=== PATIENT | female | born 1990 | race Caucasian/White ===

== ENCOUNTER 2020-10-23 11:45 | Emergency (ER) | payer OTHER, SELFPAY ==
[2020-10-23] VITALS (10 sets, daily range): BP systolic 102–111; BP diastolic 53–73; PULSE 62–94; RESP 11–21; TEMP 36.4–36.8; O2SAT 100
--- NOTE | ~2020-10-23 | XR_ITS ---
EXAMINATION: XR chest 2V 10/23/2020 12:49 INDICATION: Chest pain, shortness of breath and tightness PROCEDURE: 2 view chest COMPARISON: 05/20/2005 FINDINGS: The lungs are clear. The cardiomediastinal silhouette is within normal limits. There are no pleural effusions. There is no pneumothorax suspected. IMPRESSION: 1: NO ACUTE CARDIOPULMONARY DISEASE. Reviewed, dictated and finalized at location A.
--- NOTE | 2020-10-23 12:03 | ECG_ITS ---
Measurements Intervals [place] Rate: 84 P: 73 VA: 157 QRS: 60 QRSD: 77 T: 53 QT: 372 QTc: 442 Interpretive Statements SINUS RHYTHM NORMAL ECG Electronically Signed On 10-23-2020 12:15:25 CDT by Ever Keyes D.O.
[2020-10-23 12:27] LABS: Basophils Percent Auto 0.4 % (0.2-1.2); Eosinophils Absolute Auto 0.2 K/mm3 (0-0.3); Eosinophils Percent Auto 3.9 % (0-4.4); Hematocrit 39.2 % (37.0-47.0); Lymphocytes Absolute Auto 1.39 K/mm3 (0.9-3.2); Lymphocytes Percent Auto 28.8 % (18.3-44.2); Mean Corpuscular HGB Conc 33.2 g/dl (32-36); Mean Corpuscular Hemoglobin 30.7 pg (26-34); Mean Corpuscular Volume 92.7 fl (80-100); Mean Platelet Volume 9.5 fl (7.4-10.4); Monocytes Absolute Auto 0.3 K/mm3 (0.1-0.6); Neutrophils Absolute Auto 2.9 K/mm3 (1.3-6.7); Neutrophils Percent Auto 59.9 % (45.5-73.1); Platelet Count Result 333 k/mm3 (150-375); Red Blood Count 4.23 M/mm3 (4.2-5.4); Red Cell Distribution Width 12.5 % (11.5-14.5); White Blood Count 4.8 K/mm3 (4.5-10.0)
[2020-10-23 12:40] LABS: Anion Gap 6 mmol/L (8-16); Blood Urea Nitrogen 6 mg/dL (7-17); Calcium 9.2 mg/dL (8.4-10.2); Carbon Dioxide 21 mmol/L (22-30); Chloride 114 mmol/L (98-107); Estimated CRCL calculation 114 ml/min; Estimated Glomerular Filt Rate > 60; Glucose 84 mg/dL (65-110); Potassium 3.9 mmol/L (3.4-5.0); Sodium 141 mmol/L (137-145)
[2020-10-23 12:48] LABS: Prothrombin Time 12.6 Seconds (11.1-14.7)
[2020-10-23 12:49] LABS: Partial Thromboplastin Time 25.1 SECONDS (22.3-36.8)
[2020-10-23 12:51] LABS: Troponin I < 0.012 ng/mL (0.000-0.034)
--- NOTE | 2020-10-23 15:01 | ED.GENADULT ---
HPI - General Adult General Chief complaint: Chest Pain Stated complaint: Multiple c/o Time Seen by Provider: 10/23/20 15:00 Source: patient and family Mode of arrival: ambulatory Limitations: no limitations History of Present Illness HPI narrative: Patient had been out fishing with her father for approximately an hour this morning when she started to feel short of breath and lightheaded, she had some tightness in her chest. She went home to cool off but did not get any better, so she called her father back to drive her here. She says since she been here the shortness of breath is gotten much better. She still feels a little off . She states that she did drink 64 ounces of water while fishing. She has no change in medication, no recent illness. Onset (ago): hour(s) Severity: mild Pain Consistency: constant Relieving factors: none Exacerbating factors: none Associated symptoms: denies other symptoms Related Data Home Medications Medication Instructions Recorded Confirmed cetirizine [Zyrtec] 10 mg PO DAILY 10/23/20 quetiapine [Seroquel] 25 mg PO HS 10/23/20 ropinirole [Requip] mg 10/23/20 Allergies Allergy/AdvReac Type Severity Reaction Status Date / Time acetaminophen AdvReac Severe Nausea, Verified 10/23/20 14:35 Dizzy, Lightheaded oxycodone AdvReac Severe Nausea, Verified 10/23/20 14:35 Dizzy, Lightheaded Review of Systems Review of Systems: All systems reviewed & are unremarkable except as noted in HPI and below [facility] Past Medical History Medical History (Updated 10/23/20 @ 17:18 by Katina Etienne PA-C) Atrial tachycardia Surgical History Surgical History (Updated 10/23/20 @ 15:16 by Katina Etienne PA-C) S/P ablation operation for arrhythmia Social History Social History (Updated 10/23/20 @ 15:17 by Katina Etienne PA-C) Tobacco type: e-cigarettes/vaping Alcohol use details: occasional Substance use: never Living arrangements: with family Exam Const: General: healthy appearing, no acute distress and alert Orientation/consciousness: patient oriented x3 HENMT: Head: normal to inspection Ears: TM's normal bilaterally Mouth: Yes moist mucous membranes Eyes: Pupils: Equal, round and reactive pupils present Resp: Effort & Inspection: normal respiratory effort Auscultation: clear to auscultation bilaterally Cardio: Rate: regular rate Rhythm: regular rhythm GI: GI Palp: Yes Soft to palpation : General: Yes no CVA tenderness Skin: General skin exam: normal color and other (extremities slightly cool to touch, <2 sec perfusion distally.) Neuro: General: patient oriented x3, moves all extremities and no focal motor deficits Psych: Mental Status: mental status grossly normal Course Course Emergency Course: Orthostatic blood pressures were without gradient. Patient states she is feels much better after fluid resuscitation. She is ready to go home. All labs and x-rays EKG were reviewed with patient Vital Signs Vital signs: Vital Signs Temperature 36.4 C 10/23/20 12:00 Pulse Rate 94 10/23/20 12:00 Respiratory Rate 16 10/23/20 12:00 Blood Pressure 103/53 L 10/23/20 12:00 Pulse Oximetry 100 10/23/20 12:00 Temperature 36.4 C 10/23/20 12:00 Pulse Rate 94 10/23/20 12:00 Respiratory Rate 16 10/23/20 12:00 Blood Pressure 103/53 L 10/23/20 12:00 Pulse Oximetry 100 10/23/20 12:00 Medical Decision Making Vital Signs Vital Signs: Vital Signs Temperature 36.4 C 10/23/20 12:00 Pulse Rate 94 10/23/20 12:00 Respiratory Rate 16 10/23/20 12:00 Blood Pressure 103/53 L 10/23/20 12:00 Pulse Oximetry 100 10/23/20 12:00 Temperature 36.4 C 10/23/20 12:00 Pulse Rate 94 10/23/20 12:00 Respiratory Rate 16 10/23/20 12:00 Blood Pressure 103/53 L 10/23/20 12:00 Pulse Oximetry 100 10/23/20 12:00 Lab Data Result diagrams: 10/23/20 12:17 10/23/20 12:17 Labs: La
[2020-10-23] MEDS: ASPIRIN 81 MG CHEWABLE TABLET 324 MG PO (15:02)
[2020-10-23 15:35] LABS: Troponin I < 0.012 ng/mL (0.000-0.034)
[2020-10-23] MEDS: SODIUM CHLORIDE 0.9% IV 1,000 ML 999 ML IV CONT (15:50)
== END 2020-10-23 17:25 | disposition home or self-care (01) ==
PROVIDERS: Emergency Medicine; Emergency Provider Emergency Medicine; PCP Family Medicine
DX: E86.0 Dehydration (principal)
CPT/HCPCS: 36415; 71046; 80048; 84484; 85025; 85610; 85730; 93005; 96360; 99284; A9270; J7030

== ENCOUNTER 2021-11-04 11:32 | Emergency (ER) | payer OTHER, SELFPAY ==
[2021-11-04 12:39] VITALS: BP 104/65; PULSE 96; RESP 20; TEMP 36.2; O2SAT 100
--- NOTE | 2021-11-04 13:31 | ED.URI ---
HPI - URI/Sore Throat General Chief Complaint: Upper Respiratory Infection Stated Complaint: Sinus, Fever Time Seen by Provider: 11/04/21 13:31 Source: patient, RN notes reviewed and old records reviewed Mode of arrival: ambulatory Limitations: no limitations History of Present Illness HPI Narrative: 31-year-old female presents to the [facility] approximately 1 week of sinus issues. Reports facial pressure, ear pressure, runny nose and congestion. Reports a nonproductive cough. Has been taking her normal allergy medication with minimal relief. 3 days ago ear pain started, cough, felt febrile. Onset (ago): day(s) (3) Related Data Home Medications Medication Instructions Recorded Confirmed cetirizine 10 mg tablet (Zyrtec) 10 mg PO DAILY 10/23/20 11/04/21 quetiapine 25 mg tablet (Seroquel) 25 mg PO HS 10/23/20 11/04/21 ropinirole 0.5 mg tablet 0.5 mg DIRECTED 10/23/20 11/04/21 Allergies Allergy/AdvReac Type Severity Reaction Status Date / Time acetaminophen AdvReac Severe Nausea, Verified 10/23/20 14:35 Dizzy, Lightheaded oxycodone AdvReac Severe Nausea, Verified 10/23/20 14:35 Dizzy, Lightheaded Review of Systems Review of Systems: All systems reviewed & are unremarkable except as noted in HPI and below Constitutional: Constitutional: Reports no additional constitutional complaints, Denies chills and Denies fever(s) Eyes: Eyes: Reports no additional eye complaints ENT: Reports as per HPI, Reports otalgia (Bilateral) and Reports nasal congestion Cardiovascular: Cardiovascular: Reports no additional cardiovascular complaints Respiratory: Respiratory: Reports as per HPI and Reports cough (Nonproductive) Gastrointestinal: Gastrointestinal: Reports no additional gastrointestinal complaints Musculoskeletal: Musculoskeletal: Reports no additional musculoskeletal complaints Integumentary/Breasts: Skin/Breast: Reports system reviewed and no additional complaints, except as docu Neurologic: Reports system reviewed and no additional complaints, except as documented Psychiatric: Psychiatric: Reports no additional psychiatric complaints Allergic/Immunologic: Allergic/Immunologic: Reports no additional allergic/immunologic complaints PMFSH Past Medical History Medical History Atrial tachycardia Surgical History Surgical History S/P ablation operation for arrhythmia Social History Social History Tobacco type: e-cigarettes/vaping Alcohol use details: occasional Substance use: never Comments At the time of my signature, I reviewed and agree with the nursing past medical, surgical, social, and family history. There is no relevant family history pertinent to the patient complaint. Exam Const: General: healthy appearing, no acute distress and alert Nutritional Appearance: well nourished Orientation/consciousness: patient oriented x3 Limitations: no limitations HENMT: Head: normal to inspection Ears: external ears normal and TM abnormal erythematous on the right General nose exam: Normal external nose present and Normal nares present Face and sinus: sinus tenderness frontal and maxillary Throat: posterior oropharynx normal and uvula midline Eyes: General: appearance normal, both eyes and all related structures Pupils: Equal, round and reactive pupils present Neck: Neck: normal visual inspection, no lymphadenopathy and no meningeal signs Chest: Chest palpation & inspection: normal inspection of the chest Resp: Effort & Inspection: normal respiratory effort and no use of accessory muscles Auscultation: clear to auscultation bilaterally, no crackles, no rales, no rhonchi and no wheezes Cardio: Rate: regular rate Rhythm: regular rhythm Back/Spine/Pelvis: Cervical Spine: normal cervical lordosis Thoracic/Lumbar Spi
== END 2021-11-04 13:46 | disposition home or self-care (01) ==
PROVIDERS: Emergency Provider Nurse Practitioner; PCP Family Medicine
DX: H66.91 Otitis media, unspecified, right ear (principal); J01.90 Acute sinusitis, unspecified; F17.290 Nicotine dependence, other tobacco product, uncomplicated
CPT/HCPCS: 99213; G0463

== ENCOUNTER 2023-11-09 12:53 | Emergency (ER) | payer OTHER, SELFPAY ==
[2023-11-09 13:08] VITALS: BP 125/71; PULSE 119; RESP 16; TEMP 38.8; O2SAT 99
--- NOTE | 2023-11-09 14:06 | ED.URI ---
HPI - URI/Sore Throat General Chief Complaint: Upper Respiratory Infection Stated Complaint: cough,sore throat,fever,aching,chills Time Seen by Provider: 11/09/23 14:38 Source: patient, RN notes reviewed and old records reviewed Mode of arrival: ambulatory Limitations: no limitations History of Present Illness HPI Narrative: Patient presents with complaints of 2 day history of fever, cough, body aches, headache, nausea. She took ibuprofen 1 time for her symptoms, did not get any relief, so has not been taking anything for her symptoms since then. She denies any shortness of breath. She does report that she is concerned about her health given her fever and the fact that she has been exposed to 2 people with pneumonia. No other concerns or complaints today. Related Data Home Medications Medication Instructions Recorded Confirmed quetiapine 25 mg tablet (Seroquel) 25 mg PO HS 10/23/20 11/09/23 ropinirole 0.5 mg tablet 0.5 mg DIRECTED 10/23/20 11/09/23 Allergies Allergy/AdvReac Type Severity Reaction Status Date / Time acetaminophen AdvReac Severe Nausea, Verified 11/09/23 14:56 Dizzy, Lightheaded oxycodone AdvReac Severe Nausea, Verified 11/09/23 14:56 Dizzy, Lightheaded Review of Systems Review of Systems: All systems reviewed & are unremarkable except as noted in HPI and below Constitutional: Constitutional: Reports no additional constitutional complaints ENT: Reports system reviewed and no additional complaints, except as documented, Reports as per HPI, Reports headache(s), Reports nasal congestion and Reports nasal discharge Cardiovascular: Cardiovascular: Reports as per HPI and Reports no additional cardiovascular complaints Respiratory: Respiratory: Reports as per HPI, Reports no additional respiratory complaints and Reports cough Gastrointestinal: Gastrointestinal: Reports no additional gastrointestinal complaints Musculoskeletal: Musculoskeletal: Reports no additional musculoskeletal complaints, Reports as per HPI and Reports myalgias PMFSH Past Medical History Medical History Atrial tachycardia Surgical History Surgical History S/P ablation operation for arrhythmia Social History Social History Tobacco type: e-cigarettes/vaping Alcohol use details: occasional Substance use: never Living arrangements: with family Exam Const: General: cooperative, no acute distress, alert, awake and uncomfortable Orientation/consciousness: oriented to person, oriented to place and oriented to time HENMT: Head: normal to inspection Ears: TM's normal bilaterally Mouth: Yes moist mucous membranes Throat: posterior oropharynx abnormal erythema Resp: Effort & Inspection: normal respiratory effort and able to speak in complete sentences Auscultation: clear to auscultation bilaterally, no crackles, no rales, no rhonchi and no wheezes Cardio: Palpation: normal PMI Rate: regular rate Rhythm: regular rhythm Heart sounds: S1 normal heart sound present and S2 normal heart sound present Neuro: General: oriented to person, oriented to place and oriented to time Cranial nerves: Yes CN's II-XII intact bilaterally Psych: Appearance: grossly normal Thought process: Normal thought process present Insight: Good insight present (Psych) Judgement: Good judgement present (Psych) Course Course Level of Care: Express Care Visit Vital Signs Vital signs: Vital Signs Temperature 101.8 F H 11/09/23 13:08 Pulse Rate 119 H 11/09/23 13:08 Respiratory Rate 16 11/09/23 13:08 Blood Pressure 125/71 11/09/23 13:08 Pulse Oximetry 99 11/09/23 13:08 Oxygen Delivery Room Air 11/09/23 13:08 Temperature 101.8 F H 11/09/23 13:08 Pulse Rate 119 H 11/09/23 13:08 Respiratory Rate 16 11/09/23 13:08 Blood Pressure 12
[2023-11-09 14:46] VITALS: TEMP 38.8
[2023-11-09] MEDS: IBUPROFEN 400 MG TABLET 800 MG PO (14:46)
[2023-11-09 15:07] LABS: EDINFLUASCREEN Negative; EDINFLUBSCREEN Negative; EDSTREPNEGPOS1 Negative
[2023-11-09 15:17] VITALS: PULSE 120; TEMP 39.2
[2023-11-09 15:22] VITALS: TEMP 38.8
[2023-11-09 15:39] LABS: EDSTREPNEGPOS1 Negative
== END 2023-11-09 15:40 | disposition home or self-care (01) ==
PROVIDERS: Emergency Provider Nurse Practitioner Family; PCP Nurse Practitioner Family
DX: J02.9 Acute pharyngitis, unspecified (principal); Z20.822 Contact with and (suspected) exposure to COVID-19; F17.290 Nicotine dependence, other tobacco product, uncomplicated
CPT/HCPCS: 87081; 87426; 87804; 87880; 99213; A9270; G0463

== ENCOUNTER 2023-11-10 17:10 | Emergency (ER) | payer OTHER, SELFPAY ==
[2023-11-10] VITALS (14 sets, daily range): BP systolic 106–114; BP diastolic 56–65; PULSE 67–119; RESP 18–35; TEMP 37.3–38.6; O2SAT 96–100
--- NOTE | ~2023-11-10 | XR_ITS ---
EXAMINATION: XR chest 2V DATE: 11/10/2023 18:14 INDICATION: Cough and sepsis. TECHNIQUE: Frontal and lateral views of the chest were obtained. COMPARISON: Chest 2 views 10/23/2020 FINDINGS: There are airspace opacities in left lower lobe. No pleural effusion or pneumothorax. The h eart size is normal. IMPRESSION: 1. Airspace opacities in left lower lobe, consistent with atelectasis versus pneumonia. Reviewed, dictated and finalized at location A. IMPRESSION: 1. Airspace opacities in left lower lobe, consistent with atelectasis versus pn eumonia.
--- NOTE | 2023-11-10 17:41 | ED.SOB ---
HPI - SOB/Dyspnea General Chief Complaint: Shortness of Breath/Dyspnea Stated Complaint: SOB Time Seen by Provider: 11/10/23 17:31 History of Present Illness HPI Narrative: For last 2 days patient has had URI symptoms, she has a sick co-worker at work, she has been having runny nose, cough, congestion, and yesterday got much worse, she was running fevers despite Motrin and Tylenol taken around the clock, had negative flu and COVID swabs, today was not doing better he so came in. Related Data Home Medications Medication Instructions Recorded Confirmed quetiapine 25 mg tablet (Seroquel) 25 mg PO HS 10/23/20 11/09/23 ropinirole 0.5 mg tablet 0.5 mg DIRECTED 10/23/20 11/09/23 Allergies Allergy/AdvReac Type Severity Reaction Status Date / Time acetaminophen AdvReac Severe Nausea, Verified 11/09/23 14:56 Dizzy, Lightheaded oxycodone AdvReac Severe Nausea, Verified 11/09/23 14:56 Dizzy, Lightheaded Review of Systems Review of Systems: All systems reviewed & are unremarkable except as noted in HPI and below [facility] Past Medical History Medical History Atrial tachycardia Surgical History Surgical History S/P ablation operation for arrhythmia Social History Social History Tobacco type: e-cigarettes/vaping Alcohol use details: occasional Substance use: never Living arrangements: with family Exam Narrative: EXAMINATION OF ORGAN SYSTEMS/BODY AREAS: Constitutional: Vital signs per nursing GENERAL:[No acute distress, non-toxic appearing.] HEAD: Normal with no signs of head trauma. EYES: EOMI, conjunctiva normal ENT: Hearing grossly intact LUNGS: Nonlabored breathing. Slight end expiratory wheeze HEART: Tachycardic ABD: [Soft], [nontender to palpation] EXT: Normal range of motion SKIN: [No rashes or lesions.] NEURO: [Alert and oriented x 3. No gross focal sensory or strength deficits.] PSYCH: Normal affect Course Vital Signs Vital signs: Vital Signs Temperature 101.4 F H 11/10/23 17:17 Pulse Rate 113 H 11/10/23 17:17 Respiratory Rate 24 H 11/10/23 17:17 Blood Pressure 109/56 L 11/10/23 17:17 Pulse Oximetry 98 11/10/23 17:17 Oxygen Delivery Room Air 11/10/23 17:17 Temperature 101.4 F H 11/10/23 17:17 Pulse Rate 106 H 11/10/23 17:58 Respiratory Rate 18 11/10/23 17:58 Blood Pressure 109/56 L 11/10/23 17:17 Pulse Oximetry 98 11/10/23 17:17 Oxygen Delivery Room Air 11/10/23 17:17 MDM - SOB/Dyspnea MDM Narrative Medical decision making narrative: 33-year-old female presenting with viral syndrome and fever, she appears sad but otherwise no significant respiratory distress, lungs with some very minimal end expiratory wheezing. she is given 2 fluids and Toradol, she has no elevated white count, x-ray showing possible pneumonia, I did offer the patient admission versus close follow-up and to rather go home at this time, cough medicine provided and prescription for albuterol inhaler, I have let her know she can return for any further issues and she is agreeable to this. Lab Data 11/10/23 18:20 11/10/23 18:20 Labs: Lab Results 11/10/23 Range/Units 18:20 WBC 6.2 (4.5-10.0) K/mm3 RBC 3.96 L (4.2-5.4) M/mm3 Hgb 12.2 (12.0-15.0) g/dL Hct 36.6 L (37.0-47.0) % MCV 92.4 (80-100) fl MCH 30.8 (26-34) pg MCHC 33.3 (32-36) g/dl RDW 12.8 (11.5-14.5) % Plt Count 254 (150-375) k/mm3 MPV 10.4 (7.4-10.4) fl Immature Gran % (Auto) 0.3 (0-0.5) % Neut % (Auto) 86.6 H (45.5-73.1) % Lymph % (Auto) 6.4 L (18.3-44.2) % [place] % (Auto) 5.3 (2.6-8.5) % Eos % (Auto) 1.1 (0-4.4) % Baso % (Auto) 0.3 (0.2-1.2) % Lymph # (Auto) 0.40 L (0.9-3.2) K/mm3 [place] # (Auto) 0.3 (0.1-0.6) K/mm3 Eos # (Auto) 0.1
[2023-11-10] MEDS: IPRATROPIUM 0.5 MG/ALBUTEROL SULFATE 2.5 MG AMPUL.NEB 3 ML INHALATION (17:50)
[2023-11-10] MEDS: ONDANSETRON INJ 4 MG/2 ML VIAL IV PUSH (18:01)
[2023-11-10] MEDS: KETOROLAC 15 MG/ML VIAL (*BKC) IV PUSH (18:03)
[2023-11-10] MEDS: LACTATED RINGERS 1,000 ML 999 ML IV CONT ×2 (18:04→19:14)
[2023-11-10 18:29] LABS: Basophils Percent Auto 0.3 % (0.2-1.2); Eosinophils Absolute Auto 0.1 K/mm3 (0-0.3); Eosinophils Percent Auto 1.1 % (0-4.4); Hematocrit 36.6 % (37.0-47.0); Hemoglobin 12.2 g/dL (12.0-15.0); Immature Granulocyte Absolute 0.02 K/mm3 (0.00-0.031); Immature Granulocyte Percent A 0.3 % (0-0.5); Lymphocytes Percent Auto 6.4 % (18.3-44.2); Mean Corpuscular HGB Conc 33.3 g/dl (32-36); Mean Corpuscular Hemoglobin 30.8 pg (26-34); Mean Corpuscular Volume 92.4 fl (80-100); Mean Platelet Volume 10.4 fl (7.4-10.4); Monocytes Absolute Auto 0.3 K/mm3 (0.1-0.6); Monocytes Percent Auto 5.3 % (2.6-8.5); Neutrophils Absolute Auto 5.4 K/mm3 (1.3-6.7); Neutrophils Percent Auto 86.6 % (45.5-73.1); Platelet Count Result 254 k/mm3 (150-375); Red Blood Count 3.96 M/mm3 (4.2-5.4); Red Cell Distribution Width 12.8 % (11.5-14.5); White Blood Count 6.2 K/mm3 (4.5-10.0)
[2023-11-10 18:39] LABS: Lactic Acid Reflex 2.1 mmol/L (0.7-2.0)
[2023-11-10 18:41] LABS: Alanine Aminotransferase 25 U/L (6-35); Albumin Level 3.4 g/dL (3.5-5.1); Alkaline Phosphatase 60 U/L (38-126); Anion Gap 10 mmol/L (4-12); Aspartate Amino Transferase 34 U/L (14-36); Bilirubin,Total 0.4 mg/dL (0.2-1.3); Blood Urea Nitrogen 3 mg/dL (7-17); CRP 5.1 mg/dL (<1.0); Carbon Dioxide 20 mmol/L (22-30); Chloride 105 mmol/L (98-107); Estimated CRCL calculation 117 ml/min; Estimated Glomerular Filt Rate > 60; Glucose 119 mg/dL (65-110); Potassium 3.2 mmol/L (3.4-5.0); Sodium 135 mmol/L (137-145)
[2023-11-10] MEDS: AZITHROMYCIN 250 MG TABLET 500 MG PO (18:46)
[2023-11-10] MEDS: POTASSIUM CHLORIDE 20 MEQ ER TABLET 40 MEQ PO (19:12)
[2023-11-10 19:32] LABS: BEDSIDEPREGUCG Negative
[2023-11-10 19:51] LABS: Add Urine Microscopic? YES; Appearance Urine Clear (Clear); Bacteria Urine None Seen /hpf; Bilirubin Urine Negative (Negative); Blood Urine Negative (Negative); Color Urine Yellow (Yellow); Glucose Urine UA Negative (Negative); Ketones Urine Negative (Negative); Leukocyte Esterase Ur Trace LEU/UL (Negative); Need Manual Microscopic Reviewed; Nitrate Urine Negative (Negative); Non Pathogenic Casts 0-2; Protein Urine Negative (Negative); RBC Urine 0-2 /hpf (0-2); Specific Grav Ur 1.004 (1.001-1.035); Squamous Epithelial Cell Urine Occasional /hpf (Few); Urobilinogen Urine 0.2 mg/dL (<2.0); WBC Urine 0-5 /hpf (0-3); pH Urine 6.5 (5.0-9.0)
[2023-11-10 21:26] LABS: Reflex Lactic Acid Yes or No Add Lactic
== END 2023-11-10 20:25 | disposition home or self-care (01) ==
PROVIDERS: Emergency Provider Emergency Medicine; PCP Nurse Practitioner Family
DX: J20.9 Acute bronchitis, unspecified (principal); F17.290 Nicotine dependence, other tobacco product, uncomplicated
CPT/HCPCS: 36415; 71046; 80053; 81001; 81025; 83605; 85025; 86140; 87040; 94640; 96361; 96365; 96375; 99284; A9270; J0696; J1885; J2405; J7120

== ENCOUNTER 2023-11-30 07:15 | Emergency (ER) | payer OTHER, SELFPAY ==
[2023-11-30 07:20] VITALS: BP 112/66; PULSE 92; RESP 16; TEMP 36.8; O2SAT 98
--- NOTE | 2023-11-30 07:49 | ED.GENADULT ---
HPI - General Adult General Chief complaint: Unspecified Stated complaint: pain with swallowing thinks she has strep Time Seen by Provider: 11/30/23 07:37 History of Present Illness HPI narrative: This is a pleasant 33-year-old female presenting ED with chief of sore throat. Patient says that starting yesterday she developed sore throat. She has developed a hoarse voice. She does not have fevers nasal congestion nausea vomiting or diarrhea. 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 She believe she has strep throat. Patient had her tonsils age 20. Related Data Home Medications Medication Instructions Recorded Confirmed quetiapine 25 mg tablet (Seroquel) 25 mg PO HS 10/23/20 11/09/23 ropinirole 0.5 mg tablet 0.5 mg DIRECTED 10/23/20 11/09/23 Allergies Allergy/AdvReac Type Severity Reaction Status Date / Time narcotic AdvReac Other Uncoded 11/30/23 07:[facility] Past Medical History Medical History Atrial tachycardia Surgical History Surgical History S/P ablation operation for arrhythmia Social History Social History Tobacco type: e-cigarettes/vaping Alcohol use details: occasional Substance use: never Living arrangements: with family Exam Narrative: APPEARANCE: No apparent distress. Head: Erythema posterior oropharynx without exudates. No tonsils present. EYES: EOMI, NOSE: Atraumatic NECK: Trachea midline RESPIRATORY: No increased rate of breathing CTAB CARDIOVASCULAR: RRR, ABDOMINAL: Non-distended MUSCULOSKELETAl: No obvious deformities NEURO: Alert. Moving 4/4 extremities SKIN:: Warm, dry. Normal color PSYCHIATRIC: Normal affect Course Vital Signs Vital signs: Vital Signs Temperature 98.3 F 11/30/23 07:20 Pulse Rate 92 11/30/23 07:20 Respiratory Rate 16 11/30/23 07:20 Blood Pressure 112/66 11/30/23 07:20 Pulse Oximetry 98 11/30/23 07:20 Oxygen Delivery Room Air 11/30/23 07:20 Temperature 98.3 F 11/30/23 07:20 Pulse Rate 92 11/30/23 07:20 Respiratory Rate 16 11/30/23 07:20 Blood Pressure 112/66 11/30/23 07:20 Pulse Oximetry 98 11/30/23 07:20 Oxygen Delivery Room Air 11/30/23 07:20 Medical Decision Making MDM Narrative Medical decision making narrative: -Course: 33-year-old female presenting with sore throat. History of recurrent strep. Patient treated with dexamethasone amoxicillin Motrin Tylenol. 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 Denies drugs or alcohol -Independent interpretation of studies: Strep pending -Interventions: Dexamethasone, amoxicillin, Tylenol, motrin -Shared decision making / Disposition: Discharge -RX amoxicillin, Motrin Tylenol Vital Signs Vital Signs: Vital Signs Temperature 98.3 F 11/30/23 07:20 Pulse Rate 92 11/30/23 07:20 Respiratory Rate 16 11/30/23 07:20 Blood Pressure 112/66 11/30/23 07:20 Pulse Oximetry 98 11/30/23 07:20 Oxygen Delivery Room Air 11/30/23 07:20 Temperature 98.3 F 11/30/23 07:20 Pulse Rate 92 11/30/23 07:20 Respiratory Rate 16 11/30/23 07:20 Blood Pressure 112/66 11/30/23 07:20 Pulse Oximetry 98 11/30/23 07:20 Oxygen Delivery Room Air 11/30/23 07:20 Lab Data Labs: Lab Results 11/30/23 Range/Units 07:28 Group A Strep (PCR) Pending Discharge Plan Discharge Clinical Impression: Pharyngitis Patient Disposition: Home, Self-Care Condition: Stable Instructions: Antibiotic Form, Pharyngitis (ED) Additional Instructions: Please use Motrin Tylenol for pain control. Completed course of amoxicillin as instructed. Return to the ED if you develop difficulty swallowing her own spit, difficult
[2023-11-30 07:56] LABS: Strep Group A RT-PCR NOT DETECTED (Negative)
[2023-11-30] MEDS: AMOXICILLIN 500 MG CAPSULE PO (08:07)
[2023-11-30] MEDS: IBUPROFEN 400 MG TABLET 800 MG PO (08:07)
[2023-11-30] MEDS: dexAMETHasone SOD PHOS INJ 10 MG/ML 1 ML VIAL IM (08:07)
[2023-11-30] MEDS: ACETAMINOPHEN 500 MG TABLET 1000 MG PO (08:07)
== END 2023-11-30 08:10 | disposition home or self-care (01) ==
PROVIDERS: Emergency Provider Emergency Medicine; PCP Nurse Practitioner Family
DX: J02.9 Acute pharyngitis, unspecified (principal); F17.290 Nicotine dependence, other tobacco product, uncomplicated
CPT/HCPCS: 87651; 96372; 99283; A9270; J1100

== ENCOUNTER 2024-05-16 10:38 | Emergency (ER) | payer OTHER, SELFPAY ==
[2024-05-16 10:56] VITALS: BP 130/76; PULSE 81; RESP 16; TEMP 36.4; O2SAT 99
[2024-05-16 11:05] LABS: BEDSIDEPREGUCG Negative (Negative)
[2024-05-16 11:24] LABS: Add Urine Microscopic? YES; Appearance Urine Clear (Clear); Bacteria Urine 1+ /hpf; Bilirubin Urine Negative (Negative); Blood Urine 1+ (Negative); Color Urine Yellow (Yellow); Glucose Urine UA Negative (Negative); Ketones Urine Negative (Negative); Leukocyte Esterase Ur 1+ LEU/UL (Negative); Need Manual Microscopic Reviewed; Nitrate Urine Negative (Negative); Non Pathogenic Casts 0-2; Protein Urine Negative (Negative); RBC Urine 0-2 /hpf (0-2); Specific Grav Ur 1.012 (1.001-1.035); Squamous Epithelial Cell Urine Few /hpf (Few); Urobilinogen Urine 0.2 mg/dL (<2.0); WBC Urine 0-5 /hpf (0-3); pH Urine 7.5 (5.0-9.0)
[2024-05-16 11:53] VITALS: BP 131/79; PULSE 74; RESP 18; TEMP 37.1; O2SAT 100
[2024-05-16] MEDS: SODIUM CHLORIDE 0.9% IV 1,000 ML 999 ML IV CONT (12:04)
[2024-05-16] MEDS: ONDANSETRON INJ 4 MG/2 ML VIAL IV PUSH (12:05)
[2024-05-16 12:06] LABS: Basophils Percent Auto 0.2 % (0.2-1.2); Eosinophils Absolute Auto 0.1 K/mm3 (0-0.3); Eosinophils Percent Auto 1.1 % (0-4.4); Hematocrit 39.2 % (37.0-47.0); Hemoglobin 12.8 g/dL (12.0-15.0); Immature Granulocyte Absolute 0.03 K/mm3 (0.00-0.031); Immature Granulocyte Percent A 0.4 % (0-0.5); Lymphocytes Absolute Auto 1.06 K/mm3 (0.9-3.2); Mean Corpuscular HGB Conc 32.7 g/dl (32-36); Mean Corpuscular Hemoglobin 30.3 pg (26-34); Mean Corpuscular Volume 92.9 fl (80-100); Mean Platelet Volume 9.9 fl (7.4-10.4); Monocytes Absolute Auto 0.4 K/mm3 (0.1-0.6); Monocytes Percent Auto 4.8 % (2.6-8.5); Neutrophils Absolute Auto 6.5 K/mm3 (1.3-6.7); Neutrophils Percent Auto 80.5 % (45.5-73.1); Platelet Count Result 292 k/mm3 (150-375); Red Blood Count 4.22 M/mm3 (4.2-5.4); Red Cell Distribution Width 13.2 % (11.5-14.5); White Blood Count 8.1 K/mm3 (4.5-10.0)
[2024-05-16] MEDS: TETANUS,DIPHTHERIA,AC PERTUSSIS ADULT (0.5 ML) BOOSTRIX IM (12:06)
[2024-05-16 12:15] LABS: Alanine Aminotransferase 18 U/L (6-35); Albumin Level 4.1 g/dL (3.5-5.1); Alkaline Phosphatase 71 U/L (38-126); Anion Gap 10 mmol/L (4-12); Aspartate Amino Transferase 20 U/L (14-36); Bilirubin,Total 1.9 mg/dL (0.2-1.3); Blood Urea Nitrogen 9 mg/dL (7-17); Calcium 8.9 mg/dL (8.4-10.2); Carbon Dioxide 20 mmol/L (22-30); Chloride 108 mmol/L (98-107); Estimated CRCL calculation 110 ml/min; Estimated Glomerular Filt Rate > 60; Glucose 102 mg/dL (65-110); Potassium 4.3 mmol/L (3.4-5.0); Sodium 138 mmol/L (137-145)
--- OUTSIDE RECORDS SUMMARY | 2024-05-16 12:28 | XMS_ITS | Clinical Summary ---
Author Organization [facility] Address [address] [address] Care Team Providers Care Boatbuilder Supervisor Name Role Phone Unavailable Primary Care Provider Unavailabl e Source Comments [facility],non-owned Affiliates and Associated Physician Practices is amultiple site organization consisting of ambulatory clinics and hospital sitesin [place], [place], [place] and [place]. This disclosure is being madepursuant to the Care Everywhere program and may not contain all information available regarding this patient. Last updated 17.[facility] Social History Tobacco Use Types Packs/Day Years Used Date Smoking Tobacco: Never Assessed Sex and Gender Information Value Date Recorded Sex Assigned at Not on file Gender Identity Not on file Sexual Orientation Not on file Plan of Treatment Upcoming Encounters Date Type Department Care Team (Late st Contact Info) Description 07/21/2024 8:20 AM CDT Office Visit [facility] - Rheumatology [address] [place] [address], [facility] [place] [address] Yumi Andres MD [address] [place] [address] [place] [address] Health Maintenance Due Date Last Done Comments PAP SMEAR 1990 HIV SCREENING 2005 HEPATITIS C SCREENING 07/14/2008 DTAP/TDAP/TD VACCINES (1 - Tdap) 2009 HEPATITIS B VACCINE (1 of 3 - 19+ 3-dose series) 2009 COVID-19 VACCINE ( - 2023-2 5 season) 2023 INFLUENZA VACCINE (#1) 2023 DEPRESSION SCREENING 03/09/2024 ZOSTER VACCINE (1 of 2) 2040 HIB VACCINE Aged Out No longer eligi ble based on patient's age to complete this topic HPV VACCINE Aged Out No longer eligi ble based on patient's age to complete this topic MENINGOCOCCAL (Group B) VACCINE Aged Out No longer eligible based on patient's age to complete this topic MENINGOCOCCAL VACCINE Aged Out No jennifer juan david eligible based on patient's age to complete this topic PNEUMOCOCCAL VACCINE Aged Out No long er eligible based on patient's age to complete this topic Kallie Pritchett Personal/Family Self 1990
--- OUTSIDE RECORDS SUMMARY | 2024-05-16 12:28 | XMS_ITS | Referral Summary ---
Author Organization [facility] [address] [place] [address] Care Team Providers Care Bindery Leadperson Name Role Phone Tomasz Mcelroy MD Primary Care Provider [phone] Tomasa Henley MD Unavailable [phone] Allergies Active Allergy Reactions Criticality Noted Date Comments Tomato Hives Low Reaction: HIVES Medications methocarbamoL (ROBAXIN) 500 mg tabletIndicatio ns:Muscle Spasm Take 1 tablet (500 mg total) by mouth 3 (three) times a day 90 tablet 5 4 Active Additional Information Patient not taking.Reported on 09/24/2023 ibuprofen (ADVIL,MOTRIN) 600 mg tablet Take 1 tablet (600 mg total) by mouth every 6 (six) hours as needed for pain 120 tablet 3 4 Active Additional Information Patient not taking.Reported on 09/24/2023 Active Problems No known active problems Social History Tobacco Use Types Packs/Day Years Used Date Smoking Tobacco: Former Cigarettes Q uit: 03/09/2010 Tobacco Cessation:Counseling Given: Not Answered Alcohol Use Standard Drinks/Week Comments Yes 0 (1 standard drink = 0.6 oz pur e alcohol) Personal Safety Answer Date Recorded Getting School Help Needed Not on file 02/27 Comments Unknown Sex and Gender Information Value Date Recorded Sex Assigned at Not on file Legal 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 Gender Identity Female 06/02/2023 5:41 PM CDT Sexual Orientation Bisexual 06/02/2023 5: 41 PM CDT Last Filed Vital Signs Vital Sign Reading Time Taken Comments Blood Pressure 114/76 09/24/2023 11:10 AM CDT Pulse 118 09/24/2023 11:10 AM CDT Temperature - - Respiratory Rate - - Oxygen Saturation 97% 09/24/2023 11:10 AM CDT Inhaled Oxygen Concentration - - Weight 83.9 kg (185 lb) 09/24/2023 11:10 AM CDT Height 165.1 cm (5' 5 ) 09/24/2023 11:10 AM CDT Body Mass Index 30.79 09/24/2023 11:10 AM CDT Plan of Treatment Not on file Insurance [employer] [address] [place] [employer] Care Teams Bindery Leadperson Relationship Specialty Start Date End Date Tomasz Mcelroy MD [address] [place] [address] PCP - General Neurology 03/03/23 Tomasa Henley MD [address] [place] [address] [place] [id number] Family Medicine 03/03/23
--- OUTSIDE RECORDS SUMMARY | 2024-05-16 12:28 | XMS_ITS | Referral Summary ---
Author Organization [facility] Address [address] [address] [place] [address] Care Team Providers Care Rescue Instructor Name Role Phone Unavailable Primary Care Provider Unavailabl e Source Comments [facility],non-owned Affiliates and Associated Physician Practices is amultiple site organization consisting of ambulatory clinics and hospital sitesin [place], [place], [place] and [place]. This disclosure is being madepursuant to the Care Everywhere program and may not contain all information available regarding this patient. Last updated 17.[facility] Social History Tobacco Use Types Packs/Day Years Used Date Smoking Tobacco: Never Assessed Sex and Gender Information Value Date Recorded Sex Assigned at Not on file Gender Identity Not on file Sexual Orientation Not on file Plan of Treatment Upcoming Encounters Date Type Department Care Team (Late st Contact Info) Description 07/21/2024 8:20 AM CDT Office Visit [facility] - Rheumatology [address] [place] [address], [place] [phone] Yumi Andres MD [address] [place] [address] [place] [phone] Kallie Pritchett Personal/Family Self 1990
--- OUTSIDE RECORDS SUMMARY | 2024-05-16 12:28 | XMS_ITS | Clinical Summary ---
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 Gender Identity Female 06/02/2023 5:41 PM CDT Sexual Orientation Bisexual 06/02/2023 5: 41 PM CDT Obstetrics History Last Filed Vital Signs Vital Sign Reading [...] 09/24/2023 11:10 AM CDT Plan of Treatment Health Maintenance Due Date Last Done Comments Cervical Cancer Screening 1990 Depression Screening 1990 Hepatitis C Screening 1990 DTaP/Tdap/Td Vaccine (1 - Tdap) 2001 Varicella Vaccines (1 of 2 - 13+ 2-dose series) 07/20/2003 Hepatitis B Screening 2008 Regular Well Visit/Exam 18-64 2008 Covid-19 Vaccine ( season) 2023 03/17/2022, 02/22/2021, 06/08/2020, Additional history exists Influenza Vaccine (#1) 2023 , 12/07/2018, 12/26/2015, Additional history exists HPV Vaccines Aged Out No longer eligi ble based on patient's age to complete this topic Pneumococcal vaccine <65 Aged Out No longer eligible based on patient's age to complete this topic Insurance [facility] [place] [facility] [employer] Care Teams [employer] Gunfire Spotter Relationship Specialty Start Date End Date Tomasz Mcelroy MD [address] [place] [id number] PCP - General Neurology 03/03/23 Tomasa Henley MD [address] [place] [phone] Family Medicine 03/03/23
--- OUTSIDE RECORDS SUMMARY | 2024-05-16 12:28 | XMS_ITS | Patient Health Record ---
Author Organization [facility] [employer] Address [address] [place] [address] Care Team Providers Care Base Cloth Inspector Name Role Phone Yolis Estrada Primary Care Provider Dorota Hernandez Unavailable [phone] Burke Campa Unavailable [phone] Allergies Allergen (clinical drug ingredient) Drug/Non Drug Allergy documented on EMR Reaction Allergy Type Onset Date Status Gluten Gluten Unknown Allergy Active Results Component Value Reference Range Notes UDT Reviewed date:02/09/2024 02:56:26 PM Interpretation: Performing Lab: Notes/Report: THC NEG 0 - 50 ng/ml Cocaine NEG 0 - 300 ng/ml Amphetamine NEG 0 - 1000 ng/ml Buprenorphine (BUP) NEG 0 - 10 ng/ml Secobarbital (Bar) NEG 0 - 300 ng/ml Oxazepam (BZO) NEG 0 - 300 ng/ml 9-dnqfydjwez-8,7-zlpvcufp-2,3-diphenylpyrrolidine (SHARMAINE P) NEG 0 - 300 ng/ml Methamphetamine (MET) NEG 0 - 1000 ng/ml Methylenedioxymethamphetamine (MDMA) NEG 0 - 500 ng/ml Morphine (MOP 300/[id number]) NEG 0 - 300 ng/ml Methadone (MTD) NEG 0 - 300 ng/ml Phencyclidine (PCP) NEG 0 - 25 ng/ml Nortriptyline (TCA) NEG 0 - 1000 ng/ml Oxycodone NEG 0 - 300 ng/ml x NEG 0 - 300 ng/ml Reason For Referral No Information Medications Medication SIG (Take, Route, Frequency, Duration) Notes Start Date End Date Status ZyrTEC Allergy 10 MG 1 tablet Orally Once a day Active Ramelteon 8 MG 1 tablet at bedtime as needed Oral bedtime for 90 days Not-Taking hydrOXYzine HCl 10 MG 1 tablet Oral Once a day for 30 days Active rOPINIRole HCl 1 MG 1 tablet 1 to 3 hours before bedtime Orally Once a day Active Adderall XR 10 MG 1 capsule in the morning Orally Once a day Not-Taking traZODone HCl 50 MG 1 tablet at bedtime Oral at bedtime for 90 days Not-Taking QUEtiapine Fumarate 50 MG 1 tablet Orally Once a day for 14 days d/c after this script Not-Taking Social History Tobacco Use: Social History Observation Description Date Details (start date - stop date) Former Smoker NA - 01/25/2024 Sex Assigned At : Social History Observation Description Sex Assigned At Female Household Question Answer Notes Marital status: Number of adults in household: 2 Number of children in household: 1 son Level of education: not finished college Certifc ate Sexual History Question Answer Notes Had sex in the past 12 months (vaginal, oral, or anal)? Yes with Men only Tobacco Control (Standard) Question Answer Notes Tobacco use: Former smoker When did you stop smoking? 01/25/2024 How long has it been since y ou last smoked? Less than 1 month Additional Findings: Tobacco user e-cigarette Additional Findings: Tobacco non-user Current no nsmoker,Ex-cigarette smoker AUDIT-C (Standard) Question Answer Notes Did you have a drink contain ing alcohol in the past year? Yes How often did you have six o r more drinks on one occasion in the past year? Less than monthly (1 point) How many drinks did you have on a typical day when you were drinking in the past year? 1 or 2 drinks (0 point) How often did you have a dri nk containing alcohol in the past year? Daily or almost daily (4 points) Points 5 Problems Problem Type SNOMED Code ICD Code Onset Dates Problem Status W/U Status Risk Notes Problem 6284490 Primary insomnia (F51.01) Active confirmed Problem 11288405 Bipolar 2 disord er (F31.81) Active confirmed Problem 13270250 NIKKI (generalized anxiety disorder) (F41.1) Active confirmed Problem 22479783 ADHD (attention deficit hyperactivity disorder), combined type (F90.2) Active confirmed Problem 922565917 MDD (major depressive disorder), recurrent episode, mild (F33.0) Active confirmed Problem 24858260 Autism spectrum disorder (F84.0) Active confirmed Vital Signs Heart Rate 80 /min 05/09/2024 Respiratory Rate 16 /min 02/09/2024 Height-cm 162.56 cm 05/09/2024 Blood pressure diastolic 82 mm Hg 05/09/2024 Weight-kg 85.64 kg 05/09/2024 Height 64 in 05/09/2024 Blood pressure systolic 131 mm Hg 05/09/2024 Weight 188.8 lbs 05/09/2024 BMI 32.4 kg/m2 05/09/2024 Encounters Encounter Location Date Provider Diagnosis [facility] [address] [address] 02/09/2024 Dorota Thery Bipolar 2 disorder F31.81 ; NIKKI (generalized anxiety disorder) F41.1 ; Primary insomnia F51.01 and ADHD (attention deficit hyperactivity disorder), combined type F90.2 [facility] [address] [address] 02/29/2024 Dorota Thery Bipolar 2 disorder F31.81 ; NIKKI (generalized anxiety disorder) F41.1 ; Primary insomnia F51.01 and ADHD (attention deficit hyperactivity disorder), combined type F90.2 [facility] [address] [address] 03/28/2024 Dorota Thery Bipolar 2 disorder F31.81 ; NIKKI (generalized anxiety disorder) F41.1 ; Primary insomnia F51.01 and ADHD (attention deficit hyperactivity disorder), combined type F90.2 [facility] [address] [address] 04/12/2024 Dorota Thery Bipolar 2 disorder F31.81 ; NIKKI (generalized anxiety disorder) F41.1 ; Primary insomnia F51.01 and ADHD (attention deficit hyperactivity disorder), combined type F90.2 [facility] [address] [address] 05/09/2024 Dorota Thery NIKKI (generalized anxiety disorder) F41.1 ; Autism spectrum disorder F84.0 ; Primary insomnia F51.01 ; ADHD (attention deficit hyperactivity disorder), combined type F90.2 and MDD (major depressive disorder), recurrent episode, mild F33.0 [facility], [facility] [address] [place] [address] 05/11/2024 Dorota Crump [facility], [facility] [address] [place] [address] 03/03/2024 Dorota Therlulú [facility], [facility] [address] [place] [address] 04/01/2024 Dorota Crump Bipolar 2 disorder F31.81 [facility], [facility] [address] [place] [address] 04/05/2024 Dorota Therlulú [facility], [facility] [address] [place] [address] 04/19/2024 Dorota Therlulú [facility], [facility] [address] [place] [address] 04/19/2024 Dorota Crump Bipolar 2 disorder F31.81 [facility] [address] [facility] [address] [place] [address] 04/20/2024 Dorota Therlulú [facility], [facility] [address] [facility] [address] [place] [address] 05/04/2024 Dorota Therlulú [facility], [facility] [address] [address] 05/10/2024 Dorota Therlulú [facility], [facility] [address] [address] 05/11/2024 Dorota Therlulú [facility], [facility] [address] [address] 05/11/2024 Dorota Crump Assessments Encounter Date Diagnosis (ICD Code) Assessment Notes Treatment Notes Treatment Clinical Notes Section Notes 02/09/2024 Bipolar 2 disorder (ICD-10 - F31.81) 1. Bipolar depression presently taking Seroquel 100 mg - having depression increase Seroquel 150 mg at bedtime - no refill needed reported has rx at pharmacy already from PCP FOR 150MG labs done by PCP and Endo willl obtain continue therapy 2.Anxiety - see therapy has Vistaril 10 mg PRN - at home not using Educated on rx 3. Primary Insomnia sleep hygeine may take Vistaril 10 mg at bedtime NO REFILL needed 4. ADHD schedule JACOBY-2 TEST Currently taking Adderall XR 10 MG PCP prescribed 5. RLS- ON REQUIP 4 MG bedtime- PCP prescribes ADHD stimulates education Discuss with patient risk of misuse, abuse, and addiction before prescribing stimulant medicines. Health Technician Hearing patients not to share their prescribed stimulant with anyone else. Educate patients and their families on these serious risks, proper storage of the medicine, and proper disposal of any unused medicine. Educated patient will monitor Throughout treatment, regularly assess and monitor them for signs and symptoms of nonmedical use, addiction, and potential diversion, which may be evidenced by more frequent renewal. requests than warranted by the prescribed dosage. Random UDS [place] prescription reviewed local pharmacy in [place], no early refills on control substance educated on non-stimulate and stimulates Cannabis/marijuan a information: http_s://tammy.nih .gov/publications /drugfacts/cannab is-marijuana http_s://www.MediaHound/canna ivy-npx-hkpcswtq- marijuana-adhd/ http_s://www.jumana .org/About-Mental -Illness/Mental-H ealth-Conditions http_s://psychceHelleroy/depressi on/the-cognitive- eyswzqtr-sg-gqdut ssion#treatments http__s://www.nim h.nih.gov/health/ topics/mental-hea lth-medications http__s://www.nam i.org/About-Menta l-Illness/Treatme nts/Mental-Health -Medications educated on all medications, benefits, side effects and risk, and educated on depression, anxiety, and ADHD, mood d/o and educated on compliance of medications, metabolic and movement d/o education appointment's, continue therapy discussion with patient about course of treatment and patient instructions. education on serotonin syndrome Discussed and educated pt regarding benzodiazepines are generally not intended for prolonged use and that use can cause tolerance, dependence, depression, and associated memory issues including dementias (this list is not exhaustive). Benzodiazepine use is generally not recommended concurrently with pain medications and/or other controlled substances educated on all medications, benefits, side effects and risk, and educated on depression, anxiety, and ADHD, mood d/o and educated on compliance of medications, metabolic and movement d/o education appointment is, continue therapy discussion with patient about course of treatment and patient instructions. education on serotonin syndrome SSRI/SNRI side effects discussed including but not limited to, gastric upset, nausea, vomiting, diarrhea and/or constipation, weight changes, sexual side effects including loss of libido, increased suicidal thoughts/behavior s in children and young adults, and serotonin syndrome. Second generation antipsychotics (SGAs) have metabolic syndrome issues with weight gain, increase in prolactin, increased waist circumference, increased lipids, and increased glucose. Thus routine monitoring of weight, metabolic labs, etc. is indicated. A general rank ordering of antipsychotics that have the greatest to the least risk of metabolic effects is olanzapine, quetiapine, risperidone, ziprasidone, and aripiprazole. However, weight gain can occur with all of these drugs and considerable variability exists among patients receiving the same drug regarding the risk of metabolic effects. Anti-psychotic agents not only increase the risk of metabolic disorder, they also increase the risk of CVA, akathisia, and movement disorders including EPS or tardive dyskinesia (more common with first generation antipsychotics) and more. Medication Management and Follow-Up - Plan: - Schedule follow-up appointments every 1-3 months to monitor the patient's response to the medication regimen. - Reinforce the importance of avoiding recreational drug use due to potential neurotoxicity and interactions with prescribed medications. 02/09/2024 NIKKI (generalized anxiety disorder) (ICD-10 - F41.1) 1. Bipolar depression presently taking Seroquel 100 mg - having depression increase Seroquel 150 mg at bedtime - no refill needed reported has rx at pharmacy already from PCP FOR 150MG labs done by PCP and Endo willl obtain continue therapy 2.Anxiety - see therapy has Vistaril 10 mg PRN - at home not using Educated on rx 3. Primary Insomnia sleep hygeine may take Vistaril 10 mg at bedtime NO REFILL needed 4. ADHD schedule JACOBY-2 TEST Currently taking Adderall XR 10 MG PCP prescribed 5. RLS- ON REQUIP 4 MG bedtime- PCP prescribes ADHD stimulates education Discuss with patient risk of misuse, abuse, and addiction before prescribing stimulant medicines. Health Technician Hearing patients not to share their prescribed stimulant with anyone else. Educate patients and their families on these serious risks, proper storage of the medicine, and proper disposal of any unused medicine. Educated patient will monitor Throughout treatment, regularly assess and monitor them for signs and symptoms of nonmedical use, addiction, and potential diversion, which may be evidenced by more frequent renewal. requests than warranted by the prescribed dosage. Random UDS [place] prescription reviewed local pharmacy in [place], no early refills on control substance educated on non-stimulate and stimulates Cannabis/marijuan a information: http_s://tammy.nih .gov/publications /drugfacts/cannab is-marijuana http_s://www.MediaHound/canna ylh-obg-lnjxxnaj- marijuana-adhd/ http_s://www.jumana .org/About-Mental -Illness/Mental-H ealth-Conditions http_s://psychCryoLife/depressi on/the-cognitive- mxgfgfuu-bv-mfzuh ssion#treatments http__s://www.nim .nih.gov/health/ topics/mental-hea lth-medications http__s://www.nam i.org/About-Menta l-Illness/Treatme nts/Mental-Health -Medications educated on all medications, benefits, side effects and risk, and educated on depression, anxiety, and ADHD, mood d/o and educated on compliance of medications, metabolic and movement d/o education appointment's, continue therapy discussion with patient about course of treatment and patient instructions. education on serotonin syndrome Discussed and educated pt regarding benzodiazepines are generally not intended for prolonged use and that use can cause tolerance, dependence, depression, and associated memory issues including dementias (this list is not exhaustive). Benzodiazepine use is generally not recommended concurrently with pain medications and/or other controlled substances educated on all medications, benefits, side effects and risk, and educated on depression, anxiety, and ADHD, mood d/o and educated on compliance of medications, metabolic and movement d/o education appointment is, continue therapy discussion with patient about course of treatment and patient instructions. education on serotonin syndrome SSRI/SNRI side effects discussed including but not limited to, gastric upset, nausea, vomiting, diarrhea and/or constipation, weight changes, sexual side effects including loss of libido, increased suicidal thoughts/behavior s in children and young adults, and serotonin syndrome. Second generation antipsychotics (SGAs) have metabolic syndrome issues with weight gain, increase in prolactin, increased waist circumference, increased lipids, and increased glucose. Thus routine monitoring of weight, metabolic labs, etc. is indicated. A general rank ordering of antipsychotics that have the greatest to the least risk of metabolic effects is olanzapine, quetiapine, risperidone, ziprasidone, and aripiprazole. However, weight gain can occur with all of these drugs and considerable variability exists among patients receiving the same drug regarding the risk of metabolic effects. Anti-psychotic agents not only increase the risk of metabolic disorder, they also increase the risk of CVA, akathisia, and movement disorders including EPS or tardive dyskinesia (more common with first generation antipsychotics) and more. Medication Management and Follow-Up - Plan: - Schedule follow-up appointments every 1-3 months to monitor the patient's response to the medication regimen. - Reinforce the importance of avoiding recreational drug use due to potential neurotoxicity and interactions with prescribed medications. 02/29/2024 Bipolar 2 disorder (ICD-10 - F31.81) 1. Bipolar II depression presently taking Seroquel 150 mg - having depression pateint reported has Seroquel 50 mg at home will decrease Seroquel to 100 mg for 3 days then 50 mg for 3 days then stop, discuss and education on medication Options ADD Caplyta 42 mg daily, samples given and co-pay card Highest dose 250 mg reported by patient - reported not fatigue with rx labs done by PCP and Endo willl obtain continue therapy 2.Anxiety - see therapy has Vistaril 10 mg bedtime - Educated on rx 3. Primary Insomnia sleep hygeine may take Vistaril 10 mg at bedtime NO REFILL needed hx sleep study no sleep apnea Add Trazodone 50 mg at bedtime educated on rx and importance sleep 4. ADHD review reviewed JACOBY-AE2 TEST Self rating scales- significant number hyperactive/impul sive and inattentive symptoms that negative impact functions, - posisble dxn ADHD COMBINATION BUT NOT CONGRUENT with JACOBY-AE2 test - Need to reconcile data sets before a definitive dxn can be made, patient reported took ADHD rx in am and tested 3 pm Currently taking Adderall XR 10 MG PCP prescribed 5. RLS- ON REQUIP 4 MG bedtime- PCP prescribes ADHD stimulates education Discuss with patient risk of misuse, abuse, and addiction before prescribing stimulant medicines. Health Technician Hearing patients not to share their prescribed stimulant with anyone else. Educate patients and their families on these serious risks, proper storage of the medicine, and proper disposal of any unused medicine. Educated patient will monitor Throughout treatment, regularly assess and monitor them for signs and symptoms of nonmedical use, addiction, and potential diversion, which may be evidenced by more frequent renewal. requests than warranted by the prescribed dosage. Random UDS [place] prescription reviewed local pharmacy in [place], no early refills on control substance educated on non-stimulate and stimulates Cannabis/marijuan a information: http_s://tammy.nih .gov/publications /drugfacts/cannab is-marijuana http_s://www.MediaHound/canna wtj-dtr-oeldbtcm- marijuana-adhd/ http_s://www.jumana .org/About-Mental -Illness/Mental-H ealth-Conditions http_s://psychCryoLife/depressi on/the-cognitive- unynknfe-ry-qpgta ssion#treatments http__s://www.[facility].nih.gov/health/ topics/mental-hea lth-medications http__s://www.nam i.org/About-Menta l-Illness/Treatme nts/Mental-Health -Medications educated on all medications, benefits, side effects and risk, and educated on depression, anxiety, and ADHD, mood d/o and educated on compliance of medications, metabolic and movement d/o education appointment's, continue therapy discussion with patient about course of treatment and patient instructions. education on serotonin syndrome Discussed and educated pt regarding benzodiazepines are generally not intended for prolonged use and that use can cause tolerance, dependence, depression, and associated memory issues including dementias (this list is not exhaustive). Benzodiazepine use is generally not recommended concurrently with pain medications and/or other controlled substances educated on all medications, benefits, side effects and risk, and educated on depression, anxiety, and ADHD, mood d/o and educated on compliance of medications, metabolic and movement d/o education appointment is, continue therapy discussion with patient about course of treatment and patient instructions. education on serotonin syndrome SSRI/SNRI side effects discussed including but not limited to, gastric upset, nausea, vomiting, diarrhea and/or constipation, weight changes, sexual side effects including loss of libido, increased suicidal thoughts/behavior s in children and young adults, and serotonin syndrome. Second generation antipsychotics (SGAs) have metabolic syndrome issues with weight gain, increase in prolactin, increased waist circumference, increased lipids, and increased glucose. Thus routine monitoring of weight, metabolic labs, etc. is indicated. A general rank ordering of antipsychotics that have the greatest to the least risk of metabolic effects is olanzapine, quetiapine, risperidone, ziprasidone, and aripiprazole. However, weight gain can occur with all of these drugs and considerable variability exists among patients receiving the same drug regarding the risk of metabolic effects. Anti-psychotic agents not only increase the risk of metabolic disorder, they also increase the risk of CVA, akathisia, and movement disorders including EPS or tardive dyskinesia (more common with first generation antipsychotics) and more. Medication Management and Follow-Up - Plan: - Schedule follow-up appointments every 1-3 months to monitor the patient's response to the medication regimen. - Reinforce the importance of avoiding recreational drug use due to potential neurotoxicity and interactions with prescribed medications. 03/28/2024 Bipolar 2 disorder (ICD-10 - F31.81) 1. Bipolar II depression - having depression discuss and education on medication Options Caplyta 42 mg daily, labs done by PCP and Endo willl obtain continue therapy 2.Anxiety - see therapy has Vistaril 10 mg in day and at bedtime PRN - Educated on rx 3. Primary Insomnia sleep hygeine Vistaril 10 mg at bedtime PRN hx sleep study no sleep apnea Add Ramelteon 8 mg at bedtime for sleep educated on rx and importance sleep 4. ADHD review reviewed JACOBY-AE2 TEST Self rating scales- significant number hyperactive/impul sive and inattentive symptoms that negative impact functions, - posisble dxn ADHD COMBINATION BUT NOT CONGRUENT with JACOBY-AE2 test - Need to reconcile data sets before a definitive dxn can be made, patient reported took ADHD rx in am and tested 3 pm Currently not taking Adderall XR 10 MG PCP prescribed 5. RLS- ON REQUIP 4 MG bedtime- PCP prescribes ADHD stimulates education Discuss with patient risk of misuse, abuse, and addiction before prescribing stimulant medicines. Health Technician Hearing patients not to share their prescribed stimulant with anyone else. Educate patients and their families on these serious risks, proper storage of the medicine, and proper disposal of any unused medicine. Educated patient will monitor Throughout treatment, regularly assess and monitor them for signs and symptoms of nonmedical use, addiction, and potential diversion, which may be evidenced by more frequent renewal. requests than warranted by the prescribed dosage. Random UDS [place] prescription reviewed local pharmacy in [place], no early refills on control substance educated on non-stimulate and stimulates Cannabis/marijuan a information: http_s://tammy.nih .gov/publications /drugfacts/cannab is-marijuana http_s://www.MediaHound/canna teg-rsg-qraftwxd- marijuana-adhd/ http_s://www.jumana .org/About-Mental -Illness/Mental-H ealth-Conditions http_s://psychCryoLife/depressi on/the-cognitive- xewnaket-no-oczwc ssion#treatments http__s://www.nim .nih.gov/health/ topics/mental-hea lth-medications http__s://www.nam i.org/About-Menta l-Illness/Treatme nts/Mental-Health -Medications educated on all medications, benefits, side effects and risk, and educated on depression, anxiety, and ADHD, mood d/o and educated on compliance of medications, metabolic and movement d/o education appointment's, continue therapy discussion with patient about course of treatment and patient instructions. education on serotonin syndrome Discussed and educated pt regarding benzodiazepines are generally not intended for prolonged use and that use can cause tolerance, dependence, depression, and associated memory issues including dementias (this list is not exhaustive). Benzodiazepine use is generally not recommended concurrently with pain medications and/or other controlled substances educated on all medications, benefits, side effects and risk, and educated on depression, anxiety, and ADHD, mood d/o and educated on compliance of medications, metabolic and movement d/o education appointment is, continue therapy discussion with patient about course of treatment and patient instructions. education on serotonin syndrome SSRI/SNRI side effects discussed including but not limited to, gastric upset, nausea, vomiting, diarrhea and/or constipation, weight changes, sexual side effects including loss of libido, increased suicidal thoughts/behavior s in children and young adults, and serotonin syndrome. Second generation antipsychotics (SGAs) have metabolic syndrome issues with weight gain, increase in prolactin, increased waist circumference, increased lipids, and increased glucose. Thus routine monitoring of weight, metabolic labs, etc. is indicated. A general rank ordering of antipsychotics that have the greatest to the least risk of metabolic effects is olanzapine, quetiapine, risperidone, ziprasidone, and aripiprazole. However, weight gain can occur with all of these drugs and considerable variability exists among patients receiving the same drug regarding the risk of metabolic effects. Anti-psychotic agents not only increase the risk of metabolic disorder, they also increase the risk of CVA, akathisia, and movement disorders including EPS or tardive dyskinesia (more common with first generation antipsychotics) and more. Medication Management and Follow-Up - Plan: - Schedule follow-up appointments every 1-3 months to monitor the patient's response to the medication regimen. - Reinforce the importance of avoiding recreational drug use due to potential neurotoxicity and interactions with prescribed medications. 04/01/2024 Bipolar 2 disorder (ICD-10 - F31.81) 04/12/2024 Bipolar 2 disorder (ICD-10 - F31.81) Bipolar Disorder: Care Instructions material was published, Learning About Movement Disorders From Antipsychotic Medicines material was published, Learning About How to Get Help During a Mental Health Crisis material was published, Learning About Mood Disorders material was published CancelRx Response got Denied on 2024-05-09 16:53:33 for 'Caplyta 42 MG Capsule'Pharmacy Notes: Prescription not found. Contact Pharmacy by other means 1. Bipolar II depression - having depression discuss and education on medication Options Caplyta 42 mg daily, Increase [place] 300 mg twice a day for increase depression [place] education [place] use reviewed. Risks include risks of toxicity, arrhythmias, cognitive impairment, changes in muscle coordination, weight gain, thyroid and parathyroid changes, polydipsia and polyuria, alopecia, tremor and teratogenicity ( defects). Recommend avoid in females (use contraception consistently). Routine lab monitoring may be required. Patient consented to treatment. Indications: acute delmer (euphoric delmer), bipolar prophylaxis, bipolar depression treatment or augmentation, unipolar depression as augmentation with antidepressants Average dose = I,500 mg/day, target serum level 0.8 [place] is known to reduce risk of suicide. Mechanism of action: inhibits inositol monophosphatase, interfering with 2nd messengers Nuisance Side Effects: sedation, cognitive difficulties, decreased creativity, dry mouth, tremor, increased appetite, weight gain, polydipsia, polyuria, nausea, diarrhea, acne, alopecia Serious Side Effects: Thyroid: hypothyroidism (5%), goiter (3%) Cardiac: decrease in cardiac conduction leading to sick sinus syndrome, blocks SA node Teratogenicity: Ebstein's anomaly 2 in 1,000 Renal: chronic renal insufficiency (after 10-20 years), acute renal failure, polyuria occurs in 50-70% [lithium antagonizes anti-diuretic hormone (ADH)], diabetes insipidus in 10% (treat with amiloride) Drug-drug interactions: increase in lithium: NSAIDs, MARIA INES inhibitors, angiotensin II antagonists labs done by PCP and Endo willl obtain continue therapy 2.Anxiety - see therapy has Vistaril 10 mg in day and at bedtime PRN - Educated on rx 3. Primary Insomnia sleep hygeine Vistaril 10 mg at bedtime PRN hx sleep study no sleep apnea Ramelteon 8 mg at bedtime for sleep educated on rx and importance sleep 4. ADHD review reviewed JACOBY-AE2 TEST Self rating scales- significant number hyperactive/impul sive and inattentive symptoms that negative impact functions, - posisble dxn ADHD COMBINATION BUT NOT CONGRUENT with JACOBY-AE2 test - Need to reconcile data sets before a definitive dxn can be made, patient reported took ADHD rx in am and tested 3 pm ADHD Currently not taking Adderall XR 10 MG PCP prescribed ADHD stimulates education Discuss with patient risk of misuse, abuse, and addiction before prescribing stimulant medicines. Health Technician Hearing patients not to share their prescribed stimulant with anyone else. Educate patients and their families on these serious risks, proper storage of the medicine, and proper disposal of any unused medicine. Educated patient will monitor Throughout treatment, regularly assess and monitor them for signs and symptoms of nonmedical use, addiction, and potential diversion, which may be evidenced by more frequent renewal. requests than warranted by the prescribed dosage. Random UDS [place] prescription reviewed local pharmacy in [facility], no early refills on control substance educated on non-stimulate and stimulates 5. RLS- ON REQUIP 4 MG bedtime- PCP prescribes patient will see PCP this month and discuss RLS LABS PCP Cannabis/marijuan a information: http_s://tammy.nih .gov/publications /drugfacts/cannab is-marijuana http_s://www.MediaHound/canna niz-vbt-oawytuhp- marijuana-adhd/ http_s://www.jumana .org/About-Mental -Illness/Mental-H ealth-Conditions http_s://psychcen [facility].com/depressi on/the-cognitive- ovcbtdan-pf-lgpah ssion#treatments http__s://www.[facility].nih.gov/health/ topics/mental-hea lt-medications http__s://www.nam i.org/About-Menta l-Illness/Treatme nts/Mental-Health -Medications educated on all medications, benefits, side effects and risk, and educated on depression, anxiety, and ADHD, mood d/o and educated on compliance of medications, metabolic and movement d/o education appointment's, continue therapy discussion with patient about course of treatment and patient instructions. education on serotonin syndrome Discussed and educated pt regarding benzodiazepines are generally not intended for prolonged use and that use can cause tolerance, dependence, depression, and associated memory issues including dementias (this list is not exhaustive). Benzodiazepine use is generally not recommended concurrently with pain medications and/or other controlled substances educated on all medications, benefits, side effects and risk, and educated on depression, anxiety, and ADHD, mood d/o and educated on compliance of medications, metabolic and movement d/o education appointment is, continue therapy discussion with patient about course of treatment and patient instructions. education on serotonin syndrome SSRI/SNRI side effects discussed including but not limited to, gastric upset, nausea, vomiting, diarrhea and/or constipation, weight changes, sexual side effects including loss of libido, increased suicidal thoughts/behavior s in children and young adults, and serotonin syndrome. Second generation antipsychotics (SGAs) have metabolic syndrome issues with weight gain, increase in prolactin, increased waist circumference, increased lipids, and increased glucose. Thus routine monitoring of weight, metabolic labs, etc. is indicated. A general rank ordering of antipsychotics that have the greatest to the least risk of metabolic effects is olanzapine, quetiapine, risperidone, ziprasidone, and aripiprazole. However, weight gain can occur with all of these drugs and considerable variability exists among patients receiving the same drug regarding the risk of metabolic effects. Anti-psychotic agents not only increase the risk of metabolic disorder, they also increase the risk of CVA, akathisia, and movement disorders including EPS or tardive dyskinesia (more common with first generation antipsychotics) and more. Medication Management and Follow-Up - Plan: - Schedule follow-up appointments every 1-3 months to monitor the patient's response to the medication regimen. - Reinforce the importance of avoiding recreational drug use due to potential neurotoxicity and interactions with prescribed medications. 04/19/2024 Bipolar 2 disorder (ICD-10 - F31.81) CancelRx Response got Denied on 2024-05-09 16:53:33 for '[place] Carbonate 150 MG Capsule'Pharmacy Notes: Prescription not found. Contact Pharmacy by other means 05/09/2024 NIKKI (generalized anxiety disorder) (ICD-10 - F41.1) Learning About Generalized Anxiety Disorder material was published, Generalized Anxiety Disorder: Care Instructions material was published, Learning About Anxiety Disorders material was published 1. Bipolar II depression- will change dxn to depression and recently dxn Autism 05/03 [facility] patient would like to come off rx and see how does and need FLMA next 2 weeks for intensive therapy with autism dxn FLMA - 04/18/24- 05/02/24 RTW therapy scheduled for autism during time off 1-2 times a week Work M-F 8 am- 4 pm no restirctions at work appointment time from work 30 minutes leave early late day appts. may need 1-2 days off a month possible if have melt down - therapy no accomadation needed discuss and education on medication Options Caplyta 42 mg daily,- patient would like to stop rx discuss taper down rx patient stopped [place] labs done by PCP and Endo willl obtain continue therapy refer [facility] Autism evaluation 2.Anxiety - see therapy Vistaril 10 mg in day and at bedtime PRN - Educated on rx 3. Primary Insomnia sleep hygeine Vistaril 10 mg at bedtime PRN hx sleep study no sleep apnea Ramelteon 8 mg at bedtime for sleep- patient not taking rx D/C educated on rx and importance sleep 4. ADHD review reviewed JACOBY-AE2 TEST Self rating scales- significant number hyperactive/impul sive and inattentive symptoms that negative impact functions, - posisble dxn ADHD COMBINATION BUT NOT CONGRUENT with JACOBY-AE2 test - Need to reconcile data sets before a definitive dxn can be made, patient reported took ADHD rx in am and tested 3 pm Autism dxn 05/03 ADHD Currently not taking Adderall XR 10 MG PCP prescribed ADHD stimulates education Discuss with patient risk of misuse, abuse, and addiction before prescribing stimulant medicines. Health Technician Hearing patients not to share their prescribed stimulant with anyone else. Educate patients and their families on these serious risks, proper storage of the medicine, and proper disposal of any unused medicine. Educated patient will monitor Throughout treatment, regularly assess and monitor them for signs and symptoms of nonmedical use, addiction, and potential diversion, which may be evidenced by more frequent renewal. requests than warranted by the prescribed dosage. Random UDS [place] prescription reviewed local pharmacy in [place], no early refills on control substance educated on non-stimulate and stimulates 5. RLS- ON REQUIP 4 MG bedtime- PCP prescribes patient will see PCP this month and discuss RLS LABS PCP Cannabis/marijuan a information: http_s://tammy.nih .gov/publications /drugfacts/cannab is-marijuana http_s://www.MediaHound/canna awe-oth-ooetuyog- marijuana-adhd/ http_s://www.jumana .org/About-Mental -Illness/Mental-H ealth-Conditions http_s://Miro/depressi on/the-cognitive- dykbarcf-ay-azxhc ssion#treatments http__s://www.nim h.nih.gov/health/ topics/mental-hea lth-medications http__s://www.nam i.org/About-Menta l-Illness/Treatme nts/Mental-Health -Medications educated on all medications, benefits, side effects and risk, and educated on depression, anxiety, and ADHD, mood d/o and educated on compliance of medications, metabolic and movement d/o education appointment's, continue therapy discussion with patient about course of treatment and patient instructions. education on serotonin syndrome educated on all medications, benefits, side effects and risk, and educated on depression, anxiety, and ADHD, mood d/o and educated on compliance of medications, metabolic and movement d/o education appointment is, continue therapy discussion with patient about course of treatment and patient instructions. education on serotonin syndrome SSRI/SNRI side effects discussed including but not limited to, gastric upset, nausea, vomiting, diarrhea and/or constipation, weight changes, sexual side effects including loss of libido, increased suicidal thoughts/behavior s in children and young adults, and serotonin syndrome. Medication Management and Follow-Up - Plan: - Schedule follow-up appointments every 1-3 months to monitor the patient's response to the medication regimen. - Reinforce the importance of avoiding recreational drug use due to potential neurotoxicity and interactions with prescribed medications. 05/09/2024 Autism spectrum disorder (ICD-10 - F84.0) 1. Bipolar II depression- will change dxn to depression and recently dxn Autism 05/03 [facility] patient would like to come off rx and see how does and need FLMA next 2 weeks for intensive therapy with autism dxn FLMA - 04/18/24- 05/02/24 RTW therapy scheduled for autism during time off 1-2 times a week Work M-F 8 am- 4 pm no restirctions at work appointment time from work 30 minutes leave early late day appts. may need 1-2 days off a month possible if have melt down - therapy no accomadation needed discuss and education on medication Options Caplyta 42 mg daily,- patient would like to stop rx discuss taper down rx patient stopped [place] labs done by PCP and Endo willl obtain continue therapy refer [facility] Autism evaluation 2.Anxiety - see therapy Vistaril 10 mg in day and at bedtime PRN - Educated on rx 3. Primary Insomnia sleep hygeine Vistaril 10 mg at bedtime PRN hx sleep study no sleep apnea Ramelteon 8 mg at bedtime for sleep- patient not taking rx D/C educated on rx and importance sleep 4. ADHD review reviewed JACOBY-AE2 TEST Self rating scales- significant number hyperactive/impul sive and inattentive symptoms that negative impact functions, - posisble dxn ADHD COMBINATION BUT NOT CONGRUENT with JACOBY-AE2 test - Need to reconcile data sets before a definitive dxn can be made, patient reported took ADHD rx in am and tested 3 pm Autism dxn 05/03 ADHD Currently not taking Adderall XR 10 MG PCP prescribed ADHD stimulates education Discuss with patient risk of misuse, abuse, and addiction before prescribing stimulant medicines. Health Technician Hearing patients not to share their prescribed stimulant with anyone else. Educate patients and their families on these serious risks, proper storage of the medicine, and proper disposal of any unused medicine. Educated patient will monitor Throughout treatment, regularly assess and monitor them for signs and symptoms of nonmedical use, addiction, and potential diversion, which may be evidenced by more frequent renewal. requests than warranted by the prescribed dosage. Random UDS [place] prescription reviewed local pharmacy in [place], no early refills on control substance educated on non-stimulate and stimulates 5. RLS- ON REQUIP 4 MG bedtime- PCP prescribes patient will see PCP this month and discuss RLS LABS PCP Cannabis/marijuan a information: http_s://tammy.nih .gov/publications /drugfacts/cannab is-marijuana http_s://www.MediaHound/canna pgl-efd-boqcdioz- marijuana-adhd/ http_s://www.jumana .org/About-Mental -Illness/Mental-H ealth-Conditions http_s://psychCryoLife/depressi on/the-cognitive- bqveqgvq-yi-ldkws ssion#treatments http__s://www.nim .nih.gov/health/ topics/mental-hea lth-medications http__s://www.nam i.org/About-Menta l-Illness/Treatme nts/Mental-Health -Medications educated on all medications, benefits, side effects and risk, and educated on depression, anxiety, and ADHD, mood d/o and educated on compliance of medications, metabolic and movement d/o education appointment's, continue therapy discussion with patient about course of treatment and patient instructions. education on serotonin syndrome educated on all medications, benefits, side effects and risk, and educated on depression, anxiety, and ADHD, mood d/o and educated on compliance of medications, metabolic and movement d/o education appointment is, continue therapy discussion with patient about course of treatment and patient instructions. education on serotonin syndrome SSRI/SNRI side effects discussed including but not limited to, gastric upset, nausea, vomiting, diarrhea and/or constipation, weight changes, sexual side effects including loss of libido, increased suicidal thoughts/behavior s in children and young adults, and serotonin syndrome. Medication Management and Follow-Up - Plan: - Schedule follow-up appointments every 1-3 months to monitor the patient's response to the medication regimen. - Reinforce the importance of avoiding recreational drug use due to potential neurotoxicity and interactions with prescribed medications. 05/09/2024 Primary insomnia (ICD-10 - F51.01) Insomnia: Care Instructions material was published, Learning About Sleeping Well material was published 1. Bipolar II depression- will change dxn to depression and recently dxn Autism 05/03 [facility] patient would like to come off rx and see how does and need FLMA next 2 weeks for intensive therapy with autism dxn FLMA - 04/18/24- 05/02/24 RTW therapy scheduled for autism during time off 1-2 times a week Work M-F 8 am- 4 pm no restirctions at work appointment time from work 30 minutes leave early late day appts. may need 1-2 days off a month possible if have melt down - therapy no accomadation needed discuss and education on medication Options Caplyta 42 mg daily,- patient would like to stop rx discuss taper down rx patient stopped [place] labs done by PCP and Endo willl obtain continue therapy refer [facility] Autism evaluation 2.Anxiety - see therapy Vistaril 10 mg in day and at bedtime PRN - Educated on rx 3. Primary Insomnia sleep hygeine Vistaril 10 mg at bedtime PRN hx sleep study no sleep apnea Ramelteon 8 mg at bedtime for sleep- patient not taking rx D/C educated on rx and importance sleep 4. ADHD review reviewed JACOBY-AE2 TEST Self rating scales- significant number hyperactive/impul sive and inattentive symptoms that negative impact functions, - posisble dxn ADHD COMBINATION BUT NOT CONGRUENT with JACOBY-AE2 test - Need to reconcile data sets before a definitive dxn can be made, patient reported took ADHD rx in am and tested 3 pm Autism dxn 05/03 ADHD Currently not taking Adderall XR 10 MG PCP prescribed ADHD stimulates education Discuss with patient risk of misuse, abuse, and addiction before prescribing stimulant medicines. Health Technician Hearing patients not to share their prescribed stimulant with anyone else. Educate patients and their families on these serious risks, proper storage of the medicine, and proper disposal of any unused medicine. Educated patient will monitor Throughout treatment, regularly assess and monitor them for signs and symptoms of nonmedical use, addiction, and potential diversion, which may be evidenced by more frequent renewal. requests than warranted by the prescribed dosage. Random UDS [place] prescription reviewed local pharmacy in [place], no early refills on control substance educated on non-stimulate and stimulates 5. RLS- ON REQUIP 4 MG bedtime- PCP prescribes patient will see PCP this month and discuss RLS LABS PCP Cannabis/marijuan a information: http_s://tammy.nih .gov/publications /drugfacts/cannab is-marijuana http_s://www.MediaHound/canna psm-szv-yfooevdn- marijuana-adhd/ http_s://www.jumana .org/About-Mental -Illness/Mental-H ealth-Conditions http_s://psychSalutaris Medical Devicescom/depressi on/the-cognitive- fryhdelx-qb-npuos ssion#treatments http__s://www.[facility].nih.gov/health/ topics/mental-hea lth-medications http__s://www.nam i.org/About-Menta l-Illness/Treatme nts/Mental-Health -Medications educated on all medications, benefits, side effects and risk, and educated on depression, anxiety, and ADHD, mood d/o and educated on compliance of medications, metabolic and movement d/o education appointment's, continue therapy discussion with patient about course of treatment and patient instructions. education on serotonin syndrome educated on all medications, benefits, side effects and risk, and educated on depression, anxiety, and ADHD, mood d/o and educated on compliance of medications, metabolic and movement d/o education appointment is, continue therapy discussion with patient about course of treatment and patient instructions. education on serotonin syndrome SSRI/SNRI side effects discussed including but not limited to, gastric upset, nausea, vomiting, diarrhea and/or constipation, weight changes, sexual side effects including loss of libido, increased suicidal thoughts/behavior s in children and young adults, and serotonin syndrome. Medication Management and Follow-Up - Plan: - Schedule follow-up appointments every 1-3 months to monitor the patient's response to the medication regimen. - Reinforce the importance of avoiding recreational drug use due to potential neurotoxicity and interactions with prescribed medications. 04/12/2024 NIKKI (generalized anxiety disorder) (ICD-10 - F41.1) Learning About Generalized Anxiety Disorder material was published, Generalized Anxiety Disorder: Care Instructions material was published, Learning About Anxiety Disorders material was published 1. Bipolar II depression - having depression discuss and education on medication Options Caplyta 42 mg daily, Increase [place] 300 mg twice a day for increase depression [place] education [place] use reviewed. Risks include risks of toxicity, arrhythmias, cognitive impairment, changes in muscle coordination, weight gain, thyroid and parathyroid changes, polydipsia and polyuria, alopecia, tremor and teratogenicity ( defects). Recommend avoid in females (use contraception consistently). Routine lab monitoring may be required. Patient consented to treatment. Indications: acute delmer (euphoric delmer), bipolar prophylaxis, bipolar depression treatment or augmentation, unipolar depression as augmentation with antidepressants Average dose = I,500 mg/day, target serum level 0.8 [place] is known to reduce risk of suicide. Mechanism of action: inhibits inositol monophosphatase, interfering with 2nd messengers Nuisance Side Effects: sedation, cognitive difficulties, decreased creativity, dry mouth, tremor, increased appetite, weight gain, polydipsia, polyuria, nausea, diarrhea, acne, alopecia Serious Side Effects: Thyroid: hypothyroidism (5%), goiter (3%) Cardiac: decrease in cardiac conduction leading to sick sinus syndrome, blocks SA node Teratogenicity: Ebstein's anomaly 2 in 1,000 Renal: chronic renal insufficiency (after 10-20 years), acute renal failure, polyuria occurs in 50-70% [lithium antagonizes anti-diuretic hormone (ADH)], diabetes insipidus in 10% (treat with amiloride) Drug-drug interactions: increase in lithium: NSAIDs, MARIA INES inhibitors, angiotensin II antagonists labs done by PCP and Endo willl obtain continue therapy 2.Anxiety - see therapy has Vistaril 10 mg in day and at bedtime PRN - Educated on rx 3. Primary Insomnia sleep hygeine Vistaril 10 mg at bedtime PRN hx sleep study no sleep apnea Ramelteon 8 mg at bedtime for sleep educated on rx and importance sleep 4. ADHD review reviewed JACOBY-AE2 TEST Self rating scales- significant number hyperactive/impul sive and inattentive symptoms that negative impact functions, - posisble dxn ADHD COMBINATION BUT NOT CONGRUENT with JACOBY-AE2 test - Need to reconcile data sets before a definitive dxn can be made, patient reported took ADHD rx in am and tested 3 pm ADHD Currently not taking Adderall XR 10 MG PCP prescribed ADHD stimulates education Discuss with patient risk of misuse, abuse, and addiction before prescribing stimulant medicines. Health Technician Hearing patients not to share their prescribed stimulant with anyone else. Educate patients and their families on these serious risks, proper storage of the medicine, and proper disposal of any unused medicine. Educated patient will monitor Throughout treatment, regularly assess and monitor them for signs and symptoms of nonmedical use, addiction, and potential diversion, which may be evidenced by more frequent renewal. requests than warranted by the prescribed dosage. Random [facility] [place] prescription reviewed local pharmacy in [place], no early refills on control substance educated on non-stimulate and stimulates 5. RLS- ON REQUIP 4 MG bedtime- PCP prescribes patient will see PCP this month and discuss RLS LABS PCP Cannabis/marijuan a information: http_s://tammy.nih .gov/publications /drugfacts/cannab is-marijuana http_s://www.MediaHound/canna zly-ovd-rdrfpkvx- marijuana-adhd/ http_s://www.jumana .org/About-Mental -Illness/Mental-H ealth-Conditions http_s://Miro/depressi on/the-cognitive- wghxdhse-gl-itmui ssion#treatments http__s://www.nim .nih.gov/health/ topics/mental-hea lth-medications http__s://www.nam i.org/About-Menta l-Illness/Treatme nts/Mental-Health -Medications educated on all medications, benefits, side effects and risk, and educated on depression, anxiety, and ADHD, mood d/o and educated on compliance of medications, metabolic and movement d/o education appointment's, continue therapy discussion with patient about course of treatment and patient instructions. education on serotonin syndrome Discussed and educated pt regarding benzodiazepines are generally not intended for prolonged use and that use can cause tolerance, dependence, depression, and associated memory issues including dementias (this list is not exhaustive). Benzodiazepine use is generally not recommended concurrently with pain medications and/or other controlled substances educated on all medications, benefits, side effects and risk, and educated on depression, anxiety, and ADHD, mood d/o and educated on compliance of medications, metabolic and movement d/o education appointment is, continue therapy discussion with patient about course of treatment and patient instructions. education on serotonin syndrome SSRI/SNRI side effects discussed including but not limited to, gastric upset, nausea, vomiting, diarrhea and/or constipation, weight changes, sexual side effects including loss of libido, increased suicidal thoughts/behavior s in children and young adults, and serotonin syndrome. Second generation antipsychotics (SGAs) have metabolic syndrome issues with weight gain, increase in prolactin, increased waist circumference, increased lipids, and increased glucose. Thus routine monitoring of weight, metabolic labs, etc. is indicated. A general rank ordering of antipsychotics that have the greatest to the least risk of metabolic effects is olanzapine, quetiapine, risperidone, ziprasidone, and aripiprazole. However, weight gain can occur with all of these drugs and considerable variability exists among patients receiving the same drug regarding the risk of metabolic effects. Anti-psychotic agents not only increase the risk of metabolic disorder, they also increase the risk of CVA, akathisia, and movement disorders including EPS or tardive dyskinesia (more common with first generation antipsychotics) and more. Medication Management and Follow-Up - Plan: - Schedule follow-up appointments every 1-3 months to monitor the patient's response to the medication regimen. - Reinforce the importance of avoiding recreational drug use due to potential neurotoxicity and interactions with prescribed medications. 03/28/2024 NIKKI (generalized anxiety disorder) (ICD-10 - F41.1) 1. Bipolar II depression - having depression discuss and education on medication Options Caplyta 42 mg daily, labs done by PCP and Endo willl obtain continue therapy 2.Anxiety - see therapy has Vistaril 10 mg in day and at bedtime PRN - Educated on rx 3. Primary Insomnia sleep hygeine Vistaril 10 mg at bedtime PRN hx sleep study no sleep apnea Add Ramelteon 8 mg at bedtime for sleep educated on rx and importance sleep 4. ADHD review reviewed JACOBY-AE2 TEST Self rating scales- significant number hyperactive/impul sive and inattentive symptoms that negative impact functions, - posisble dxn ADHD COMBINATION BUT NOT CONGRUENT with JACOBY-AE2 test - Need to reconcile data sets before a definitive dxn can be made, patient reported took ADHD rx in am and tested 3 pm Currently not taking Adderall XR 10 MG PCP prescribed 5. RLS- ON REQUIP 4 MG bedtime- PCP prescribes ADHD stimulates education Discuss with patient risk of misuse, abuse, and addiction before prescribing stimulant medicines. Health Technician Hearing patients not to share their prescribed stimulant with anyone else. Educate patients and their families on these serious risks, proper storage of the medicine, and proper disposal of any unused medicine. Educated patient will monitor Throughout treatment, regularly assess and monitor them for signs and symptoms of nonmedical use, addiction, and potential diversion, which may be evidenced by more frequent renewal. requests than warranted by the prescribed dosage. Random [facility] [place] prescription reviewed local pharmacy [place], no early refills on control substance educated on non-stimulate and stimulates Cannabis/marijuan a information: http_s://tammy.nih .gov/publications /drugfacts/cannab is-marijuana http_s://www.MediaHound/canna vjb-sze-ogvyqchu- marijuana-adhd/ http_s://www.jumana .org/About-Mental -Illness/Mental-H ealth-Conditions http_s://psychCryoLife/depressi on/the-cognitive- fasuqmsh-ez-fsdvy ssion#treatments http__s://www.nim .nih.gov/health/ topics/mental-hea lth-medications http__s://www.nam i.org/About-Menta l-Illness/Treatme nts/Mental-Health -Medications educated on all medications, benefits, side effects and risk, and educated on depression, anxiety, and ADHD, mood d/o and educated on compliance of medications, metabolic and movement d/o education appointment's, continue therapy discussion with patient about course of treatment and patient instructions. education on serotonin syndrome Discussed and educated pt regarding benzodiazepines are generally not intended for prolonged use and that use can cause tolerance, dependence, depression, and associated memory issues including dementias (this list is not exhaustive). Benzodiazepine use is generally not recommended concurrently with pain medications and/or other controlled substances educated on all medications, benefits, side effects and risk, and educated on depression, anxiety, and ADHD, mood d/o and educated on compliance of medications, metabolic and movement d/o education appointment is, continue therapy discussion with patient about course of treatment and patient instructions. education on serotonin syndrome SSRI/SNRI side effects discussed including but not limited to, gastric upset, nausea, vomiting, diarrhea and/or constipation, weight changes, sexual side effects including loss of libido, increased suicidal thoughts/behavior s in children and young adults, and serotonin syndrome. Second generation antipsychotics (SGAs) have metabolic syndrome issues with weight gain, increase in prolactin, increased waist circumference, increased lipids, and increased glucose. Thus routine monitoring of weight, metabolic labs, etc. is indicated. A general rank ordering of antipsychotics that have the greatest to the least risk of metabolic effects is olanzapine, quetiapine, risperidone, ziprasidone, and aripiprazole. However, weight gain can occur with all of these drugs and considerable variability exists among patients receiving the same drug regarding the risk of metabolic effects. Anti-psychotic agents not only increase the risk of metabolic disorder, they also increase the risk of CVA, akathisia, and movement disorders including EPS or tardive dyskinesia (more common with first generation antipsychotics) and more. Medication Management and Follow-Up - Plan: - Schedule follow-up appointments every 1-3 months to monitor the patient's response to the medication regimen. - Reinforce the importance of avoiding recreational drug use due to potential neurotoxicity and interactions with prescribed medications. 02/29/2024 NIKKI (generalized anxiety disorder) (ICD-10 - F41.1) 1. Bipolar II depression presently taking Seroquel 150 mg - having depression pateint reported has Seroquel 50 mg at home will decrease Seroquel to 100 mg for 3 days then 50 mg for 3 days then stop, discuss and education on medication Options ADD Caplyta 42 mg daily, samples given and co-pay card Highest dose 250 mg reported by patient - reported not fatigue with rx labs done by PCP and Endo willl obtain continue therapy 2.Anxiety - see therapy has Vistaril 10 mg bedtime - Educated on rx 3. Primary Insomnia sleep hygeine may take Vistaril 10 mg at bedtime NO REFILL needed hx sleep study no sleep apnea Add Trazodone 50 mg at bedtime educated on rx and importance sleep 4. ADHD review reviewed JACOBY-AE2 TEST Self rating scales- significant number hyperactive/impul sive and inattentive symptoms that negative impact functions, - posisble dxn ADHD COMBINATION BUT NOT CONGRUENT with JACOBY-AE2 test - Need to reconcile data sets before a definitive dxn can be made, patient reported took ADHD rx in am and tested 3 pm Currently taking Adderall XR 10 MG PCP prescribed 5. RLS- ON REQUIP 4 MG bedtime- PCP prescribes ADHD stimulates education Discuss with patient risk of misuse, abuse, and addiction before prescribing stimulant medicines. Health Technician Hearing patients not to share their prescribed stimulant with anyone else. Educate patients and their families on these serious risks, proper storage of the medicine, and proper disposal of any unused medicine. Educated patient will monitor Throughout treatment, regularly assess and monitor them for signs and symptoms of nonmedical use, addiction, and potential diversion, which may be evidenced by more frequent renewal. requests than warranted by the prescribed dosage. Random UDS [place] prescription reviewed local pharmacy [place], no early refills on control substance educated on non-stimulate and stimulates Cannabis/marijuan a information: http_s://tammy.nih .gov/publications /drugfacts/cannab is-marijuana http_s://www.MediaHound/canna niw-mwj-keqsthru- marijuana-adhd/ http_s://www.jumana .org/About-Mental -Illness/Mental-H ealth-Conditions http_s://Miro/depressi on/the-cognitive- psxnyvtf-cx-mxomi ssion#treatments http__s://www.nim .nih.gov/health/ topics/mental-hea lth-medications http__s://www.nam i.org/About-Menta l-Illness/Treatme nts/Mental-Health -Medications educated on all medications, benefits, side effects and risk, and educated on depression, anxiety, and ADHD, mood d/o and educated on compliance of medications, metabolic and movement d/o education appointment's, continue therapy discussion with patient about course of treatment and patient instructions. education on serotonin syndrome Discussed and educated pt regarding benzodiazepines are generally not intended for prolonged use and that use can cause tolerance, dependence, depression, and associated memory issues including dementias (this list is not exhaustive). Benzodiazepine use is generally not recommended concurrently with pain medications and/or other controlled substances educated on all medications, benefits, side effects and risk, and educated on depression, anxiety, and ADHD, mood d/o and educated on compliance of medications, metabolic and movement d/o education appointment is, continue therapy discussion with patient about course of treatment and patient instructions. education on serotonin syndrome SSRI/SNRI side effects discussed including but not limited to, gastric upset, nausea, vomiting, diarrhea and/or constipation, weight changes, sexual side effects including loss of libido, increased suicidal thoughts/behavior s in children and young adults, and serotonin syndrome. Second generation antipsychotics (SGAs) have metabolic syndrome issues with weight gain, increase in prolactin, increased waist circumference, increased lipids, and increased glucose. Thus routine monitoring of weight, metabolic labs, etc. is indicated. A general rank ordering of antipsychotics that have the greatest to the least risk of metabolic effects is olanzapine, quetiapine, risperidone, ziprasidone, and aripiprazole. However, weight gain can occur with all of these drugs and considerable variability exists among patients receiving the same drug regarding the risk of metabolic effects. Anti-psychotic agents not only increase the risk of metabolic disorder, they also increase the risk of CVA, akathisia, and movement disorders including EPS or tardive dyskinesia (more common with first generation antipsychotics) and more. Medication Management and Follow-Up - Plan: - Schedule follow-up appointments every 1-3 months to monitor the patient's response to the medication regimen. - Reinforce the importance of avoiding recreational drug use due to potential neurotoxicity and interactions with prescribed medications. 02/09/2024 Primary insomnia (ICD-10 - F51.01) 1. Bipolar depression presently taking Seroquel 100 mg - having depression increase Seroquel 150 mg at bedtime - no refill needed reported has rx at pharmacy already from PCP FOR 150MG labs done by PCP and Endo willl obtain continue therapy 2.Anxiety - see therapy has Vistaril 10 mg PRN - at home not using Educated on rx 3. Primary Insomnia sleep hygeine may take Vistaril 10 mg at bedtime NO REFILL needed 4. ADHD schedule JACOBY-2 TEST Currently taking Adderall XR 10 MG PCP prescribed 5. RLS- ON REQUIP 4 MG bedtime- PCP prescribes ADHD stimulates education Discuss with patient risk of misuse, abuse, and addiction before prescribing stimulant medicines. Health Technician Hearing patients not to share their prescribed stimulant with anyone else. Educate patients and their families on these serious risks, proper storage of the medicine, and proper disposal of any unused medicine. Educated patient will monitor Throughout treatment, regularly assess and monitor them for signs and symptoms of nonmedical use, addiction, and potential diversion, which may be evidenced by more frequent renewal. requests than warranted by the prescribed dosage. Random UDS [place] prescription reviewed local pharmacy in [facility], no early refills on control substance educated on non-stimulate and stimulates Cannabis/marijuan a information: http_s://tammy.nih .gov/publications /drugfacts/cannab is-marijuana http_s://www.MediaHound/canna spm-ppi-taawtegl- marijuana-adhd/ http_s://www.jumana .org/About-Mental -Illness/Mental-H ealth-Conditions http_s://psychCryoLife/depressi on/the-cognitive- crfzzoba-oa-pskbr ssion#treatments http__s://www.[facility].nih.gov/health/ topics/mental-hea lth-medications http__s://www.nam i.org/About-Menta l-Illness/Treatme nts/Mental-Health -Medications educated on all medications, benefits, side effects and risk, and educated on depression, anxiety, and ADHD, mood d/o and educated on compliance of medications, metabolic and movement d/o education appointment's, continue therapy discussion with patient about course of treatment and patient instructions. education on serotonin syndrome Discussed and educated pt regarding benzodiazepines are generally not intended for prolonged use and that use can cause tolerance, dependence, depression, and associated memory issues including dementias (this list is not exhaustive). Benzodiazepine use is generally not recommended concurrently with pain medications and/or other controlled substances educated on all medications, benefits, side effects and risk, and educated on depression, anxiety, and ADHD, mood d/o and educated on compliance of medications, metabolic and movement d/o education appointment is, continue therapy discussion with patient about course of treatment and patient instructions. education on serotonin syndrome SSRI/SNRI side effects discussed including but not limited to, gastric upset, nausea, vomiting, diarrhea and/or constipation, weight changes, sexual side effects including loss of libido, increased suicidal thoughts/behavior s in children and young adults, and serotonin syndrome. Second generation antipsychotics (SGAs) have metabolic syndrome issues with weight gain, increase in prolactin, increased waist circumference, increased lipids, and increased glucose. Thus routine monitoring of weight, metabolic labs, etc. is indicated. A general rank ordering of antipsychotics that have the greatest to the least risk of metabolic effects is olanzapine, quetiapine, risperidone, ziprasidone, and aripiprazole. However, weight gain can occur with all of these drugs and considerable variability exists among patients receiving the same drug regarding the risk of metabolic effects. Anti-psychotic agents not only increase the risk of metabolic disorder, they also increase the risk of CVA, akathisia, and movement disorders including EPS or tardive dyskinesia (more common with first generation antipsychotics) and more. Medication Management and Follow-Up - Plan: - Schedule follow-up appointments every 1-3 months to monitor the patient's response to the medication regimen. - Reinforce the importance of avoiding recreational drug use due to potential neurotoxicity and interactions with prescribed medications. 03/28/2024 Primary insomnia (ICD-10 - F51.01) 1. Bipolar II depression - having depression discuss and education on medication Options Caplyta 42 mg daily, labs done by PCP and Endo willl obtain continue therapy 2.Anxiety - see therapy has Vistaril 10 mg in day and at bedtime PRN - Educated on rx 3. Primary Insomnia sleep hygeine Vistaril 10 mg at bedtime PRN hx sleep study no sleep apnea Add Ramelteon 8 mg at bedtime for sleep educated on rx and importance sleep 4. ADHD review reviewed JACOBY-AE2 TEST Self rating scales- significant number hyperactive/impul sive and inattentive symptoms that negative impact functions, - posisble dxn ADHD COMBINATION BUT NOT CONGRUENT with JACOBY-AE2 test - Need to reconcile data sets before a definitive dxn can be made, patient reported took ADHD rx in am and tested 3 pm Currently not taking Adderall XR 10 MG PCP prescribed 5. RLS- ON REQUIP 4 MG bedtime- PCP prescribes ADHD stimulates education Discuss with patient risk of misuse, abuse, and addiction before prescribing stimulant medicines. Health Technician Hearing patients not to share their prescribed stimulant with anyone else. Educate patients and their families on these serious risks, proper storage of the medicine, and proper disposal of any unused medicine. Educated patient will monitor Throughout treatment, regularly assess and monitor them for signs and symptoms of nonmedical use, addiction, and potential diversion, which may be evidenced by more frequent renewal. requests than warranted by the prescribed dosage. Random [facility] prescription reviewed local pharmacy in [facility], no early refills on control substance educated on non-stimulate and stimulates Cannabis/marijuan a information: http_s://tammy.nih .gov/publications /drugfacts/cannab is-marijuana http_s://www.MediaHound/canna bqn-svk-fzpahznm- marijuana-adhd/ http_s://www.jumana .org/About-Mental -Illness/Mental-H ealth-Conditions http_s://psychcen [facility].com/depressi on/the-cognitive- dfwelcev-qx-jaget ssion#treatments http__s://www.[facility].nih.gov/health/ topics/mental-hea lt-medications http__s://www.nam i.org/About-Menta l-Illness/Treatme nts/Mental-Health -Medications educated on all medications, benefits, side effects and risk, and educated on depression, anxiety, and ADHD, mood d/o and educated on compliance of medications, metabolic and movement d/o education appointment's, continue therapy discussion with patient about course of treatment and patient instructions. education on serotonin syndrome Discussed and educated pt regarding benzodiazepines are generally not intended for prolonged use and that use can cause tolerance, dependence, depression, and associated memory issues including dementias (this list is not exhaustive). Benzodiazepine use is generally not recommended concurrently with pain medications and/or other controlled substances educated on all medications, benefits, side effects and risk, and educated on depression, anxiety, and ADHD, mood d/o and educated on compliance of medications, metabolic and movement d/o education appointment is, continue therapy discussion with patient about course of treatment and patient instructions. education on serotonin syndrome SSRI/SNRI side effects discussed including but not limited to, gastric upset, nausea, vomiting, diarrhea and/or constipation, weight changes, sexual side effects including loss of libido, increased suicidal thoughts/behavior s in children and young adults, and serotonin syndrome. Second generation antipsychotics (SGAs) have metabolic syndrome issues with weight gain, increase in prolactin, increased waist circumference, increased lipids, and increased glucose. Thus routine monitoring of weight, metabolic labs, etc. is indicated. A general rank ordering of antipsychotics that have the greatest to the least risk of metabolic effects is olanzapine, quetiapine, risperidone, ziprasidone, and aripiprazole. However, weight gain can occur with all of these drugs and considerable variability exists among patients receiving the same drug regarding the risk of metabolic effects. Anti-psychotic agents not only increase the risk of metabolic disorder, they also increase the risk of CVA, akathisia, and movement disorders including EPS or tardive dyskinesia (more common with first generation antipsychotics) and more. Medication Management and Follow-Up - Plan: - Schedule follow-up appointments every 1-3 months to monitor the patient's response to the medication regimen. - Reinforce the importance of avoiding recreational drug use due to potential neurotoxicity and interactions with prescribed medications. 02/09/2024 ADHD (attention deficit hyperactivity disorder), combined type (ICD-10 - F90.2) 1. Bipolar depression presently taking Seroquel 100 mg - having depression increase Seroquel 150 mg at bedtime - no refill needed reported has rx at pharmacy already from PCP FOR 150MG labs done by PCP and Endo willl obtain continue therapy 2.Anxiety - see therapy has Vistaril 10 mg PRN - at home not using Educated on rx 3. Primary Insomnia sleep hygeine may take Vistaril 10 mg at bedtime NO REFILL needed 4. ADHD schedule JACOBY-2 TEST Currently taking Adderall XR 10 MG PCP prescribed 5. RLS- ON REQUIP 4 MG bedtime- PCP prescribes ADHD stimulates education Discuss with patient risk of misuse, abuse, and addiction before prescribing stimulant medicines. Health Technician Hearing patients not to share their prescribed stimulant with anyone else. Educate patients and their families on these serious risks, proper storage of the medicine, and proper disposal of any unused medicine. Educated patient will monitor Throughout treatment, regularly assess and monitor them for signs and symptoms of nonmedical use, addiction, and potential diversion, which may be evidenced by more frequent renewal. requests than warranted by the prescribed dosage. Random UDS [place] prescription reviewed local pharmacy in [facility], no early refills on control substance educated on non-stimulate and stimulates Cannabis/marijuan a information: http_s://tammy.nih .gov/publications /drugfacts/cannab is-marijuana http_s://www.MediaHound/canna djg-eki-oajiulfd- marijuana-adhd/ http_s://www.jumana .org/About-Mental -Illness/Mental-H ealth-Conditions http_s://psychcen tral.com/depressi on/the-cognitive- gamfhxjs-wj-xmjon ssion#treatments http__s://www.nim h.nih.gov/health/ topics/mental-hea lth-medications http__s://www.nam i.org/About-Menta l-Illness/Treatme nts/Mental-Health -Medications educated on all medications, benefits, side effects and risk, and educated on depression, anxiety, and ADHD, mood d/o and educated on compliance of medications, metabolic and movement d/o education appointment's, continue therapy discussion with patient about course of treatment and patient instructions. education on serotonin syndrome Discussed and educated pt regarding benzodiazepines are generally not intended for prolonged use and that use can cause tolerance, dependence, depression, and associated memory issues including dementias (this list is not exhaustive). Benzodiazepine use is generally not recommended concurrently with pain medications and/or other controlled substances educated on all medications, benefits, side effects and risk, and educated on depression, anxiety, and ADHD, mood d/o and educated on compliance of medications, metabolic and movement d/o education appointment is, continue therapy discussion with patient about course of treatment and patient instructions. education on serotonin syndrome SSRI/SNRI side effects discussed including but not limited to, gastric upset, nausea, vomiting, diarrhea and/or constipation, weight changes, sexual side effects including loss of libido, increased suicidal thoughts/behavior s in children and young adults, and serotonin syndrome. Second generation antipsychotics (SGAs) have metabolic syndrome issues with weight gain, increase in prolactin, increased waist circumference, increased lipids, and increased glucose. Thus routine monitoring of weight, metabolic labs, etc. is indicated. A general rank ordering of antipsychotics that have the greatest to the least risk of metabolic effects is olanzapine, quetiapine, risperidone, ziprasidone, and aripiprazole. However, weight gain can occur with all of these drugs and considerable variability exists among patients receiving the same drug regarding the risk of metabolic effects. Anti-psychotic agents not only increase the risk of metabolic disorder, they also increase the risk of CVA, akathisia, and movement disorders including EPS or tardive dyskinesia (more common with first generation antipsychotics) and more. Medication Management and Follow-Up - Plan: - Schedule follow-up appointments every 1-3 months to monitor the patient's response to the medication regimen. - Reinforce the importance of avoiding recreational drug use due to potential neurotoxicity and interactions with prescribed medications. 02/29/2024 Primary insomnia (ICD-10 - F51.01) 1. Bipolar II depression presently taking Seroquel 150 mg - having depression pateint reported has Seroquel 50 mg at home will decrease Seroquel to 100 mg for 3 days then 50 mg for 3 days then stop, discuss and education on medication Options ADD Caplyta 42 mg daily, samples given and co-pay card Highest dose 250 mg reported by patient - reported not fatigue with rx labs done by PCP and Endo willl obtain continue therapy 2.Anxiety - see therapy has Vistaril 10 mg bedtime - Educated on rx 3. Primary Insomnia sleep hygeine may take Vistaril 10 mg at bedtime NO REFILL needed hx sleep study no sleep apnea Add Trazodone 50 mg at bedtime educated on rx and importance sleep 4. ADHD review reviewed JACOBY-AE2 TEST Self rating scales- significant number hyperactive/impul sive and inattentive symptoms that negative impact functions, - posisble dxn ADHD COMBINATION BUT NOT CONGRUENT with JACOBY-AE2 test - Need to reconcile data sets before a definitive dxn can be made, patient reported took ADHD rx in am and tested 3 pm Currently taking Adderall XR 10 MG PCP prescribed 5. RLS- ON REQUIP 4 MG bedtime- PCP prescribes ADHD stimulates education Discuss with patient risk of misuse, abuse, and addiction before prescribing stimulant medicines. Health Technician Hearing patients not to share their prescribed stimulant with anyone else. Educate patients and their families on these serious risks, proper storage of the medicine, and proper disposal of any unused medicine. Educated patient will monitor Throughout treatment, regularly assess and monitor them for signs and symptoms of nonmedical use, addiction, and potential diversion, which may be evidenced by more frequent renewal. requests than warranted by the prescribed dosage. Random UDS [place] prescription reviewed local pharmacy in [facility], no early refills on control substance educated on non-stimulate and stimulates Cannabis/marijuan a information: http_s://tammy.nih .gov/publications /drugfacts/cannab is-marijuana http_s://www.[employer].A vida é feita de [place]/canna mbp-rxu-dhwwuxcc- marijuana-adhd/ http_s://www.jumana .org/About-Mental -Illness/Mental-H ealth-Conditions http_s://psychcen [employer].com/depressi on/the-cognitive- lkpdzoiw-gz-fxmmh ssion#treatments http__s://www.nim h.nih.gov/health/ topics/mental-hea lth-medications http__s://www.[facility] i.org/About-Menta l-Illness/Treatme nts/Mental-Health -Medications educated on all medications, benefits, side effects and risk, and educated on depression, anxiety, and ADHD, mood d/o and educated on compliance of medications, metabolic and movement d/o education appointment's, continue therapy discussion with patient about course of treatment and patient instructions. education on serotonin syndrome Discussed and educated pt regarding benzodiazepines are generally not intended for prolonged use and that use can cause tolerance, dependence, depression, and associated memory issues including dementias (this list is not exhaustive). Benzodiazepine use is generally not recommended concurrently with pain medications and/or other controlled substances educated on all medications, benefits, side effects and risk, and educated on depression, anxiety, and ADHD, mood d/o and educated on compliance of medications, metabolic and movement d/o education appointment is, continue therapy discussion with patient about course of treatment and patient instructions. education on serotonin syndrome SSRI/SNRI side effects discussed including but not limited to, gastric upset, nausea, vomiting, diarrhea and/or constipation, weight changes, sexual side effects including loss of libido, increased suicidal thoughts/behavior s in children and young adults, and serotonin syndrome. Second generation antipsychotics (SGAs) have metabolic syndrome issues with weight gain, increase in prolactin, increased waist circumference, increased lipids, and increased glucose. Thus routine monitoring of weight, metabolic labs, etc. is indicated. A general rank ordering of antipsychotics that have the greatest to the least risk of metabolic effects is olanzapine, quetiapine, risperidone, ziprasidone, and aripiprazole. However, weight gain can occur with all of these drugs and considerable variability exists among patients receiving the same drug regarding the risk of metabolic effects. Anti-psychotic agents not only increase the risk of metabolic disorder, they also increase the risk of CVA, akathisia, and movement disorders including EPS or tardive dyskinesia (more common with first generation antipsychotics) and more. Medication Management and Follow-Up - Plan: - Schedule follow-up appointments every 1-3 months to monitor the patient's response to the medication regimen. - Reinforce the importance of avoiding recreational drug use due to potential neurotoxicity and interactions with prescribed medications. 04/12/2024 Primary insomnia (ICD-10 - F51.01) Insomnia: Care Instructions material was published, Learning About Sleeping Well material was published CancelRx Response got Denied on 2024-05-09 16:53:33 for 'Ramelteon 8 MG Tablet'Pharmacy Notes: Prescription not found. Contact Pharmacy by other means 1. Bipolar II depression - having depression discuss and education on medication Options Caplyta 42 mg daily, Increase [place] 300 mg twice a day for increase depression [place] education [place] use reviewed. Risks include risks of toxicity, arrhythmias, cognitive impairment, changes in muscle coordination, weight gain, thyroid and parathyroid changes, polydipsia and polyuria, alopecia, tremor and teratogenicity ( defects). Recommend avoid in females (use contraception consistently). Routine lab monitoring may be required. Patient consented to treatment. Indications: acute delmer (euphoric delmer), bipolar prophylaxis, bipolar depression treatment or augmentation, unipolar depression as augmentation with antidepressants Average dose = I,500 mg/day, target serum level 0.8 [place] is known to reduce risk of suicide. Mechanism of action: inhibits inositol monophosphatase, interfering with 2nd messengers Nuisance Side Effects: sedation, cognitive difficulties, decreased creativity, dry mouth, tremor, increased appetite, weight gain, polydipsia, polyuria, nausea, diarrhea, acne, alopecia Serious Side Effects: Thyroid: hypothyroidism (5%), goiter (3%) Cardiac: decrease in cardiac conduction leading to sick sinus syndrome, blocks SA node Teratogenicity: Ebstein's anomaly 2 in 1,000 Renal: chronic renal insufficiency (after 10-20 years), acute renal failure, polyuria occurs in 50-70% [lithium antagonizes anti-diuretic hormone (ADH)], diabetes insipidus in 10% (treat with amiloride) Drug-drug interactions: increase in lithium: NSAIDs, MARIA INES inhibitors, angiotensin II antagonists labs done by PCP and Endo willl obtain continue therapy 2.Anxiety - see therapy has Vistaril 10 mg in day and at bedtime PRN - Educated on rx 3. Primary Insomnia sleep hygeine Vistaril 10 mg at bedtime PRN hx sleep study no sleep apnea Ramelteon 8 mg at bedtime for sleep educated on rx and importance sleep 4. ADHD review reviewed JACOBY-AE2 TEST Self rating scales- significant number hyperactive/impul sive and inattentive symptoms that negative impact functions, - posisble dxn ADHD COMBINATION BUT NOT CONGRUENT with JACOBY-AE2 test - Need to reconcile data sets before a definitive dxn can be made, patient reported took ADHD rx in am and tested 3 pm ADHD Currently not taking Adderall XR 10 MG PCP prescribed ADHD stimulates education Discuss with patient risk of misuse, abuse, and addiction before prescribing stimulant medicines. Health Technician Hearing patients not to share their prescribed stimulant with anyone else. Educate patients and their families on these serious risks, proper storage of the medicine, and proper disposal of any unused medicine. Educated patient will monitor Throughout treatment, regularly assess and monitor them for signs and symptoms of nonmedical use, addiction, and potential diversion, which may be evidenced by more frequent renewal. requests than warranted by the prescribed dosage. Random UDS [place] prescription reviewed local pharmacy in [place], no early refills on control substance educated on non-stimulate and stimulates 5. RLS- ON REQUIP 4 MG bedtime- PCP prescribes patient will see PCP this month and discuss RLS LABS PCP Cannabis/marijuan a information: http_s://tammy.nih .gov/publications /drugfacts/cannab is-marijuana http_s://www.[employer]/canna oqv-esx-nljlmujm- marijuana-adhd/ http_s://www.ujmana .org/About-Mental -Illness/Mental-H ealth-Conditions http_s://psychC[employer]oLife/depressi on/the-cognitive- nduohejz-hl-wytji ssion#treatments http__s://www.nim h.nih.gov/health/ topics/mental-hea lth-medications http__s://www.nam i.org/About-Menta l-Illness/Treatme nts/Mental-Health -Medications educated on all medications, benefits, side effects and risk, and educated on depression, anxiety, and ADHD, mood d/o and educated on compliance of medications, metabolic and movement d/o education appointment's, continue therapy discussion with patient about course of treatment and patient instructions. education on serotonin syndrome Discussed and educated pt regarding benzodiazepines are generally not intended for prolonged use and that use can cause tolerance, dependence, depression, and associated memory issues including dementias (this list is not exhaustive). Benzodiazepine use is generally not recommended concurrently with pain medications and/or other controlled substances educated on all medications, benefits, side effects and risk, and educated on depression, anxiety, and ADHD, mood d/o and educated on compliance of medications, metabolic and movement d/o education appointment is, continue therapy discussion with patient about course of treatment and patient instructions. education on serotonin syndrome SSRI/SNRI side effects discussed including but not limited to, gastric upset, nausea, vomiting, diarrhea and/or constipation, weight changes, sexual side effects including loss of libido, increased suicidal thoughts/behavior s in children and young adults, and serotonin syndrome. Second generation antipsychotics (SGAs) have metabolic syndrome issues with weight gain, increase in prolactin, increased waist circumference, increased lipids, and increased glucose. Thus routine monitoring of weight, metabolic labs, etc. is indicated. A general rank ordering of antipsychotics that have the greatest to the least risk of metabolic effects is olanzapine, quetiapine, risperidone, ziprasidone, and aripiprazole. However, weight gain can occur with all of these drugs and considerable variability exists among patients receiving the same drug regarding the risk of metabolic effects. Anti-psychotic agents not only increase the risk of metabolic disorder, they also increase the risk of CVA, akathisia, and movement disorders including EPS or tardive dyskinesia (more common with first generation antipsychotics) and more. Medication Management and Follow-Up - Plan: - Schedule follow-up appointments every 1-3 months to monitor the patient's response to the medication regimen. - Reinforce the importance of avoiding recreational drug use due to potential neurotoxicity and interactions with prescribed medications. 05/09/2024 ADHD (attention deficit hyperactivity disorder), combined type (ICD-10 - F90.2) Learning About Attention Deficit Hyperactivity Disorder (ADHD) in Adults material was published, Attention Deficit Hyperactivity Disorder (ADHD) in Adults: Care Instructions material was published, Learning About Stimulant Medicines for Attention Deficit Hyperactivity Disorder (ADHD) material was published 1. Bipolar II depression- will change dxn to depression and recently dxn Autism 05/03 [facility] patient would like to come off rx and see how does and need FLMA next 2 weeks for intensive therapy with autism dxn FLMA - 04/18/24- 05/02/24 RTW therapy scheduled for autism during time off 1-2 times a week Work M-F 8 am- 4 pm no restirctions at work appointment time from work 30 minutes leave early late day appts. may need 1-2 days off a month possible if have melt down - therapy no accomadation needed discuss and education on medication Options Caplyta 42 mg daily,- patient would like to stop rx discuss taper down rx patient stopped [place] labs done by PCP and Endo willl obtain continue therapy refer [facility] Autism evaluation 2.Anxiety - see therapy Vistaril 10 mg in day and at bedtime PRN - Educated on rx 3. Primary Insomnia sleep hygeine Vistaril 10 mg at bedtime PRN hx sleep study no sleep apnea Ramelteon 8 mg at bedtime for sleep- patient not taking rx D/C educated on rx and importance sleep 4. ADHD review reviewed JACOBY-AE2 TEST Self rating scales- significant number hyperactive/impul sive and inattentive symptoms that negative impact functions, - posisble dxn ADHD COMBINATION BUT NOT CONGRUENT with JACOBY-AE2 test - Need to reconcile data sets before a definitive dxn can be made, patient reported took ADHD rx in am and tested 3 pm Autism dxn 05/03 ADHD Currently not taking Adderall XR 10 MG PCP prescribed ADHD stimulates education Discuss with patient risk of misuse, abuse, and addiction before prescribing stimulant medicines. Health Technician Hearing patients not to share their prescribed stimulant with anyone else. Educate patients and their families on these serious risks, proper storage of the medicine, and proper disposal of any unused medicine. Educated patient will monitor Throughout treatment, regularly assess and monitor them for signs and symptoms of nonmedical use, addiction, and potential diversion, which may be evidenced by more frequent renewal. requests than warranted by the prescribed dosage. Random S [place] prescription reviewed local pharmacy in [facility], no early refills on control substance educated on non-stimulate and stimulates 5. RLS- ON REQUIP 4 MG bedtime- PCP prescribes patient will see PCP this month and discuss RLS LABS PCP Cannabis/marijuan a information: http_s://tammy.nih .gov/publications /drugfacts/cannab is-marijuana http_s://www.[employer]/canna zrw-cjm-jgfeqnqn- marijuana-adhd/ http_s://www.jumana .org/About-Mental -Illness/Mental-H ealth-Conditions http_s://psychcen tral.com/depressi on/the-cognitive- ydusjeye-um-cmenw ssion#treatments http__s://www.[facility].nih.gov/health/ topics/mental-hea [facility]-medications http__s://www.nam i.org/About-Menta l-Illness/Treatme nts/Mental-Health -Medications educated on all medications, benefits, side effects and risk, and educated on depression, anxiety, and ADHD, mood d/o and educated on compliance of medications, metabolic and movement d/o education appointment's, continue therapy discussion with patient about course of treatment and patient instructions. education on serotonin syndrome educated on all medications, benefits, side effects and risk, and educated on depression, anxiety, and ADHD, mood d/o and educated on compliance of medications, metabolic and movement d/o education appointment is, continue therapy discussion with patient about course of treatment and patient instructions. education on serotonin syndrome SSRI/SNRI side effects discussed including but not limited to, gastric upset, nausea, vomiting, diarrhea and/or constipation, weight changes, sexual side effects including loss of libido, increased suicidal thoughts/behavior s in children and young adults, and serotonin syndrome. Medication Management and Follow-Up - Plan: - Schedule follow-up appointments every 1-3 months to monitor the patient's response to the medication regimen. - Reinforce the importance of avoiding recreational drug use due to potential neurotoxicity and interactions with prescribed medications. 05/09/2024 MDD (major depressive disorder), recurrent episode, mild (ICD-10 - F33.0) 1. Bipolar II depression- will change dxn to depression and recently dxn Autism 05/03 [facility] patient would like to come off rx and see how does and need FLMA next 2 weeks for intensive therapy with autism dxn FLMA - 04/18/24- 05/02/24 RTW therapy scheduled for autism during time off 1-2 times a week Work M-F 8 am- 4 pm no restirctions at work appointment time from work 30 minutes leave early late day appts. may need 1-2 days off a month possible if have melt down - therapy no accomadation needed discuss and education on medication Options Caplyta 42 mg daily,- patient would like to stop rx discuss taper down rx patient stopped [place] labs done by PCP and Endo willl obtain continue therapy refer [facility] Autism evaluation 2.Anxiety - see therapy Vistaril 10 mg in day and at bedtime PRN - Educated on rx 3. Primary Insomnia sleep hygeine Vistaril 10 mg at bedtime PRN hx sleep study no sleep apnea Ramelteon 8 mg at bedtime for sleep- patient not taking rx D/C educated on rx and importance sleep 4. ADHD review reviewed JACOBY-AE2 TEST Self rating scales- significant number hyperactive/impul sive and inattentive symptoms that negative impact functions, - posisble dxn ADHD COMBINATION BUT NOT CONGRUENT with JACOBY-AE2 test - Need to reconcile data sets before a definitive dxn can be made, patient reported took ADHD rx in am and tested 3 pm Autism dxn 05/03 ADHD Currently not taking Adderall XR 10 MG PCP prescribed ADHD stimulates education Discuss with patient risk of misuse, abuse, and addiction before prescribing stimulant medicines. Health Technician Hearing patients not to share their prescribed stimulant with anyone else. Educate patients and their families on these serious risks, proper storage of the medicine, and proper disposal of any unused medicine. Educated patient will monitor Throughout treatment, regularly assess and monitor them for signs and symptoms of nonmedical use, addiction, and potential diversion, which may be evidenced by more frequent renewal. requests than warranted by the prescribed dosage. Random S [place] prescription reviewed local pharmacy in [facility], no early refills on control substance educated on non-stimulate and stimulates 5. RLS- ON REQUIP 4 MG bedtime- PCP prescribes patient will see PCP this month and discuss RLS LABS PCP Cannabis/marijuan a information: http_s://tammy.nih .gov/publications /drugfacts/cannab is-marijuana http_s://www.[employer]/canna xum-knf-zygjryzd- marijuana-adhd/ http_s://www.jumana .org/About-Mental -Illness/Mental-H ealth-Conditions http_s://psychcen [facility].com/depressi on/the-cognitive- samzglpn-ua-vhdkw ssion#treatments http__s://www.nim h.nih.gov/health/ topics/mental-hea lth-medications http__s://www.nam i.org/About-Menta l-Illness/Treatme nts/Mental-Health -Medications educated on all medications, benefits, side effects and risk, and educated on depression, anxiety, and ADHD, mood d/o and educated on compliance of medications, metabolic and movement d/o education appointment's, continue therapy discussion with patient about course of treatment and patient instructions. education on serotonin syndrome educated on all medications, benefits, side effects and risk, and educated on depression, anxiety, and ADHD, mood d/o and educated on compliance of medications, metabolic and movement d/o education appointment is, continue therapy discussion with patient about course of treatment and patient instructions. education on serotonin syndrome SSRI/SNRI side effects discussed including but not limited to, gastric upset, nausea, vomiting, diarrhea and/or constipation, weight changes, sexual side effects including loss of libido, increased suicidal thoughts/behavior s in children and young adults, and serotonin syndrome. Medication Management and Follow-Up - Plan: - Schedule follow-up appointments every 1-3 months to monitor the patient's response to the medication regimen. - Reinforce the importance of avoiding recreational drug use due to potential neurotoxicity and interactions with prescribed medications. 03/28/2024 ADHD (attention deficit hyperactivity disorder), combined type (ICD-10 - F90.2) 1. Bipolar II depression - having depression discuss and education on medication Options Caplyta 42 mg daily, labs done by PCP and Endo willl obtain continue therapy 2.Anxiety - see therapy has Vistaril 10 mg in day and at bedtime PRN - Educated on rx 3. Primary Insomnia sleep hygeine Vistaril 10 mg at bedtime PRN hx sleep study no sleep apnea Add Ramelteon 8 mg at bedtime for sleep educated on rx and importance sleep 4. ADHD review reviewed JACOBY-AE2 TEST Self rating scales- significant number hyperactive/impul sive and inattentive symptoms that negative impact functions, - posisble dxn ADHD COMBINATION BUT NOT CONGRUENT with JACOBY-AE2 test - Need to reconcile data sets before a definitive dxn can be made, patient reported took ADHD rx in am and tested 3 pm Currently not taking Adderall XR 10 MG PCP prescribed 5. RLS- ON REQUIP 4 MG bedtime- PCP prescribes ADHD stimulates education Discuss with patient risk of misuse, abuse, and addiction before prescribing stimulant medicines. Health Technician Hearing patients not to share their prescribed stimulant with anyone else. Educate patients and their families on these serious risks, proper storage of the medicine, and proper disposal of any unused medicine. Educated patient will monitor Throughout treatment, regularly assess and monitor them for signs and symptoms of nonmedical use, addiction, and potential diversion, which may be evidenced by more frequent renewal. requests than warranted by the prescribed dosage. Random UDS [place] prescription reviewed local pharmacy in [place], no early refills on control substance educated on non-stimulate and stimulates Cannabis/marijuan a information: http_s://tammy.nih .gov/publications /drugfacts/cannab is-marijuana http_s://www.MediaHound/canna mri-xfj-frbydjbq- marijuana-adhd/ http_s://www.jumana .org/About-Mental -Illness/Mental-H ealth-Conditions http_s://psychCryoLife/depressi on/the-cognitive- bwlxrwrw-mc-mmnyi ssion#treatments http__s://www.nim .nih.gov/health/ topics/mental-hea lth-medications http__s://www.nam i.org/About-Menta l-Illness/Treatme nts/Mental-Health -Medications educated on all medications, benefits, side effects and risk, and educated on depression, anxiety, and ADHD, mood d/o and educated on compliance of medications, metabolic and movement d/o education appointment's, continue therapy discussion with patient about course of treatment and patient instructions. education on serotonin syndrome Discussed and educated pt regarding benzodiazepines are generally not intended for prolonged use and that use can cause tolerance, dependence, depression, and associated memory issues including dementias (this list is not exhaustive). Benzodiazepine use is generally not recommended concurrently with pain medications and/or other controlled substances educated on all medications, benefits, side effects and risk, and educated on depression, anxiety, and ADHD, mood d/o and educated on compliance of medications, metabolic and movement d/o education appointment is, continue therapy discussion with patient about course of treatment and patient instructions. education on serotonin syndrome SSRI/SNRI side effects discussed including but not limited to, gastric upset, nausea, vomiting, diarrhea and/or constipation, weight changes, sexual side effects including loss of libido, increased suicidal thoughts/behavior s in children and young adults, and serotonin syndrome. Second generation antipsychotics (SGAs) have metabolic syndrome issues with weight gain, increase in prolactin, increased waist circumference, increased lipids, and increased glucose. Thus routine monitoring of weight, metabolic labs, etc. is indicated. A general rank ordering of antipsychotics that have the greatest to the least risk of metabolic effects is olanzapine, quetiapine, risperidone, ziprasidone, and aripiprazole. However, weight gain can occur with all of these drugs and considerable variability exists among patients receiving the same drug regarding the risk of metabolic effects. Anti-psychotic agents not only increase the risk of metabolic disorder, they also increase the risk of CVA, akathisia, and movement disorders including EPS or tardive dyskinesia (more common with first generation antipsychotics) and more. Medication Management and Follow-Up - Plan: - Schedule follow-up appointments every 1-3 months to monitor the patient's response to the medication regimen. - Reinforce the importance of avoiding recreational drug use due to potential neurotoxicity and interactions with prescribed medications. 04/12/2024 ADHD (attention deficit hyperactivity disorder), combined type (ICD-10 - F90.2) Learning About Attention Deficit Hyperactivity Disorder (ADHD) in Adults material was published, Attention Deficit Hyperactivity Disorder (ADHD) in Adults: Care Instructions material was published, Learning About Stimulant Medicines for Attention Deficit Hyperactivity Disorder (ADHD) material was published 1. Bipolar II depression - having depression discuss and education on medication Options Caplyta 42 mg daily, Increase [place] 300 mg twice a day for increase depression [place] education [place] use reviewed. Risks include risks of toxicity, arrhythmias, cognitive impairment, changes in muscle coordination, weight gain, thyroid and parathyroid changes, polydipsia and polyuria, alopecia, tremor and teratogenicity ( defects). Recommend avoid in females (use contraception consistently). Routine lab monitoring may be required. Patient consented to treatment. Indications: acute delmer (euphoric delmer), bipolar prophylaxis, bipolar depression treatment or augmentation, unipolar depression as augmentation with antidepressants Average dose = I,500 mg/day, target serum level 0.8 [place] is known to reduce risk of suicide. Mechanism of action: inhibits inositol monophosphatase, interfering with 2nd messengers Nuisance Side Effects: sedation, cognitive difficulties, decreased creativity, dry mouth, tremor, increased appetite, weight gain, polydipsia, polyuria, nausea, diarrhea, acne, alopecia Serious Side Effects: Thyroid: hypothyroidism (5%), goiter (3%) Cardiac: decrease in cardiac conduction leading to sick sinus syndrome, blocks SA node Teratogenicity: Ebstein's anomaly 2 in 1,000 Renal: chronic renal insufficiency (after 10-20 years), acute renal failure, polyuria occurs in 50-70% [lithium antagonizes anti-diuretic hormone (ADH)], diabetes insipidus in 10% (treat with amiloride) Drug-drug interactions: increase in lithium: NSAIDs, MARIA INES inhibitors, angiotensin II antagonists labs done by PCP and Endo willl obtain continue therapy 2.Anxiety - see therapy has Vistaril 10 mg in day and at bedtime PRN - Educated on rx 3. Primary Insomnia sleep hygeine Vistaril 10 mg at bedtime PRN hx sleep study no sleep apnea Ramelteon 8 mg at bedtime for sleep educated on rx and importance sleep 4. ADHD review reviewed JACOBY-AE2 TEST Self rating scales- significant number hyperactive/impul sive and inattentive symptoms that negative impact functions, - posisble dxn ADHD COMBINATION BUT NOT CONGRUENT with JACOBY-AE2 test - Need to reconcile data sets before a definitive dxn can be made, patient reported took ADHD rx in am and tested 3 pm ADHD Currently not taking Adderall XR 10 MG PCP prescribed ADHD stimulates education Discuss with patient risk of misuse, abuse, and addiction before prescribing stimulant medicines. Health Technician Hearing patients not to share their prescribed stimulant with anyone else. Educate patients and their families on these serious risks, proper storage of the medicine, and proper disposal of any unused medicine. Educated patient will monitor Throughout treatment, regularly assess and monitor them for signs and symptoms of nonmedical use, addiction, and potential diversion, which may be evidenced by more frequent renewal. requests than warranted by the prescribed dosage. [facility] prescription reviewed local pharmacy in [facility], no early refills on control substance educated on non-stimulate and stimulates 5. RLS- ON REQUIP 4 MG bedtime- PCP prescribes patient will see PCP this month and discuss RLS LABS PCP Cannabis/marijuan a information: http_s://tammy.nih .gov/publications /drugfacts/cannab is-marijuana http_s://www.MediaHound/canna mwo-uxv-medvlkaw- marijuana-adhd/ http_s://www.jumana .org/About-Mental -Illness/Mental-H ealth-Conditions http_s://psychcen tral.com/depressi on/the-cognitive- figvowoa-sm-tohpq ssion#treatments http__s://www.[facility].nih.gov/health/ topics/mental-hea [facility]-medications http__s://www.nam i.org/About-Menta l-Illness/Treatme nts/Mental-Health -Medications educated on all medications, benefits, side effects and risk, and educated on depression, anxiety, and ADHD, mood d/o and educated on compliance of medications, metabolic and movement d/o education appointment's, continue therapy discussion with patient about course of treatment and patient instructions. education on serotonin syndrome Discussed and educated pt regarding benzodiazepines are generally not intended for prolonged use and that use can cause tolerance, dependence, depression, and associated memory issues including dementias (this list is not exhaustive). Benzodiazepine use is generally not recommended concurrently with pain medications and/or other controlled substances educated on all medications, benefits, side effects and risk, and educated on depression, anxiety, and ADHD, mood d/o and educated on compliance of medications, metabolic and movement d/o education appointment is, continue therapy discussion with patient about course of treatment and patient instructions. education on serotonin syndrome SSRI/SNRI side effects discussed including but not limited to, gastric upset, nausea, vomiting, diarrhea and/or constipation, weight changes, sexual side effects including loss of libido, increased suicidal thoughts/behavior s in children and young adults, and serotonin syndrome. Second generation antipsychotics (SGAs) have metabolic syndrome issues with weight gain, increase in prolactin, increased waist circumference, increased lipids, and increased glucose. Thus routine monitoring of weight, metabolic labs, etc. is indicated. A general rank ordering of antipsychotics that have the greatest to the least risk of metabolic effects is olanzapine, quetiapine, risperidone, ziprasidone, and aripiprazole. However, weight gain can occur with all of these drugs and considerable variability exists among patients receiving the same drug regarding the risk of metabolic effects. Anti-psychotic agents not only increase the risk of metabolic disorder, they also increase the risk of CVA, akathisia, and movement disorders including EPS or tardive dyskinesia (more common with first generation antipsychotics) and more. Medication Management and Follow-Up - Plan: - Schedule follow-up appointments every 1-3 months to monitor the patient's response to the medication regimen. - Reinforce the importance of avoiding recreational drug use due to potential neurotoxicity and interactions with prescribed medications. 02/29/2024 ADHD (attention deficit hyperactivity disorder), combined type (ICD-10 - F90.2) 1. Bipolar II depression presently taking Seroquel 150 mg - having depression pateint reported has Seroquel 50 mg at home will decrease Seroquel to 100 mg for 3 days then 50 mg for 3 days then stop, discuss and education on medication Options ADD Caplyta 42 mg daily, samples given and co-pay card Highest dose 250 mg reported by patient - reported not fatigue with rx labs done by PCP and Endo willl obtain continue therapy 2.Anxiety - see therapy has Vistaril 10 mg bedtime - Educated on rx 3. Primary Insomnia sleep hygeine may take Vistaril 10 mg at bedtime NO REFILL needed hx sleep study no sleep apnea Add Trazodone 50 mg at bedtime educated on rx and importance sleep 4. ADHD review reviewed JACOBY-AE2 TEST Self rating scales- significant number hyperactive/impul sive and inattentive symptoms that negative impact functions, - posisble dxn ADHD COMBINATION BUT NOT CONGRUENT with JACOBY-AE2 test - Need to reconcile data sets before a definitive dxn can be made, patient reported took ADHD rx in am and tested 3 pm Currently taking Adderall XR 10 MG PCP prescribed 5. RLS- ON REQUIP 4 MG bedtime- PCP prescribes ADHD stimulates education Discuss with patient risk of misuse, abuse, and addiction before prescribing stimulant medicines. Health Technician Hearing patients not to share their prescribed stimulant with anyone else. Educate patients and their families on these serious risks, proper storage of the medicine, and proper disposal of any unused medicine. Educated patient will monitor Throughout treatment, regularly assess and monitor them for signs and symptoms of nonmedical use, addiction, and potential diversion, which may be evidenced by more frequent renewal. requests than warranted by the prescribed dosage. [facility] [place] prescription reviewed local pharmacy in [place], no early refills on control substance educated on non-stimulate and stimulates Cannabis/marijuan a information: http_s://tammy.nih .gov/publications /drugfacts/cannab is-marijuana http_s://www.MediaHound/canna nba-fqm-qoqebclm- marijuana-adhd/ http_s://www.jumana .org/About-Mental -Illness/Mental-H ealt-Conditions http_s://psychcen tral.com/depressi on/the-cognitive- bbduozmv-df-zwnzh ssion#treatments http__s://www.nim .nih.gov/health/ topics/mental-hea [facility]-medications http__s://www.nam i.org/About-Menta l-Illness/Treatme nts/Mental-Health -Medications educated on all medications, benefits, side effects and risk, and educated on depression, anxiety, and ADHD, mood d/o and educated on compliance of medications, metabolic and movement d/o education appointment's, continue therapy discussion with patient about course of treatment and patient instructions. education on serotonin syndrome Discussed and educated pt regarding benzodiazepines are generally not intended for prolonged use and that use can cause tolerance, dependence, depression, and associated memory issues including dementias (this list is not exhaustive). Benzodiazepine use is generally not recommended concurrently with pain medications and/or other controlled substances educated on all medications, benefits, side effects and risk, and educated on depression, anxiety, and ADHD, mood d/o and educated on compliance of medications, metabolic and movement d/o education appointment is, continue therapy discussion with patient about course of treatment and patient instructions. education on serotonin syndrome SSRI/SNRI side effects discussed including but not limited to, gastric upset, nausea, vomiting, diarrhea and/or constipation, weight changes, sexual side effects including loss of libido, increased suicidal thoughts/behavior s in children and young adults, and serotonin syndrome. Second generation antipsychotics (SGAs) have metabolic syndrome issues with weight gain, increase in prolactin, increased waist circumference, increased lipids, and increased glucose. Thus routine monitoring of weight, metabolic labs, etc. is indicated. A general rank ordering of antipsychotics that have the greatest to the least risk of metabolic effects is olanzapine, quetiapine, risperidone, ziprasidone, and aripiprazole. However, weight gain can occur with all of these drugs and considerable variability exists among patients receiving the same drug regarding the risk of metabolic effects. Anti-psychotic agents not only increase the risk of metabolic disorder, they also increase the risk of CVA, akathisia, and movement disorders including EPS or tardive dyskinesia (more common with first generation antipsychotics) and more. Medication Management and Follow-Up - Plan: - Schedule follow-up appointments every 1-3 months to monitor the patient's response to the medication regimen. - Reinforce the importance of avoiding recreational drug use due to potential neurotoxicity and interactions with prescribed medications. 02/09/2024 Other Learning About Depression Screening material was printed 1. Bipolar depression presently taking Seroquel 100 mg - having depression increase Seroquel 150 mg at bedtime - no refill needed reported has rx at pharmacy already from PCP FOR 150MG labs done by PCP and Endo willl obtain continue therapy 2.Anxiety - see therapy has Vistaril 10 mg PRN - at home not using Educated on rx 3. Primary Insomnia sleep hygeine may take Vistaril 10 mg at bedtime NO REFILL needed 4. ADHD schedule JACOBY-2 TEST Currently taking Adderall XR 10 MG PCP prescribed 5. RLS- ON REQUIP 4 MG bedtime- PCP prescribes ADHD stimulates education Discuss with patient risk of misuse, abuse, and addiction before prescribing stimulant medicines. Health Technician Hearing patients not to share their prescribed stimulant with anyone else. Educate patients and their families on these serious risks, proper storage of the medicine, and proper disposal of any unused medicine. Educated patient will monitor Throughout treatment, regularly assess and monitor them for signs and symptoms of nonmedical use, addiction, and potential diversion, which may be evidenced by more frequent renewal. requests than warranted by the prescribed dosage. [facility] prescription reviewed local pharmacy in [facility], no early refills on control substance educated on non-stimulate and stimulates Cannabis/marijuan a information: http_s://tammy.nih .gov/publications /drugfacts/cannab is-marijuana http_s://www.MediaHound/canna vux-uie-ppyqqnlx- marijuana-adhd/ http_s://www.jumana .org/About-Mental -Illness/Mental-H ealth-Conditions http_s://psychcen tral.com/depressi on/the-cognitive- orqpgsfg-zq-wppdm ssion#treatments http__s://www.nim h.nih.gov/health/ topics/mental-hea lth-medications http__s://www.nam i.org/About-Menta l-Illness/Treatme nts/Mental-Health -Medications educated on all medications, benefits, side effects and risk, and educated on depression, anxiety, and ADHD, mood d/o and educated on compliance of medications, metabolic and movement d/o education appointment's, continue therapy discussion with patient about course of treatment and patient instructions. education on serotonin syndrome Discussed and educated pt regarding benzodiazepines are generally not intended for prolonged use and that use can cause tolerance, dependence, depression, and associated memory issues including dementias (this list is not exhaustive). Benzodiazepine use is generally not recommended concurrently with pain medications and/or other controlled substances educated on all medications, benefits, side effects and risk, and educated on depression, anxiety, and ADHD, mood d/o and educated on compliance of medications, metabolic and movement d/o education appointment is, continue therapy discussion with patient about course of treatment and patient instructions. education on serotonin syndrome SSRI/SNRI side effects discussed including but not limited to, gastric upset, nausea, vomiting, diarrhea and/or constipation, weight changes, sexual side effects including loss of libido, increased suicidal thoughts/behavior s in children and young adults, and serotonin syndrome. Second generation antipsychotics (SGAs) have metabolic syndrome issues with weight gain, increase in prolactin, increased waist circumference, increased lipids, and increased glucose. Thus routine monitoring of weight, metabolic labs, etc. is indicated. A general rank ordering of antipsychotics that have the greatest to the least risk of metabolic effects is olanzapine, quetiapine, risperidone, ziprasidone, and aripiprazole. However, weight gain can occur with all of these drugs and considerable variability exists among patients receiving the same drug regarding the risk of metabolic effects. Anti-psychotic agents not only increase the risk of metabolic disorder, they also increase the risk of CVA, akathisia, and movement disorders including EPS or tardive dyskinesia (more common with first generation antipsychotics) and more. Medication Management and Follow-Up - Plan: - Schedule follow-up appointments every 1-3 months to monitor the patient's response to the medication regimen. - Reinforce the importance of avoiding recreational drug use due to potential neurotoxicity and interactions with prescribed medications. 04/12/2024 Other Lumateperone material was published, [place] material was published, Hydroxyzine material was published, Ramelteon material was published 1. Bipolar II depression - having depression discuss and education on medication Options Caplyta 42 mg daily, Increase [place] 300 mg twice a day for increase depression [place] education [place] use reviewed. Risks include risks of toxicity, arrhythmias, cognitive impairment, changes in muscle coordination, weight gain, thyroid and parathyroid changes, polydipsia and polyuria, alopecia, tremor and teratogenicity ( defects). Recommend avoid in females (use contraception consistently). Routine lab monitoring may be required. Patient consented to treatment. Indications: acute delmer (euphoric delmer), bipolar prophylaxis, bipolar depression treatment or augmentation, unipolar depression as augmentation with antidepressants Average dose = I,500 mg/day, target serum level 0.8 [place] is known to reduce risk of suicide. Mechanism of action: inhibits inositol monophosphatase, interfering with 2nd messengers Nuisance Side Effects: sedation, cognitive difficulties, decreased creativity, dry mouth, tremor, increased appetite, weight gain, polydipsia, polyuria, nausea, diarrhea, acne, alopecia Serious Side Effects: Thyroid: hypothyroidism (5%), goiter (3%) Cardiac: decrease in cardiac conduction leading to sick sinus syndrome, blocks SA node Teratogenicity: Ebstein's anomaly 2 in 1,000 Renal: chronic renal insufficiency (after 10-20 years), acute renal failure, polyuria occurs in 50-70% [lithium antagonizes anti-diuretic hormone (ADH)], diabetes insipidus in 10% (treat with amiloride) Drug-drug interactions: increase in lithium: NSAIDs, MARIA INES inhibitors, angiotensin II antagonists labs done by PCP and Endo willl obtain continue therapy 2.Anxiety - see therapy has Vistaril 10 mg in day and at bedtime PRN - Educated on rx 3. Primary Insomnia sleep hygeine Vistaril 10 mg at bedtime PRN hx sleep study no sleep apnea Ramelteon 8 mg at bedtime for sleep educated on rx and importance sleep 4. ADHD review reviewed JACOBY-AE2 TEST Self rating scales- significant number hyperactive/impul sive and inattentive symptoms that negative impact functions, - posisble dxn ADHD COMBINATION BUT NOT CONGRUENT with JACOBY-AE2 test - Need to reconcile data sets before a definitive dxn can be made, patient reported took ADHD rx in am and tested 3 pm ADHD Currently not taking Adderall XR 10 MG PCP prescribed ADHD stimulates education Discuss with patient risk of misuse, abuse, and addiction before prescribing stimulant medicines. Health Technician Hearing patients not to share their prescribed stimulant with anyone else. Educate patients and their families on these serious risks, proper storage of the medicine, and proper disposal of any unused medicine. Educated patient will monitor Throughout treatment, regularly assess and monitor them for signs and symptoms of nonmedical use, addiction, and potential diversion, which may be evidenced by more frequent renewal. requests than warranted by the prescribed dosage. Random [place] prescription reviewed local pharmacy in [place], no early refills on control substance educated on non-stimulate and stimulates 5. RLS- ON REQUIP 4 MG bedtime- PCP prescribes patient will see PCP this month and discuss RLS LABS PCP Cannabis/marijuan a information: http_s://tammy.nih .gov/publications /drugfacts/cannab is-marijuana http_s://www.MediaHound/canna iac-uhk-qlfusbot- marijuana-adhd/ http_s://www.jumana .org/About-Mental -Illness/Mental-H ealth-Conditions http_s://Miro/depressi on/the-cognitive- bosqppid-cv-mkufd ssion#treatments http__s://www.nim .nih.gov/health/ topics/mental-hea lth-medications http__s://www.nam i.org/About-Menta l-Illness/Treatme nts/Mental-Health -Medications educated on all medications, benefits, side effects and risk, and educated on depression, anxiety, and ADHD, mood d/o and educated on compliance of medications, metabolic and movement d/o education appointment's, continue therapy discussion with patient about course of treatment and patient instructions. education on serotonin syndrome Discussed and educated pt regarding benzodiazepines are generally not intended for prolonged use and that use can cause tolerance, dependence, depression, and associated memory issues including dementias (this list is not exhaustive). Benzodiazepine use is generally not recommended concurrently with pain medications and/or other controlled substances educated on all medications, benefits, side effects and risk, and educated on depression, anxiety, and ADHD, mood d/o and educated on compliance of medications, metabolic and movement d/o education appointment is, continue therapy discussion with patient about course of treatment and patient instructions. education on serotonin syndrome SSRI/SNRI side effects discussed including but not limited to, gastric upset, nausea, vomiting, diarrhea and/or constipation, weight changes, sexual side effects including loss of libido, increased suicidal thoughts/behavior s in children and young adults, and serotonin syndrome. Second generation antipsychotics (SGAs) have metabolic syndrome issues with weight gain, increase in prolactin, increased waist circumference, increased lipids, and increased glucose. Thus routine monitoring of weight, metabolic labs, etc. is indicated. A general rank ordering of antipsychotics that have the greatest to the least risk of metabolic effects is olanzapine, quetiapine, risperidone, ziprasidone, and aripiprazole. However, weight gain can occur with all of these drugs and considerable variability exists among patients receiving the same drug regarding the risk of metabolic effects. Anti-psychotic agents not only increase the risk of metabolic disorder, they also increase the risk of CVA, akathisia, and movement disorders including EPS or tardive dyskinesia (more common with first generation antipsychotics) and more. Medication Management and Follow-Up - Plan: - Schedule follow-up appointments every 1-3 months to monitor the patient's response to the medication regimen. - Reinforce the importance of avoiding recreational drug use due to potential neurotoxicity and interactions with prescribed medications. 05/09/2024 Other Bipolar Disorder: Care Instructions material was published, Learning About Movement Disorders From Antipsychotic Medicines material was published, Learning About How to Get Help During a Mental Health Crisis material was published, Learning About Mood Disorders material was published 1. Bipolar II depression- will change dxn to depression and recently dxn Autism 05/03 [facility] patient would like to come off rx and see how does and need FLMA next 2 weeks for intensive therapy with autism dxn FLMA - 04/18/24- 05/02/24 [facility] therapy scheduled for autism during time off 1-2 times a week Work M-F 8 am- 4 pm no restirctions at work appointment time from work 30 minutes leave early late day appts. may need 1-2 days off a month possible if have melt down - therapy no accomadation needed discuss and education on medication Options Caplyta 42 mg daily,- patient would like to stop rx discuss taper down rx patient stopped [place] labs done by PCP and Endo willl obtain continue therapy refer [facility] Autism evaluation 2.Anxiety - see therapy Vistaril 10 mg in day and at bedtime PRN - Educated on rx 3. Primary Insomnia sleep hygeine Vistaril 10 mg at bedtime PRN hx sleep study no sleep apnea Ramelteon 8 mg at bedtime for sleep- patient not taking rx D/C educated on rx and importance sleep 4. ADHD review reviewed JACOBY-AE2 TEST Self rating scales- significant number hyperactive/impul sive and inattentive symptoms that negative impact functions, - posisble dxn ADHD COMBINATION BUT NOT CONGRUENT with JACOBY-AE2 test - Need to reconcile data sets before a definitive dxn can be made, patient reported took ADHD rx in am and tested 3 pm Autism dxn 05/03 ADHD Currently not taking Adderall XR 10 MG PCP prescribed ADHD stimulates education Discuss with patient risk of misuse, abuse, and addiction before prescribing stimulant medicines. Health Technician Hearing patients not to share their prescribed stimulant with anyone else. Educate patients and their families on these serious risks, proper storage of the medicine, and proper disposal of any unused medicine. Educated patient will monitor Throughout treatment, regularly assess and monitor them for signs and symptoms of nonmedical use, addiction, and potential diversion, which may be evidenced by more frequent renewal. requests than warranted by the prescribed dosage. Random UDS [place] prescription reviewed local pharmacy in [facility], no early refills on control substance educated on non-stimulate and stimulates 5. RLS- ON REQUIP 4 MG bedtime- PCP prescribes patient will see PCP this month and discuss RLS LABS PCP Cannabis/marijuan a information: http_s://tammy.nih .gov/publications /drugfacts/cannab is-marijuana http_s://www.MediaHound/canna xun-zyn-snrctogt- marijuana-adhd/ http_s://www.jumana .org/About-Mental -Illness/Mental-H ealth-Conditions http_s://psychcen tral.com/depressi on/the-cognitive- rvongrto-lq-otrmk ssion#treatments http__s://www.nim h.nih.gov/health/ topics/mental-hea lth-medications http__s://www.nam i.org/About-Menta l-Illness/Treatme nts/Mental-Health -Medications educated on all medications, benefits, side effects and risk, and educated on depression, anxiety, and ADHD, mood d/o and educated on compliance of medications, metabolic and movement d/o education appointment's, continue therapy discussion with patient about course of treatment and patient instructions. education on serotonin syndrome educated on all medications, benefits, side effects and risk, and educated on depression, anxiety, and ADHD, mood d/o and educated on compliance of medications, metabolic and movement d/o education appointment is, continue therapy discussion with patient about course of treatment and patient instructions. education on serotonin syndrome SSRI/SNRI side effects discussed including but not limited to, gastric upset, nausea, vomiting, diarrhea and/or constipation, weight changes, sexual side effects including loss of libido, increased suicidal thoughts/behavior s in children and young adults, and serotonin syndrome. Medication Management and Follow-Up - Plan: - Schedule follow-up appointments every 1-3 months to monitor the patient's response to the medication regimen. - Reinforce the importance of avoiding recreational drug use due to potential neurotoxicity and interactions with prescribed medications. Plan Of Treatment Future Test Test Name Order Date ADHD Testing 02/09/2024 Next Appt Details Provider Name:Dorota Crump , 06/10/2024 03:45:00 PM, [address], [address], [place], [address], Insurance Providers Payer Name Payer Address Payer Phone Subscriber Number Group Number Insured Name Patient Relationship to Insured Coverage Start Date Coverage End Date [facility] [address] [place] [phone] [id number] Kallie Pritchett Self - patient is the insured Medical (General) History Medical History History ICD Code Anemia Anxiety Rhinitis Obesity Vit D Deficiency Past Psychiatric History: Anxiety Disord er,PTSD,Bipolar Disorder undefined abdominal aortic aneurysm: No atrial fibrillation: No chronic fatigue syndrome: No essential tremor: No hyperlipidemia: No hypertension: No Parkinson's disease: No restless leg syndrome: Yes stroke: No subdural hematoma: No type 1 diabetes mellitus: No type 2 diabetes mellitus: No vitamin B12 deficiency: No vitamin D deficiency: Yes
--- OUTSIDE RECORDS SUMMARY | 2024-05-16 12:28 | XMS_ITS | Patient Health Summary ---
Author Organization [facility] Address [address] [place] [address] Care Team Providers Care Marriage Performer Name Role Phone Unavailable Primary Care Provider Unavailabl e Note from [facility],non-owned Affiliates and Associated Physician Practices is amultiple site organization consisting of ambulatory clinics and hospital sitesin [place], [place], [place]. This disclosure is being madepursuant to the Care Everywhere program and may not contain all information available regarding this patient. Last updated 17.[facility] Social History Tobacco Use Types Packs/Day Years Used Date Smoking Tobacco: Never Assessed Sex and Gender Information Value Date Recorded Sex Assigned at Not on file Gender Identity Not on file Sexual Orientation Not on file
--- OUTSIDE RECORDS SUMMARY | 2024-05-16 12:29 | XMS_ITS ---
Author Organization [facility] [employer] [facility] Address [facility] [address] [facility] [address] [place] [address] Care Team Providers Care Senior Lead Java Developer Name Role Phone Yolis Estrada Primary Care Provider Dorota Hernandez Unavailable [phone] REASON FOR VISIT RE:FMLA Social History Sex Assigned At : Social History Observation Description Sex Assigned At Female Encounters Encounter Location Date Provider Diagnosis [facility] [place] [address] [facility] [address] [place] [address] 05/11/2024 Dorota Crump Plan Of Treatment Next Appt Details Provider Name:Dorota Crump , 06/10/2024 03:45:00 PM, [address], [facility] [address], [place], [address], Progress Notes * Kallie PRITCHETT SDOB: 1 (33 yo F)Acc No.[id number]:05/11/2024 Patient: Kalile PHAN :1990 A ge:33 Y S ex:Female Address:[address] [place] [address], [address] * true * Date: Generated for Fredi gutiérrez/[facility]/eTransmitting on: 0 05/16/2024 12:29 PM CDT
--- OUTSIDE RECORDS SUMMARY | 2024-05-16 12:29 | XMS_ITS ---
Author Organization [facility] [employer] [facility] Address [facility] [address] [facility] [address] [place] [address] Care Team Providers Care Engineering Executive Name Role Phone Yolis Estraad Primary Care Provider Dorota Hernandez Unavailable [phone] REASON FOR VISIT RE:FMLA Social History Sex Assigned At : Social History Observation Description Sex Assigned At Female Encounters Encounter Location Date Provider Diagnosis [facility] [place] [address] [facility] [address] [place] [address] 05/11/2024 Dorota Crump Plan Of Treatment Next Appt Details Provider Name:Dorota Crump , 06/10/2024 03:45:00 PM, [address], [facility] [address], [place], [address], Progress Notes * Kallie PRITCHETT SDOB: [birth year] (33 yo F)Acc No.[id number]:05/11/2024 Patient: Kallie PHAN :1990 A ge:33 Y S ex:Female Address:[address] [place] [address], [address] * true * Date: Generated for Fredi gutiérrez/[facility]/eTransmitting on: 0 05/16/2024 12:28 PM CDT
--- OUTSIDE RECORDS SUMMARY | 2024-05-16 12:29 | XMS_ITS | CONTINUITY OF CARE DOCUMENT ---
Author Name trenton chowdhury Address Unknown Organization [facility] Address [address] [place] [address] Phone [phone] Care Team Providers Care Customer Professional Name Role Phone Gautam PAL, Iván Unavailable BRITTNEY HIRSCH MD Unavailable [phone] SHIRAZ VALDEZSHAYNE Ana Unavailable PROBLEMS Condition Status Date Provider Notes SVT, atrial tachycardia, hx of ablation, 2012 active 2 Aime Ahmedzai Dizziness active Aime Ahmedzai Near syncope active Aime Ahmedzai Atrial tachycardia, hx of active Aime Ahmed donny Thoracic outlet syndrome active Aime Ahmedz ai Palpitations--echo ef nl, 10/2023 active Ri az Ahmedzai Celiac disease active Aime Ahmedzai Bipolar disorder active Aime Ahmedzai ENCOUNTERS Date Type Provider Location Encounter Diag nosis - In-person encounter Office Visit Iván Florez MD [place] [facility] Palpitations--echo ef nl, 10/2023 - In-person encounter Office Visit Iván Florez MD [place] [facility] SVT, atrial tachycardia, hx of ablation, 2012DizzinessNear syncopeAtrial tachycardia, hx ofThoracic outlet syndromePalpitations-- echo ef nl, eliac diseaseBipolar disorder VITAL SIGNS Date Observation Value Provider Body Mass Index (Ratio) 32.44 kg/m2 Oneal Florez MD oxygen saturation, oximetry 99 % Vandana Ford RN respiratory rate E&M 20 /min Vandana oropeza RN blood pressure, diastolic 86 mm[Hg] Ruddy busby Logan RN blood pressure, systolic 115 mm[Hg] Vandana Logan RN pulse rate 99 /min Vandana Logan RN weight E&M 189 [lb_av] Vandana Ford RN Body Mass Index (Ratio) 31.75 kg/m2 Oneal Florez MD blood pressure, diastolic 80 mm[Hg] Li [employer]Logic blood pressure, systolic 124 mm[Hg] Diana [employer] height E&M 64 [in_i] Alva Posley weight E&M 185 [lb_av] Alva Posley pulse rate 86 /min Alva Posley respiratory rate E&M 16 /min Alva Posley oxygen saturation, oximetry 100 % Alva Posley blood pressure, cuff size regular Le slfarhat Posley blood pressure, diastolic 80 mm[Hg] Le slie Posley blood pressure, systolic 124 mm[Hg] Les riley Posley HISTORY OF MEDICATION USE Medication Status Instructions Dates Provider Indications Com ments quetiapine 200 mg tablet extended release 24 hr active Aime Ahmedzai albuterol sulfate 90 mcg/actuation HFA aerosol inhaler active Aime Ahmedzai ropinirole 0.5 mg tablet active Aime Ahmedzai methocarbamol 500 mg tablet active Aime Ahmedzai ibuprofen 600 mg tablet active Aime Ahmedzai INSURANCE PROVIDERS Payer name Policy type / [place]age [place] [facility] [id number] Other [id number] TREATMENT PLAN Date Name Performer Cardiology Aime Ahmedzai Cardiology: O rders: T ilt Table Test (CPT-15929) Aime Ahmedzai Cardiology Aime Ahmedzashruthi Cardiology: O rders: T ilt Table Test (CPT-51564) Aime Doradozashruthi Cardiology: O rders: T ilt Table Test (CPT-04609) Aime Avezashruthi Cardiology Aime Avezashruthi Cardiology Aime Avezashruthi Cardiology: O rders: C omplete Echo (62053) M onitor - Telemetry (Mobile Cardiac) (CPT-75547) Aime Avezashruthi Cardiology Aime Avezashruthi Cardiology: O rders: C omplete Echo (84138) M onitor - Telemetry (Mobile Cardiac) (CPT-59064) Aime Doradozashruthi Cardiology: O rders: C omplete Echo (24031) M onitor - Telemetry (Mobile Cardiac) (CPT-86085) Aime Avedonny Date Name Tilt Table Test Monitor - Telemetry (Mobile Cardiac) Complete Echo
--- OUTSIDE RECORDS SUMMARY | 2024-05-16 12:29 | XMS_ITS | Clinical Summary ---
Author Organization [facility] Address [facility] [place] [address] Care Team Providers Care Ada Accommodation Consultant Name Role Phone Tomasa Henley MD Primary Care Provider [phone] Allergies Active Allergy Reactions Criticality Noted Date Comments Gluten Meal Diarrhea 04/21/2023 Tomato Hives Low 01/08/2023 Reaction: HIVES Medications albuterol sulfate HFA 108 (90 Base) MCG/ACT inhaler INHALE 2 PUFFS EVERY 4 HOURS BY INHALATION ROUTE. Active QUEtiapine XR (SEROQUEL XR) 200 MG 24 hr tablet Take 1 tablet (200 mg total) by mouth daily. Active rOPINIRole (REQUIP) 0.5 MG tablet Take 1 tablet (0.5 mg total) by mouth 3 (three) times daily as needed. Active methocarbamol (ROBAXIN-750) 750 MG Tab Take 1 tablet (750 mg total) by mouth every 8 (eight) hours as needed. 30 tablet 4 Active lidocaine (LIDO QUINN) 4 % patch Place 1 patch onto the skin daily. Remove & Discard patch within 12 hours or as directed 30 patch 4 Active Active Problems Problem Noted Date Diagnosed Date Cervical dystonia 01/19/2023 Abdominal pain 12/26/2022 Anxiety 12/26/2022 Chronic urticaria 12/26/2022 Fatigue 12/26/2022 Herpes zoster 12/26/2022 Palpitations 12/26/2022 Psoriasis 12/26/2022 Supraventricular tachycardia (HHS/HCC) Vitamin D deficiency 12/26/2022 Paresthesia of upper limb 12/25/2022 Vasospasm 12/25/2022 Celiac disease (HHS/[facility]) 06/16/2022 Cobalamin deficiency 06/16/2022 Family history of celiac disease 06/11/2022 Iron deficiency anemia 06/11/2022 Restless legs 04/27/2022 Restless sleeper 04/27/2022 Sleep apnea 04/27/2022 Cough 04/22/2022 Immunizations Name Administration Dates Next Due Influenza (Generic) 02/12/2012 Influenza Adult (Generic) 01/07/2022,12/07/2018, 12/26/2015 PFIZER COVID-19 (ORIGINAL FO RMULATION, PURPLE CAP) mRNA, LNP-S, PF, 30 MCG/0.3 ML DOSE 02/22/2021,06/08/2020,05/18/2020 PFIZER COVID-19 BIVALENT (12 +) mRNA, LNP-S, PF, 30 MCG/0.3 ML DOSE 03/17/2022 Social History Tobacco Use Types Packs/Day Years Used Date Smoking Tobacco: Every Day Smokeless Tobacco: Never Tobacco Cessation:Ready to Q uit: Not Asked; Counseling Given: Not Answered Alcohol Use Standard Drinks/Week Comments Yes 0 (1 standard drink = 0.6 oz pur e alcohol) Comments No Sex and Gender Information Value Date Recorded Sex Assigned at Not on file Legal Sex Female 7:26 PM CDT Gender Identity Not on file Sexual Orientation Not on file Last Filed Vital Signs Vital Sign Reading Time Taken Comments Blood Pressure 126/70 04/21/2023 11:29 AM FIRST SAMPLER Pulse 81 04/21/2023 11:29 AM FIRST SAMPLER Temperature 36.8 C (98.3 F) 04/21/2023 11:29 AM FIRST SAMPLER Respiratory Rate 18 04/21/2023 11:29 AM FIRST SAMPLER Oxygen Saturation 100% 04/21/2023 11:29 AM FIRST SAMPLER Inhaled Oxygen Concentration - - Weight 77.1 kg (170 lb) 04/21/2023 11:29 AM FIRST SAMPLER Height 162.6 cm (5' 4 ) 04/21/2023 11:29 AM FIRST SAMPLER Body Mass Index 29.18 04/21/2023 11:29 AM FIRST SAMPLER Plan of Treatment Health Maintenance Due Date Last Done Comments Cervical Cancer Screening Pap Smear (Age 30 to 64) Every 3 Years 1990 Annual Physical 1993 Pneumococcal Vaccine: Pediatrics (0 to 5 Years) and At-Risk Patients (6 to 64 Years) (1 of 2 - PCV) 1996 PHQ-2 (Physician [place]) 2002 Hepatitis C 2008 DTaP, Tdap and Td Vaccines (1 - Tdap) 2009 Hepatitis B Vaccines (1 of 3 - 19+ 3-dose series) 2009 Cervical Cancer Screening Pap with HPV Testing (Age 30 to 64) Every 5 Years 2020 Cervical Cancer Screening with HPV 2020 COVID-19 Vaccine ( season) 2023 03/17/2022, 02/22/2021, 06/08/2020, Additional history exists Influenza Adult (#1) 2023 01/07/2022, 12/07/2018, 12/26/2015, Additional history exists PHQ-2 (Physician [place]) 03/09/2024 HPV Vaccines Aged Out No longer eligi ble based on patient's age to complete this topic Meningococcal B Vaccine Aged Out No l onger eligible based on patient's age to complete this topic Meningococcal Vaccine Aged Out No jennifer juan david eligible based on patient's age to complete this topic RSV Immunizations Under 20 Months Aged Out No longer eligible based on patient's age to complete this topic Insurance MEDICAID [facility] Care Teams Ada Accommodation Consultant Relationship Specialty Start Date End Date Tomasa Henley MD [address] [place] [address] PCP - General FAMILY PRACTICE 01/07/23
--- OUTSIDE RECORDS SUMMARY | 2024-05-16 12:29 | XMS_ITS | Encounter Summary ---
Author Organization [facility] Address [address] [place] [address] Care Team Providers Care Railway Yard Assistant Name Role Phone Tomasa Henley MD Primary Care Provider [phone] Encounter Details Date Type Department Care Team (Late st Contact Info) Description 02/26/2023 AI Patentst Message Enc [facility] Medical [facility] Multispecialty Care - [facility] [address] [facility], [address] [place] [address] Tomasz Mcelroy MD [address] [place] [address] MRI Chest Social History Tobacco Use Types Packs/Day Years Used Date Smoking Tobacco: Every Day Smokeless Tobacco: Never Alcohol Use Standard Drinks/Week Comments Yes 0 (1 standard drink = 0.6 oz pur e alcohol) Comments No Sex and Gender Information Value Date Recorded Sex Assigned at Not on file Legal Sex Female 7:26 PM CDT Gender Identity Not on file Sexual Orientation Not on file documented as of this encounter Plan of Treatment Not on file documented as of this encounter Visit Diagnoses Not on filedocumented in this encounter Care Teams Railway Yard Assistant Relationship Specialty Start Date End Date Tomasa Henley MD [address] [place] [address] PCP - General FAMILY PRACTICE 01/07/23 documented as of this encounter
--- OUTSIDE RECORDS SUMMARY | 2024-05-16 12:29 | XMS_ITS ---
Author Organization [facility] [employer] [facility] Address [address] [facility] [address] [place] [address] Care Team Providers Care Generator Assembler Name Role Phone Yolis Estrada Primary Care Provider Dorota Hernandez [phone] Social History Sex Assigned At : Social History Observation Description Sex Assigned At Female Encounters Encounter Location Date Provider Diagnosis [facility] [employer] [place] [address] [facility] [address] [place] [address] 05/11/2024 Dorota Crump Plan Of Treatment Next Appt Details Provider Name:Dorota Crump , 06/10/2024 03:45:00 PM, [address], [facility] [address], [place], [address], Progress Notes * Kallie PRITCHETT SDOB: [birth year] (33 yo F)Acc No.[id number]:05/11/2024 Patient: Akin Kallie RASHID :1990 A ge:33 Y S ex:Female Address:[address] [place], [address] * true * Date: Generated for Fredi gutiérrez/[facility]/eTransmitting on: 0 05/16/2024 12:28 PM CDT
--- OUTSIDE RECORDS SUMMARY | 2024-05-16 12:29 | XMS_ITS | Encounter Summary ---
Author Organization [facility] Address [address] [place] [address] Care Team Providers Care Hull Drafter Name Role Phone Tomasa Henley MD Primary Care Provider [phone] Encounter Details Date Type Department Care Team (Latest Contact Info) Description 01/19/2023 Crosswiset Message Enc [facility] Medical Group Multispecialty Care - [facility] [address] [facility], [address] [place] [address] Tomasz Mcelroy MD [address] [place] [address] P[place]-More[place] Syndrome Social History Tobacco Use Types Packs/Day Years [...] on filedocumented in this encounter Care Teams Hull Drafter Relationship Specialty Start Date End Date Tomasa Henley MD [address] [place] [address] PCP - General FAMILY PRACTICE 01/07/23 documented as of this encounter
--- NOTE | 2024-05-16 12:55 | ED_ITS ---
HPI - Nausea/Vomiting/Diarrhea General Chief complaint: Nausea/Vomiting/Diarrhea Stated complaint: dehydrated, n/v/d & R pinky toe injury Time Seen by Provider: 05/16/24 11:39 History of Present Illness HPI Narrative: Pt presents with numerous episodes of vomiting and diarrhea. Pt says she has taken herself off of her antipsychotic medicine because she was diagnosed as autistic rather than bipolar and thinks she may be withdrawing. Pt denies fever or abdominal pain. Pt also stubbed her right 5th toe last night. Related Data Home Medications ?Medication ?Instructions ?Recorded ?Confirmed ?Last Taken ?Type quetiapine 25 mg tablet (Seroquel) 25 mg PO HS 10/23/20 11/09/23 Unknown History ropinirole 0.5 mg tablet 0.5 mg DIRECTED 10/23/20 11/09/23 Unknown History Allergies Allergy/AdvReac Type Severity Reaction Status Date / Time narcotic AdvReac Other Uncoded 11/30/23 07:31 Review of Systems 2 Review of Systems: All systems reviewed & are unremarkable except as noted in HPI and below PMFSH Past Medical History Medical History Atrial tachycardia Surgical History Surgical History S/P ablation operation for arrhythmia Social History Social History Tobacco type: e-cigarettes/vaping Alcohol use details: occasional Substance use: never Living arrangements: with family Exam 2 Const: General: healthy appearing and no acute distress Nutritional Appearance: well nourished Orientation/consciousness: patient oriented x3 Limitations: no limitations HENMT: Mouth: Yes Normal oral and palatal mucosa present Eyes: EOM: EOMs intact bilaterally Neck: Neck: normal visual inspection and no lymphadenopathy Chest: Chest palpation & inspection: normal inspection of the chest Resp: Effort & Inspection: normal respiratory effort Auscultation: clear to auscultation bilaterally Cardio: Rate: regular rate Rhythm: regular rhythm GI: GI Palp: Yes Soft to palpation and No Tenderness to palpation present (GI) Auscultation: normal bowel sounds Skin: General skin exam: normal color Wounds: no wounds Neuro: General: patient oriented x3, moves all extremities, no focal motor deficits and CN's II-XI intact bilaterally Cranial nerves: Yes Nystagmus not present Speech: normal speech Gait exam (Neuro): Normal gait present Extrem: General: normal to inspection and no clubbing, cyanosis or edema Psych: Mental Status: mental status grossly normal Affect: normal affect Attitude: cooperative Course Vital Signs Vital signs: Vital Signs Temperature 97.6 F 05/16/24 10:56 Pulse Rate 81 05/16/24 10:56 Respiratory Rate 16 05/16/24 10:56 Blood Pressure 130/76 05/16/24 10:56 Pulse Oximetry 99 05/16/24 10:56 Oxygen Delivery Room Air 05/16/24 10:56 Temperature 98.7 F 05/16/24 11:53 Pulse Rate 75 05/16/24 13:20 Respiratory Rate 16 05/16/24 13:20 Blood Pressure 103/78 05/16/24 13:20 Pulse Oximetry 100 05/16/24 13:20 Oxygen Delivery Room Air 05/16/24 10:56 MDM - Nausea/Vomiting/Diarrhea MDM Narrative Medical decision making narrative: Pt presents with vomiting and diarrhea since stopping her antipsychotic med. Pt also stubbed her toe. Pt has superficial lac on toe and does not want x ray. advised to roddy tape. will check labs for elecrolyte issues and gie fluids and zofran. Lab Data 05/16/24 12:01 05/16/24 12:01 Labs: Lab Results 05/16/24 05/16/24 05/16/24 Range/Units 10:56 11:04 12:01 WBC 8.1 (4.5-10.0) K/mm3 RBC 4.22 (4.2-5.4) M/mm3 Hgb 12.8 (12.0-15.0) g/dL Hct 39.2 (37.0-47.0) % MCV 92.9 (80-100) fl MCH 30.3 (26-34) pg MCHC 32.7 (32-36) g/dl RDW 13.2 (11.5-14.5) % Plt Count 292 (150-375) k/mm3 MPV 9.9 (7.4-10.4) fl Immature Gran % (Auto) 0.4 (0-0.5) % Neut % (Auto) 80.5 H (45.5-73.1) % Lymph % (Auto) 13.0 L (18.3-44.2) % Waldo % (Auto) 4.8 (2.6-8.5) % Eos % (Auto) 1.1 (0-4.4) % Baso % (Auto) 0.2 (0.2-1.2) % Lymph # (Auto) 1.06 (0.9-3.2) K/mm3 Waldo # (Auto) 0.4 (0.1-0.6) K/mm3 Eos # (Auto) 0.1 (0-0.3) K/mm3 Baso # (Auto) 0.0 (0.0-0.1) K/mm3 Abs Immat Gran (auto) 0.03 (0.00-0.031) K/mm3 Absolute Neuts (auto) 6.5 (1.3-6.7) K/mm3 Absolute Nucleated RBC 0.000 (0.0-0.012) K/mm3 Nucleated RBC % 0.0 (0.0-0.2) % Sodium 138 (137-145) mmol/L Potassium 4.3 (3.4-5.0) mmol/L Chloride 108 H (98-107) mmol/L Carbon Dioxide 20 L (22-30) mmol/L Anion Gap 10 (4-12) mmol/L BUN 9 D (7-17) mg/dL Creatinine 0.64 L (0.7-1.0) mg/dL Estim Creat Clear Calc 110 ml/min Estimated GFR > 60 (59 - ) Glucose 102 (65-110) mg/dL Calcium 8.9 (8.4-10.2) mg/dL Total Bilirubin 1.9 H (0.2-1.3) mg/dL AST 20 (14-36) U/L ALT 18 (6-35) U/L Alkaline Phosphatase 71 (38-126) U/L Total Protein 7.0 (6.3-8.2) g/dL Albumin 4.1 (3.5-5.1) g/dL Urine Color Yellow (Yellow) Urine Appearance Clear (Clear) Urine pH 7.5 (5.0-9.0) Ur Specific [place] 1.012 (1.001-1.035) Urine Protein Negative (Negative) mg/dL Urine Glucose (UA) Negative (Negative) mg/dL Urine Ketones Negative (Negative) mg/dL Ur Blood (Man) 1+ H (Negative) Urine Nitrate Negative (Negative) Urine Bilirubin Negative (Negative) Urine Urobilinogen 0.2 (<2.0) mg/dL Add Ur Microanalysis Reviewed Leukocyte Esterase Rfl 1+ H (Negative) AMANDA/UL Urine RBC 0-2 (0-2) /hpf Urine WBC 0-5 (0-3) /hpf Ur Squamous Epith Cells Few (Few) /hpf Urine Bacteria 1+ H /hpf Urine Casts 0-2 POC Urine HCG, Qual Negative (Negative) Discharge Plan Discharge Clinical Impression: Gastroenteritis Patient Disposition: Home, Self-Care Condition: Improved Instructions: Antibiotic Form, Dehydration (ED), Gastroenteritis (ED) Patient Language: Pakistani Prescriptions: No Action amoxicillin-pot clavulanate 875-125 mg tablet 1 tablet PO Q12H Qty: 20 0RF amoxicillin 500 mg capsule 500 mg PO Q12H Qty: 20 0RF ibuprofen 800 mg tablet 800 mg PO TID PRN (Reason: pain) 7 Days Qty: 21 0RF acetaminophen 500 mg tablet 1,000 mg PO TID PRN (Reason: tone) 7 Days Qty: 42 0RF quetiapine [Seroquel] 25 mg Tablet 25 mg PO HS ropinirole [Requip] 0.5 mg Tablet 0.5 mg DIRECTED fluticasone propionate [Allergy Relief (fluticasone)] 50 mcg/actuation spray,suspension 1 spray intranasal DAILY Qty: 16 0RF Rx Instructions: administer into each nostril azithromycin 250 mg tablet 250 mg PO DAILY 4 Days Qty: 4 0RF Rx Instructions: start on day 2 of therapy Robitussin Cough-Chest Angel DM 10-200 mg capsule 1 tab-cap PO Q6-8H PRN (Reason: cough) Qty: 30 0RF ondansetron 4 mg tablet,disintegrating 4 mg PO Q8H PRN (Reason: nausea and vomiting) Qty: 10 0RF albuterol sulfate 90 mcg/actuation HFA aerosol inhaler 2 puff inhalation QID PRN (Reason: shortness of breath or wheezing) Qty: 8.5 0RF Follow-up/Referrals: Jesu,Jose D Jarrell APRN [Primary Care Provider] -
[2024-05-16 13:20] VITALS: BP 103/78; PULSE 75; RESP 16; O2SAT 100
--- OUTSIDE RECORDS SUMMARY | 2024-05-16 13:53 | XMS_ITS | Referral Summary ---
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 Gender Identity Female 06/02/2023 5:41 PM CDT [...] Plan of Treatment Not on file Insurance [facility] CHOICE PLUS [facility] HMO/PPO Address: [facility] [address] [place] [address] [facility] Address: [facility] [address] IDPA [facility] CHOICE PLUS [facility] HMO/PPO Address: [address] [address] [place] [address] Care Teams Residential Sales Relationship Specialty Start Date End Date Tomasz Mcelroy MD [address] [place] [address] PCP - General Neurology 03/03/23 Tomasa Henley MD [address] [place] [address] [place] [address] Family Medicine 03/03/23
--- OUTSIDE RECORDS SUMMARY | 2024-05-16 13:53 | XMS_ITS | Referral Summary ---
Author Organization [facility] Address [address] [facility] [place] [address] Care Team Providers Care Vocational Trainer Name Role Phone Unavailable Primary Care Provider Unavailabl e Source Comments [facility],non-owned Affiliates and Associated Physician Practices is amultiple site organization consisting of ambulatory clinics and hospital sitesin [place], [place], [place] and [place]. This disclosure is being madepursuant to the Care Everywhere program and may not contain all information available regarding this patient. Last updated 17.[facility] Social History Tobacco Use Types Packs/Day Years Used Date Smoking Tobacco: Never Assessed Sex and Gender Information Value Date Recorded Sex Assigned at Not on file Gender Identity Not on file Sexual Orientation Not on file Plan of Treatment Upcoming Encounters Date Type Department Care Team (Late st Contact Info) Description 07/21/2024 8:20 AM CDT Office Visit [facility] - Rheumatology [address] [place] [address], [place] [address] Yumi Andres MD [address] [place] [address] [place] [address] Kallie Pritchett Personal/Family Self 1990
--- OUTSIDE RECORDS SUMMARY | 2024-05-16 13:53 | XMS_ITS | Clinical Summary ---
Author Organization [facility] Address [address] [facility] [place] [address] Care Team Providers Care Weight Inspector Name Role Phone Unavailable Primary Care Provider Unavailabl e Source Comments [facility],non-owned Affiliates and Associated Physician Practices is amultiple site organization consisting of ambulatory clinics and hospital sitesin [place], [place], [place] and [place]. This disclosure is being madepursuant to the Care Everywhere program and may not contain all information available regarding this patient. Last updated 17.[facility] Social History Tobacco Use Types [...] Office Visit [facility] - Rheumatology [address] [place] [address], [facility] [place] [address] Yumi Andres MD [address] [place] [address] [place] [address] Health Maintenance Due Date Last [...]
--- OUTSIDE RECORDS SUMMARY | 2024-05-16 13:53 | XMS_ITS | Patient Health Summary ---
Author Organization [facility] Address [address] [facility] [place] [address] Care Team Providers Care Drilling Machine Operator Name Role Phone Unavailable Primary Care Provider Unavailabl e Note from [facility],non-owned Affiliates and Associated Physician Practices is amultiple site organization consisting of ambulatory clinics and hospital sitesin [place], [place], [place] and [place]. This disclosure is being madepursuant to the Care Everywhere program and may not contain all information available regarding this patient. Last updated 17.[facility] Social History Tobacco Use Types Packs/Day Years Used Date Smoking Tobacco: Never Assessed Sex and Gender Information Value Date Recorded Sex Assigned at Not on file Gender Identity Not on file Sexual Orientation Not on file
--- OUTSIDE RECORDS SUMMARY | 2024-05-16 13:53 | XMS_ITS | Encounter Summary ---
Author Organization [facility] Address [address] [place] [address] Care Team Providers Care Control Panel Operator Name Role Phone Tomasa Henley MD Primary Care Provider [phone] Encounter Details Date Type Department Care Team (Latest Contact Info) Description 01/19/2023 SoClozt Message Enc [facility] Medical Group Multispecialty Care - [facility] [address] [facility], [address] [place] [address] Tomasz Mcelroy MD [address] [place] [address] Parsonage-Moreno Syndrome Social History Tobacco Use Types [...] on filedocumented in this encounter Care Teams Control Panel Operator Relationship Specialty Start Date End Date Tomasa Henley MD [address] [place] [address] PCP - General FAMILY PRACTICE 01/07/23 documented as of this encounter
--- OUTSIDE RECORDS SUMMARY | 2024-05-16 13:53 | XMS_ITS | CONTINUITY OF CARE DOCUMENT ---
Author Name trenton chowdhury Address Unknown Organization [facility] Address [address] [facility] [address] [place] [address] Phone [phone] Care Team Providers Care Operating Manager Name Role Phone Gautam PAL, Iván Unavailable [phone] BRITTNEY HIRSCH MD Unavailable [phone] SHIRAZ VALDEZSHAYNE Ana Unavailable [phone] PROBLEMS Condition Status Date Provider Notes SVT, [...] In-person encounter Office Visit Iván Florez MD [place] [facility] Palpitations--echo ef nl, 10/2023 - In-person encounter Office Visit Iván Florez MD [facility] SVT, atrial tachycardia, hx of ablation, 2012DizzinessNear syncopeAtrial tachycardia, hx ofThoracic outlet syndromePalpitations-- echo ef nl, eliac diseaseBipolar disorder VITAL SIGNS Date Observation Value Provider Body Mass Index (Ratio) 32.44 kg/m2 Oneal Florez MD oxygen saturation, oximetry 99 % Vandana Ford RN respiratory rate E&M 20 /min Vandana oropeza RN blood pressure, diastolic 86 mm[Hg] Rudyd busby Logan RN blood pressure, systolic 115 [...] Payer name Policy type / Coverage type [facility] [id number] Other [id number] TREATMENT PLAN Date Name Performer Cardiology Aime Ahmedzai Cardiology: O rders: T ilt Table Test (CPT-63208) Aime Ahmedzai Cardiology Aime Ahmedzashruthi Cardiology: O rders: T ilt Table Test (CPT-41534) Aime Doradozashruthi Cardiology: O rders: T ilt Table Test (CPT-78837) Aime Avezashruthi Cardiology Aime Avezashruthi Cardiology Aime Avezashruthi Cardiology: O rders: C omplete Echo (02558) M onitor - Telemetry (Mobile Cardiac) (CPT-32470) Aime Avezashruthi Cardiology Aime Avezashruthi Cardiology: O rders: C omplete Echo (81045) M onitor - Telemetry (Mobile Cardiac) (CPT-82013) Aime Doradozashruthi Cardiology: O rders: C omplete Echo (68764) M onitor - Telemetry (Mobile Cardiac) (CPT-31867) Aime Avedonny Date Name Tilt Table Test Monitor - Telemetry (Mobile Cardiac) Complete Echo
--- OUTSIDE RECORDS SUMMARY | 2024-05-16 13:53 | XMS_ITS | Clinical Summary ---
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
--- OUTSIDE RECORDS SUMMARY | 2024-05-16 13:53 | XMS_ITS | Clinical Summary ---
Author Organization [facility] Address [facility] [place] [address] Care Team Providers Care Electrician Underground Name Role Phone Tomasa Henley MD Primary Care Provider [phone] Allergies Active Allergy Reactions Criticality Noted Date [...] upper limb 12/25/2022 Vasospasm 12/25/2022 Celiac disease ([facility]) 06/16/2022 Cobalamin deficiency 06/16/2022 Family [...] Comments Blood Pressure 126/70 04/21/2023 11:29 AM PECAN GROWER Pulse 81 04/21/2023 11:29 AM PECAN GROWER Temperature 36.8 C (98.3 F) 04/21/2023 11:29 AM PECAN GROWER Respiratory Rate 18 04/21/2023 11:29 AM PECAN GROWER Oxygen Saturation 100% 04/21/2023 11:29 AM PECAN GROWER Inhaled Oxygen Concentration - - Weight 77.1 kg (170 lb) 04/21/2023 11:29 AM PECAN GROWER Height 162.6 cm (5' 4 ) 04/21/2023 11:29 AM PECAN GROWER Body Mass Index 29.18 04/21/2023 11:29 AM PECAN GROWER Plan of Treatment Health Maintenance Due Date Last Done Comments Cervical Cancer Screening Pap Smear (Age 30 to 64) Every 3 Years 1990 Annual Physical 1993 Pneumococcal Vaccine: Pediatrics (0 to 5 Years) and At-Risk Patients (6 to 64 Years) (1 of 2 - PCV) 1996 PHQ-2 (Physician [place]) 2002 Hepatitis C 2008 DTaP, Tdap and [...] 12/07/2018, 12/26/2015, Additional history exists PHQ-2 (Physician [place]) 03/09/2024 HPV Vaccines Aged Out No longer [...] age to complete this topic Insurance MEDICAID [facility] Care Teams Electrician Underground Relationship Specialty Start Date End Date Tomasa Henley MD [address] [place] [address] PCP - General FAMILY PRACTICE 01/07/23
--- OUTSIDE RECORDS SUMMARY | 2024-05-16 13:53 | XMS_ITS | Encounter Summary ---
Author Organization [facility] Address [address] [place] [address] Care Team Providers Care Engineering Technician Parking Name Role Phone Tomasa Henley MD Primary Care Provider [phone] Encounter Details Date Type Department Care Team (Late st Contact Info) Description 02/26/2023 Appiriot Message Enc [facility] Medical Group Multispecialty Care - [facility] [address] [facility], [address] [place] [address] Tomasz Mcelroy MD [address] [place] [address] MRI Chest Social History Tobacco Use Types [...] on filedocumented in this encounter Care Teams Engineering Technician Parking Relationship Specialty Start Date End Date Tomasa Henley MD [address] [place] [id number] PCP - General FAMILY PRACTICE 01/07/23 documented as of this encounter
--- OUTSIDE RECORDS SUMMARY | 2024-05-16 13:54 | XMS_ITS | Data Portability ---
Author Organization [facility], Main Office Address [address] [place] [address] Care Team Providers Care Drill Bit Sharpener Name Role Phone NELLY HENLEY Primary Care Provider NELLY HENLEY Referring Provider [phone] Assessment Encounter Date Assessment Date Assessment LastModified by Organization Details LastModified Time 06/17/2023 06/17/2023 32-year-old female presents for evaluation of her right shoulder. She reports 6 months of pain in the shoulder as well as discoloration and swelling in the arm and hand. This happens when she puts her arm in certain positions such as overhead. She has seen multiple other providers, and was diagnosed with thoracic outlet syndrome. She reports she had a virtual visit with a thoracic outlet specialist who questioned that diagnosis. She has been taking ibuprofen, and muscle relaxant. She also did physical therapy without significant improvement. Review of systems per patient questionnaire Physical exam: Her right shoulder is drooping her than the contralateral side. She has no focal tenderness around the shoulder. She does have discomfort with palpation of the interscalene area she has full shoulder range of motion, 5/5 rotator cuff strength no impingement signs. She is able to reproduce her Raynaud's symptoms by holding her arm in certain position up and behind her. She has had multiple studies, including a Doppler which showed no stenosis, MRI which showed some tendinitis the rotator cuff. MRI was reviewed, demonstrating no structural abnormality besides the tendinitis. X-rays reviewed, demonstrating no acute bony abnormality We discussed that she does not have any structural deficits with her shoulder as she has good range of motion and strength. I do believe that thoracic outlet syndrome is a very plausible diagnosis given the symptoms that she gets when she puts her arm in certain positions. She does have a follow-up with the TOS specialist upcoming, and advised her to try to make that an in-person visit if possible. We will follow up with us as needed. She is in agreement with plan. [email or web address] Not available 06/17/2023 17:54:35 Plan of Treatment Reminders Order Date Submit Date Provider Last Modified By Organization Details Last Modified Time Details Appointments None recorded. Lab histamine, serum or plasma 2024 025 Snapsheet [facility], [address], [place], [address], 5 09:16:28 tryptase, serum 2024 025 Snapsheet [facility], [address], [place], [address], 5 09:16:28 chromograni n A, serum 2024 025 Snapsheet [facility], [address], [place], [address], 5 09:16:28 Referral psychologis t referral - Please call patient to schedule an appointment . Thank you. 2023 024 [email or web address] [facility], [address], [place], [address], 4 08:42:32 rheumatolog ist referral - Please call patient to schedule an appointment . Thank you. 2023 024 [email or web address] [facility], [address] [place] [address], [address], 4 09:34:21 Procedures None recorded. Surgeries None recorded. Imaging None recorded. Medication Orders ropinirole 0.5 mg tablet 2024 025 [facility]/Pharmacy #[id number], [address], [place], [address], 5 16:19:04 quetiapine ER 50 mg tablet,exte nded release 24 hr [address]/Pharmacy #[id number], [address] [place], [address], 5 15:55:17 Zepbound 2.5 mg/0.5 mL subcutaneou s pen injector 2023 024 [address] [place], [address], 5 15:55:48 ropinirole 0.5 mg tablet 2023 024 [facility] [address] [place], [address], 4 15:00:03 Adderall XR 10 mg capsule,ext ended release 2023 024 [address] [place], [address], 5 15:54:14 quetiapine ER 200 mg tablet,exte nded release 24 hr 2023 024 [address], [address] [place] [address], [address], 5 15:55:12 quetiapine ER 50 mg tablet,exte nded release 24 hr 2023 024 [address], [address] [place] [address], [address], 5 15:55:17 Patient TargetsNo targets recorded. Patient InstructionsNo instructions recorded. Reason for Referral Audio Visual Collections Coordinator Referral for Fatigue Please call patient to schedule an appointment. Thank you. Referring Physician: Yolis Aguilar, Family Medicine, Encounter Date: 09/23/2023 Psychologist Referral for At tention deficit hyperactivity disorder Please call patient to schedule an appointment. Thank you. Referring Physician: Yolis Aguilar Family Medicine, Encounter Date: 12/29/2023 Results Created Date Observation Date Name Description Value Unit Range Abnormal Flag Note LastModifiedBy Organization Detail LastModifiedTime 06/19/19 24 06/04/2023 MRI, shoul jarvis, w/o contr ast No observ ation record ed. [email or web address] Not Available 2023 08:41:49 10/26/19 24 10/23/2023 US, doppl er echoc ardio gram No observ ation record ed. [email or web address] [facility] [address] [facility] [address], [place], [address], 10/29/2023 23:27:58 11/11/19 24 11/10/2023 XR, chest , 2 view No observ ation record ed. [email or web address] [facility] [address], [place], [address], 11/12/2023 17:22:16 Result Notes None recorded. Problems Name Problem SNOMED Code Status Onset Date Resolution Date Notes Provider Name and Address Organization Details Recorded Time Restless sleep 48577604 Active 2022 Not Available [facility] 3 08:49:21 Urticaria 596469341 Active Not Available [facility] 3 08:49:21 Pain in throat 582333907 Active 2022 Not Available [facility] 3 08:49:21 Abdominal pain 17407172 Active Not Available [facility] 3 08:49:21 Restless legs 32830499 Active 2022 Not Available [facility] 3 08:49:21 Vitamin D deficiency 89797788 Active Not Available [facility] 3 08:49:21 Ingrowing nail 064732484 Active Not Available [facility] 3 08:49:22 Ingrowing toenail 019287593 Active Not Available [facility] 3 08:49:22 Herpes zoster 3419062 Active Not Available [facility] 3 08:49:22 Anxiety 19214562 Active Not Available [facility] 3 08:49:22 Cough 12818321 Active 2022 Not Available [facility] 3 08:49:22 Chronic urticaria 93333105 Active Not Available [facility] 3 08:49:22 Supraventr icular tachycardi a 6513851 Active Not Available [facility] 3 08:49:22 Sleep apnea 82688840 Active 2022 Not Available [facility] 3 08:49:22 Palpitatio ns 14463820 Active Not Available [facility] 3 08:49:22 Fatigue 31938696 Active Not Available [facility] 3 08:49:22 Psoriasis 7196763 Active Not Available [facility] 3 08:49:23 Family history of celiac disease 802394639 Active 2022 Nelly Henley MD [address], [place], [address] , [facility] 3 14:30:06 Iron deficiency anemia 95264141 Active 2022 Nelly Henley MD [address], [place], [address] , [facility] 3 14:31:28 Celiac disease 819979302 Active 2022 Nelly Henley MD [address], [place], [address] , [facility] 3 08:06:23 Cobalamin deficiency 426777518 Active 2022 Nelly Henley MD [address], [place], [address] , [facility] 3 08:06:40 Vasospasm 40210997 Active 2022 Nelly Henley MD [address], [place], [address] , [facility] 3 15:58:19 Paresthesi a of upper limb 13646542 Active 2022 Nelly Henley MD [address], [place], [address] , [facility] 3 16:00:05 Thoracic outlet syndrome 309430643 Active 2023 Nelly Henley MD [address], [place], [address] , [facility] 4 15:37:52 Fever 792591591 Active 2023 Katerina Quintana LPN null, [place] [facility] 4 11:13:36 Sore throat 698633930 Active 2023 Katerina Quintana LPN null, [place] [facility] 4 11:14:04 Upper respirator y infection 76983129 Active 2023 NINO Morgan [address], [place], [address] , [facility] 4 12:52:21 Pain of right shoulder joint 3450256098361 9100 Active 2023 Checo Nelson MD [address], [place], [address] , [facility] 4 17:54:42 Weight gain 9226760 Active 2023 Nelly Henley MD [address], [place], [address] , [facility] 4 12:06:36 Mild manic bipolar I disorder 94978926 Active 2023 NINO Roque [address], [place], [address] , [facility] 4 14:25:28 Constipati on 42980007 Active 2023 NINO Roque [address], [place], [address] , [facility] 4 14:33:51 Attention deficit hyperactiv ity disorder 767506392 Active 2023 KYLE Roque-Bonnie [address] [facility] [facility] [address], [place], [address] , [facility] [employer] [facility] 4 14:48:54 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 KYLE Roque-C [address] [facility] [facility] [address], [place], [address] , [facility] Alic[employer] [facility] [employer] [facility] 5 16:23:15 Autism spectrum disorder 07459292 Active 2024 KYLE Roque-Bonnie [address] [facility], [place] [address], [place], [address] , [facility] [employer] [facility] [employer] [facility] 5 17:07:16 Notes:[facility] 04/30/22 AHI = 1 Medical History: Urticaria Psoriasis Herpes zoster Anxiety Rhinitis Obesity with mild OSAHS, AHI = 1, 04/30/22 SVT RLS Iron deficiency normocytic anemia Vit D deficiency Problem Notes None recorded. Procedures Surgical History Date Name Laterality Status Provider Name and Address Organization Details Recorded Time 12/26/19 Transitional_Care _Management completed Cheryl Mahan RN [facility] [employer] [facility] 12/25/2022 15:12:59 07/09/19 EGD completed Katerina Quintana LPN [facility] [employer] [facility] 07/11/2022 12:24:33 Tonsillectomy completed ERIKA Acuna [facility] [employer] [facility] 06/17/2023 16:11:23 Imaging Results Imaging Date Name Status LastModified by Organization Details LastModified Time 06/04/2023 MRI, shoulder, w/o contrast completed [email or web address] Information not available 06/25/2023 08:41:49 10/23/2023 US, doppler echocardiogram completed [email or web address] [facility] [address] [facility] [address], [place], [address], 10/29/2023 23:27:58 11/10/2023 XR, chest, 2 view completed [email or web address] [address], [address], 11/12/2023 17:22:16 Procedure Notes None recorded. Medical Equipment None Reported. Allergies No known drug allergies Medications Name Sig Start Date Stop Date Status Note LastModified by Organization Details LastModified Time cyclobenza tyra 10 mg tablet TAKE 1 TABLET ORAL ROUTE EVERY 8 HOURS 06/16 completed Not Available Not Available Not Available amoxicilli n 500 mg capsule TAKE 1 CAPSULE BY MOUTH EVERY 12 HOURS 12/28 completed Not Available Not Available Not Available methocarba mol 500 mg tablet TAKE 1 TABLET BY MOUTH THREE TIMES A DAY 12/28 completed Not Available Not Available Not Available venlafaxin e ER 75 mg capsule,ex tended release 24 hr 1 po qday with food x 7 days then increase to 2 po qday active Not Available Not Available No t Available nicotine 14 mg/24 hr daily transderma l patch Apply 1 patch every day by transderm al route. 10/02 completed Not Available Not Available Not Available trazodone 50 mg tablet TAKE 1 TABLET BY MOUTH ONCE DAILY AT BEDTIME 05/04 completed Not Available Not Available Not Available cetirizine 10 mg tablet Take 1 tablet every day by oral route. 05/09 completed Not Available Not Available Not Available azithromyc in 250 mg tablet TAKE 1 TABLET BY MOUTH DAILY FOR 4 DAYS, START ON DAY 2 OF THERAPY 12/28 completed Not Available Not Available Not Available alprazolam 1 mg tablet Take 1 tablet every day by oral route as needed. active Not Available Not Available No t Available benzonatat e 200 mg capsule 05/04 completed Not Available Not Available Not Available valacyclov ir 1 gram tablet Take 1 tablet every 12 hours by oral route for 7 days. 05/24 completed Not Available Not Available Not Available hydrocodon e 5 mg-acetami nophen 325 mg tablet 1/2 to 1 tab po q4-6 hours as needed for pain active Not Available Not Available No t Available prazosin 1 mg capsule 3 po qhs active Not Available Not Available Not Available ondansetro n HCl 4 mg tablet TAKE 1 TABLET BY MOUTH EVERY 8 HOURS FOR 30 DAYS 12/28 completed Not Available Not Available Not Available prednisone 20 mg tablet PLEASE SEE ATTACHED FOR DETAILED DIRECTION S 03/11 completed Not Available Not Available Not Available dextroamph etamine-am phetamine 10 mg tablet TAKE 1 TABLET BY MOUTH TWICE DAILY 01/31 completed Not Available Not Available Not Available Tubersol 5 tub. unit/0.1 mL intraderma l injection solution Inject 0.1 mL every day by intraderm al route for 1 day. 06/11 completed Not Available Not Available Not Available lithium carbonate 150 mg capsule TAKE 1 CAPSULE BY MOUTH TWICE A DAY FOR 30 DAYS 05/04 completed Not Available Not Available Not Available hydroxyzin e HCl 50 mg tablet 09/03 completed Not Available Not Available Not Available hydrocodon e 10 mg-acetami nophen 325 mg tablet active Not Available Not Available No t Available Macrobid 100 mg capsule Take 1 capsule every 12 hours by oral route for 7 days. 12/07 completed Not Available Not Available Not Available alprazolam 0.5 mg tablet Take 1 tablet 3 times a day by oral route. 02/05 completed Not Available Not Available Not Available amoxicilli n 875 mg tablet Take 1 tablet every 12 hours by oral route for 7 days. 01/07 completed Not Available Not Available Not Available methocarba mol 750 mg tablet TAKE 1 TABLET (750 MG TOTAL) BY MOUTH EVERY 8 (EIGHT) HOURS NEEDED. 06/16 completed Not Available Not Available Not Available lithium carbonate 300 mg capsule TAKE 1 CAPSULE BY MOUTH TWICE A DAY FOR 30 DAYS 05/04 completed Not Available Not Available Not Available cephalexin 500 mg capsule 10/02 completed Not Available Not Available Not Available ferrous sulfate 325 mg (65 mg iron) tablet TAKE 1 TABLET BY MOUTH EVERY DAY 09/04 completed Not Available Not Available Not Available Cipro 500 mg tablet Take 1 tablet every 12 hours by oral route for 10 days. 02/12 completed Not Available Not Available Not Available triamcinol one acetonide 0.1 % topical ointment Apply 1 applicati on twice a day by topical route as needed. active Not Available Not Available No t Available ropinirole 0.5 mg tablet TAKE 1 TABLET BY MOUTH THREE TIMES A DAY NEEDED 2024 active Not Available Not Available Not Avai lable buspirone 10 mg tablet 09/03 completed Not Available Not Available Not Available nicotine 21 mg/24 hr daily transderma l patch Apply 1 patch every day by transderm al route for 42 days. 09/07 completed Not Available Not Available Not Available diclofenac sodium 75 mg tablet,del ayed release Take 1 tablet twice a day by oral route as needed. active Not Available Not Available No t Available cephalexin 500 mg tablet Take 1 tablet twice a day by oral route for 7 days. 10/02 completed Not Available Not Available Not Available dextroamph etamine-am phetamine ER 10 mg 24hr capsule,ex tend release TAKE 1 CAPSULE BY MOUTH EVERY DAY 05/04 completed Not Available Not Available Not Available Bentyl 10 mg capsule Take 1 capsule 3 times a day by oral route as needed. 10/02 completed Not Available Not Available Not Available hydroxyzin e HCl 25 mg tablet 1-2 tabs po qhs prn insomnia/ agitation active Not Available Not Available No t Available ergocalcif geraldine (vitamin D2) 1,250 mcg (50,000 unit) capsule TAKE 1 CAPSULE BY MOUTH WEEKLY FOR 90 DAYS 12/28 completed Not Available Not Available Not Available ibuprofen 600 mg tablet TAKE 1 TABLET BY MOUTH EVERY 6 HOURS NEEDED FOR PAIN 12/28 completed Not Available Not Available Not Available levofloxac in 500 mg tablet TAKE 1 TABLET EVERY 24 HOURS BY ORAL ROUTE 12/28 completed Not Available Not Available Not Available methylpred nisolone 4 mg tablets in a dose pack TAKE 6 TABLETS ON DAY 1 DIRECTED ON PACKAGE AND DECREASE BY 1 TAB EACH DAY FOR A TOTAL OF 6 DAYS 05/04 completed Not Available Not Available Not Available albuterol sulfate HFA 90 mcg/actuat ion aerosol inhaler INHALE 2 PUFFS 4 TIMES A DAY NEEDED FOR SHORTNESS OF BREATH OR FOR WHEEZE active Not Available Not Available No t Available ipratropiu m bromide 42 mcg (0.06 %) nasal spray 12/28 completed Not Available Not Available Not Available hydroxyzin e HCl 10 mg tablet TAKE 1 TABLET BY MOUTH TWICE A DAY FOR 30 DAYS active Not Available Not Available No t Available ondansetro n 4 mg disintegra ting tablet TAKE 1 TABLET BY MOUTH EVERY 8 HOURS NEEDED FOR NAUSEA AND VOMITING 12/28 completed Not Available Not Available Not Available fluoxetine 20 mg capsule Take 1 capsule every day by oral route. 04/12 completed Not Available Not Available Not Available fluticason e propionate 50 mcg/actuat ion nasal spray,susp ension 1 SPRAY INTRANASA LLY DAILY ADMINISTE R INTO EACH NOSTRIL 05/04 completed Not Available Not Available Not Available doxycyclin e hyclate 100 mg tablet Take 1 tablet twice a day by oral route for 7 days. active Not Available Not Available No t Available amoxicilli n 875 mg-potassi um clavulanat e 125 mg tablet TAKE 1 TABLET BY MOUTH EVERY 12 HOURS 12/28 completed Not Available Not Available Not Available nicotine 7 mg/24 hr daily transderma l patch Apply 1 patch every day by transderm al route for 14 days. 08/10 completed Not Available Not Available Not Available escitalopr am 10 mg tablet TK 1 T PO QD 06/01 completed Not Available Not Available Not Available escitalopr am 20 mg tablet Take 1 tablet every day by oral route. active Not Available Not Available No t Available bupropion HCl XL 150 mg 24 hr tablet, extended release Take 1 tablet every day by oral route. active Not Available Not Available No t Available ramelteon 8 mg tablet TAKE 1 TABLET BY MOUTH EVERY DAY AT BEDTIME NEEDED FOR 30 DAYS 05/04 completed Not Available Not Available Not Available Aleve 12/27 completed Not Available Not Available Not Available Benadryl 09/03 completed Not Available Not Available Not Available Zyrtec 06/16 completed Not Available Not Available Not Available quetiapine 50 mg tablet TAKE 1 TABLET BY MOUTH EVERY DAY FOR 14 DAYS 05/04 completed Not Available Not Available Not Available quetiapine ER 200 mg tablet,ext ended release 24 hr TAKE 1 TABLET BY MOUTH EVERY DAY 05/04 completed Not Available Not Available Not Available quetiapine ER 50 mg tablet,ext ended release 24 hr TAKE 2 TABLETS BY MOUTH EVERY DAY AT BEDTIME 05/04 completed Not Available Not Available Not Available quetiapine ER 150 mg tablet,ext ended release 24 hr Take 1 tablet every day by oral route. 04/16 completed Not Available Not Available Not Available [facility] 180 mg tablet Take 1 tablet every day by oral route. 02/05 completed Not Available Not Available Not Available Trintellix 5 mg tablet Take 1 tablet every day by oral route. 05/09 completed 1/2 tab of 10 mg daily Not Available Not Available Not Available Trintellix 10 mg tablet TK 1 T PO QD 04/12 completed Not Available Not Available Not Available Caplyta 42 mg capsule TAKE 1 CAPSULE BY MOUTH EVERY DAY FOR 30 DAYS active Not Available Not Available No t Available Zepbound 2.5 mg/0.5 mL subcutaneo us pen injector Inject 0.5 mL every week by subcutane ous route. 05/04 completed Not Available Not Available Not Available Vitals Date Recorded Body height Body mass index (BMI) Body weight Provider Name and Address Organization Details Last Updated DateTime 06/17/2023 162.56 cm 30 kg/m2 50647.66 g ERIKA Acuna [facility] [employer] [facility] 06/17/2023 16:09:00 Date Recorded Body height Body mass index (BMI) Body weight Body temperature Heart rate Oxygen saturation Oxygen saturation in Arterial blood by Pulse oximetry Systolic blood pressure Diastolic blood pressure Provider Name and Address Organization Details Last Updated DateTime 4 162.56 cm 31.4 kg/m2 86800.4 g 98.7 [degF] 90 /min 98 % 98 % 122 mm[Hg] 80 mm[Hg] Cheryl Mahan RN [facility] [employer] [facility] 4 14:00:11 Date Recorded Body height Body mass index (BMI) Body weight Body temperature Heart rate Oxygen saturation Oxygen saturation in Arterial blood by Pulse oximetry Systolic blood pressure Diastolic blood pressure Provider Name and Address Organization Details Last Updated DateTime 4 162.56 cm 32.6 kg/m2 15224.5 5 g 97.6 [degF] 84 /min 98 % 98 % 130 mm[Hg] 80 mm[Hg] Cheryl Mahan RN [facility] [employer] [facility] 4 14:32:29 Date Recorded Body height Body mass index (BMI) Body weight Body temperature Heart rate Oxygen saturation Oxygen saturation in Arterial blood by Pulse oximetry Systolic blood pressure Diastolic blood pressure Provider Name and Address Organization Details Last Updated DateTime 4 162.56 cm 33.1 kg/m2 65193.3 3 g 98 [degF] 84 /min 99 % 99 % 126 mm[Hg] 80 mm[Hg] Hortensia Villasenor RN [facility] 4 16:11:01 Date Recorded Body height Body mass index (BMI) Body weight Body temperature Heart rate Oxygen saturation Oxygen saturation in Arterial blood by Pulse oximetry Systolic blood pressure Diastolic blood pressure Provider Name and Address Organization Details Last Updated DateTime 5 162.56 cm 31.4 kg/m2 87508.4 g 99.5 [degF] 98 /min 98 % 98 % 118 mm[Hg] 76 mm[Hg] Marisa Vasquez MA [facility] 5 15:58:26 Social History Question Answer Notes LastModified by Organization Details LastModified Time Tobacco Smoking Status Former Smoker Not Available [facility] 05/07/2022 08:44:46 Do You Have An Advance Directive? No [id number] Information not available 05/07/2022 What Is Your Level Of Alcohol Consumption? Moderate [id number] Information not available 05/07/2022 Do You Wear A Helmet When Biking? No [id number] Information not available 05/07/2022 What Is Your Level Of Caffeine Consumption? Moderate [id number] Information not available 05/07/2022 In The 14 Days Before Symptom Onset, Have You Had Close Contact With A Laboratory-conf irmed COVID-19 While That Case Was Ill? No [id number] Information not available 05/07/2022 In The 14 Days Before Symptom Onset, Have You Had Close Contact With A Person Who Is Under Investigation For COVID-19 While That Person Was Ill? No [id number] Information not available 05/07/2022 What Type Of Diet Are You Following? REGULAR [id number] [id number] Information not available 05/07/2022 Do You Or Have You Ever Used E-cigarettes Or Vape? 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 No MIGRATION.0301 [id number] Information not available 05/07/2022 Are There Any Guns Present In Your Home? No MIGRATION.0301 [id number] Information not available 05/07/2022 Do You Use Insect Repellent Routinely? Yes MIGRATION.0301 [id number] Information not available 05/07/2022 Where Do You Live? [facility] MIGRATION.0301 [id number] Information not available 05/07/2022 Do You Have A Medical Power Of Professor Of Art? No MIGRATION.0301 [id number] Information not available 05/07/2022 Do You Have Any Pets? Yes MIGRATION.0301 [id number] Information not available 05/07/2022 What Is Your Relationship Status? Significant Other MIGRATION.0301 379262 Information not available 05/07/2022 Do You Use Your Seat Belt Or Car Seat Routinely? Yes MIGRATION.0301 486995 Information not available 05/07/2022 Do You Have Smoke And Carbon Monoxide Detectors In Your Home? Yes MIGRATION.0301 445179 Information not available 05/07/2022 At What Age Did You Start Smoking Tobacco? 13 MIGRATION.0301 266014 Information not available 05/07/2022 Are You Passively Exposed To Smoke? No MIGRATION.0301 [id number] Information not available 05/07/2022 Are There Any Smokers In Your House? No MIGRATION.0301 419358 Information not available 05/07/2022 Do You Participate In Social Media? Yes MIGRATION.0301 217134 Information not available 05/07/2022 Do You Feel Stressed (tense, Restless, Nervous, Or Anxious, Or Unable To Sleep At Night)? [id number] MIGRATION.0301 530437 Information not available 05/07/2022 Do You Use Any Illicit Or Recreational Drugs? No MIGRATION.0301 581675 Information not available 05/07/2022 Do You Use Sunscreen Routinely? Yes MIGRATION.0301 201572 Information not available 05/07/2022 Have You Recently Traveled Abroad? No MIGRATION.0301 489661 Information not available 05/07/2022 Are You Currently In School? No MIGRATION.0301 949329 Information not available 05/07/2022 Do You Or Have You Ever Used Any Other Forms Of Tobacco Or Nicotine? Yes MIGRATION.0301 838971 Information not available 05/07/2022 Sex: Unknown Functional Status Question Answer Note LastModified by Organizat ion Details LastModified Time What is your exercise level? None [id number] Information not available 05/07/2022 Mental Status None recorded. Family History Relationship Description Onset Age of this Age Resolved Age Notes LastModified by Organization Details LastModified Time Father Sleep apnea MIGRATION.03 0 [id number] Not available 05/07/2022 08:45:25 Maternal Grandmother Family history of malignant neoplasm [email or web address] Not available 2023 16:10:13 Medical History Condition Response SKIN PROBLEMS Y ANEMIA/BLOOD DISORDER Y Gynecological HistoryNo gynecological history recorded. Obstetrics History GPAL:G 0 P 0 0 0 0 Immunizations Vaccine Type Date Status Note Provider Nam e and Address Organization Details Recorded Time COVID-19, mRNA, LNP-S, PF, 30 mcg/0.3 mL dose, gume-sucrose 3 completed Not Available [facility] 05/07/2022 08:54:18 Influenza, split virus, quadrivalent, PF 9 completed Not Available [facility] 05/07/2022 08:54:18 Influenza, split virus, quadrivalent, PF 2 completed Not Available [facility] 05/07/2022 08:54:18 Influenza, split virus, quadrivalent, preservative 6 completed Not Available [facility] 05/07/2022 08:54:18 Past Encounters Encounter ID Performer Location Encounter Start Date Encounter Closed Date Diagnosis/Indication Diagnosis SNOMED-CT Code Diagnosis ICD10 Code Diagnosis Note [id number] [facility] [address] [place] [address] [address] [address] 12/27/2020 00:00:00 12/27/2020 15:28:50 [id number] [facility] [address] [facility] [address] [place] [address] 01/07/2021 00:00:00 01/07/2021 10:29:58 [id number] [facility] [address] [facility] [address] [place] [address] 02/07/2021 00:00:00 03/04/2021 20:25:46 [id number] [facility] [place] [address] [place] [address] 06/11/2021 00:00:00 06/11/2021 09:12:01 [id number] [facility] [place] [address] [place] [address] 08/08/2021 00:00:00 08/08/2021 10:44:43 [id number] [facility] [place] [address] [place] [address] 01/07/2022 00:00:00 02/05/2022 14:12:08 [id number] [facility] [place] [address] [place] [address] 04/16/2022 00:00:00 04/16/2022 10:15:45 [id number] [facility] [place] [address] [place] [address] 04/23/2022 00:00:00 05/04/2022 15:14:16 [id number] [facility] Pulmonolo gy Natalia Yang [address] [place] [address] 04/28/2022 00:00:00 04/28/2022 12:05:16 [id number] Nelly Henley MD [facility] [place] [address] [place] [address] 06/11/2022 13:57:34 06/11/2022 14:45:11 Family history of celiac disease 280874617 Z83.79 R10.9 Iron defic iency anemia 46932654 D50.9 [id number] Nelly Henley MD [facility] [place] [address] [place] [address] 07/23/2022 15:23:21 07/23/2022 16:01:59 Celiac disease 937904180 K90.0 refer to GI after insurance changenew dxcontinue gluten free diet Cobalamin deficiency 190 803121 E53.8 continue b12 oral replacemen trecheck labs in 6 weeks [id number] Nelly Henley MD [facility] Primary Care [address] [place] [address] 09/03/2022 15:21:49 09/03/2022 16:44:34 Anxiety 41963151 F41.9 Stop Buspar d/t negative side effects. Declines starting any other medication for anxiety at this time. Continue use of hydroxyzin e 25mg 1 tab TID prn Cobalamin deficiency 190 183332 E53.8 continue b12 oral replacemen t Iron defic iency anemia 02118651 D50.9 Renewal of prescription 200730929 Z76.0 [id number] Nelly Henley MD [facility] Primary Care [address] [address] 12/25/2022 15:07:10 12/25/2022 16:11:32 Transition of care [id number] 105 Z75.8 Vasospasm 03842870 I73.9 ? vasospasm vs pinched nervewill re-refer to vascular surgeonrem ain on xarelto in meantime, sample given Paresthesi a of upper limb 94323446 R20.2 will treat with steroids as pinched nerve is a possible etiologyca ll Thursday with update [id number] Nelly Henley MD [facility] Primary Care [address] [place] [address] 01/13/2023 15:17:57 01/13/2023 18:14:31 [id number] Nelly Henley MD [facility] Primary Care [address] [place] [address] 03/11/2023 15:24:55 03/11/2023 15:57:05 Thoracic outlet syndrome 792624702 G54.0 Going to PT, seeing neurology, has been referred to specialist at [facility] ed option of starting gabapentin , will observe for now Iron defic iency anemia 98380832 D50.9 likely due to celiac disease which is now being managed with a gluten free dietlast check showed elevated iron likely due to improved absorption , supplement ation was d/c in Junerepeat lab to monitor [id number] Nelly Henley MD [facility] Primary Care [address] [place] [address] 04/22/2023 16:35:54 04/22/2023 17:09:03 [id number] Jose D Nails [facility] Primary Care [address] [place] [address] 05/06/2023 11:51:19 05/06/2023 17:15:47 [id number] Checo Nelson MD [facility] Orth[facility] Organ [address] [place] [address] 06/17/2023 15:38:42 06/17/2023 16:46:15 Pain of right shoulder joint 0054908907 9229951 M25.736 [id number] NINO Roque [facility] Primary Care [address] [place] [address] 09/23/2023 13:56:29 09/23/2023 14:38:15 Renewal of prescription 108885772 Z76.0 mild manic episode 3 weeks ago. short tempered. Fatigue 53909352 R53.83 Constipation 15075278 K5 9.00 Discussed using OTC Miralax daily until stools become regular. [id number] NINO Roque [facility] Primary Care [address] [place] [address] 12/29/2023 14:25:04 12/29/2023 15:49:31 Mild manic bipolar I disorder 09297160 F31.11 decrease Quetiapine to 200mg daily. Attention deficit hyperactivity disorder 449736656 F90.9 ADHD screening completed in office and scanned into chart.Will start treatment as listed below and have placed psych referral.P atient denies SI/HI.Namita ent will follow up in one month, sooner if needed. Restless legs 74529249 G 25.81 Doing well on current medication , will refill as listed below. [id number] YolisNINO Lassiter [facility] [place] [address] [place] [address] 02/01/2024 15:42:01 02/01/2024 16:42:01 Mild manic bipolar I disorder 38796695 F31.11 decrease Quetiapine to 100mg daily. Body mass index 30+ - obesity 371570495 Z68.33 BMI: 33.1Discus sed continuing healthy diet and routine exercise. [id number] NINO Roque [facility] [place] [address] [facility] [address] [place] [address] 05/04/2024 15:43:50 05/04/2024 16:52:25 Restless legs 25293621 G25.81 Doing well on current medication , will refill as listed below. 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 Patient reports she is doing well but is still trying to process this new diagnosis. Body mass index 30+ - obesity 729350755 Z68.33 BMI: 31.4Discus sed continuing healthy diet and routine exercise. Health Concerns Section Related Observation LastModified by Organization Detai ls LastModified Time None Recorded Concern Status LastModified by Organization Details LastModified Time None Recorded Advance Directives Directive N: Payers Encounter Date Sequence Insurance Name Policy Number Policy Delgado Covered Member ID Delgado Member ID Guarantor Name 06/17/2023 1 [facility] [id number] Kallie Solomon Shreyas [id number] Kallie Solomon Shreyas 06/17/2023 2 [place] [facility] Kallie Solomon Shreyas [id number] Kallie Solomon Shreyas 09/23/2023 1 [facility] [id number] Kallie Solomon Shreyas [id number] Kallie Pritchett 09/23/2023 2 [place] [facility] Kallie Pritchett [id number] Kallie Solomon Shreyas 12/29/2023 1 [facility] [id number] Kallie Pritchett [id number] Kallie Pritchett 12/29/2023 2 [place] [facility] Kallie Pritchett [id number] Kallie Pritchett 02/01/2024 1 [facility] [id number] Kallie Pritchett [id number] Kallie Pritchett 05/04/2024 1 [facility] [id number] Kallie Pritchett [id number] Kallie Pritchett Notes Date Note Type Note Provider Name and Address Organization Details Recorded Time 09/23/2023 text/html Patient is a 33 year old female that presents to the office for 6 month follow up on fatigue. Patient reports she saw Endocrinology, [place]. After extensive work up she was informed that her symptoms were not related to Endocrinology and she needed to see GI and Cardiology. Patient reports she saw Cardiology, Dr. Marge Salomon, on Thursday and is scheduled to get a heart monitor tomorrow. Patient is not scheduled with GI yet. Patient requesting Rheumatology referral to make sure her symptoms are not autoimmune related as she has Celiac disease and other autoimmune diseases run in the family.Patient reports she is sleeping better after starting Magnesium however she is still chronically fatigued. Patient also reports episodes of lightheadedness and felling faint for months .Patient reports she has noticed she has become short fused and thinks she needs an increase on her Seroquel. Patient reports she does not have the patience she use to have especially with her son. Patient also reports a couple mild manic episodes over the last 3 weeks. Patient denies SI/HI.Patient reports constipation for about 5 days. Patient denies treatment of constipation.Patient denies chest pain and shortness of breath, nausea and vomiting. Yolis Aguilar, [employer] [address], [address], [facility] [employer] 09/23/2023 14:34:40 12/29/2023 text/html Patient is a 33 year old female that presents to the office for follow up. Patient recently had her Quetiapine increased in September and it has not been effective. Patient reports symptoms have never improved since the increased dose and now things are worse. Patient reports over the last 3 weeks she has not been level , she is either really up or really down but there is never an in between. Patient reports she has discussed this issue with others and done some research on her own and is requesting to be screened for ADHD. Patient reports her partner is able to sense when she is about to have an episode and he directs her to a quiet room with headphones, a book and her vibration board which helps the episode from getting out of hand.Patient denies SI/HI. Patient denies all other medical concerns at this time including chest pain and shortness of breath, nausea vomiting and diarrhea. NINO Roque [address], [place], [address], [employer] 12/30/2023 22:34:22 02/01/2024 text/html Patient is a 33 year old female that presents to the office for follow up. Patient reports she is doing much better since starting Adderall, continues to wean off of Quetiapine. Patient has not had any manic episodes since her last appt. Denies SI/HI. Patient is concerned with her continuation of weight gain for what appears to be no reason. Patient reports diet and exercise are good. She is working to increase her daily water intake. Patient denies chest pain and shortness of breath. NINO Roque [address], [place], [address], [employer] 02/08/2024 22:10:37 05/04/2024 text/html Patient is a 33 year old female that presents to the office for follow up. Patient reports she went to [facility] and was diagnosed with autism. Patient reports she weaned herself off of her [employer] and has not had any issues. Patient is scheduled to see psych on Thursday and is going to be weaning off of her other medications. Patient is requesting labs to check for MCAS due to chronic hives that flare up even with daily antihistamine. NINO Roque [address], [place], [address], [employer] 05/07/2024 17:10:01 OBGyn Episode No OBEpisode recorded.
== END 2024-05-16 13:20 | disposition home or self-care (01) ==
PROVIDERS: Emergency Provider Emergency Medicine; PCP Nurse Practitioner Family
DX: K52.9 Noninfective gastroenteritis and colitis, unspecified (principal); S91.114A Laceration without foreign body of right lesser toe(s) without damage to nail, initial encounter; Z23 Encounter for immunization; F84.0 Autistic disorder; F17.290 Nicotine dependence, other tobacco product, uncomplicated; W22.8XXA Striking against or struck by other objects, initial encounter
CPT/HCPCS: 36415; 80053; 81001; 81025; 85025; 87086; 90471; 90715; 96361; 96374; 99284; J2405; J7030

== ENCOUNTER 2024-07-03 14:29 | Emergency (ER) | payer OTHER, SELFPAY ==
[2024-07-03 14:30] VITALS: BP 126/79; PULSE 101; RESP 18; TEMP 36.4; O2SAT 100
--- OUTSIDE RECORDS SUMMARY | 2024-07-03 14:31 | XMS_ITS | Patient Health Record ---
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 Refining Machine Operator Name Role Phone Yolis Estrada Primary Care Provider Dorota Hernandez Unavailable [phone] Burke Campa Unavailable [phone] Allergies Allergen (clinical drug ingredient) Drug/Non Drug [...] Oxazepam (BZO) NEG 0 - 300 ng/ml 7-elvynihyuh-1,4-zbocnfsp-0,3-diphenylpyrrolidine (SHARMAINE P) NEG 0 - 300 ng/ml Methamphetamine (MET) NEG 0 - 1000 ng/ml Methylenedioxymethamphetamine (MDMA) NEG 0 - 500 ng/ml Morphine (MOP 300/NUY0706) NEG 0 - 300 ng/ml Methadone (MTD) NEG 0 - 300 ng/ml Phencyclidine (PCP) NEG 0 - 25 ng/ml Nortriptyline (TCA) NEG 0 - 1000 ng/ml Oxycodone NEG 0 - 300 ng/ml x NEG 0 - 300 ng/ml Reason For Referral No Information Medications Medication SIG (Take, Route, Frequency, Duration) Notes Start Date End Date Status traZODone HCl 50 MG 1 tablet at bedtime Oral at bedtime for 90 days Not-Taking ZyrTEC Allergy 10 MG 1 tablet Orally Once a day Active rOPINIRole HCl 1 MG 1 tablet 1 to 3 hours before bedtime Orally Once a day Active hydrOXYzine HCl 10 MG 1 tablet Orally twice a day for 90 days Active Ramelteon 8 MG 1 tablet at bedtime as needed Oral bedtime for 90 days Not-Taking Adderall XR 10 MG 1 capsule in the morning Orally Once a day Not-Taking QUEtiapine Fumarate 50 MG 1 tablet Orally Once a day for 14 days d/c after this script Not-Taking Social History Tobacco Use: Social History Observation Description Date Details (start date - stop date) Current Smoker NA - 01/25/2024 Sex Assigned At [...] Control (Standard) Question Answer Notes Tobacco use: Current smoker When did you stop smoking? 01/25/2024 [...] Problem Status W/U Status Risk Notes Problem 5888477 Primary insomnia (F51.01) Active confirmed Problem Screening for cardiovascular system disease (819858350) Encounter for screening for cardiovascular disorders (Z13.6) Active confirmed Problem Depression Screening (755067839) Encounter for screening for depression (Z13.31) Active confirmed Problem 65633915 Bipolar 2 disorder (F31.81) Active confirmed Problem 43950321 NIKKI (generalized anxiety disorder) (F41.1) Active confirmed Problem 11276841 ADHD (attention deficit hyperactivity disorder), combined type (F90.2) Active confirmed Problem 726030830 MDD (major depressive disorder), recurrent episode, mild (F33.0) Active confirmed Problem 02289996 Autism spectrum disorder (F84.0) Active confirmed Problem 61220166 MDD (recurrent major depressive disorder) in remission (F33.40) Active confirmed Problem Tobacco use (244326258) Nicotine use (Z72.0) Active confirmed Vital Signs Heart Rate 72 /min 06/10/2024 Respiratory Rate 16 /min 02/09/2024 Height-cm 162.56 cm 06/10/2024 Blood pressure diastolic 69 mm Hg 06/10/2024 Weight-kg 86.09 kg 06/10/2024 Height 64 in 06/10/2024 Blood pressure systolic 113 mm Hg 06/10/2024 Weight 189.8 lbs 06/10/2024 BMI 32.58 kg/m2 06/10/2024 [facility]counters [facility]counter [facility] Date [facility] [address] [address] [facility]/09/2024 Dorota Crump Bipolar 2 disorder F31.81 ; NIKKI (generalized anxiety disorder) F41.1 ; Primary insomnia F51.01 and ADHD (attention deficit hyperactivity disorder), combined type F90.[address] [address] 02/29/2024 Dorota Therlulú Bipolar 2 disorder F31.81 ; NIKKI (generalized anxiety disorder) F41.1 ; Primary insomnia F51.01 and ADHD (attention deficit hyperactivity disorder), combined type F90.2 [facility] [employer] [address] 03/28/2024 Dorota Therlulú Bipolar 2 disorder F31.81 ; NIKKI (generalized anxiety disorder) F41.1 ; Primary insomnia F51.01 and ADHD (attention deficit hyperactivity disorder), combined type F90.[address] [address] 04/12/2024 Dorota Therlulú Bipolar 2 disorder F31.81 ; NIKKI (generalized anxiety disorder) F41.1 ; Primary insomnia F51.01 and ADHD (attention deficit hyperactivity disorder), combined type F90.2 [facility], [facility] [address] [place] [address] 05/09/2024 Dorota Thery NIKKI (generalized anxiety disorder) F41.1 ; Autism spectrum disorder F84.0 ; Primary insomnia F51.01 ; ADHD (attention deficit hyperactivity disorder), combined type F90.2 and MDD (major depressive disorder), recurrent episode, mild F33.0 [facility], [facility] [address] [place] [address] 06/10/2024 Dorota Thery Nicotine use Z72.0 ; MDD (recurrent major depressive disorder) in remission F33.40 ; Encounter for screening for depression Z13.31 ; Encounter for screening for cardiovascular disorders Z13.6 ; NIKKI (generalized anxiety disorder) F41.1 ; Primary insomnia F51.01 and ADHD (attention deficit hyperactivity disorder), combined type F90.2 [facility], [facility] [address] [place] [address] 05/11/2024 Dorota Therlulú [facility], [facility] [address] [place] [address] 05/18/2024 Dorota Therlulú [facility], [facility] [address] [place] [address] 03/03/2024 Dorota Therlulú [facility], [facility] [address] [place] [address] 04/01/2024 Dorota Thery Bipolar 2 disorder F31.81 [facility], [facility] [address] [place] [address] 04/05/2024 Dorota Thery [facility], [facility] [address] [place] [address] 04/19/2024 Dorota Thery [facility], [facility] [address] [place] [address] 04/19/2024 Dorota Thery Bipolar 2 disorder F31.81 [facility], [facility] [address] [place] [address] 04/20/2024 Dorota Therlulú [facility], [facility] [address] [place] [address] 05/04/2024 Dorota Thery [facility], [facility] [address] [place] [address] 05/10/2024 Dorota Crump [facility], [facility] [address] [place] [address] 05/11/2024 Dorota Crump [facility], [facility] [address] [place] [address] 05/11/2024 Dorota Therlulú [facility], [facility] [address] [facility] [address] [place] [address] 05/18/2024 Dorota Crump [facility], [facility] [address] [place] [address] 05/19/2024 Dorota Crump [facility], [facility] [address] [facility] [address] [place] [address] 05/25/2024 Dorota Crump [facility], [facility] [address] [facility] [address] [place] [address] 05/25/2024 Dorota Crump [facility], [facility] [address] [facility] [address] [place] [address] 05/26/2024 Dorotamatilde Crump Assessments Encounter Date Diagnosis (ICD Code) [...] abuse, and addiction before prescribing stimulant medicines. [employer] patients not to share their prescribed stimulant [...] warranted by the prescribed dosage. Random [place] [place] prescription reviewed local [place] in [place], no early refills on control substance educated on non-stimulate and stimulates Cannabis/marijuan a information: http_s://tammy.nih .gov/publications /drugfacts/cannab is-marijuana http_s://www.Cloudcity/canna gcd-vhz-hdfsbcrt- marijuana-adhd/ http_s://www.jumana .org/About-Mental -Illness/Mental-H ealth-Conditions http_s://psychJdguanjia/depressi on/the-cognitive- myzvqryi-yt-xywgy ssion#treatments http__s://www.nim .nih.gov/health/ topics/mental-hea lth-medications http__s://www.nam i.org/About-Menta [...] abuse, and addiction before prescribing stimulant medicines. [employer] patients not to share their prescribed stimulant [...] warranted by the prescribed dosage. Random UDS [place] prescription reviewed local pharmacy in [facility], no early refills on control substance educated on non-stimulate and stimulates Cannabis/marijuan a information: http_s://tammy.nih .gov/publications /drugfacts/cannab is-marijuana http_s://www.Ribbon.Fr[employer]/canna jxk-qjd-mbetebnp- marijuana-adhd/ http_s://www.jumana .org/About-Mental -Illness/Mental-H ealth-Conditions http_s://psych3DMGAMEcom/depressi on/the-cognitive- raefrjpa-si-dmnmq ssion#treatments http__s://www.[facility].nih.gov/health/ topics/mental-hea lth-medications http__s://www.nam i.org/About-Menta l-Illness/Treatme nts/Mental-Health -Medications [...] abuse, and addiction before prescribing stimulant medicines. [employer] patients not to share their prescribed stimulant [...] warranted by the prescribed dosage. Random UDS [place] prescription reviewed local pharmacy in [facility], no early refills on control substance educated on non-stimulate and stimulates Cannabis/marijuan a information: http_s://tammy.nih .gov/publications /drugfacts/cannab is-marijuana http_s://www.Cloudcity/canna dfc-hby-hxwvuskc- marijuana-adhd/ http_s://www.jumana .org/About-Mental -Illness/Mental-H ealth-Conditions http_s://psychJdguanjia/depressi on/the-cognitive- qnszogcr-ei-dtarg ssion#treatments http__s://www.[facility].nih.gov/health/ topics/mental-hea lth-medications http__s://www.nam i.org/About-Menta l-Illness/Treatme nts/Mental-Health -Medications [...] abuse, and addiction before prescribing stimulant medicines. [employer] patients not to share their prescribed stimulant [...] than warranted by the prescribed dosage. Random [facility] prescription reviewed local pharmacy in [facility], no early refills on control substance educated on non-stimulate and stimulates Cannabis/marijuan a information: http_s://tammy.nih .gov/publications /drugfacts/cannab is-marijuana http_s://www.Cloudcity/meme jdc-isp-nejstcgm- marijuana-adhd/ http_s://www.jumana .org/About-Mental -Illness/Mental-H ealth-Conditions http_s://psychcen tral.com/depressi on/the-cognitive- ybpjongt-az-hltpb ssion#treatments http__s://www.[facility].nih.gov/health/ topics/mental-hea lth-medications http__s://www.nam i.org/About-Menta l-Illness/Treatme nts/Mental-Health -Medications [...] on 2024-05-09 16:53:33 for 'Caplyta 42 MG Capsule'Pharmac y Notes: Prescription not found. Contact Pharmacy by other means 1. Bipolar II depression - having depression discuss and education on medication Options Caplyta 42 mg daily, Increase Tierra Bonita 300 mg twice a day for increase depression Tierra Bonita education Tierra Bonita use reviewed. Risks include risks of toxicity, [...] = I,500 mg/day, target serum level 0.8 Tierra Bonita is known to reduce risk of suicide. [...] abuse, and addiction before prescribing stimulant medicines. [employer] patients not to share their prescribed stimulant [...] warranted by the prescribed dosage. Random S [place] prescription reviewed local pharmacy in [facility], no early refills on control substance educated on non-stimulate and stimulates 5. RLS- ON REQUIP 4 MG bedtime- PCP prescribes patient will see PCP this month and discuss RLS LABS PCP Cannabis/marijuan a information: http_s://tammy.nih .gov/publications /drugfacts/cannab is-marijuana http_s://www.Cloudcity/canna zfs-bpb-utscgdax- marijuana-adhd/ http_s://www.jumana .org/About-Mental -Illness/Mental-H ealth-Conditions http_s://psychEuro Card Spainn E-Signl.com/depressi on/the-cognitive- olyngpjz-tt-dteco ssion#treatments http__s://www.nim h.nih.gov/health/ topics/mental-hea lth-medications http__s://www.nam i.org/About-Menta [...] Response got Denied on 2024-05-09 16:53:33 for 'Tierra Bonita Carbonate 150 MG Capsule'Pharmac y Notes: Prescription not found. Contact Pharmacy by other means 05/09/2024 NIKKI (generalized anxiety disorder) (ICD-10 - F41.1) Learning About Generalized Anxiety Disorder material was published, Generalized Anxiety Disorder: Care Instructions material was published, Learning About Anxiety Disorders material was published 1. Bipolar II depression- will change dxn to depression and recently dxn Autism 05/03 [facility] patient would like to come off rx [...] rx discuss taper down rx patient stopped Tierra Bonita labs done by PCP and Endo willl obtain continue therapy refer [facility] Autism evaluation 2.Anxiety - see therapy [...] abuse, and addiction before prescribing stimulant medicines. [employer] patients not to share their prescribed stimulant [...] warranted by the prescribed dosage. Random [place] prescription reviewed local pharmacy in [place], no early refills on control substance educated on non-stimulate and stimulates 5. RLS- ON REQUIP 4 MG bedtime- PCP prescribes patient will see PCP this month and discuss RLS LABS PCP Cannabis/amarjit a information: http_s://tammy.nih .gov/publications /drugfacts/cannab is-marijuana http_s://www.Cloudcity/canna dbr-xdl-mzpefvsa- marijuana-adhd/ http_s://www.jumana .org/About-Mental -Illness/Mental-H ealth-Conditions http_s://psychEuro Card Spainn ClickTale/depressi on/the-cognitive- eozhwibi-bp-jhysc ssion#treatments http__s://www.[facility].nih.gov/health/ topics/mental-hea lth-medications http__s://www.nam i.org/About-Menta l-Illness/Treatme nts/Mental-Health -Medications [...] to depression and recently dxn Autism 05/03 [facility] patient would like to come off rx [...] rx discuss taper down rx patient stopped Tierra Bonita labs done by PCP and Endo willl obtain continue therapy refer [facility] Autism evaluation 2.Anxiety - see therapy [...] abuse, and addiction before prescribing stimulant medicines. [employer] patients not to share their prescribed stimulant [...] warranted by the prescribed dosage. Random [place] [place] prescription reviewed local pharmacy in [facility], no early refills on control substance educated on non-stimulate and stimulates 5. RLS- ON REQUIP 4 MG bedtime- PCP prescribes patient will see PCP this month and discuss RLS LABS PCP Cannabis/marijuan a information: http_s://tammy.nih .gov/publications /drugfacts/cannab is-marijuana http_s://www.Cloudcity/canna vef-vyd-edgacqwu- marijuana-adhd/ http_s://www.jumana .org/About-Mental -Illness/Mental-H ealth-Conditions http_s://psych3DMGAMEcom/depressi on/the-cognitive- rmunhgbg-xr-ozjmc ssion#treatments http__s://www.nim .nih.gov/health/ topics/mental-hea lt-medications http__s://www.nam i.org/About-Menta l-Illness/Treatme nts/Mental-Health -Medications [...] potential neurotoxicity and interactions with prescribed medications. 06/10/2024 MDD (recurrent major depressive disorder) in remission (ICD-10 - F33.40) 1. Depression stable not on medications patient wants to see PCP at this time since only have Vistaril PRN and not taking often continue therapy- [facility] 2.Anxiety - see therapy has Vistaril 10 mg in day and at bedtime PRN - reported not taking Educated on rx 3. Primary Insomnia sleep hygeine Vistaril 10 mg at bedtime PRN hx sleep study no sleep apnea 4. ADHD review reviewed JACOBY-AE2 TEST Self rating scales- significant number hyperactive/impul sive and inattentive symptoms that negative impact functions, - posisble dxn ADHD COMBINATION BUT NOT CONGRUENT with JACOBY-AE2 test - Need to reconcile data sets before a definitive dxn can be made, patient reported took ADHD rx in am and tested 3 pm ADHD no rx prescribed 5. RLS- ON REQUIP 4 MG bedtime- PCP prescribes LABS PCP Cannabis/marijuan a information: http_s://tammy.nih .gov/publications /drugfacts/cannab is-marijuana http_s://wwwProtea Medical/canna uei-raw-lymgbfns- marijuana-adhd/ http_s://www.jumana .org/About-Mental -Illness/Mental-H ealth-Conditions http_s://psychJdguanjia/depressi on/the-cognitive- dflvdknt-tb-jwkyx ssion#treatments http__s://www.nim .nih.gov/health/ topics/mental-hea lth-medications http__s://www.nam i.org/About-Menta [...] - Plan: - Schedule follow-up appointments every 3-6 months to monitor the patient's response to the medication regimen. - Reinforce the importance of avoiding recreational drug use due to potential neurotoxicity and interactions with prescribed medications. 06/10/2024 Nicotine use (ICD-10 - Z72.0) 1. Depression stable not on medications patient wants to see PCP at this time since only have Vistaril PRN and not taking often continue therapy- [facility] 2.Anxiety - see therapy has Vistaril 10 mg in day and at bedtime PRN - reported not taking Educated on rx 3. Primary Insomnia sleep hygeine Vistaril 10 mg at bedtime PRN hx sleep study no sleep apnea 4. ADHD review reviewed JACOBY-AE2 TEST Self rating scales- significant number hyperactive/impul sive and inattentive symptoms that negative impact functions, - posisble dxn ADHD COMBINATION BUT NOT CONGRUENT with JACOBY-AE2 test - Need to reconcile data sets before a definitive dxn can be made, patient reported took ADHD rx in am and tested 3 pm ADHD no rx prescribed 5. RLS- ON REQUIP 4 MG bedtime- PCP prescribes LABS PCP Cannabis/marijuan a information: http_s://tammy.nih .gov/publications /drugfacts/cannab is-marijuana http_s://www.Cloudcity/cannradha trc-cgs-hrnwrltc- marijuana-adhd/ http_s://www.jumana .org/About-Mental -Illness/Mental-H ealth-Conditions http_s://psychcen tral.com/depressi on/the-cognitive- olaqdroq-qj-thfvb ssion#treatments http__s://www.[facility].nih.gov/health/ topics/mental-hea [facility]-medications http__s://www.nam i.org/About-Menta l-Illness/Treatme nts/Mental-Health -Medications educated on [...] - Plan: - Schedule follow-up appointments every 3-6 months to monitor the patient's response to the medication regimen. - Reinforce the importance of avoiding recreational drug use due to potential neurotoxicity and interactions with prescribed medications. 06/10/2024 Encounter for screening for depression (ICD-10 - Z13.31) 1. Depression stable not on medications patient wants to see PCP at this time since only have Vistaril PRN and not taking often continue therapy- [facility] 2.Anxiety - see therapy has Vistaril 10 mg in day and at bedtime PRN - reported not taking Educated on rx 3. Primary Insomnia sleep hygeine Vistaril 10 mg at bedtime PRN hx sleep study no sleep apnea 4. ADHD review reviewed JACOBY-AE2 TEST Self rating scales- significant number hyperactive/impul sive and inattentive symptoms that negative impact functions, - posisble dxn ADHD COMBINATION BUT NOT CONGRUENT with JACOBY-AE2 test - Need to reconcile data sets before a definitive dxn can be made, patient reported took ADHD rx in am and tested 3 pm ADHD no rx prescribed 5. RLS- ON REQUIP 4 MG bedtime- PCP prescribes LABS PCP Cannabis/marijuan a information: http_s://tammy.nih .gov/publications /drugfacts/cannab is-marijuana http_s://www.Cloudcity/canna mgd-lst-zgnnrypg- marijuana-adhd/ http_s://www.jumana .org/About-Mental -Illness/Mental-H ealth-Conditions http_s://psychJdguanjia/depressi on/the-cognitive- hpextygh-gw-rjxuc ssion#treatments http__s://www.nim h.nih.gov/health/ topics/mental-hea lth-medications http__s://www.nam i.org/About-Menta [...] - Plan: - Schedule follow-up appointments every 3-6 months to monitor the patient's response to the medication regimen. - Reinforce the importance of avoiding recreational drug use due to potential neurotoxicity and interactions with prescribed medications. 05/09/2024 Primary insomnia (ICD-10 - F51.01) Insomnia: Care Instructions material was published, Learning About Sleeping Well material was published 1. Bipolar II depression- will change dxn to depression and recently dxn Autism 05/03 [facility] patient would like to come off rx [...] rx discuss taper down rx patient stopped Tierra Bonita labs done by PCP and Endo willl obtain continue therapy refer [facility] Autism evaluation 2.Anxiety - see therapy [...] abuse, and addiction before prescribing stimulant medicines. [employer] patients not to share their prescribed stimulant [...] than warranted by the prescribed dosage. Random [facility] prescription reviewed local pharmacy in [facility], no early refills on control substance educated on non-stimulate and stimulates 5. RLS- ON REQUIP 4 MG bedtime- PCP prescribes patient will see PCP this month and discuss RLS LABS PCP Cannabis/marijuan a information: http_s://tammy.nih .gov/publications /drugfacts/cannab is-marijuana http_s://www.Cloudcity/canna gui-suo-gimlokbr- marijuana-adhd/ http_s://www.jumana .org/About-Mental -Illness/Mental-H ealth-Conditions http_s://psychcen E-Signl.com/depressi on/the-cognitive- wnqobbsa-zx-gdjas ssion#treatments http__s://www.nim .nih.gov/health/ topics/mental-hea lth-medications http__s://www.[facility].org/About-Menta l-Illness/Treatme nts/Mental-Health -Medications educated on all medications, [...] medication Options Caplyta 42 mg daily, Increase Tierra Bonita 300 mg twice a day for increase depression Tierra Bonita education Tierra Bonita use reviewed. Risks include risks of toxicity, [...] = I,500 mg/day, target serum level 0.8 Tierra Bonita is known to reduce risk of suicide. [...] abuse, and addiction before prescribing stimulant medicines. [employer] patients not to share their prescribed stimulant [...] warranted by the prescribed dosage. Random [place] prescription reviewed local pharmacy [place], no early refills on control substance educated on non-stimulate and stimulates 5. RLS- ON REQUIP 4 MG bedtime- PCP prescribes patient will see PCP this month and discuss RLS LABS PCP Cannabis/marijuan a information: http_s://tammy.nih .gov/publications /drugfacts/cannab is-marijuana http_s://www.Cloudcity/canna ypb-yyg-vszxuavd- marijuana-adhd/ http_s://www.jumana .org/About-Mental -Illness/Mental-H ealth-Conditions http_s://psychceCareDoxcom/depressi on/the-cognitive- nbfwtzcs-dy-owwjw ssion#treatments http__s://www.[facility].nih.gov/health/ topics/mental-hea lth-medications http__s://www.nam i.org/About-Menta l-Illness/Treatme nts/Mental-Health -Medications [...] abuse, and addiction before prescribing stimulant medicines. [employer] patients not to share their prescribed stimulant [...] warranted by the prescribed dosage. Random [facility] [place] prescription reviewed local pharmacy in [facility], no early refills on control substance educated on non-stimulate and stimulates Cannabis/marijuan a information: http_s://tammy.nih .gov/publications /drugfacts/cannab is-marijuana http_s://www.Ribbon.Fr[employer]/canna iaw-det-pezckgpj- marijuana-adhd/ http_s://www.jumana .org/About-Mental -Illness/Mental-H ealth-Conditions http_s://psychcen E-Signl.com/depressi on/the-cognitive- roqekqwn-bv-vgcau ssion#treatments http__s://www.nim .nih.gov/health/ topics/mental-hea [facility]-medications http__s://www.nam i.org/About-Menta l-Illness/Treatme nts/Mental-Health -Medications educated on [...] abuse, and addiction before prescribing stimulant medicines. [employer] patients not to share their prescribed stimulant [...] warranted by the prescribed dosage. Random S [place] prescription reviewed local pharmacy in [facility], no early refills on control substance educated on non-stimulate and stimulates Cannabis/marijuan a information: http_s://tammy.nih .gov/publications /drugfacts/cannab is-marijuana http_s://www.Cloudcity/canna wbq-ldn-upuwnqeg- marijuana-adhd/ http_s://www.jumana .org/About-Mental -Illness/Mental-H ealth-Conditions http_s://psychEuro Card Spainn My-wardrobe.comcom/depressi on/the-cognitive- aqtxyvgf-im-xilhb ssion#treatments http__s://www.[facility].nih.gov/health/ topics/mental-hea lth-medications http__s://www.nam i.org/About-Menta l-Illness/Treatme nts/Mental-Health -Medications [...] abuse, and addiction before prescribing stimulant medicines. [employer] patients not to share their prescribed stimulant [...] warranted by the prescribed dosage. Random [facility] [place] prescription reviewed local pharmacy in [facility], no early refills on control substance educated on non-stimulate and stimulates Cannabis/marijuan a information: http_s://tammy.nih .gov/publications /drugfacts/cannab is-marijuana http_s://www.Cloudcity/canna xcp-hbi-oaejcrsx- marijuana-adhd/ http_s://www.jumana .org/About-Mental -Illness/Mental-H ealth-Conditions http_s://psychcen E-Signl.com/depressi on/the-cognitive- qgtkzjal-zi-ncnjo ssion#treatments http__s://www.nim h.nih.gov/health/ topics/mental-hea lth-medications http__s://www.nam i.org/About-Menta [...] abuse, and addiction before prescribing stimulant medicines. [employer] patients not to share their prescribed stimulant [...] than warranted by the prescribed dosage. Random [facility] prescription reviewed local pharmacy in [facility], no early refills on control substance educated on non-stimulate and stimulates Cannabis/marijuan a information: http_s://tammy.nih .gov/publications /drugfacts/cannab is-marijuana http_s://www.Cloudcity/canna buy-brw-pszfwyob- marijuana-adhd/ http_s://www.jumana .org/About-Mental -Illness/Mental-H ealth-Conditions http_s://psychcen tral.com/depressi on/the-cognitive- uqzrslws-pg-yipfa ssion#treatments http__s://www.nim h.nih.gov/health/ topics/mental-hea lth-medications http__s://www.nam i.org/About-Menta [...] abuse, and addiction before prescribing stimulant medicines. [employer] patients not to share their prescribed stimulant [...] warranted by the prescribed dosage. Random UDS [place] prescription reviewed local pharmacy in [facility], no early refills on control substance educated on non-stimulate and stimulates Cannabis/marijuan a information: http_s://tammy.nih .gov/publications /drugfacts/cannab is-marijuana http_s://www.Cloudcity/canna fdh-gyy-hwvtavwm- marijuana-adhd/ http_s://www.jumana .org/About-Mental -Illness/Mental-H ealth-Conditions http_s://[employer]depressi on/the-cognitive- vqllbgqx-ud-ubzwr ssion#treatments http__s://www.nim .nih.gov/health/ topics/mental-hea lth-medications http__s://www.nam i.org/About-Menta [...] abuse, and addiction before prescribing stimulant medicines. [employer] patients not to share their prescribed stimulant [...] warranted by the prescribed dosage. Random [place] prescription reviewed local pharmacy in [facility], no early refills on control substance educated on non-stimulate and stimulates Cannabis/marijuan a information: http_s://tammy.nih .gov/publications /drugfacts/cannab is-marijuana http_s://www.Cloudcity/canna afh-oxb-drgxsgav- marijuana-adhd/ http_s://www.jumana .org/About-Mental -Illness/Mental-H ealth-Conditions http_s://psychcen [place] [employer]/depressi on/the-cognitive- wnhksiqb-id-focsx ssion#treatments http__s://www.nim h.nih.gov/health/ topics/mental-hea lth-medications http__s://www.nam i.org/About-Menta [...] medication Options Caplyta 42 mg daily, Increase Tierra Bonita 300 mg twice a day for increase depression Tierra Bonita education Tierra Bonita use reviewed. Risks include risks of toxicity, [...] = I,500 mg/day, target serum level 0.8 Tierra Bonita is known to reduce risk of suicide. [...] abuse, and addiction before prescribing stimulant medicines. [employer] patients not to share their prescribed stimulant [...] warranted by the prescribed dosage. Random [place] prescription [place], no early refills on control substance educated on non-stimulate and stimulates 5. RLS- ON REQUIP 4 MG bedtime- PCP prescribes patient will see PCP this month and discuss RLS LABS PCP Cannabis/marijuan a information: http_s://tammy.nih .gov/publications /drugfacts/cannab is-marijuana http_s://www.Cloudcity/canna svv-zvn-atpyrnmt- marijuana-adhd/ http_s://www.jumana .org/About-Mental -Illness/Mental-H ealth-Conditions http_s://psychJdguanjia/depressi on/the-cognitive- xzetwhft-st-zywgt ssion#treatments http__s://www.nim .nih.gov/health/ topics/mental-hea lth-medications http__s://www.nam i.org/About-Menta [...] to depression and recently dxn Autism 05/03 [facility] [place] patient would like to come off rx [...] rx discuss taper down rx patient stopped Tierra Bonita labs done by PCP and Endo willl obtain continue therapy refer [facility] Autism evaluation 2.Anxiety - see therapy [...] abuse, and addiction before prescribing stimulant medicines. [employer] patients not to share their prescribed stimulant [...] warranted by the prescribed dosage. Random UDS [place] prescription reviewed local pharmacy in [facility], no early refills on control substance educated on non-stimulate and stimulates 5. RLS- ON REQUIP 4 MG bedtime- PCP prescribes patient will see PCP this month and discuss RLS LABS PCP Cannabis/marijuan a information: http_s://tammy.nih .gov/publications /drugfacts/cannab is-marijuana http_s://www.Cloudcity/canna scl-jco-nmiafnwr- marijuana-adhd/ http_s://www.jumana .org/About-Mental -Illness/Mental-H ealth-Conditions http_s://psychcen E-Signl.com/depressi on/the-cognitive- zckgdvvl-et-hjnjg ssion#treatments http__s://www.nim h.nih.gov/health/ topics/mental-hea lth-medications http__s://www.nam i.org/About-Menta [...] potential neurotoxicity and interactions with prescribed medications. 06/10/2024 Encounter for screening for cardiovascular disorders (ICD-10 - Z13.6) 1. Depression stable not on medications patient wants to see PCP at this time since only have Vistaril PRN and not taking often continue therapy- Danevang - [facility] 2.Anxiety - see therapy has Vistaril 10 mg in day and at bedtime PRN - reported not taking Educated on rx 3. Primary Insomnia sleep hygeine Vistaril 10 mg at bedtime PRN hx sleep study no sleep apnea 4. ADHD review reviewed JACOBY-AE2 TEST Self rating scales- significant number hyperactive/impul sive and inattentive symptoms that negative impact functions, - posisble dxn ADHD COMBINATION BUT NOT CONGRUENT with JACOBY-AE2 test - Need to reconcile data sets before a definitive dxn can be made, patient reported took ADHD rx in am and tested 3 pm ADHD no rx prescribed 5. RLS- ON REQUIP 4 MG bedtime- PCP prescribes LABS PCP Cannabis/marijuan a information: http_s://tammy.nih .gov/publications /drugfacts/cannab is-marijuana http_s://www.Cloudcity/canna okm-egj-mqdcyeil- marijuana-adhd/ http_s://www.jumana .org/About-Mental -Illness/Mental-H ealth-Conditions http_s://psychcen E-Signl.com/depressi on/the-cognitive- usokpeto-sp-bnnfa ssion#treatments http__s://www.nim h.nih.gov/health/ topics/mental-hea lth-medications http__s://www.[facility].org/About-Menta l-Illness/Treatme nts/Mental-Health -Medications educated on all medications, [...] - Plan: - Schedule follow-up appointments every 3-6 months to monitor the patient's response to the medication regimen. - Reinforce the importance of avoiding recreational drug use due to potential neurotoxicity and interactions with prescribed medications. 05/09/2024 MDD (major depressive disorder), recurrent episode, mild (ICD-10 - F33.0) 1. Bipolar II depression- will change dxn to depression and recently dxn Autism 05/03 [facility] [place] patient would like to come off rx [...] rx discuss taper down rx patient stopped Tierra Bonita labs done by PCP and Endo willl obtain continue therapy refer [facility] Autism evaluation 2.Anxiety - see therapy [...] abuse, and addiction before prescribing stimulant medicines. [employer] patients not to share their prescribed stimulant [...] warranted by the prescribed dosage. Random [place] prescription reviewed local pharmacy in [facility], no early refills on control substance educated on non-stimulate and stimulates 5. RLS- ON REQUIP 4 MG bedtime- PCP prescribes patient will see PCP this month and discuss RLS LABS PCP Cannabis/marijuan a information: http_s://tammy.nih .gov/publications /drugfacts/cannab is-marijuana http_s://www.Cloudcity/canna ohm-fuc-zdgnpxiv- marijuana-adhd/ http_s://www.jumana .org/About-Mental -Illness/Mental-H ealth-Conditions http_s://[employer]depressi on/the-cognitive- qqflqqml-yx-atait ssion#treatments http__s://www.[facility].nih.gov/health/ topics/mental-hea lt-medications http__s://www.nam i.org/About-Menta l-Illness/Treatme nts/Mental-Health -Medications [...] potential neurotoxicity and interactions with prescribed medications. 06/10/2024 NIKKI (generalized anxiety disorder) (ICD-10 - F41.1) Learning About Generalized Anxiety Disorder material was published, Generalized Anxiety Disorder: Care Instructions material was published, Learning About Anxiety Disorders material was published 1. Depression stable not on medications patient wants to see PCP at this time since only have Vistaril PRN and not taking often continue therapy- [facility]ev[facility] - [facility] 2.Anxiety - see therapy has Vistaril 10 mg in day and at bedtime PRN - reported not taking Educated on rx 3. Primary Insomnia sleep hygeine Vistaril 10 mg at bedtime PRN hx sleep study no sleep apnea 4. ADHD review reviewed JACOBY-AE2 TEST Self rating scales- significant number hyperactive/impul sive and inattentive symptoms that negative impact functions, - posisble dxn ADHD COMBINATION BUT NOT CONGRUENT with JACOBY-AE2 test - Need to reconcile data sets before a definitive dxn can be made, patient reported took ADHD rx in am and tested 3 pm ADHD no rx prescribed 5. RLS- ON REQUIP 4 MG bedtime- PCP prescribes LABS PCP Cannabis/marijuan a information: http_s://tammy.nih .gov/publications /drugfacts/cannab is-marijuana http_s://www.Cloudcity/VBOXa jen-dnq-aogcwbca- marijuana-adhd/ http_s://www.jumana .org/About-Mental -Illness/Mental-H ealth-Conditions http_s://psychJdguanjia/depressi on/the-cognitive- edxocoaa-xr-rzxej ssion#treatments http__s://www.nim .nih.gov/health/ topics/mental-hea lth-medications http__s://www.nam i.org/About-Menta [...] - Plan: - Schedule follow-up appointments every 3-6 months to monitor the patient's response to [...] abuse, and addiction before prescribing stimulant medicines. [employer] patients not to share their prescribed stimulant [...] warranted by the prescribed dosage. Random [place] prescription reviewed local pharmacy in [place], no early refills on control substance educated on non-stimulate and stimulates Cannabis/marijuan a information: http_s://tammy.nih .gov/publications /drugfacts/cannab is-marijuana http_s://www.Cloudcity/canna pba-pbb-danxqkml- marijuana-adhd/ http_s://www.jumana .org/About-Mental -Illness/Mental-H ealth-Conditions http_s://psychJdguanjia/depressi on/the-cognitive- hdculrql-nn-omvdw ssion#treatments http__s://www.nim .nih.gov/health/ topics/mental-hea lth-medications http__s://www.nam i.org/About-Menta [...] medication Options Caplyta 42 mg daily, Increase Tierra Bonita 300 mg twice a day for increase depression Tierra Bonita education Tierra Bonita use reviewed. Risks include risks of toxicity, [...] = I,500 mg/day, target serum level 0.8 Tierra Bonita is known to reduce risk of suicide. [...] abuse, and addiction before prescribing stimulant medicines. [employer] patients not to share their prescribed stimulant [...] warranted by the prescribed dosage. Random [place] prescription reviewed local pharmacy in [facility], no early refills on control substance educated on non-stimulate and stimulates 5. RLS- ON REQUIP 4 MG bedtime- PCP prescribes patient will see PCP this month and discuss RLS LABS PCP Cannabis/marijuan a information: http_s://tammy.nih .gov/publications /drugfacts/cannab is-marijuana http_s://www.Cloudcity/canna qed-bre-rbvesblz- marijuana-adhd/ http_s://www.jumana .org/About-Mental -Illness/Mental-H ealth-Conditions http_s://psychcen E-Signl.com/depressi on/the-cognitive- nnclpgqz-sb-gvydd ssion#treatments http__s://www.[facility].nih.gov/health/ topics/mental-hea lth-medications http__s://www.nam i.org/About-Menta l-Illness/Treatme nts/Mental-Health -Medications [...] abuse, and addiction before prescribing stimulant medicines. [employer] patients not to share their prescribed stimulant [...] warranted by the prescribed dosage. Random S [place] prescription reviewed local pharmacy in [facility], no early refills on control substance educated on non-stimulate and stimulates Cannabis/marijuan a information: http_s://tammy.nih .gov/publications /drugfacts/cannab is-marijuana http_s://www.Cloudcity/meme xpo-enk-yhueifpq- marijuana-adhd/ http_s://www.jumana .org/About-Mental -Illness/Mental-H ealth-Conditions http_s://psychEuro Card Spainn My-wardrobe.comcom/depressi on/the-cognitive- ymctyoog-tw-dootd ssion#treatments http__s://www.[facility].nih.gov/health/ topics/mental-hea lth-medications http__s://www.nam i.org/About-Menta l-Illness/Treatme nts/Mental-Health -Medications [...] potential neurotoxicity and interactions with prescribed medications. 06/10/2024 Primary insomnia (ICD-10 - F51.01) Insomnia: Care Instructions material was published, Learning About Sleeping Well material was published CancelRx Response got Denied on 2024-05-09 16:53:33 for 'Ramelteon 8 MG Tablet'Pharmacy Notes: Prescription not found. Contact Pharmacy by other means 1. Depression stable not on medications patient wants to see PCP at this time since only have Vistaril PRN and not taking often continue therapy- Danevang - [facility] 2.Anxiety - see therapy has Vistaril 10 mg in day and at bedtime PRN - reported not taking Educated on rx 3. Primary Insomnia sleep hygeine Vistaril 10 mg at bedtime PRN hx sleep study no sleep apnea 4. ADHD review reviewed JACOBY-AE2 TEST Self rating scales- significant number hyperactive/impul sive and inattentive symptoms that negative impact functions, - posisble dxn ADHD COMBINATION BUT NOT CONGRUENT with JACOBY-AE2 test - Need to reconcile data sets before a definitive dxn can be made, patient reported took ADHD rx in am and tested 3 pm ADHD no rx prescribed 5. RLS- ON REQUIP 4 MG bedtime- PCP prescribes LABS PCP Cannabis/marijuan a information: http_s://tammy.nih .gov/publications /drugfacts/cannab is-marijuana http_s://www.Cloudcity/canna law-imv-kjmhgtar- marijuana-adhd/ http_s://www.jumana .org/About-Mental -Illness/Mental-H ealth-Conditions http_s://psychcen tral.com/depressi on/the-cognitive- tmmuuhim-oa-drffx ssion#treatments http__s://www.nim h.nih.gov/health/ topics/mental-hea lth-medications http__s://www.nam i.org/About-Menta [...] - Plan: - Schedule follow-up appointments every 3-6 months to monitor the patient's response to the medication regimen. - Reinforce the importance of avoiding recreational drug use due to potential neurotoxicity and interactions with prescribed medications. 06/10/2024 ADHD (attention deficit hyperactivity disorder), combined type (ICD-10 - F90.2) Learning About Attention Deficit Hyperactivity Disorder (ADHD) in Adults material was published, Attention Deficit Hyperactivity Disorder (ADHD) in Adults: Care Instructions material was published, Learning About Stimulant Medicines for Attention Deficit Hyperactivity Disorder (ADHD) material was published 1. Depression stable not on medications patient wants to see PCP at this time since only have Vistaril PRN and not taking often continue therapy- [facility] - [facility] 2.Anxiety - see therapy has Vistaril 10 mg in day and at bedtime PRN - reported not taking Educated on rx 3. Primary Insomnia sleep hygeine Vistaril 10 mg at bedtime PRN hx sleep study no sleep apnea 4. ADHD review reviewed JACOBY-AE2 TEST Self rating scales- significant number hyperactive/impul sive and inattentive symptoms that negative impact functions, - posisble dxn ADHD COMBINATION BUT NOT CONGRUENT with JACOBY-AE2 test - Need to reconcile data sets before a definitive dxn can be made, patient reported took ADHD rx in am and tested 3 pm ADHD no rx prescribed 5. RLS- ON REQUIP 4 MG bedtime- PCP prescribes LABS PCP Cannabis/marijuan a information: http_s://tammy.nih .gov/publications /drugfacts/cannab is-marijuana http_s://www.Cloudcity/canna sah-lfh-ybjrhkqi- marijuana-adhd/ http_s://www.jumana .org/About-Mental -Illness/Mental-H ealth-Conditions http_s://psychceCrowdery/depressi on/the-cognitive- pmkmdjck-fw-nrtkq ssion#treatments http__s://www.nim h.nih.gov/health/ topics/mental-hea lth-medications http__s://www.nam i.org/About-Menta [...] - Plan: - Schedule follow-up appointments every 3-6 months to monitor the patient's response to [...] abuse, and addiction before prescribing stimulant medicines. [employer] patients not to share their prescribed stimulant [...] warranted by the prescribed dosage. Random [place] prescription reviewed local pharmacy in [place], no early refills on control substance educated on non-stimulate and stimulates Cannabis/marijuan a information: http_s://tammy.nih .gov/publications /drugfacts/cannab is-marijuana http_s://www.Cloudcity/canna zfd-qbb-vlbzzvbg- marijuana-adhd/ http_s://www.jumana .org/About-Mental -Illness/Mental-H ealth-Conditions http_s://[employer]depressi on/the-cognitive- kcjawoiv-dj-qjsrc ssion#treatments http__s://www.nim .nih.gov/health/ topics/mental-hea lth-medications http__s://www.nam i.org/About-Menta [...] medications. 04/12/2024 Other Lumateperone material was published, Tierra Bonita material was published, Hydroxyzine material was published, Ramelteon material was published 1. Bipolar II depression - having depression discuss and education on medication Options Caplyta 42 mg daily, Increase Tierra Bonita 300 mg twice a day for increase depression Tierra Bonita education Tierra Bonita use reviewed. Risks include risks of toxicity, [...] = I,500 mg/day, target serum level 0.8 Tierra Bonita is known to reduce risk of suicide. [...] abuse, and addiction before prescribing stimulant medicines. [employer] patients not to share their prescribed stimulant [...] than warranted by the prescribed dosage. Random [facility] prescription reviewed local pharmacy in [facility], no early refills on control substance educated on non-stimulate and stimulates 5. RLS- ON REQUIP 4 MG bedtime- PCP prescribes patient will see PCP this month and discuss RLS LABS PCP Cannabis/marijuan a information: http_s://tammy.nih .gov/publications /drugfacts/cannab is-marijuana http_s://www.Cloudcity/canna jyk-eme-hzhwedjt- marijuana-adhd/ http_s://www.jumana .org/About-Mental -Illness/Mental-H ealth-Conditions http_s://psychcen tral.com/depressi on/the-cognitive- lwfesfiu-el-ojvmt ssion#treatments http__s://www.nim .nih.gov/health/ topics/mental-hea [facility]-medications http__s://www.nam i.org/About-Menta l-Illness/Treatme nts/Mental-Health -Medications educated on [...] to depression and recently dxn Autism 05/03 [facility] [place] patient would like to come off rx [...] rx discuss taper down rx patient stopped Tierra Bonita labs done by PCP and Endo willl obtain continue therapy refer [facility] Autism evaluation 2.Anxiety - see therapy [...] abuse, and addiction before prescribing stimulant medicines. [employer] patients not to share their prescribed stimulant [...] warranted by the prescribed dosage. Random [place] prescription reviewed local pharmacy in [place], no early refills on control substance educated on non-stimulate and stimulates 5. RLS- ON REQUIP 4 MG bedtime- PCP prescribes patient will see PCP this month and discuss RLS LABS PCP Cannabis/marijuan a information: http_s://tammy.nih .gov/publications /drugfacts/cannab is-marijuana http_s://www.Cloudcity/canna cys-sqc-zsqvmaok- marijuana-adhd/ http_s://www.jumana .org/About-Mental -Illness/Mental-H ealth-Conditions http_s://psychJdguanjia/depressi on/the-cognitive- rdbljnef-gw-jhman ssion#treatments http__s://www.nim .nih.gov/health/ topics/mental-hea lth-medications http__s://www.nam i.org/About-Menta [...] potential neurotoxicity and interactions with prescribed medications. 06/10/2024 Other 1. Depression stable not on medications patient wants to see PCP at this time since only have Vistaril PRN and not taking often continue therapy- [facility] - [facility] 2.Anxiety - see therapy has Vistaril 10 mg in day and at bedtime PRN - reported not taking Educated on rx 3. Primary Insomnia sleep hygeine Vistaril 10 mg at bedtime PRN hx sleep study no sleep apnea 4. ADHD review reviewed JACOBY-AE2 TEST Self rating scales- significant number hyperactive/impul sive and inattentive symptoms that negative impact functions, - posisble dxn ADHD COMBINATION BUT NOT CONGRUENT with JACOBY-AE2 test - Need to reconcile data sets before a definitive dxn can be made, patient reported took ADHD rx in am and tested 3 pm ADHD no rx prescribed 5. RLS- ON REQUIP 4 MG bedtime- PCP prescribes LABS PCP Cannabis/marijuan a information: http_s://tammy.nih .gov/publications /drugfacts/cannab is-marijuana http_s://www.Cloudcity/canna zuq-nsz-utoxvtry- marijuana-adhd/ http_s://www.jumana .org/About-Mental -Illness/Mental-H ealth-Conditions http_s://[employer]depressi on/the-cognitive- ztawfgip-hh-gmtvu ssion#treatments http__s://www.nim .nih.gov/health/ topics/mental-hea lth-medications http__s://www.nam i.org/About-Menta [...] - Plan: - Schedule follow-up appointments every 3-6 months to monitor the patient's response to the medication regimen. - Reinforce the importance of avoiding recreational drug use due to potential neurotoxicity and interactions with prescribed medications. Plan Of Treatment Future Test Test Name Order Date ADHD Testing 02/09/2024 Insurance Providers Payer Name Payer Address Payer Phone Subscriber Number Group Number Insured Name Patient Relationship to Insured Coverage Start Date Coverage End Date [facility] [address] [place] [phone] [id number] Kallie Pritchett Self - patient is the [...]
--- OUTSIDE RECORDS SUMMARY | 2024-07-03 14:31 | XMS_ITS | Encounter Summary ---
Author Organization [facility] Address [address] [place] [id number] Care Team Providers Care Board Design Engineer Name Role Phone Tomasa Henley MD Primary Care Provider [phone] Encounter Details Date Type Department Care Team (Late st Contact Info) Description 02/26/2023 Twittert Message Enc [facility] Multispecialty Care - [facility] [address], [address] [place] [address] Tomasz Mcelroy MD [address] [place] [address] MRI Chest Social History Tobacco Use Types [...] on filedocumented in this encounter Care Teams Board Design Engineer Relationship Specialty Start Date End Date Tomasa Henley MD [address] [place] [phone] PCP - General FAMILY PRACTICE 01/07/23 documented as of this encounter
--- OUTSIDE RECORDS SUMMARY | 2024-07-03 14:31 | XMS_ITS | Clinical Summary ---
Author Organization [facility] Address [address] [place] [address] Care Team Providers Care Retail General Manager Name Role Phone Unavailable Primary Care Provider Unavailabl e Source Comments [facility],non-owned Affiliates and Associated Physician Practices is amultiple site organization consisting of ambulatory clinics and hospital sitesin [place], [place], [place] and [place]. This disclosure is being madepursuant to the Care Everywhere program and may not contain all information available regarding this patient. Last updated 17.[facility] [employer] Social History Tobacco Use Types Packs/Day Years Used Date Smoking Tobacco: Never Assessed Comments Unknown Sex and Gender Information Value Date Recorded Sex Assigned at Not on file Legal Sex Female 12:54 PM CDT Gender Identity Not on file Sexual Orientation Not on file Plan of Treatment Upcoming Encounters Date Type Department Care Team (Late st Contact Info) Description 07/21/2024 8:20 AM CDT Office Visit [facility] - Rheumatology [address] [place] [address], [place] [id number] Yumi Andres MD [address] [place] [address] [place] [id number] Health Maintenance Due Date Last Done Comments PAP SMEAR 1990 HIV SCREENING 2005 HEPATITIS C SCREENING 07/14/2008 DTAP/TDAP/TD VACCINES (1 - Tdap) 2009 HEPATITIS B VACCINE (1 of 3 - 19+ 3-dose series) 2009 COVID-19 VACCINE (1 - 2023-2 5 season) 2023 DEPRESSION SCREENING 03/09/2024 INFLUENZA VACCINE (Season Ended) 2024 ZOSTER VACCINE (1 of 2) 2040 HIB VACCINE Aged Out No longer eligi ble based on patient's age to complete this topic HPV VACCINE Aged Out No longer eligi ble based on patient's age to complete this topic MENINGOCOCCAL (Group B) VACC INE SHARED DECISION-MAKING Aged Out No longer eligibl e based on patient's age to complete this topic MENINGOCOCCAL GROUPS A/C/Y/W VACCINE Aged Out No longer eligible b ased on patient's age to complete this topic PNEUMOCOCCAL VACCINE Aged Out No long er eligible based on patient's age to complete this topic Insurance
--- OUTSIDE RECORDS SUMMARY | 2024-07-03 14:31 | XMS_ITS | Clinical Summary ---
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 Gender Identity Female 06/02/2023 5:41 PM CDT [...] 02/22/2021, 06/08/2020, Additional history exists Influenza Vaccine (Season Ended) 2024 01/07/2022, 12/07/2018, 12/26/2015, Additional history exists HPV Vaccines Aged Out No longer eligi ble based on patient's age to complete this topic Pneumococcal vaccine <65 Aged Out No longer eligible based on patient's age to complete this topic Insurance [facility] Address: [address] [address] [place] [address] [facility]O Address: [address] [address] [place] [address] [facility]O Address: [facility] [address] [place] [address] Care Teams Custom Shoemaker Relationship Specialty Start Date End Date Tomasz Mcelroy MD [address] [place] [id number] PCP - General Neurology 03/03/23 Tomasa Henley MD [address] [place] [id number] Family Medicine 03/03/23
--- OUTSIDE RECORDS SUMMARY | 2024-07-03 14:31 | XMS_ITS | Data Portability ---
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 Plan of Treatment Reminders Order Date Submit Date Provider Last Modified By Organization Details Last Modified Time Details Appointments Any 5 2024 08:00A AYO Au Not available Not available Not available Lab histamine , serum or plasma 2024 025 [facility], [facility] [place], [address], 05/13/2024 09:16:28 tryptase, serum 2024 025 [facility], [address] [facility], [place], [address], 05/13/2024 09:16:28 chromogra roderick A, serum 2024 025 [facility], [address] [facility], [place], [address], 05/13/2024 09:16:28 Referral psycholog ist referral - Please call patient to schedule an appointme nt. Thank you. 2023 024 [email or web address] [facility], [address], [place], [address], 01/26/2024 08:42:32 rheumatol ogist referral - Please call patient to schedule an appointme nt. Thank you. 2023 024 [email or web address] [facility] - Rheumatology, [address] [place], [address], 10/21/2023 09:34:21 Procedures None recorded. Surgeries None recorded. Imaging None recorded. Medication Orders ropinirol e 3 mg tablet 2024 025 [facility], [address] [place] [address], [address], 06/14/2024 16:31:58 alprazola m 0.25 mg tablet 2024 025 [facility], [address] [place] [address], [address], 06/14/2024 16:32:01 ropinirol e 0.5 mg tablet 2024 025 [facility], [address] [place] [address], [address], 05/04/2024 16:19:04 quetiapin e ER 50 mg tablet,ex tended release 24 hr 2023 024 [facility] [address] [place] [address], [address], 05/04/2024 15:55:17 Zepbound 2.5 mg/0.5 mL subcutane ous pen injector 2023 024 [address] [facility] [address] [place] [address], [address], 05/04/2024 15:55:48 ropinirol e 0.5 mg tablet 2023 024 [facility], [address] [place] [address], [address], 12/29/2023 15:00:03 Adderall XR 10 mg capsule,e xtended release 2023 024 [address] [facility] [address] [place], [address], 05/04/2024 15:54:14 quetiapin e ER 200 mg tablet,ex tended release 24 hr 2023 024 [address] [facility] [address] [address] [place], [address], 05/04/2024 15:55:12 quetiapin e ER 50 mg tablet,ex tended release 24 hr 2023 024 [address] [facility] [address] [address] [place], [address], 05/04/2024 15:55:17 Patient TargetsNo targets recorded. Patient InstructionsNo instructions recorded. 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 Thank you. Referring Physician: Yolis Aguilar, [facility], Encounter Date: 09/23/2023 Psychologist Referral for At tention deficit hyperactivity disorder Please call patient to schedule an appointment. Thank you. Referring Physician: Yolis Aguilar [facility], Encounter Date: 12/29/2023 Results Created Date Observation Date Name Description Value Unit Range Abnormal Flag Note LastModifiedBy Organization Detail LastModifiedTime 05/18/1905/26/2024 TRYPT ASE tryptase 3.8 mcg/L <11.0 The Trypt ase test, fluor escen t enzym e immun oassa y (FEIA ), measu res both the Alpha and Beta forms of Trypt ase. Measu ring both forms of Trypt ase incre ases sensi tivit y for the diagn osis of masto cytos is, and mast cell degra nulat ion as a cause of anaph ylaxi s. Not Available [facility] [address] , [place], [address], 05/26/2024 17:01:32 05/18/1905/26/2024 HISTA MINE, PLASM A histamine, plasma <1.5 NG/mL < or = 1.8 This test was perfo rmed using a kit that has not been clear ed or appro valentina by the FDA. The mirna tical perfo rmanc e deepthi cteri stics of this test have been deter mined by [facility] kyree [facility]i t[facility] Alejo Nava trano . This test shoul d not be used for diagn osis witho ut confi rmati on by other medic ally estab lishe d means . Not Available [facility] [address], [place], [address], 05/26/2024 17:01:33 05/18/19 25 05/26/2024 CHROM OGRAN IN A, LC/MS /MS chromogranin A, lc/MS/MS 59 NG/mL adults : <311 The sampl e type for this test was serum . Inter preta tion of patie nt resul ts may be affec manohar by a varie ty of condi tions such as hyper tensi on, gastr itis, prost ate cance r, hyper parat hyroi dism, and most commo nly renal disea se and use of lili n pump inhib itors (PPIs ). (Kristina Morse, et al. Chrom ogran in A measu remen t in metas tatic well- diffe renti ated gastr oente ropan creat ic neuro endoc rine carci noma: scree rtiston for false posit darren and a prosp ectiv e follo w-up study . Int J Biol Marke rs. 2010-J un;26 (2):9 4-101 .) This test was perfo rmed using a Liqui d Chrom atogr aphy Mass Spect romet ry metho d. Value s obtai mil from diffe rent assay metho ds canno t be used inter flores eably . Chrom ogran in A level s, regar dless of value , shoul d not be inter prete d as absol [place] evide nce of the prese nce or absen ce of disea se. This test was devel oped and its mirna tical perfo rmanc e deepthi cteri stics have been deter mined by [facility]. It has not been clear ed or appro valentina by the FDA. This assay has been valid ated pursu ant to the CLIA regul ation s and is used for clini daxa purpo ses. Not Available [facility] [address], [place], [address], 05/26/2024 17:01:34 10/26/19 24 10/23/2023 US, doppl er echoc ardio gram No observ ation record ed. [facility] [address], [place], [address], 10/29/2023 23:27:58 11/11/19 24 11/10/2023 XR, chest , 2 view No observ ation record ed. [email or web address] [facility] [address], [place], [address], 11/12/2023 17:22:16 Result Notes None recorded. Problems Name Problem SNOMED Code Status Onset Date Resolution Date Notes Provider Name and Address Organization Details Recorded Time Restless sleep 69472499 Active 2022 Not Available [facility] 3 08:49:21 Urticaria 287096736 Active Not Available [facility] 3 08:49:21 Pain in throat 676612819 Active 2022 Not Available [facility] 3 08:49:21 Abdominal pain 52521698 Active Not Available [facility] 3 08:49:21 Restless legs 88380430 Active 2022 Not Available [facility] 3 08:49:21 Vitamin D deficiency 92742147 Active Not Available [facility] 3 08:49:21 Ingrowing nail 609981152 Active Not Available [facility] 3 08:49:22 Ingrowing toenail 296714381 Active Not Available [facility] 3 08:49:22 Herpes zoster 8026787 Active Not Available [facility] 3 08:49:22 Anxiety 02262196 Active Not Available [facility] 3 08:49:22 Cough 74847664 Active 2022 Not Available [facility] 3 08:49:22 Chronic urticaria 45416807 Active Not Available [facility] 3 08:49:22 Supraventr icular tachycardi a 9483669 Active Not Available [facility] 3 08:49:22 Sleep apnea 14389923 Active 2022 Not Available [facility] 3 08:49:22 Palpitatio ns 95942090 Active Not Available [facility] 3 08:49:22 Fatigue 05075053 Active Not Available [facility] 3 08:49:22 Psoriasis 8831965 Active Not Available [facility] 3 08:49:23 Family history of celiac disease 498984832 Active 2022 Nelly Henley MD [address], [place], [address] , [facility] 3 14:30:06 Iron deficiency anemia 41096449 Active 2022 Nelly Henley MD [address], [address] [facility], [place], [address] , [facility] 3 14:31:28 Celiac disease 012909601 Active 2022 Nelly Henley MD [address], [address], [place], [address] , [facility] 3 08:06:23 Cobalamin deficiency 199672920 Active 2022 Nelly Henley MD [address], [place], [address] , [facility] 3 08:06:40 Vasospasm 54245803 Active 2022 Nelly Henley MD [address], [place], [address] , [facility] 3 15:58:19 Paresthesi a of upper limb 98738203 Active 2022 Nelly Henley MD [address], [place], [address] , [facility] 3 16:00:05 Thoracic outlet syndrome 086781699 Active 2023 Nelly Henley MD [address], [place], [address] , [facility] 4 15:37:52 Fever 172798060 Active 2023 Katerina Quintana LPN null, [place] [facility] 4 11:13:36 Sore throat 221991550 Active 2023 Katerina Quintana LPN null, [place] [facility] 4 11:14:04 Upper respirator y infection 53613432 Active 2023 NINO Morgan [address], [place], [address] , [facility] 4 12:52:21 Pain of right shoulder joint 0071865486537 9100 Active 2023 Checo Nelson MD [address], [place], [address] , [facility] 4 17:54:42 Weight gain 6367272 Active 2023 Nelly Henley MD [address], [place], [address] , [facility] 4 12:06:36 Mild manic bipolar I disorder 62498927 Active 2023 NINO Roque [address], [place], [address] , [facility] 4 14:25:28 Constipati on 27671983 Active 2023 NINO Roque [address], [place], [address] , [facility] 4 14:33:51 Attention deficit hyperactiv ity disorder 043505345 Active 2023 NINO Roque [address], [place], [address] , [facility] 4 14:48:54 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 2024 KYLE Roque-C [address], [place], [address] , [facility] 5 16:23:15 Autism spectrum disorder 67495017 Active 2024 NINO Roque [address], [place], [address] , [facility] 5 17:07:16 Acid reflux 725916069 Active 2024 NINO Roque [address], [place], [address] , [facility] 5 12:54:20 Nausea and vomiting 71511380 Active 2024 NINO Roque [address], [place], [address] , [facility] 5 12:54:28 Notes:[facility] home sleep study 04/30/22 AHI = 1 Medical History: Urticaria Psoriasis Herpes zoster Anxiety Rhinitis Obesity with mild OSAHS, AHI = 1, 04/30/22 SVT RLS Iron deficiency normocytic anemia Vit D deficiency Problem Notes None recorded. Procedures Surgical History Date Name Laterality Status Provider Name and Address Organization Details Recorded Time 12/26/19 23 Transitional_Care _Management completed Cheryl Mahan RN [employer] 12/25/2022 15:12:59 07/09/19 EGD completed Katerina Quintana LPN [employer] 07/11/2022 12:24:33 Tonsillectomy completed ERIKA Acuna [employer] 06/17/2023 16:11:23 Imaging Results Imaging Date Name Status LastModified by Organization Details LastModified Time 10/23/2023 US, doppler echocardiogram completed [email or web address] [facility] [address], [place], [address], 10/29/2023 23:27:58 11/10/2023 XR, chest, 2 view completed [email or web address] [facility] [address], [place], [address], 11/12/2023 17:22:16 Procedure Notes None recorded. Medical [...] completed Not Available Not Available Not Available Mirena 21 mcg/24 hr (up to 8 years) 52 mg intrauteri ne device Take by intrauter ine route. active 2022 Not Available Not Available No t Available methocarba mol 500 mg tablet TAKE [...] completed Not Available Not Available Not Available famotidine 40 mg tablet TAKE 1 TABLET BY MOUTH TWICE A DAY FOR 30 DAYS active Not Available Not Available No t Available prednisone 20 mg tablet PLEASE SEE [...] completed Not Available Not Available Not Available ropinirole 3 mg tablet TAKE 1 TABLET BY MOUTH EVERYDAY AT BEDTIME active Not Available Not Available No t Available lithium carbonate 150 mg capsule TAKE [...] Available Not Available alprazolam 0.5 mg tablet 06/14 completed Not Available Not Available Not Available amoxicilli n 875 mg tablet Take 1 tablet every 12 hours by oral route for 7 days. 01/07 completed Not Available Not Available Not Available alprazolam 0.25 mg tablet TAKE 1 TABLET BY MOUTH EVERYDAY AT BEDTIME active Not Available Not Available No t Available methocarba mol 750 mg tablet TAKE [...] BY MOUTH THREE TIMES A DAY NEEDED active Not Available Not Available No t Available buspirone 10 mg tablet 09/03 completed Not Available Not Available Not Available nicotine 21 mg/24 hr daily transderma l patch Apply 1 patch every day by transderm al route for 42 days. 09/07 completed Not Available Not Available Not Available omeprazole 20 mg capsule,de layed release TAKE 1 CAPSULE BY MOUTH EVERY DAY active Not Available Not Available No t Available diclofenac sodium 75 mg tablet,del ayed [...] completed Not Available Not Available Not Available montelukas t 10 mg tablet TAKE 1 TABLET BY MOUTH EVERY DAY FOR 30 DAYS active Not Available Not Available No t Available hydroxyzin e HCl 25 mg tablet [...] MOUTH TWICE A DAY FOR 30 DAYS 06/14 completed Not Available Not Available Not Available ondansetro n 4 mg disintegra ting tablet LET 1 TABLET DISSOLVE ON TOP OF THE TONGUE TWICE A DAY NEEDED active Not Available Not Available No t Available fluoxetine 20 mg capsule Take 1 [...] BY MOUTH EVERY DAY FOR 30 DAYS 06/14 completed Not Available Not Available Not Available Zepbound 2.5 mg/0.5 mL subcutaneo us [...] Updated DateTime 4 162.56 cm 31.4 kg/m2 00887.4 g 98.7 [degF] 90 /min 98 % 98 % 122 mm[Hg] 80 mm[Hg] Cheryl Mahan RN [place] [facility] 4 14:00:11 Date Recorded Body height Body mass index (BMI) Body weight Body temperature Heart rate Oxygen saturation Oxygen saturation in Arterial blood by Pulse oximetry Systolic blood pressure Diastolic blood pressure Provider Name and Address Organization Details Last Updated DateTime 4 162.56 cm 32.6 kg/m2 60550.5 5 g 97.6 [degF] 84 /min 98 % 98 % 130 mm[Hg] 80 mm[Hg] Cheryl Mahan RN [facility] [employer] [facility] 4 14:32:29 Date Recorded Body height Body mass index (BMI) Body weight Body temperature Heart rate Oxygen saturation Oxygen saturation in Arterial blood by Pulse oximetry Systolic blood pressure Diastolic blood pressure Provider Name and Address Organization Details Last Updated DateTime 4 162.56 cm 33.1 kg/m2 84249.3 3 g 98 [degF] 84 /min 99 % 99 % 126 mm[Hg] 80 mm[Hg] Hortensia Villasenor RN [facility] [employer] [facility] 4 16:11:01 Date Recorded Body height Body mass index (BMI) Body weight Body temperature Heart rate Oxygen saturation Oxygen saturation in Arterial blood by Pulse oximetry Systolic blood pressure Diastolic blood pressure Provider Name and Address Organization Details Last Updated DateTime 5 162.56 cm 31.4 kg/m2 22486.4 g 99.5 [degF] 98 /min 98 % 98 % 118 mm[Hg] 76 mm[Hg] Marisa Vasquez MA [facility] [employer] [facility] 5 15:58:26 Date Recorded Body height Body mass index (BMI) Body weight Body temperature Heart rate Oxygen saturation Oxygen saturation in Arterial blood by Pulse oximetry Pain severity - 0-10 verbal numeric rating [Score] - Reported Systolic blood pressure Diastolic blood pressure Provider Name and Address Organization Details Last Updated DateTime 5 162.56 cm 32.6 kg/m2 15651.5 5 g 98.2 [degF] 89 /min 99 % 99 % 5 110 mm[Hg] 68 mm[Hg] Giovana Childs MA [place] [employer] [facility] [employer] [facility] 5 16:13:09 Social History Question Answer Notes LastModified by Organization Details LastModified Time Tobacco Smoking Status Former Smoker Not Available [facility] 05/07/2022 08:44:46 Do You Have An Advance Directive? No MIGRATION.0301 [id number] Information not available 05/07/2022 What Is Your Level Of Alcohol Consumption? Moderate MIGRATION.0301 [id number] Information not available 05/07/2022 Do You Wear A Helmet When Biking? No MIGRATION.0301 [id number] Information not available 05/07/2022 What Is Your Level Of Caffeine Consumption? Moderate MIGRATION.0301 [id number] Information not available 05/07/2022 In The 14 Days Before Symptom Onset, Have You Had Close Contact With A Laboratory-conf irmed COVID-19 While That Case Was Ill? No MIGRATION.030 [id number] Information not available 05/07/2022 In The 14 Days Before Symptom Onset, Have You Had Close Contact With A Person Who Is Under Investigation For COVID-19 While That Person Was Ill? No MIGRATION.0301 [id number] Information not available 05/07/2022 Are You Currently Employed? Yes Information not available 06/14/2024 What Type Of Diet Are You Following? REGULAR MIGRATION.0301 600277 Information not available 05/07/2022 Do You Or Have You Ever Used E-cigarettes Or Vape? 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 No MIGRATION.0301 207925 Information not available 05/07/2022 When Did You Quit Smoking? 6-10yearssincelas tcigarette twisnasishmael Information not available 06/14/2024 Are There Any Guns Present In Your Home? No MIGRATION.0301 [id number] Information not available 05/07/2022 Do You Use Insect Repellent Routinely? Yes MIGRATION.0301 [id number] Information not available 05/07/2022 Where Do You Live? [facility] MIGRATION.0301 [id number] Information not available 05/07/2022 Do You Have A Medical Power Of Kier Hand? No MIGRATION.0301 853826 Information not available 05/07/2022 What Was The Date Of Your Most Recent Tobacco Screening? 06/14/2024 Information not available 06/14/2024 How Many Children Do You Have? 1 Information not available 06/14/2024 Do You Have Any Pets? Yes MIGRATION.0301 [id number] Information not available 05/07/2022 What Is Your Relationship Status? Significant Other MIGRATION.0301 [id number] Information not available 05/07/2022 Do You Use Your Seat Belt Or Car Seat Routinely? Yes MIGRATION.0301 [id number] Information not available 05/07/2022 Do You Have Smoke And Carbon Monoxide Detectors In Your Home? Yes MIGRATION.0301 [id number] Information not available 05/07/2022 At What Age Did You Start Smoking Tobacco? 13 MIGRATION.0301 151498 Information not available 05/07/2022 Are You Passively Exposed To Smoke? No MIGRATION.0301 975462 Information not available 05/07/2022 Are There Any Smokers In Your House? No MIGRATION.0301 046945 Information not available 05/07/2022 How Much Tobacco Do You Smoke? 1 PPD Information not available 06/14/2024 Do You Participate In Social Media? Yes MIGRATION.0301 103307 Information not available 05/07/2022 Do You Feel Stressed (tense, Restless, Nervous, Or Anxious, Or Unable To Sleep At Night)? [id number] MIGRATION.0301 481634 Information not available 05/07/2022 Do You Use Any Illicit Or Recreational Drugs? No MIGRATION.0301 651542 Information not available 05/07/2022 Do You Use Sunscreen Routinely? Yes MIGRATION.0301 563176 Information not available 05/07/2022 Have You Recently Traveled Abroad? No MIGRATION.0301 092221 Information not available 05/07/2022 Are You Currently In School? No MIGRATION.0301 614227 Information not available 05/07/2022 Do You Or Have You Ever Used Any Other Forms Of Tobacco Or Nicotine? Yes MIGRATION.0301 715346 Information not available 05/07/2022 Sex: Unknown Functional Status Question Answer Note LastModified by Organizat ion Details LastModified Time What is your exercise level? None [id number] Information not available 05/07/2022 Mental Status None recorded. Family History Relationship Description Onset Age of this Age Resolved Age Notes LastModified by Organization Details LastModified Time Father Sleep apnea MIGRATION.03 0 [id number] Not available 05/07/2022 08:45:25 Maternal Grandmother Family history of malignant neoplasm Not available 2023 16:10:13 Medical History Condition Response SKIN PROBLEMS Y ANEMIA/BLOOD DISORDER Y Gynecological History Statement/Question Response How many live births 1 Date of Last Pap Smear Current Control Method IUD Date of LMP Obstetrics History GPAL:G 1 P 1 0 0 1 Type Value Multiple Births 0 Full Term 1 Induced 0 Spontaneous 0 Premature 0 Living 1 Ectopics 0 Total 1 Immunizations Vaccine Type Date Status Note Provider Nam e and Address Organization Details Recorded Time COVID-19, mRNA, LNP-S, PF, 30 mcg/0.3 mL dose, gume-sucrose 3 completed Not Available [facility] 05/07/2022 08:54:18 Influenza, split virus, quadrivalent, PF 9 completed Not Available [facility] 05/07/2022 08:54:18 Influenza, split virus, quadrivalent, PF 2 completed Not Available [facility] 05/07/2022 08:54:18 Influenza, split virus, quadrivalent, preservative 6 completed Not Available [facility] 05/07/2022 08:54:18 Past Encounters Encounter ID Performer Location Encounter Start Date Encounter Closed Date Diagnosis/Indication Diagnosis SNOMED-CT Code Diagnosis ICD10 Code Diagnosis Note [id number] [facility] [place] [address] [place] [address] 12/27/2020 00:00:00 12/27/2020 15:28:50 [id number] [facility] [place] [address] [place] [address] 01/07/2021 00:00:00 01/07/2021 10:29:58 [id number] [facility] [place] [address] [place] [address] 02/07/2021 00:00:00 03/04/2021 20:25:46 [id number] [facility] [place] [address] [facility] [address] [place] [address] 06/11/2021 00:00:00 06/11/2021 09:12:01 [id number] [facility] [place] [address] [facility] [address] [place], [place] [address] 08/08/2021 00:00:00 08/08/2021 10:44:43 [id number] [facility] [place] [address] [facility] [address] [place] [address] 01/07/2022 00:00:00 02/05/2022 14:12:08 [id number] [facility] [place] [address] [facility] [address] [place], [place] [address] 04/16/2022 00:00:00 04/16/2022 10:15:45 [id number] [facility] [place] [address] [place] [address] [address] [place], [place] [address] 04/23/2022 00:00:00 05/04/2022 15:14:16 [id number] [facility] Pul[facility] Natalia Yang [address] [place] [address] 04/28/2022 00:00:00 04/28/2022 12:05:16 [id number] Nelly Henley MD [facility] [place] [address] [place] [address] [place] [address] 06/11/2022 13:57:34 06/11/2022 14:45:11 Family history of celiac disease 975252849 Z83.79 R10.9 Iron defic iency anemia 37730225 D50.9 [id number] Nelly Henley MD [facility] [place] [address] [facility] [address] [place] [address] 07/23/2022 15:23:21 07/23/2022 16:01:59 Celiac disease 474486808 K90.0 refer to GI after insurance changenew dxcontinue gluten free diet Cobalamin deficiency 190 804621 E53.8 continue b12 oral replacemen trecheck labs in 6 weeks [id number] Nelly Henley MD [facility] Primary Care [address] [place] [address] 09/03/2022 15:21:49 09/03/2022 16:44:34 Anxiety 31510169 F41.9 Stop Buspar d/t negative side effects. Declines starting any other medication for anxiety at this time. Continue use of hydroxyzin e 25mg 1 tab TID prn Cobalamin deficiency 190 709703 E53.8 continue b12 oral replacemen t Iron defic iency anemia 32562472 D50.9 Renewal of prescription [id number] Z76.0 [id number] Nelly Henley MD [facility] [address] [place] [address] 12/25/2022 15:07:10 12/25/2022 16:11:32 Transition of care [id number] 105 Z75.8 Vasospasm 54106842 I73.9 ? vasospasm vs pinched nervewill re-refer to vascular surgeonrem haritha on xarelto in meantime, sample given Paresthesi a of upper limb 61580211 R20.2 will treat with steroids as pinched nerve is a possible etiologyca ll Thursday with update [id number] Nelly Henley MD [facility] [address] [place] [address] 01/13/2023 15:17:57 01/13/2023 18:14:31 [id number] Nelly Henley MD [facility] Primary Care [address] [place] [address] 03/11/2023 15:24:55 03/11/2023 15:57:05 Thoracic outlet syndrome 689227919 G54.0 Going to PT, seeing neurology, has been referred to specialist at [facility] ed option of starting gabapentin , will observe for now Iron defic iency anemia 18147824 D50.9 likely due to celiac disease which is now being managed with a gluten free dietlast check showed elevated iron likely due to improved absorption , supplement ation was d/c in Junerepeat lab to monitor [id number] Nelly Henley MD [facility] Primary Care [address] [place] [address] 04/22/2023 16:35:54 04/22/2023 17:09:03 [id number] NINO Morgan [facility] Primary Care [address] [place] [address] 05/06/2023 11:51:19 05/06/2023 17:15:47 [id number] Checo Nelson MD [facility] [address] [place] [address] 06/17/2023 15:38:42 06/17/2023 16:46:15 Pain of right shoulder joint [id number] 6097781 M25.926 [id number] NINO Roque [facility] Primary Care [address] [address] 09/23/2023 13:56:29 09/23/2023 14:38:15 Renewal of prescription 274805379 Z76.0 mild manic episode 3 weeks ago. short tempered. Fatigue 13656952 R53.83 Constipation 48487505 K5 9.00 Discussed using OTC Miralax daily until stools become regular. [id number] NINO Roque [facility] Primary [address] [address] 12/29/2023 14:25:04 12/29/2023 15:49:31 Mild manic bipolar I disorder 33848890 F31.11 decrease Quetiapine to 200mg daily. Attention deficit hyperactivity disorder 677909608 F90.9 ADHD screening completed in office and scanned into chart.Will start treatment as listed below and have placed psych referral.P atient denies SI/HI.Namita ent will follow up in one month, sooner if needed. Restless legs 96519677 G 25.81 Doing well on current medication , will refill as listed below. [id number] NINO Roque [facility] Primary Care [address] [place] [address] 02/01/2024 15:42:01 02/01/2024 16:42:01 Mild manic bipolar I disorder 32505208 F31.11 decrease Quetiapine to 100mg daily. Body mass index 30+ - obesity 288442656 Z68.33 BMI: 33.1Discus sed continuing healthy diet and routine exercise. [id number] NINO Roque [facility] Primary Care [place] [facility] [address] [facility] [address] [place] [address] 05/04/2024 15:43:50 05/04/2024 16:52:25 Restless legs 50213494 G25.81 Doing well on current medication , will refill as listed below. 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 Patient reports she is doing well but is still trying to process this new diagnosis. Body mass index 30+ - obesity 932697926 Z68.33 BMI: 31.4Discus sed continuing healthy diet and routine exercise. [id number] NINO Roque [facility] Primary Care [facility] [address] [facility] [address] [place] [address] 06/14/2024 16:05:04 06/14/2024 16:31:43 Anxiety 81278308 F41.9 Restless legs 73102528 G 25.81 Health Concerns Section Related Observation LastModified by Organization Detai ls LastModified Time None Recorded Concern Status LastModified by Organization Details LastModified Time None Recorded Advance Directives Directive N: Payers Encounter Date Sequence Insurance Name Policy Number Policy Delgado Covered Member ID Delgado Member ID Guarantor Name 09/23/2023 1 [facility] [id number] Kallie Pritchett [id number] Kallie Kyree Shreyas 09/23/2023 2 [place] [employer] [place] [employer] Kallie Kyree Shreyas [id number] Kallie Kyree Shreyas 12/29/2023 1 [facility] [id number] Kallie Kyree Shreyas [id number] Kallie Pritchett 12/29/2023 2 [place] Kallie Pritchett [id number] Kallie Pritchett 02/01/2024 1 [facility] [id number] Kallie Pritchett [id number] Kallie Pritchett 05/04/2024 1 [facility] [id number] Kallie Pritchett [id number] Kallie Pritchett 06/14/2024 1 [facility] [id number] Kallie Pritchett [id number] Kallie Pritchett Notes Date Note Type Note [...] of breath, nausea and vomiting. Yolis Aguilar, KYLE-C [address] [place] [address] [address], [place], [address], [facility] [employer] 09/23/2023 14:34:40 12/29/2023 text/html Patient is a [...] nausea vomiting and diarrhea. NINO Roque [address], [place], [address], Watson Brown 12/30/2023 22:34:22 02/01/2024 text/html Patient is a [...] and shortness of breath. NINO Roque [address], [place], [address], [facility] 02/08/2024 22:10:37 05/04/2024 text/html Patient is a 33 year old female that presents to the office for follow up. Patient reports she went to [facility] and was diagnosed with autism. Patient reports she weaned herself off of her [place] and has not had any issues. Patient is scheduled to see psych on Thursday and is going to be weaning off of her other medications. Patient is requesting labs to check for MCAS due to chronic hives that flare up even with daily antihistamine. NINO Roque [address], [place], [address], [facility] 05/07/2024 17:10:01 06/14/2024 text/html Patient is a 33 year old female that presents to the office to discuss issues with sleep. Patient reports she has been having difficulty sleeping for awhile. Patient use to be on Alprazolam in the past but stopped due to her drug addict (who is now ). Patient also does not feel that the Ropinirole is at the correct dose as her restless leg is also interrupting her sleep. Yolis Aguilar, FLOW NURSE-C [address] [address], [place], [address], [facility] 06/16/2024 08:36:55 OBGyn Episode No OBEpisode recorded.
--- OUTSIDE RECORDS SUMMARY | 2024-07-03 14:31 | XMS_ITS | Referral Summary ---
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
--- OUTSIDE RECORDS SUMMARY | 2024-07-03 14:31 | XMS_ITS | Encounter Summary ---
Author Organization [facility] Address [address] [place] [address] Care Team Providers Care Spanish Teacher Name Role Phone Tomasa Henley MD Primary Care Provider [phone] Encounter Details Date Type Department Care Team (Latest Contact Info) Description 01/19/2023 mig33t Message Enc [facility] Medical Group Multispecialty Care - [facility] [address] [facility], [address] [place] [address] Tomasz Mcelroy MD 3 [place] [address] Parsonage-Moreno Syndrome Social History Tobacco Use Types [...] on filedocumented in this encounter Care Teams Spanish Teacher Relationship Specialty Start Date End Date Tomasa Henley MD [address] [place] [address] PCP - General FAMILY PRACTICE 01/07/23 documented as of this encounter
--- OUTSIDE RECORDS SUMMARY | 2024-07-03 14:31 | XMS_ITS | Clinical Summary ---
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 Celiac disease (HHS/HCC) 06/16/2022 Cobalamin deficiency 06/16/2022 Family history of celiac disease 06/11/2022 Iron deficiency anemia 06/11/2022 Restless legs 04/27/2022 Restless sleeper 04/27/2022 Sleep apnea 04/27/2022 Cough 04/22/2022 Immunizations Immunization Administration Dates Next Due Influenza (Generic) 02/12/2012 [...] Comments Blood Pressure 126/70 04/21/2023 11:29 AM LOAN AUDITOR Pulse 81 04/21/2023 11:29 AM LOAN AUDITOR Temperature 36.8 C (98.3 F) 04/21/2023 11:29 AM LOAN AUDITOR Respiratory Rate 18 04/21/2023 11:29 AM LOAN AUDITOR Oxygen Saturation 100% 04/21/2023 11:29 AM LOAN AUDITOR Inhaled Oxygen Concentration - - Weight 77.1 kg (170 lb) 04/21/2023 11:29 AM LOAN AUDITOR Height 162.6 cm (5' 4 ) 04/21/2023 11:29 AM LOAN AUDITOR Body Mass Index 29.18 04/21/2023 11:29 AM LOAN AUDITOR Plan of Treatment Health Maintenance Due Date Last Done Comments Cervical Cancer Screening Pap Smear (Age 30 to 64) Every 3 Years 1990 Annual Physical 1993 Hepatitis C 2008 DTaP, Tdap and Td Vaccines (1 - Tdap) 2009 Hepatitis B Vaccines (1 of 3 - 19+ 3-dose series) 2009 Pneumococcal Vaccine: Pediatrics (0 to 5 Years) and At-Risk Patients (6 to 49 Years) (1 of 2 - PCV) 2009 Cervical Cancer Screening Pap with HPV Testing (Age 30 to 64) Every 5 Years 2020 Cervical Cancer Screening with HPV 2020 COVID-19 Vaccine (2023- season) 2023 03/17/2022, 02/22/2021, 06/08/2020, Additional history exists PHQ-2 (Physician [place]) 03/09/2024 HPV Vaccines Aged Out No longer [...] age to complete this topic Insurance [place] [address] [place] [address] Care Teams Fish And Wildlife Biologist Relationship Specialty Start Date End Date Tomasa Henley MD [address] [place] [address] PCP - General FAMILY PRACTICE 01/07/23
--- OUTSIDE RECORDS SUMMARY | 2024-07-03 15:28 | XMS_ITS | Clinical Summary ---
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
--- OUTSIDE RECORDS SUMMARY | 2024-07-03 15:28 | XMS_ITS | Referral Summary ---
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 [address] [place] [address] [facility] Address: [facility] [address] IDPA [facility] CHOICE PLUS [facility] H[facility]PP[facility] Address: [address] [address] [place] [address] Care Teams Book Coverer Relationship Specialty Start Date End Date Tomasz Mcelroy MD [address] [place] [address] PCP - General Neurology 03/03/23 Tomasa Henley MD [address] [place] [address] Family Medicine 03/03/23
--- OUTSIDE RECORDS SUMMARY | 2024-07-03 15:28 | XMS_ITS | CONTINUITY OF CARE DOCUMENT ---
Author Name trenton chowdhury Address Unknown Organization [facility] Address [address] [place] [address] [address] [place] [address] Phone [phone] Care Team Providers Care Substation Operator Apprentice Name Role Phone Gautam PAL, Iván Unavailable [phone] BRITTNEY HIRSCH MD Unavailable [phone] SHIRAZ VALDEZSHAYNE Ana Unavailable PROBLEMS Condition Status [...] In-person encounter Office Visit Iván Florez MD [facility] Palpitations--echo ef nl, 10/2023 - In-person encounter Office Visit Iván Florez MD [facility] SVT, atrial tachycardia, hx of ablation, [...] Payer name Policy type / [place]age [place] [facility] [id number] Other [id number] TREATMENT PLAN Date Name Performer Cardiology Aime Ahmedzai Cardiology: O rders: T ilt Table Test (CPT-55269) Aime Ahmedzai Cardiology Aime Ahmedzashruthi Cardiology: O rders: T ilt Table Test (CPT-72247) Aime Doradozashruthi Cardiology: O rders: T ilt Table Test (CPT-64826) Aime Avezashruthi Cardiology Aime Avezashruthi Cardiology Aime Avezashruthi Cardiology: O rders: C omplete Echo (48254) M onitor - Telemetry (Mobile Cardiac) (CPT-30675) Aime Avezashruthi Cardiology Aime Avezashruthi Cardiology: O rders: C omplete Echo (45339) M onitor - Telemetry (Mobile Cardiac) (CPT-20278) Aime Doradozashruthi Cardiology: O rders: C omplete Echo (54210) M onitor - Telemetry (Mobile Cardiac) (CPT-00044) Aime Avedonny Date Name Tilt Table Test Monitor - Telemetry (Mobile Cardiac) Complete Echo
--- OUTSIDE RECORDS SUMMARY | 2024-07-03 15:28 | XMS_ITS | Encounter Summary ---
Author Organization [facility] Address [address] [place] [address] Care Team Providers Care Sustainability Project Coordinator Name Role Phone Tomasa Henley MD Primary Care Provider [phone] Encounter Details Date Type Department Care Team (Late st Contact Info) Description 02/26/2023 Sensicst Message Enc [facility] Medical Group Multispecialty Care - [facility] 3 [facility], [address] [place] [address] Tomasz Mcelroy MD 3 [place] [address] MRI Chest Social History Tobacco Use Types [...] on filedocumented in this encounter Care Teams Sustainability Project Coordinator Relationship Specialty Start Date End Date Tomasa Henley MD [address] [place] [address] PCP - General FAMILY PRACTICE 01/07/23 documented as of this encounter
--- OUTSIDE RECORDS SUMMARY | 2024-07-03 15:28 | XMS_ITS | Clinical Summary ---
Author Organization [facility] Address [facility] [place] [address] Care Team Providers Care Ager Tender Name Role Phone Tomasa Henley MD Primary Care Provider [phone] Allergies Active Allergy Reactions Criticality Noted Date [...] Comments Blood Pressure 126/70 04/21/2023 11:29 AM MANAGER TRANSFER Pulse 81 04/21/2023 11:29 AM MANAGER TRANSFER Temperature 36.8 C (98.3 F) 04/21/2023 11:29 AM MANAGER TRANSFER Respiratory Rate 18 04/21/2023 11:29 AM MANAGER TRANSFER Oxygen Saturation 100% 04/21/2023 11:29 AM MANAGER TRANSFER Inhaled Oxygen Concentration - - Weight 77.1 kg (170 lb) 04/21/2023 11:29 AM MANAGER TRANSFER Height 162.6 cm (5' 4 ) 04/21/2023 11:29 AM MANAGER TRANSFER Body Mass Index 29.18 04/21/2023 11:29 AM MANAGER TRANSFER Plan of Treatment Health Maintenance Due Date [...] 02/22/2021, 06/08/2020, Additional history exists PHQ-2 (Physician [place]) 03/09/2024 HPV Vaccines Aged Out No longer [...] age to complete this topic Insurance [place] [address] [place] [address] Care Teams Ager Tender Relationship Specialty Start Date End Date Tomasa Henley MD [address] [place] [address] PCP - General FAMILY PRACTICE 01/07/23
--- OUTSIDE RECORDS SUMMARY | 2024-07-03 15:28 | XMS_ITS | Encounter Summary ---
Author Organization [facility] Address [address] [place] [address] Care Team Providers Care Kitchen Cleaner Name Role Phone Tomasa Henley MD Primary Care Provider [phone] Encounter Details Date Type Department Care Team (Latest Contact Info) Description 01/19/2023 PromoteSocialt Message Enc [facility] Medical Group Multispecialty Care - [facility] 3 [facility], [address] [place] [address] Tomasz Mcelroy MD 3 [place] [address] Parsonage-Moreno Syndrome Social History Tobacco Use Types [...] on filedocumented in this encounter Care Teams Kitchen Cleaner Relationship Specialty Start Date End Date Tomasa Henley MD [address] [place] [address] PCP - General FAMILY PRACTICE 01/07/23 documented as of this encounter
--- OUTSIDE RECORDS SUMMARY | 2024-07-03 15:28 | XMS_ITS | Clinical Summary ---
Author Organization [facility] Address [address] [facility] [place] [address] Care Team Providers Care Rickshaw Driver Name Role Phone Unavailable Primary Care Provider Unavailabl e Source Comments [facility],non-owned Affiliates and Associated Physician Practices is amultiple site organization consisting of ambulatory clinics and hospital sitesin [place], [place], [place] and [place]. This disclosure is being madepursuant to the Care Everywhere program and may not contain all information available regarding this patient. Last updated 17.[facility] [employer] Social History Tobacco Use Types Packs/Day Years [...] Office Visit [facility] - Rheumatology [address] [place] [address], [place] [id number] Yumi Andres MD [address] [place] [address] [place] [id number] Health Maintenance Due Date Last Done Comments [...]
--- NOTE | 2024-07-03 15:39 | ED.GENADULT ---
HPI - General Adult General Chief complaint: Nausea/Vomiting/Diarrhea Stated complaint: URI, n/v Time Seen by Provider: 07/03/24 15:18 History of Present Illness HPI narrative: 33-year-old female present to the emergency department for evaluation for sinus congestion and sore throat. Was seen at an outside hospital for an upper respiratory infection last week and was started on antibiotics. Patient reports she has had increased nasal congestion sore throat and increased nausea and vomiting. Patient reports she has had issues with nausea vomiting almost daily with the course of the last year but feels that is worsened over the last few days. Patient reports she does have a prior history of celiac disease but is not currently on a celiac diet, she states she did try an elimination diet that did not help. Patient is not currently following up with a GI physician. Related Data Home Medications ?Medication ?Instructions ?Recorded ?Confirmed ?Last Taken ?Type quetiapine 25 mg tablet (Seroquel) 25 mg PO HS 10/23/20 11/09/23 Unknown History ropinirole 0.5 mg tablet 0.5 mg DIRECTED 10/23/20 11/09/23 Unknown History Allergies Allergy/AdvReac Type Severity Reaction Status Date / Time narcotic AdvReac Other Uncoded 11/30/23 07:31 Review of Systems Review of Systems: All systems reviewed & are unremarkable except as noted in HPI and below PMFSH Past Medical History Medical History Atrial tachycardia Surgical History Surgical History S/P ablation operation for arrhythmia Social History Social History Tobacco type: e-cigarettes/vaping Alcohol use details: occasional Substance use: never Living arrangements: with family Exam Narrative: APPEARANCE: Ill-appearing HEAD: normocephalic, atraumatic. EYES: PERRLA/EOMI, conjunctivae clear. NOSE: Normal no drainage EARS:TMS clear with good light reflex. THROAT: Pharynx clear, no exudate. NECK: Supple. No adenopathy, no masses. RESPIRATORY: Airway patent, respirations nonlabored. Clear to auscultation bilaterally, no rales, rhonchi, wheezing. CARDIOVASCULAR: Regular rate and rhythm without murmurs rubs or gallops. ABDOMINAL: Soft, nontender, nondistended, normal bowel sounds MUSCULOSKELETAL: Moves all extremities. Strength/ROM intact, No edema, No calf tenderness. NEURO: Alert. Cranial nerves II through XII intact. Good gait. Good coordination SKIN: Warm, dry. Normal Color PSYCHIATRIC: Normal affect/mood. Course Vital Signs Vital signs: Vital Signs Temperature 97.6 F 07/03/24 14:30 Pulse Rate 101 H 07/03/24 14:30 Respiratory Rate 18 07/03/24 14:30 Blood Pressure 126/79 07/03/24 14:30 Pulse Oximetry 100 07/03/24 14:30 Oxygen Delivery Room Air 07/03/24 14:30 Temperature 97.6 F 07/03/24 14:30 Pulse Rate 62 07/03/24 18:20 Respiratory Rate 16 07/03/24 18:20 Blood Pressure 116/64 07/03/24 18:20 Pulse Oximetry 100 07/03/24 18:20 Oxygen Delivery Room Air 07/03/24 14:30 Medical Decision Making MDM Narrative Medical decision making narrative: 33-year-old female presents emergency department for evaluation for nausea vomiting. Patient reports she does feel improved with treatment IV fluids and IV Reglan. Patient was afebrile with no significant leukocytosis and no significant abnormalities on her CMP UA was negative for infection. Patient was comfortable the plan for discharge and close follow-up. Patient was provided Reglan for home and encouraged to have follow-up with GI. All questions concerns were addressed. Differential Diagnosis Differential Diagnosis: Colitis, diverticulitis, cyclic vomiting, celiac disease, canal but hyperemesis syndrome Vital Signs Vital Signs: Vital Signs Temperature 97.6 F 07/03/24 14:30 Pulse Rate 101 H 07/03/24 14:30 Respiratory Rate 18 07/03/24 14:30 Blood Pressure 126/79 07/03/24 14:30 Pulse Oximetry 100 07/03/24 14:30 Oxygen Delivery Room Air 07/03/24 14:30 Temperature 97.6 F 07/03/24 14:30 Pulse Rate 62 07/03/24 18:20 Respiratory Rate 16 07/03/24 18:20 Blood Pressure 116/64 07/03/24 18:20 Pulse Oximetry 100 07/03/24 18:20 Oxygen Delivery Room Air 07/03/24 14:30 Lab Data Lab results reviewed: Yes I reviewed the patient's lab results. 07/03/24 16:15 07/03/24 16:15 Labs: Lab Results 07/03/24 07/03/24 07/03/24 Range/Units 16:15 16:28 16:31 WBC 7.2 (4.5-10.0) K/mm3 RBC 4.45 (4.2-5.4) M/mm3 Hgb 13.3 (12.0-15.0) g/dL Hct 41.4 (37.0-47.0) % MCV 93.0 (80-100) fl MCH 29.9 (26-34) pg MCHC 32.1 (32-36) g/dl RDW 12.5 (11.5-14.5) % Plt Count 381 H (150-375) k/mm3 MPV 9.6 (7.4-10.4) fl Immature Gran % (Auto) 0.3 (0-0.5) % Neut % (Auto) 74.9 H (45.5-73.1) % Lymph % (Auto) 19.4 (18.3-44.2) % [place] % (Auto) 4.2 (2.6-8.5) % Eos % (Auto) 0.8 (0-4.4) % Baso % (Auto) 0.4 (0.2-1.2) % Lymph # (Auto) 1.39 (0.9-3.2) K/mm3 [place] # (Auto) 0.3 (0.1-0.6) K/mm3 Eos # (Auto) 0.1 (0-0.3) K/mm3 Baso # (Auto) 0.0 (0.0-0.1) K/mm3 Abs Immat Gran (auto) 0.02 (0.00-0.031) K/mm3 Absolute Neuts (auto) 5.4 (1.3-6.7) K/mm3 Absolute Nucleated RBC 0.000 (0.0-0.012) K/mm3 Nucleated RBC % 0.0 (0.0-0.2) % Sodium 140 (137-145) mmol/L Potassium 4.1 (3.4-5.0) mmol/L Chloride 106 (98-107) mmol/L Carbon Dioxide 24 (22-30) mmol/L Anion Gap 10 (4-12) mmol/L BUN 10 (7-17) mg/dL Creatinine 0.75 (0.7-1.0) mg/dL Estim Creat Clear Calc 95 ml/min Estimated GFR > 60 (59 - ) Glucose 97 (65-110) mg/dL Lactic Acid 0.9 (0.7-2.0) mmol/L Calcium 9.1 (8.4-10.2) mg/dL Total Bilirubin 0.9 (0.2-1.3) mg/dL AST 21 (14-36) U/L ALT 17 (6-35) U/L Alkaline Phosphatase 76 (38-126) U/L Total Protein 8.0 (6.3-8.2) g/dL Albumin 4.4 (3.5-5.1) g/dL Lipase 47 (23-300) U/L Urine Color Yellow (Yellow) Urine Appearance Clear (Clear) Urine pH 7.5 (5.0-9.0) Ur Specific [place] 1.013 (1.001-1.035) Urine Protein Negative (Negative) mg/dL Urine Glucose (UA) Negative (Negative) mg/dL Urine Ketones Negative (Negative) mg/dL Ur Blood (Man) Negative (Negative) Urine Nitrate Negative (Negative) Urine Bilirubin Negative (Negative) Urine Urobilinogen 0.2 (<2.0) mg/dL Leukocyte Esterase Rfl Negative (Negative) AMANDA/UL POC Urine HCG, Qual Negative (Negative) Urine Opiates Screen Negative (Negative) Urine Methadone Screen Negative (Negative) Ur Barbiturates Screen Negative (Negative) Ur Phencyclidine Scrn Negative (Negative) Ur Amphetamine Screen Negative (Negative) U Benzodiazepines Scrn Negative (Negative) Urine Cocaine Screen Negative (Negative) U Cannabinoids Screen Negative (Negative) Discharge Plan Discharge Clinical Impression: Upper respiratory infection, Nausea & vomiting Clinical Impression: (Ruled Out): Dehydration Patient Disposition: Home Condition: Stable Instructions: Antibiotic Form, Clear Liquid Diet (ED), Acute Nausea and Vomiting (ED) Additional Instructions: Clear liquid diet for the next 1-3 days. Reglan for nausea and vomiting. Have close follow-up with your primary care physician. Have close follow-up with GI. If you have any worsening symptoms and please call or return to the emergency department Patient Language: [place] Prescriptions: New metoclopramide HCl [Reglan] 10 mg tablet 10 mg PO Q6H PRN (Reason: nausea and vomiting) Qty: 14 0RF No Action amoxicillin-pot clavulanate 875-125 mg tablet 1 tablet PO Q12H Qty: 20 0RF amoxicillin 500 mg capsule 500 mg PO Q12H Qty: 20 0RF ibuprofen 800 mg tablet 800 mg PO TID PRN (Reason: pain) 7 Days Qty: 21 0RF acetaminophen 500 mg tablet 1,000 mg PO TID PRN (Reason: tone) 7 Days Qty: 42 0RF quetiapine [Seroquel] 25 mg Tablet 25 mg PO HS ropinirole [Requip] 0.5 mg Tablet 0.5 mg DIRECTED fluticasone propionate [Allergy Relief (fluticasone)] 50 mcg/actuation spray,suspension 1 spray intranasal DAILY Qty: 16 0RF Rx Instructions: administer into each nostril azithromycin 250 mg tablet 250 mg PO DAILY 4 Days Qty: 4 0RF Rx Instructions: start on day 2 of therapy Robitussin Cough-Chest Angel DM 10-200 mg capsule 1 tab-cap PO Q6-8H PRN (Reason: cough) Qty: 30 0RF ondansetron 4 mg tablet,disintegrating 4 mg PO Q8H PRN (Reason: nausea and vomiting) Qty: 10 0RF albuterol sulfate 90 mcg/actuation HFA aerosol inhaler 2 puff inhalation QID PRN (Reason: shortness of breath or wheezing) Qty: 8.5 0RF Follow-up/Referrals: Shun Hines MD [Physician] - Vancourt,Yolis Mallory NP [Primary Care Provider] -
[2024-07-03] MEDS: SODIUM CHLORIDE 0.9% IV 1,000 ML 999 ML IV CONT (16:17)
[2024-07-03] MEDS: METOCLOPRAMIDE HCL INJ 10 MG/2 ML VIAL IV PUSH (16:18)
[2024-07-03 16:26] LABS: Basophils Percent Auto 0.4 % (0.2-1.2); Eosinophils Absolute Auto 0.1 K/mm3 (0-0.3); Eosinophils Percent Auto 0.8 % (0-4.4); Hematocrit 41.4 % (37.0-47.0); Hemoglobin 13.3 g/dL (12.0-15.0); Immature Granulocyte Absolute 0.02 K/mm3 (0.00-0.031); Immature Granulocyte Percent A 0.3 % (0-0.5); Lymphocytes Absolute Auto 1.39 K/mm3 (0.9-3.2); Lymphocytes Percent Auto 19.4 % (18.3-44.2); Mean Corpuscular HGB Conc 32.1 g/dl (32-36); Mean Corpuscular Hemoglobin 29.9 pg (26-34); Mean Platelet Volume 9.6 fl (7.4-10.4); Monocytes Absolute Auto 0.3 K/mm3 (0.1-0.6); Monocytes Percent Auto 4.2 % (2.6-8.5); Neutrophils Absolute Auto 5.4 K/mm3 (1.3-6.7); Neutrophils Percent Auto 74.9 % (45.5-73.1); Platelet Count Result 381 k/mm3 (150-375); Red Blood Count 4.45 M/mm3 (4.2-5.4); Red Cell Distribution Width 12.5 % (11.5-14.5); White Blood Count 7.2 K/mm3 (4.5-10.0)
[2024-07-03 16:30] VITALS: BP 116/64; PULSE 66; RESP 16; O2SAT 100
[2024-07-03 16:33] LABS: BEDSIDEPREGUCG Negative (Negative)
[2024-07-03 16:37] LABS: Lactic Acid Reflex 0.9 mmol/L (0.7-2.0)
[2024-07-03 16:38] LABS: Alanine Aminotransferase 17 U/L (6-35); Albumin Level 4.4 g/dL (3.5-5.1); Alkaline Phosphatase 76 U/L (38-126); Anion Gap 10 mmol/L (4-12); Aspartate Amino Transferase 21 U/L (14-36); Bilirubin,Total 0.9 mg/dL (0.2-1.3); Blood Urea Nitrogen 10 mg/dL (7-17); Calcium 9.1 mg/dL (8.4-10.2); Carbon Dioxide 24 mmol/L (22-30); Chloride 106 mmol/L (98-107); Estimated CRCL calculation 95 ml/min; Estimated Glomerular Filt Rate > 60; Glucose 97 mg/dL (65-110); Lipase 47 U/L (23-300); Potassium 4.1 mmol/L (3.4-5.0); Sodium 140 mmol/L (137-145)
[2024-07-03 16:46] LABS: Add Urine Microscopic? NO; Appearance Urine Clear (Clear); Bilirubin Urine Negative (Negative); Blood Urine Negative (Negative); Color Urine Yellow (Yellow); Glucose Urine UA Negative (Negative); Ketones Urine Negative (Negative); Leukocyte Esterase Ur Negative LEU/UL (Negative); Nitrate Urine Negative (Negative); Protein Urine Negative (Negative); Specific Grav Ur 1.013 (1.001-1.035); Urobilinogen Urine 0.2 mg/dL (<2.0); pH Urine 7.5 (5.0-9.0)
[2024-07-03 17:01] LABS: Amphetamine Screen Urine Negative (Negative); Barbiturate Screen Urine Negative (Negative); Benzodiazepines Screen Urine Negative (Negative); Cannabinoid Screen Urine Negative (Negative); Cocaine Screen Urine Negative (Negative); Methadone Screen Urine Negative (Negative); Opiate Screen Urine Negative (Negative); Phencyclidine Screen Urine Negative (Negative)
[2024-07-03 17:30] VITALS: BP 120/68; PULSE 66; RESP 16; O2SAT 100
[2024-07-03 18:20] VITALS: BP 116/64; PULSE 62; RESP 16; O2SAT 100
== END 2024-07-03 18:20 | disposition home or self-care (01) ==
PROVIDERS: Emergency Provider Emergency Medicine; PCP Nurse Practitioner Family
DX: J06.9 Acute upper respiratory infection, unspecified (principal); R11.2 Nausea with vomiting, unspecified; F17.290 Nicotine dependence, other tobacco product, uncomplicated; Z79.899 Other long term (current) drug therapy
CPT/HCPCS: 36415; 80053; 80307; 81003; 81025; 83605; 83690; 85025; 96361; 96374; 99284; J2765; J7030

== ENCOUNTER 2024-07-26 00:22 | Day surgery (SDC) | payer OTHER, SELFPAY ==
[2024-07-21 11:20] VITALS: BMI 30.9
--- OUTSIDE RECORDS SUMMARY | 2024-07-26 00:25 | XMS_ITS | Data Portability ---
Author Organization [place] [facility] [place], Main Office Address [address] [place] [address] Care Team Providers Care Finish Painter Name Role Phone AMANDA BUI Primary Care Provider AMANDA BUI Referring Provider [phone] Assessment Encounter Date Assessment Date Assessment LastModified by Organization Details LastModified Time 07/05/2024 07/05/2024 The patient has what appears to be a left wrist sprain. She has been having ongoing pain for the last 7 weeks. There is no pinpoint tenderness it is more generalized over the dorsum of the wrist. Her function is good I have advised her to start getting out of the cock-up wrist brace she may sleep in it but otherwise I think she should use her hand and wrist during the day for small tasks slowly wean back into her normal activities. To help speed up her recovery we will try a course of oral prednisone and a course of physical therapy. We will give it a month I will see her back if her symptoms continue to be significant we may repeat the x-rays we may also get an MRI scan if necessary. The patient voiced understanding and agree with the above plan she will call for any further problems or questions. [email or web address] Not available 07/05/2024 09:21:42 Plan of Treatment Reminders Order Date Submit Date Provider Last Modified By Organization Details Last Modified Time Details Appointments Any 5 2024 02:15P AYO Au Not available Not available Not available Lab histamine , serum or plasma 2024 025 [facility], [address] [place], [address], 05/13/2024 09:16:28 tryptase, serum 2024 025 [facility], [address] [facility], [place], [address], 05/13/2024 09:16:28 chromogra roderick A, serum 2024 025 [facility]al[facility], [address] [facility], [place], [address], 05/13/2024 09:16:28 Referral occupatio nal therapist referral - Please contact patient to schedule 2024 025 [facility], [address], [address], [place], [address], 07/13/2024 11:12:05 Procedures None recorded. Surgeries None recorded. Imaging None recorded. Medication Orders Medrol (Sammy) 4 mg tablets in a dose pack 2024 025 [facility] [address] [place], [address], 07/14/2024 16:18:45 clindamyc in HCl 300 mg capsule 2024 025 [facility] [address] [place], [address], 07/14/2024 16:18:46 prednison e 10 mg tablets in a dose pack 2024 025 [email or web address] [address] [place], [address], 07/14/2024 15:54:17 ropinirol e 3 mg tablet 2024 025 [facility] [address] [place], [address], 06/14/2024 16:31:58 alprazola m 0.25 mg tablet 2024 025 [facility] [address] [place], [address], 06/14/2024 16:32:01 ropinirol e 0.5 mg tablet 2024 025 [email or web address] [facility]2510, [address] [place], [address], 07/05/2024 08:59:18 quetiapin e ER 50 mg tablet,ex tended release 24 hr 2023 024 [address] [place], [address], 05/04/2024 15:55:17 Zepbound 2.5 mg/0.5 mL subcutane ous pen injector 2023 024 [address] [place], [address], 05/04/2024 15:55:48 Patient TargetsNo targets recorded. Patient InstructionsNo instructions recorded. Reason for Referral Occupational Therapist Refer ral for Pain of left wrist Please contact patient to schedule Referring Physician: Aguilar Pino, Orthopedic Surgery, Encounter Date: 07/05/2024 Results Created Date Observation Date Name Description [...] cause of anaph ylaxi s. Not Available [facility] [address] [place], [address], 05/26/2024 17:01:32 05/18/1905/26/2024 HISTA MINE, PLASM A histamine, plasma <1.5 NG/mL < or = 1.8 This test was perfo rmed using a kit that has not been clear ed or appro [place]ent[place] by the FDA. The mirna tical perfo rmanc e deepthi cteri stics of this test have been deter mined by [facility] Alejo Nava trano . This test shoul d not be used for diagn osis witho ut confi rmati on by other medic ally estab lishe d means . Not Available [facility] [address], [place], [address], 05/26/2024 17:01:33 05/18/19 25 05/26/2024 CHROM OGRAN [...] ic neuro endoc rine carci noma: scree triston for false posit darren and a prosp ectiv e follo w-up study . Int J Biol Adie rs. 2010- un;26 (2):9 4-101 .) This test was perfo rmed using a Liqui d Chrom atogr aphy Mass Spect romet ry metho d. Value s obtai mil from diffe rent assay metho ds canno t be used inter flores eably . Chrom ogran in A level s, regar dless of value , shoul d not be inter prete d as absol ted evide nce of the prese nce or absen ce of disea se. This test was devel oped and its mirna tical perfo rmanc e deepthi cteri stics have been deter mined by [facility]. It has not been clear ed or appro valentina by the FDA. This assay has been valid ated pursu ant to the CLIA regul ation s and is used for clini daxa purpo ses. Not Available [facility] [address], [address], 05/26/2024 17:01:34 Result Notes None recorded. Problems Name Problem SNOMED Code Status Onset Date Resolution Date Notes Provider Name and Address Organization Details Recorded Time Restless sleep 94293307 Active 2022 Not Available [facility] 3 08:49:21 Urticaria 141968586 Active Not Available [facility] 3 08:49:21 Pain in throat 298131675 Active 2022 Not Available [facility] 3 08:49:21 Abdominal pain 82443780 Active Not Available [facility] 3 08:49:21 Restless legs 82254855 Active 2022 Not Available [facility] 3 08:49:21 Vitamin D deficiency 48737203 Active Not Available [facility] 3 08:49:21 Ingrowing nail 815120266 Active Not Available [facility] 3 08:49:22 Ingrowing toenail 235963728 Active Not Available [facility] 3 08:49:22 Herpes zoster 1096005 Active Not Available [facility] 3 08:49:22 Anxiety 75070221 Active Not Available [facility] 3 08:49:22 Cough 76315061 Active 2022 Not Available [facility] 3 08:49:22 Chronic urticaria 62934164 Active Not Available [facility] 3 08:49:22 Supraventr icular tachycardi a 1566828 Active Not Available [facility] 3 08:49:22 Sleep apnea 68868867 Active 2022 Not Available [facility] 3 08:49:22 Palpitatio ns 72303162 Active Not Available [employer] 3 08:49:22 Fatigue 89618069 Active Not Available [facility] 3 08:49:22 Psoriasis 7450064 Active Not Available [facility] 3 08:49:23 Family history of celiac disease 912222263 Active 2022 Tomasa Henley MD [address], [address], [address] , [facility] [employer] [facility] 3 14:30:06 Iron deficiency anemia 66612686 Active 2022 Tomasa Henley MD [address], [address], [address] , [facility] [employer] [facility] 3 14:31:28 Celiac disease 358565690 Active 2022 Tomasa Henley MD [address], [address], [address] , [facility] [employer] [facility] 3 08:06:23 Cobalamin deficiency 661382062 Active 2022 Tomasa Henley MD [address], [address], [address] , [facility] [employer] [facility] 3 08:06:40 Vasospasm 27994986 Active 2022 Tomasa Henley MD [address], [address], [address] , [facility] 3 15:58:19 Paresthesi a of upper limb 48746918 Active 2022 Tomasa Henley MD [address], [address], [address] , [facility] [employer] [facility] 3 16:00:05 Thoracic outlet syndrome 778689147 Active 2023 Tomasa Henley MD [address], [address], [address] , [facility] 4 15:37:52 Fever 030691889 Active 2023 Katerina Quintana LPN null, [facility] 4 11:13:36 Sore throat 731798900 Active 2023 Katerina Quintana LPN null, [place] [facility] 4 11:14:04 Upper respirator y infection 58341188 Active 2023 NINO Morgan [address], [address], [place], [address] , [facility] 4 12:52:21 Pain of right shoulder joint 7271556144446 9100 Active 2023 Checo Nelson MD [address], [address], [place], [address] , [facility] [employer] [facility] [employer] 4 17:54:42 Weight gain 1869057 Active 2023 Tomasa Henley MD [address], [address], [place], [address] , [facility] [employer] 4 12:06:36 Mild manic bipolar I disorder 69256263 Active 2023 NINO Roque [address], [address], [place], [address] , [employer] [facility] [employer] 4 14:25:28 Constipati on 34744358 Active 2023 NINO Roque [address], [address], [place], [address] , [facility] [place] [employer] [facility] [employer] 4 14:33:51 Attention deficit hyperactiv ity disorder 795366203 Active 2023 NINO Roque [address], [address], [place], [address] , [facility] [employer] [facility] 4 14:48:54 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 Active 2024 NINO Roque [address], [address], [place], [address] , [facility] [employer] [facility] 5 16:23:15 Autism spectrum disorder 64547424 Active 2024 NINO Roque [address], [address], [place], [address] , [facility] [employer] [facility] [employer] [facility] 5 17:07:16 Acid reflux 135094293 Active 2024 NINO Roque [address], [address], [place], [address] , [facility] [employer] [facility] [employer] [facility] 5 12:54:20 Nausea and vomiting 50081265 Active 2024 NINO Roque [address], [address], [place], [address] , [facility] [employer] [facility] [employer] [facility] 5 12:54:28 Pain of left wrist 6303844298900 02 Active 2024 ROSAURA Montanez, [employer] [facility] 09:04:13 Sprain of left wrist 5494151688192 9104 Active 2024 AYO Del Toro [address], [address], [place], [address] , [employer] [facility] 09:21:57 Recurrent acute maxillary sinusitis Active 2024 NINO Roque [address] [employer], [address], [place], [address] , [facility] [employer] [facility] 16:09:23 Notes:[facility] home sleep study 04/30/22 AHI = 1 Medical History: Urticaria Psoriasis Herpes zoster Anxiety Rhinitis Obesity with mild OSAHS, AHI = 1, 04/30/22 SVT RLS Iron deficiency normocytic anemia Vit D deficiency Problem Notes None recorded. Procedures Surgical History Date Name Laterality Status Provider Name and Address Organization Details Recorded Time 12/26/19 Transitional_Care _Management completed Cheryl Mahan RN [place] [employer] [facility] 12/25/2022 15:12:59 07/09/19 EGD completed Katerina Quintana LPN [employer] [facility] 07/11/2022 12:24:33 Tonsillectomy completed Kisha Guzmán CNA [employer] [facility] 07/05/2024 09:01:06 cardiac ablation for atrial fibrillation completed Kisha Guzmán CNA [place] [facility] 07/05/2024 09:01:31 Imaging Results None recorded. Procedure Notes None recorded. Medical Equipment None [...] Not Available Not Available Not Available prednisone 10 mg tablet PLEASE SEE ATTACHED FOR DETAILED DIRECTION S 07/14 completed Not Available Not Available Not Available venlafaxin e ER 75 mg capsule,ex tended release 24 hr 1 po qday with food x 7 days then increase to 2 po qday active Not Available Not Available No t Available doxycyclin e hyclate 100 mg capsule TAKE 1 CAPSULE BY MOUTH TWICE A DAY FOR 10 DAYS 07/14 completed Not Available Not Available Not Available nicotine 14 mg/24 hr daily transderma l patch Apply 1 patch every day by transderm al route. 10/02 completed Not Available Not Available Not Available clindamyci n HCl 300 mg capsule TAKE 1 CAPSULE BY MOUTH EVERY 8 HOURS FOR 10 DAYS active Not Available Not Available No t Available trazodone 50 mg tablet TAKE 1 [...] t Available benzonatat e 200 mg capsule TAKE 1 CAPSULE BY MOUTH THREE TIMES A DAY FOR 10 DAYS 07/14 completed Not Available Not Available Not Available [...] Not Available Not Available No t Available omeprazole 40 mg capsule,de layed release TAKE 1 CAPSULE BY MOUTH EVERY DAY active Not Available Not Available No t Available prednisone 10 mg tablets in a dose pack Take 1 tab by mouth, 3 times a day for 3 daysTake 1 tab by mouth 2 times a day for 2 daysTake 1 tab by mouth once a day for 1 day 07/14 completed Not Available Not Available Not Available Macrobid 100 mg capsule Take 1 capsule every 12 hours by oral route for 7 days. 12/07 completed Not Available Not Available Not Available alprazolam 0.5 mg tablet TAKE 1 TABLET BY MOUTH EVERYDAY AT BEDTIME active Not Available Not Available No t Available amoxicilli n 875 mg tablet Take [...] BY MOUTH THREE TIMES A DAY NEEDED 07/05 completed Not Available Not Available Not Available buspirone 10 mg tablet 09/03 completed [...] completed Not Available Not Available Not Available epinephrin e 0.3 mg/0.3 mL injection, auto-injec tor DIRECTED INJECTION ONCE 30 DAYS active Not Available Not Available No t Available ibuprofen 600 mg tablet TAKE 1 [...] DAY FOR A TOTAL OF 6 DAYS active Not Available Not Available No t Available albuterol sulfate HFA 90 mcg/actuat ion aerosol inhaler TAKE 1-2 INHALATIO NS EVERY 4-6 HOURS NEEDED FOR WHEEZING FOR 10 DAYS active Not Available Not Available No [...] OF THE TONGUE TWICE A DAY NEEDED 07/05 completed Not Available Not Available Not Available [...] Not Available Not Available No t Available metoclopra mide 10 mg tablet TAKE 1 TABLET BY MOUTH EVERY 6 HOURS NEEDED FOR NAUSEA AND VOMITING active Not Available Not Available No t [...] completed Not Available Not Available Not Available cholecalci ferol (vitamin D3) 1,250 mcg (50,000 unit) capsule TAKE 1 CAPSULE BY MOUTH ONE TIME PER WEEK active Not Available Not Available No t Available quetiapine ER 200 mg tablet,ext ended [...] Updated DateTime 4 162.56 cm 33.1 kg/m2 47477.3 3 g 98 [degF] 84 /min 99 % 99 % 126 mm[Hg] 80 mm[Hg] Hortensia Villasenor RN [facility] 4 16:11:01 Date Recorded Body height Body mass index (BMI) Body weight Body temperature Heart rate Oxygen saturation Oxygen saturation in Arterial blood by Pulse oximetry Systolic blood pressure Diastolic blood pressure Provider Name and Address Organization Details Last Updated DateTime 5 162.56 cm 31.4 kg/m2 63088.4 g 99.5 [degF] 98 /min 98 % 98 % 118 mm[Hg] 76 mm[Hg] Marisa Vasquez MA [place] [employer] [facility] 5 15:58:26 Date Recorded Body height Body mass index (BMI) Body weight Body temperature Heart rate Oxygen saturation Oxygen saturation in Arterial blood by Pulse oximetry Systolic blood pressure Diastolic blood pressure Provider Name and Address Organization Details Last Updated DateTime 5 162.56 cm 32.6 kg/m2 77539.5 5 g 98.2 [degF] 89 /min 99 % 99 % 110 mm[Hg] 68 mm[Hg] Giovana Childs MA [place] [employer] [facility] 5 16:13:09 Date Recorded Body height Body mass index (BMI) Body weight Provider Name and Address Organization Details Last Updated DateTime 07/05/2024 162.56 cm 30.7 kg/m2 73686.03 g Kisha Guzmán CNA [employer] 07/05/2024 08:56:41 Date Recorded Body height Body mass index (BMI) Body weight Body temperature Heart rate Oxygen saturation Oxygen saturation in Arterial blood by Pulse oximetry Systolic blood pressure Diastolic blood pressure Provider Name and Address Organization Details Last Updated DateTime 162.56 cm 32.4 kg/m2 42685.9 6 g 97.2 [degF] 93 /min 98 % 98 % 112 mm[Hg] 72 mm[Hg] ERIKA Grey [employer] 15:57:13 Social History Question Answer Notes LastModified by Organization Details LastModified Time Tobacco Smoking Status Current Every Day Smoker ROSAURA Montanez [employer] 07/05/2024 09:00:38 Do You Have An Advance Directive? No [id number] Information not available 05/07/2022 Do You Wear A Helmet When Biking? No [id number] Information not available 05/07/2022 [id number]|2024-07-26 00:25:00|2024-07-26 00:25:00|XMS_ITS|BKG DALEMUELON|External Medical Summaries|[id number]|" Patient Health Record Created on: July 26, 2024 Kallie Pritchett : 1990 Sex: Female Author Organization [facility] [employer] [facility] Address [address] [facility] [address] [place] [address] Care Team Providers Care Finish Painter Name Role Phone Amanda Estrada Primary Care Provider Dorota Hernandez Unavailable [phone] Burke Campa Unavailable [phone] Allergies Allergen (clinical drug ingredient) Drug/Non Drug [...] Oxazepam (BZO) NEG 0 - 300 ng/ml 0-xgxtblyevn-2,1-xhgnbktk-5,3-diphenylpyrrolidine (SHARMAINE P) NEG 0 - 300 ng/ml Methamphetamine (MET) NEG 0 - 1000 ng/ml Methylenedioxymethamphetamine (MDMA) NEG 0 - 500 ng/ml Morphine (MOP 300/HXP5898) NEG 0 - 300 ng/ml Methadone (MTD) [...] son Level of education: not finished college Certif ate Sexual History Question Answer Notes Had [...] Problem Status W/U Status Risk Notes Problem 4580380 Primary insomnia (F51.01) Active confirmed Problem Screening for cardiovascular system disease (589203039) Encounter for screening for cardiovascular disorders (Z13.6) Active confirmed Problem Depression Screening (544954594) Encounter for screening for depression (Z13.31) Active confirmed Problem 39687981 Bipolar 2 disorder (F31.81) Active confirmed Problem 04980231 NIKKI (generalized anxiety disorder) (F41.1) Active confirmed Problem 11892968 ADHD (attention deficit hyperactivity disorder), combined type (F90.2) Active confirmed Problem 329427185 MDD (major depressive disorder), recurrent episode, mild (F33.0) Active confirmed Problem 32031549 Autism spectrum disorder (F84.0) Active confirmed Problem 10593014 MDD (recurrent major depressive disorder) in remission (F33.40) Active confirmed Problem Tobacco use (452184159) Nicotine use (Z72.0) Active confirmed Vital Signs Heart Rate 72 /min 06/10/2024 Respiratory Rate 16 /min 02/09/2024 Height-cm 162.56 cm 06/10/2024 Blood pressure diastolic 69 mm Hg 06/10/2024 Weight-kg 86.09 kg 06/10/2024 Height 64 in 06/10/2024 Blood pressure systolic 113 mm Hg 06/10/2024 Weight 189.8 lbs 06/10/2024 BMI 32.58 kg/m2 06/10/2024 Encounters Encounter [facility] [place] [address] [address] 02/09/2024 Dorota Thery Bipolar 2 disorder F31.81 ; NIKKI (generalized anxiety disorder) F41.1 ; Primary insomnia F51.01 and ADHD (attention deficit hyperactivity disorder), combined type F90.[address] [address] 02/29/2024 Dorota Thery Bipolar 2 disorder F31.81 ; NIKKI (generalized anxiety disorder) F41.1 ; Primary insomnia F51.01 and ADHD (attention deficit hyperactivity disorder), combined type F90.2 [place] [address] [address] 03/28/2024 Dorota Thery Bipolar 2 disorder F31.81 ; NIKKI (generalized anxiety disorder) F41.1 ; Primary insomnia F51.01 and ADHD (attention deficit hyperactivity disorder), combined type F90.2 [place] [address] [address] 04/12/2024 Dorota Thery Bipolar 2 disorder F31.81 ; NIKKI (generalized anxiety disorder) F41.1 ; Primary insomnia F51.01 and ADHD (attention deficit hyperactivity disorder), combined type F90.2 [facility] [address] [address] 05/09/2024 Dorota Thery NIKKI (generalized anxiety disorder) F41.1 ; Autism spectrum disorder F84.0 ; Primary insomnia F51.01 ; ADHD (attention deficit hyperactivity disorder), combined type F90.2 and MDD (major depressive disorder), recurrent episode, mild F33.0 [facility] [employer] [facility] [address] [address] 06/10/2024 Dorota Thery Nicotine use Z72.0 ; MDD (recurrent major depressive disorder) in remission F33.40 ; Encounter for screening for depression Z13.31 ; Encounter for screening for cardiovascular disorders Z13.6 ; NIKKI (generalized anxiety disorder) F41.1 ; Primary insomnia F51.01 and ADHD (attention deficit hyperactivity disorder), combined type F90.2 [facility], [facility] [address] [place] [address] 05/11/2024 Dorota Crump [facility], [facility] [address] [place] [address] 05/18/2024 Dorota Crump [facility], [facility] [address] [place] [address] 07/14/2024 Dorota Crump [facility], [facility] [address] [place] [address] 03/03/2024 Dorota Crump [facility], [facility] [address] [place] [address] 04/01/2024 Dorota Crump Bipolar 2 disorder F31.81 [facility], [facility] [address] [place] [address] 04/05/2024 Dorota Crump [facility], [facility] [address] [place] [address] 04/19/2024 Dorotamatilde Crump [facility], [facility] [address] [place] [address] 04/19/2024 Dorota Therlulú Bipolar 2 disorder F31.81 [facility], [facility] [address] [place] [address] 04/20/2024 Dorota Crump [facility], [facility] [address] [place] [address] 05/04/2024 Dorota Crump [facility], [facility] [address] [place] [address] 05/10/2024 Dorotamatilde Crump [facility], [facility] [address] [place] [address] 05/11/2024 Dorotamatilde Crump [facility], [facility] [address] [place] [address] 05/11/2024 Dorota Crump [facility], [facility] [address] [place] [address] 05/18/2024 Dorota Crump [facility], [facility] [address] [place] [address] 05/19/2024 Dorota Crump [facility] [address] [place] [address] 05/25/2024 Dorota Crump [facility] [employer] [facility] [address] [place] [address] 05/25/2024 Dorota Crump [facility] [employer] [facility] [address] [place] [address] 05/26/2024 Dorota Crump Assessments Encounter Date Diagnosis (ICD [...] abuse, and addiction before prescribing stimulant medicines. Sheet Writer patients not to share their prescribed stimulant [...] than warranted by the prescribed dosage. Random [facility] prescription reviewed local pharmacy in [place], no early refills on control substance educated on non-stimulate and stimulates Cannabis/marijuan a information: http_s://tammy.nih .gov/publications /drugfacts/cannab is-marijuana http_s://www.v2 Ratings.Nextt/canna jgw-vfo-aghuhmhc- marijuana-adhd/ http_s://www.jumana .org/About-Mental -Illness/Mental-H ealth-Conditions http_s://psychcen tral.com/depressi on/the-cognitive- yxuaxqxj-wk-gnhha ssion#treatments http__s://www.[facility].nih.gov/health/ topics/mental-hea [facility]-medications http__s://www.nam i.org/About-Menta l-Illness/Treatme nts/Mental-Health -Medications educated [...] abuse, and addiction before prescribing stimulant medicines. Sheet Writer patients not to share their prescribed stimulant [...] warranted by the prescribed dosage. Random [place] prescription reviewed local pharmacy in [place], no early refills on control substance educated on non-stimulate and stimulates Cannabis/marijuan a information: http_s://tammy.nih .gov/publications /drugfacts/cannab is-marijuana http_s://www.FoodyDirect/canna mny-pdi-hybayqvo- marijuana-adhd/ http_s://www.jumana .org/About-Mental -Illness/Mental-H ealth-Conditions http_s://psychcen tral.com/depressi on/the-cognitive- murfzaza-uy-vcwrm ssion#treatments http__s://www.nim h.nih.gov/health/ topics/mental-hea lth-medications http__s://www.nam i.org/About-Menta [...] abuse, and addiction before prescribing stimulant medicines. Sheet Writer patients not to share their prescribed stimulant [...] than warranted by the prescribed dosage. Random [facility] prescription reviewed local pharmacy in [facility], no early refills on control substance educated on non-stimulate and stimulates Cannabis/marijuan a information: http_s://tammy.nih .gov/publications /drugfacts/cannab is-marijuana http_s://www.FoodyDirect/canna bbt-unk-fgaxukha- marijuana-adhd/ http_s://www.jumana .org/About-Mental -Illness/Mental-H ealth-Conditions http_s://psychMetrixLabn Imperval.com/depressi on/the-cognitive- wfbusmja-nw-ariec ssion#treatments http__s://www.nim h.nih.gov/health/ topics/mental-hea lth-medications http__s://www.nam i.org/About-Menta [...] abuse, and addiction before prescribing stimulant medicines. Sheet Writer patients not to share their prescribed stimulant [...] warranted by the prescribed dosage. Random [place] prescription reviewed local pharmacy in [facility], no early refills on control substance educated on non-stimulate and stimulates Cannabis/marijuan a information: http_s://tammy.nih .gov/publications /drugfacts/cannab is-marijuana http_s://www.FoodyDirect/canna pvp-qgw-vfkciiwf- marijuana-adhd/ http_s://www.jumana .org/About-Mental -Illness/Mental-H ealth-Conditions http_s://psychcen Imperval.com/depressi on/the-cognitive- tlmhbsno-or-nyept ssion#treatments http__s://www.nim h.nih.gov/health/ topics/mental-hea lth-medications http__s://www.nam i.org/About-Menta [...] medication Options Caplyta 42 mg daily, Increase [place] 300 mg twice a day for increase depression Laurelton education La[place]ton use reviewed. Risks include risks of toxicity, [...] = I,500 mg/day, target serum level 0.8 La[place] is known to reduce risk of suicide. [...] abuse, and addiction before prescribing stimulant medicines. Sheet Writer patients not to share their prescribed stimulant [...] warranted by the prescribed dosage. Random [place] prescription reviewed local pharmacy in [facility], no early refills on control substance educated on non-stimulate and stimulates 5. RLS- ON REQUIP 4 MG bedtime- PCP prescribes patient will see PCP this month and discuss RLS LABS PCP Cannabis/marijuan a information: http_s://tammy.nih .gov/publications /drugfacts/cannab is-marijuana http_s://www.FoodyDirect/canna ruj-vac-rouesdqh- marijuana-adhd/ http_s://www.jumana .org/About-Mental -Illness/Mental-H ealth-Conditions http_s://[employer]/depressi on/the-cognitive- ffnnrwtb-wz-ofswa ssion#treatments http__s://www.nim .nih.gov/health/ topics/mental-hea lth-medications http__s://www.nam i.org/About-Menta [...] Response got Denied on 2024-05-09 16:53:33 for 'Laurel[place] Carbonate 150 MG Capsule'Pharmac y Notes: Prescription not found. Contact Pharmacy by other means 05/09/2024 NIKKI (generalized anxiety disorder) (ICD-10 - F41.1) Learning About Generalized Anxiety Disorder material was published, Generalized Anxiety Disorder: Care Instructions material was published, Learning About Anxiety Disorders material was published 1. Bipolar II depression- will change dxn to depression and recently dxn Autism 05/[address] [facility] patient would like to come off rx [...] rx discuss taper down rx patient stopped Laurelton labs done by PCP and Endo willl obtain continue therapy refer [facility] Autism evaluation 2.Anxiety - see therapy Vistaril [...] abuse, and addiction before prescribing stimulant medicines. Sheet Writer patients not to share their prescribed stimulant [...] warranted by the prescribed dosage. Random [facility] prescription reviewed local pharmacy in [facility], no early refills on control substance educated on non-stimulate and stimulates 5. RLS- ON REQUIP 4 MG bedtime- PCP prescribes patient will see PCP this month and discuss RLS LABS PCP Cannabis/marijuan a information: http_s://tammy.nih .gov/publications /drugfacts/cannab is-marijuana http_s://www.FoodyDirect/canna kig-hno-xdbyyjkt- marijuana-adhd/ http_s://www.jumana .org/About-Mental -Illness/Mental-H ealth-Conditions http_s://psychcen tral.com/depressi on/the-cognitive- oqugqpns-hx-gveaq ssion#treatments http__s://www.[facility].nih.gov/health/ topics/mental-hea [facility]-medications http__s://www.nam i.org/About-Menta l-Illness/Treatme nts/Mental-Health -Medications educated [...] depression and recently dxn Autism 05/03 [facility] patient would like to come off rx [...] rx discuss taper down rx patient stopped [place] labs done by PCP and Endo willl obtain continue therapy refer [facility] Autism evaluation 2.Anxiety - see therapy Vistaril [...] abuse, and addiction before prescribing stimulant medicines. Sheet Writer patients not to share their prescribed stimulant [...] than warranted by the prescribed dosage. Random [facility] prescription reviewed local pharmacy in [facility], no early refills on control substance educated on non-stimulate and stimulates 5. RLS- ON REQUIP 4 MG bedtime- PCP prescribes patient will see PCP this month and discuss RLS LABS PCP Cannabis/marijuan a information: http_s://tammy.nih .gov/publications /drugfacts/cannab is-marijuana http_s://www.FoodyDirect/canna hpj-tkc-kfjwlnbb- marijuana-adhd/ http_s://www.jumana .org/About-Mental -Illness/Mental-H ealth-Conditions http_s://psychcen Imperval.com/depressi on/the-cognitive- rhipqsze-id-lutkr ssion#treatments http__s://www.nim h.nih.gov/health/ topics/mental-hea lth-medications http__s://www.nam i.org/About-Menta l-Illness/Treatme nts/Mental-Health -Medications educated on all medications, benefits, side effects and risk, and educated on depression, anxiety, and ADHD, mood d/o and educated on compliance of medications, metabolic and movement d/o education appointment's, continue therapy discussion with patient about course of treatment and patient instructions. education on serotonin syndrome educated on all m
--- OUTSIDE RECORDS SUMMARY | 2024-07-26 00:25 | XMS_ITS | Clinical Summary ---
Author Organization [facility] Address [address] [place] [address] Care Team Providers Care Pump And Blower Operator Name Role Phone Jeff Yolis HUTSON-SERENA Primary Care Provider [phone] Source Comments [facility],non-owned Affiliates and Associated Physician Practices is amultiple site organization consisting of ambulatory clinics and hospital sitesin [place], [place], [place] and [place]. This disclosure is being madepursuant to the Care Everywhere program and may not contain all information available regarding this patient. Last updated 17.[facility] Allergies No known active allergies Medications * Be aware that medications may not be up to date on this document. Alwaysverify current medications with the patient. albuterol HFA (Proventil; Ventolin; Proair) 108 (90 Base) MCG/ACT inhaler TAKE 1-2 INHALATIONS EVERY 4-6 HOURS NEEDED FOR WHEEZING FOR 10 DAYS Active ALPRAZolam (Xanax) 1 MG tablet Take 1 tablet every day by oral route as needed. Active lithium carbonate (Eskalith) 300 MG capsule TAKE 1 CAPSULE BY MOUTH TWICE A DAY FOR 30 DAYS 5 Active Caplyta 42 MG capsule TAKE 1 CAPSULE BY MOUTH EVERY DAY FOR 30 DAYS 5 Active levonorgestrel (Mirena, 52 MG,) 20 MCG/DAY IUD Take by intrauterine route. Active EPINEPHrine (Epipen) 0.3 MG/0.3ML auto-injector pen DIRECTED INJECTION ONCE 30 DAYS Active montelukast (Singulair) 10 MG tablet Take 1 (one) tablet by mouth every morning Active omeprazole (PriLOSEC) 40 MG capsule Take 1 (one) capsule by mouth daily before breakfast Active ondansetron (Zofran) 4 MG tablet Take 1 (one) tablet by mouth as needed for Nausea/Vomiting Active rOPINIRole (Requip) 3 MG tablet Take 1 (one) tablet by mouth 3 times daily Active vitamin D, ergocalciferol , (Drisdol) 1.25 MG (77944 UT) capsule Take 1 (one) capsule by mouth every 7 days (once a week) Active famotidine (Pepcid) 40 MG tablet Take 1 (one) tablet by mouth once daily Active venlafaxine XR 24hr (Effexor XR) 75 MG capsule 1 po qday with food x 7 days then increase to 2 po qday 025 Discontin ued(List Clean-Up) triamcinolone acetonide (Kenalog) 0.1 % ointment Apply 1 application twice a day by topical route as needed. 025 Discontin ued(List Clean-Up) predniSONE (Deltasone) 10 MG tablet PLEASE SEE ATTACHED FOR DETAILED DIRECTIONS 025 Discontin ued(List Clean-Up) Active Problems Problem Noted Date Diagnosed Date Bipolar 2 disorder 07/21/2024 Acid reflux 06/07/2024 Autism spectrum disorder 05/06/2024 ADHD (attention deficit hype ractivity disorder), combined type 12/29/2023 Atrial tachycardia 09/21/2023 Personal history of other di seases of the circulatory system 09/21/2023 Chronic urticaria 12/26/2022 Fatigue 12/26/2022 Celiac disease 06/16/2022 Sleep apnea 04/27/2022 Encounters Date Type Department Care Team Description 07/21/2024 8:20 AM CDT Office Visit [facility] - Rheumatology [address] [place] [address], [place] [address] Yumi Andres MD Polyarthralgia (Primary Dx) 07/21/2024 Travel from Last 3 Months Family History Medical History Relation Name Comments Arthritis - Rheumatoid Neg Hx Social History Tobacco Use Types Packs/Day Years Used Date Smoking Tobacco: Former Cigarettes Smokeless Tobacco: Never Tobacco Cessation:Counseling Given: Not Answered Alcohol Use Standard Drinks/Week Comments Yes 0 (1 standard drink = 0.6 oz pur e alcohol) PHQ-2 Answer Date Recorded Patient Health Questionnaire-2 Score 3 07/21/2024 Comments No Sex and Gender Information Value Date Recorded Sex Assigned at Not on file Legal Sex Female 12:54 PM CDT Gender Identity Not on file Sexual Orientation Not on file Last Filed Vital Signs Vital Sign Reading Time Taken Comments Blood Pressure 114/79 07/21/2024 8:27 AM CDT Pulse 80 07/21/2024 8:27 AM CDT Temperature 36.7 C (98 F) 07/21/2024 8:27 AM CDT Respiratory Rate - - Oxygen Saturation 98% 07/21/2024 8:27 AM CDT Inhaled Oxygen Concentration - - Weight 84.4 kg (186 lb) 07/21/2024 8:27 AM CDT Height 162.6 cm (5' 4 ) 07/21/2024 8:27 AM CDT Body Mass Index 31.93 07/21/2024 8:27 AM CDT Plan of Treatment Health Maintenance Due Date Last Done Comments PAP SMEAR 1990 HIV SCREENING 2005 HEPATITIS C SCREENING 07/14/2008 DTAP/TDAP/TD VACCINES (1 - Tdap) 2009 HEPATITIS B VACCINE (1 of 3 - 19+ 3-dose series) 2009 COVID-19 VACCINE ( season) 2023 03/17/2022, 02/22/2021, 06/08/2020, Additional history exists INFLUENZA VACCINE (Season Ended) 2024 01/07/2022, 12/07/2018, 12/26/2015, Additional history exists ZOSTER VACCINE (1 of 2) 2040 DEPRESSION SCREENING Completed 07/21/2024 HIB VACCINE Aged Out No longer eligi ble based on patient's age to complete this topic HPV VACCINE Aged Out No longer eligi ble based on patient's age to complete this topic MENINGOCOCCAL (Group B) VACCINE SHARED DECISION-MAKING Aged Out No longer eligible based on patient's age to complete this topic MENINGOCOCCAL GROUPS A/C/Y/W VACCINE Aged Out No longer eligible based on patient's age to complete this topic PNEUMOCOCCAL VACCINE Aged Out No long er eligible based on patient's age to complete this topic Procedures Procedure Name Priority Date/Time Associated Diagnosis Comments RHEUMATOID FACTOR BLOOD QUANTITATIVE Routine 07/22/2024 12:55 PM CDT Polyarthralgia CYCLIC CITRULLINATED PEPTIDE(CCP) AB IGG Routine 07/22/2024 12:55 PM CDT Polyarthralgia from Last 3 Months Results * RHEUMATOID FACTOR BLOOD QUANTITATIVE (07/22/2024 12:55 PM CDT) Pathologist [facility] Rheumatoid Factor <10 <14 IU/mL [facility] Comment: Test Performed at: [facility] [place] [employer] [id number] CHANO GUAN MD Blood BLOOD SPECIMEN / Unknown 07/22/2024 12:55 PM CDT 07/22/2024 12:56 PM CDT Yumi Andres MD LAB - CHEMISTRY ORDERABLES Fi nal Result Performing Organization Address [facility] de Phone Number [facility] [address] [place] [address] * CYCLIC CITRULLINATED PEPTIDE(CCP) AB IGG (07/22/2024 12:55 PM CDT) Pathologist [facility] Cyclic Citrullinated Peptide Antibody IgG <16 UNITS [facility] Comment: Reference Range Negative: <20 Weak Positive: 20-39 Moderate Positive: 40-59 Strong Positive: >59 REPORT COMMENT: FASTING:NO Test Performed at: [facility] [place] [address] CHANO GUAN MD Blood BLOOD SPECIMEN / Unknown 07/22/2024 12:55 PM CDT 07/22/2024 12:56 PM CDT Yumi Andres MD LAB - CHEMISTRY ORDERABLES Fi nal Result Performing Organization Address [facility] de Phone Number [facility] [address] [place] [address] from Last 3 Months Insurance [facility] Care Teams Pump And Blower Operator Relationship Specialty Start Date End Date Yolis Aguilar APNP-[facility] [address] [place] [address] PCP - General Family Medicine 07/21/24
--- OUTSIDE RECORDS SUMMARY | 2024-07-26 00:26 | XMS_ITS | Referral Summary ---
Author Organization [facility] [address] [place] [address] Care Team Providers Care Terrazzo Helper Name Role Phone Tomasz Mcelroy MD Primary Care Provider [phone] Tomasa Henley MD Unavailable [phone] Allergies Active Allergy Reactions Criticality Noted Date [...] on file Legal Sex Female 2:44 AM COUNTY SHERIFF Gender Identity Female 06/02/2023 5:41 PM CDT [...] Plan of Treatment Not on file Insurance [facility] CHOICE PLUS [address] IDPA [facility] CHOICE PLUS Care Teams Terrazzo Helper Relationship Specialty Start Date End Date Tomasz Mcelroy MD [address] [place] [address] PCP - General Neurology 03/03/23 Tomasa Henley MD [address] [place] [address] [place] [phone] Family Medicine 03/03/23
--- OUTSIDE RECORDS SUMMARY | 2024-07-26 00:26 | XMS_ITS | Clinical Summary ---
Author Organization [facility] [address] [place] [address] Care Team Providers Care Harvest Crew Supervisor Name Role Phone Tomasz Mcelroy MD Primary Care Provider [phone] Tomasa Henley MD Unavailable [phone] Allergies Active Allergy Reactions Criticality Noted Date [...] on file Legal Sex Female 2:44 AM VISUALIZATION DEVELOPER Gender Identity Female 06/02/2023 5:41 PM CDT [...] patient's age to complete this topic Insurance [facility] CHOICE PLUS [facility] CHOICE PLUS [facility] IDPA [facility] CHOICE PLUS Care Teams Harvest Crew Supervisor Relationship Specialty Start Date End Date Tomasz Mcelroy MD [address] [place] [address] PCP - General Neurology 03/03/23 Tomasa Henley MD [address] [place] [address] Family Medicine 03/03/23
--- OUTSIDE RECORDS SUMMARY | 2024-07-26 00:26 | XMS_ITS | Encounter Summary ---
Author Organization [facility] Address [address] [place] [address] Care Team Providers Care Water And Sewer Systems Superintendent Name Role Phone Tomasa Henley MD Primary Care Provider [phone] Encounter Details Date Type Department Care Team (Late st Contact Info) Description 02/26/2023 InEnTect Message Enc [facility] Multispecialty Care - [facility] [address] [facility], [address] [place] [address] Tomasz Mcelroy MD [address] [place] [address] MRI Chest Social History Tobacco Use Types [...] on filedocumented in this encounter Care Teams Water And Sewer Systems Superintendent Relationship Specialty Start Date End Date Tomasa Henley MD [address] [place] [id number] PCP - General FAMILY PRACTICE 01/07/23 documented as of this encounter
--- OUTSIDE RECORDS SUMMARY | 2024-07-26 00:26 | XMS_ITS | CONTINUITY OF CARE DOCUMENT ---
Author Name trenton chowdhury Address Unknown Organization [facility] Address [address] [place] [address] [address] [place] [address] Phone [phone] Care Team Providers Care Graining Press Operator Name Role Phone Gautam PAL, Iván Unavailable BRITTNEY HIRSCH MD Unavailable [phone] SHIRAZ VALDEZSHAYNE Ana Unavailable [phone] PROBLEMS Condition Status Date Provider Notes SVT, [...] In-person encounter Office Visit Iván Florez MD [facility] Palpitations--echo ef nl, 10/2023 - In-person encounter Office Visit Iván Florez MD [facility] SVT, atrial tachycardia, hx of ablation, [...] Payer name Policy type / Coverage type [id number] Other [id number] TREATMENT PLAN Date Name Performer Cardiology Aime Ahmedzai Cardiology: O rders: T ilt Table Test (CPT-84966) Aime Ahmedzai Cardiology Aime Ahmedzashruthi Cardiology: O rders: T ilt Table Test (CPT-96474) Aime Doradozashruthi Cardiology: O rders: T ilt Table Test (CPT-61085) Aime Avezashruthi Cardiology Aime Avezashruthi Cardiology Aime Avezashruthi Cardiology: O rders: C omplete Echo (97915) M onitor - Telemetry (Mobile Cardiac) (CPT-42121) Aime Avezashruthi Cardiology Aime Avezashruthi Cardiology: O rders: C omplete Echo (72073) M onitor - Telemetry (Mobile Cardiac) (CPT-38499) Aime Doradozashruthi Cardiology: O rders: C omplete Echo (57225) M onitor - Telemetry (Mobile Cardiac) (CPT-67224) Aime Avedonny Date Name Tilt Table Test Monitor - Telemetry (Mobile Cardiac) Complete Echo
--- OUTSIDE RECORDS SUMMARY | 2024-07-26 00:26 | XMS_ITS | Clinical Summary ---
Author Organization [facility] Address [facility] [place] [address] Care Team Providers Care Closing Supervisor Name Role Phone Tomasa Henley MD Primary Care Provider [phone] Allergies Active Allergy Reactions Criticality Noted Date [...] Comments Blood Pressure 126/70 04/21/2023 11:29 AM MACHINE STONE POLISHER Pulse 81 04/21/2023 11:29 AM MACHINE STONE POLISHER Temperature 36.8 C (98.3 F) 04/21/2023 11:29 AM MACHINE STONE POLISHER Respiratory Rate 18 04/21/2023 11:29 AM MACHINE STONE POLISHER Oxygen Saturation 100% 04/21/2023 11:29 AM MACHINE STONE POLISHER Inhaled Oxygen Concentration - - Weight 77.1 kg (170 lb) 04/21/2023 11:29 AM MACHINE STONE POLISHER Height 162.6 cm (5' 4 ) 04/21/2023 11:29 AM MACHINE STONE POLISHER Body Mass Index 29.18 04/21/2023 11:29 AM MACHINE STONE POLISHER Plan of Treatment Health Maintenance Due Date [...] 02/22/2021, 06/08/2020, Additional history exists PHQ-2 (Physician Jermyn) 03/09/2024 HPV Vaccines Aged Out No longer [...] age to complete this topic Insurance [place] [address] [address] [place] [address] Care Teams Closing Supervisor Relationship Specialty Start Date End Date Tomasa Henley MD [address] [place] [address] PCP - General FAMILY PRACTICE 01/07/23
--- OUTSIDE RECORDS SUMMARY | 2024-07-26 00:26 | XMS_ITS | Encounter Summary ---
Author Organization [facility] Address [address] [place] [address] Care Team Providers Care Special Projects Manager Name Role Phone Tomasa Henley MD Primary Care Provider [phone] Encounter Details Date Type Department Care Team (Latest Contact Info) Description 01/19/2023 Natanael Ulient Message Enc [facility] Medical Group Multispecialty Care - Health system [address] [facility], [address] [place] [address] Tomasz Mcelroy MD [address] [place] [address] P[place]-Moreno Syndrome Social History Tobacco Use Types [...] on filedocumented in this encounter Care Teams Special Projects Manager Relationship Specialty Start Date End Date Tomasa Henley MD [address] [place] [address] PCP - General FAMILY PRACTICE 01/07/23 documented as of this encounter
[2024-07-26 06:22] VITALS: BP 121/62; PULSE 83; RESP 18; TEMP 36.1; O2SAT 100
[2024-07-26] MEDS: LACTATED RINGERS 1,000 ML 150 ML IV CONT (06:31)
--- NOTE | 2024-07-26 07:02 | WPDANESEPPF ---
Anes - Initial Pre Proc Eval Procedure: Operation Date: 07/26/24 07:30 Proposed Procedures p Esophagogastroduodenoscopy - Young Iyer MD Date/Time: 07/26/24 07:02 Surgeon: Young Iyer MD Pre Op Diagnosis: Nausea with vomiting, unspecified Patient Data Age: 34 Gender: F Height: 1.63 m Weight: 85.1 kg Last Vital Signs Temp 36.1 C L 07/26/24 06:22 Pulse 83 07/26/24 06:22 Resp 18 07/26/24 06:22 BP 121/62 07/26/24 06:22 Pulse Ox 100 07/26/24 06:22 O2 Del Method Room Air 07/26/24 06:22 Allergies Allergy/AdvReac Type Severity Reaction Status Date / Time No Known Allergies Allergy Verified 07/26/24 06:16 Home Medications Medication Instructions Recorded Confirmed Type ropinirole 0.5 mg tablet 0.5 mg PO DIRECTED 10/23/20 07/21/24 History albuterol sulfate 90 mcg/actuation 2 puff inhalation QID PRN 11/10/23 07/21/24 Rx aerosol inhaler shortness of breath or wheezing #8.5 grams ibuprofen 800 mg tablet 800 mg PO TID PRN pain 7 days #21 11/30/23 07/21/24 Rx tabs alprazolam 0.25 mg tablet 0.5 mg PO DAILY 07/12/24 07/21/24 History famotidine 40 mg tablet 40 mg PO DAILY 07/12/24 07/21/24 History omeprazole 40 mg capsule,delayed 40 mg PO DAILY 1 month #30 caps 07/12/24 07/21/24 Rx release clindamycin HCl 300 mg capsule 300 mg PO DAILY 07/21/24 07/21/24 History montelukast 10 mg tablet 10 mg PO DAILY 07/21/24 07/21/24 History Patient hx anesthesia problems: none Family hx anesthesia problems: none Results Review: All pre-operative results and documents have been reviewed as part of the pre-operative evaluation. [facility] Past Medical History Medical History (Updated 07/12/24 @ 09:14 by DAYTON Zuñiga) Alternating constipation and diarrhea Celiac disease Atrial tachycardia Surgical History Surgical History S/P ablation operation for arrhythmia Social History Social History Smoking status: Current every day smoker Tobacco type: smokeless tobacco Alcohol intake: current Drinks per week: 6 Alcohol use details: occasional Substance use: never Substance use type: does not use Living arrangements: with family Spiritual care concerns: No Anes - Eval Final PreProcedure Day of Procedure 07/26/24 07:02 Patient weight: obese Heart: regular rate and rhythm Lungs: clear to auscultation Airway: Mallampati scale class II Neurological: alert and oriented Last oral intake: >/= 8 hours ASA classification: III Emergent: no Anesthetic plan: proceed Anesthesia type and monitoring: general GIVS and standard monitoring Results Review: All pre-operative results and documents have been reviewed as part of the pre-operative evaluation. Informed Consent: The patient's anesthetic plan and its attendant risks and benefits were discussed with the patient/family/POA. Questions were solicited and answers provided to the satisfaction of the patient/family/POA.
--- NOTE | 2024-07-26 07:19 | PM.HPGS ---
History of Present Illness History of Present Illness Consent: Risks, benefits, and alternatives have been discussed and questions answered. Patient agrees to proceed with procedure. Chief complaint: Nausea with vomiting, unspecified Narrative: Kallie Pritchett is a 34 year old female here for egd because n/v, also history of celiac on diet Review of Systems Review of Systems: All systems reviewed & are unremarkable except as noted in HPI and below PMFSH Past Medical History Medical History (Updated 07/12/24 @ 09:14 by DAYTON Zuñiga) Alternating constipation and diarrhea Celiac disease Atrial tachycardia Surgical History Surgical History S/P ablation operation for arrhythmia Social History Social History Smoking status: Current every day smoker Tobacco type: smokeless tobacco Alcohol intake: current Drinks per week: 6 Alcohol use details: occasional Substance use: never Substance use type: does not use Living arrangements: with family Spiritual care concerns: No Meds Home Medications and Allergies Home Medications Medication Instructions Recorded Confirmed Type ropinirole 0.5 mg tablet 0.5 mg PO DIRECTED 10/23/20 07/21/24 History albuterol sulfate 90 mcg/actuation 2 puff inhalation QID PRN 11/10/23 07/21/24 Rx aerosol inhaler shortness of breath or wheezing #8.5 grams ibuprofen 800 mg tablet 800 mg PO TID PRN pain 7 days #21 11/30/23 07/21/24 Rx tabs alprazolam 0.25 mg tablet 0.5 mg PO DAILY 07/12/24 07/21/24 History famotidine 40 mg tablet 40 mg PO DAILY 07/12/24 07/21/24 History omeprazole 40 mg capsule,delayed 40 mg PO DAILY 1 month #30 caps 07/12/24 07/21/24 Rx release clindamycin HCl 300 mg capsule 300 mg PO DAILY 07/21/24 07/21/24 History montelukast 10 mg tablet 10 mg PO DAILY 07/21/24 07/21/24 History Allergies Allergy/AdvReac Type Severity Reaction Status Date / Time No Known Allergies Allergy Verified 07/26/24 06:16 Vital Signs Vital Signs - 24 hr 07/26/24 06:22 Temperature 97 F L Pulse Rate 83 Respiratory Rate 18 Blood Pressure 121/62 Pulse Oximetry 100 Oxygen Delivery Room Air Exam Const: General: comfortable and no acute distress HENMT: Face/Nose/Sinus: Normal nares present Eyes: General: appearance normal, both eyes and all related structures Neck: Neck: no JVD Resp: Auscultation: clear to auscultation bilaterally Cardio: Rate: regular rate Rhythm: regular rhythm GI: Inspection: non-distended GI Palp: Yes Soft to palpation Skin: General skin exam: normal color Neuro: General: gait normal Speech: normal speech Extrem: General: normal to inspection Psych: Mental Status: mental status grossly normal Assessment and Plan Assessment and plan (1) Nausea & vomiting: Code(s): R11.2 - Nausea with vomiting, unspecified Status: Inactive Assessment and Plan: egd with bx (2) Celiac disease: Code(s): K90.0 - Celiac disease Status: Acute
[2024-07-26 07:33] VITALS: BP 97/51; PULSE 82; RESP 25; O2SAT 100
[2024-07-26 07:35] LABS: BEDSIDEPREGUCG Negative (Negative)
[2024-07-26 07:43] VITALS: BP 101/59; PULSE 75; RESP 22; O2SAT 100
[2024-07-26 07:53] VITALS: BP 104/61; PULSE 75; RESP 24; O2SAT 100
== END 2024-07-26 08:02 | disposition home or self-care (01) ==
PROVIDERS: PCP Nurse Practitioner Family; Visit Provider Internal Medicine Gastroenterology
PROC: 0DJ08ZZ Inspection of Upper Intestinal Tract, Via Natural or Artificial Opening Endoscopic (ICD-10-PCS; CPT 43239; principal; 2024-07-26 07:30)
DX: K29.70 Gastritis, unspecified, without bleeding (principal); R11.2 Nausea with vomiting, unspecified; K90.0 Celiac disease; F17.200 Nicotine dependence, unspecified, uncomplicated; E66.9 Obesity, unspecified; Z68.32 Body mass index [BMI] 32.0-32.9, adult
CPT/HCPCS: 43239; 88305; J2704; J7120

== ENCOUNTER 2024-08-18 07:59 | Outpatient (CLI) | payer OTHER, SELFPAY ==
--- NOTE | ~2024-08-18 | NM_ITS ---
EXAM: NM gastric emptying study DATE: 08/18/2024 12:30 INDICATION: Nausea with vomiting TECHNIQUE: A gastric emptying study was performed using the methodology of Paolo LEWIS, et al. J Nucl Med 2007; 48:568-572. The patient was given a meal consisting of 2 scrambled eggs labeled with 1.019 mCi Tc-99m sulfur colloid, 2 slices of toast, two packages of jam, and approximately 120 mL of water . Simultaneous anterior and posterior 1-min images of the abdomen were obtained with the patient supi ne at multiple time points over a total period of 4 hours. The geometric mean of anterior and posteri or views was determined, and the percentage retention was calculated for each time point. COMPARISON: None. FINDINGS: Gastric retention of the radiotracer-labeled meal was 60%, 41%, and 2% at the 1-hour, 2-hour, and 4-h our time points, respectively. With this technique, apparent rapid gastric emptying is suggested by < 30% gastric retention at 1 hour. Delayed gastric emptying is defined by gastric retention of >90% at 1 hour, >60% retention at 2 hours, or >10% retention at 4 hours. IMPRESSION: 1. Normal gastric emptying. Reviewed, dictated and finalized at location A. IMPRESSION: 1. Normal gastric emptying.
--- OUTSIDE RECORDS SUMMARY | 2024-08-18 08:05 | XMS_ITS | Clinical Summary ---
Author Organization [facility] Address [address] [place] [address] Care Team Providers Care Oxidation Engineer Name Role Phone JeffNoahradha HUTSON-BODY AND FRAME TECHNICIAN Primary Care Provider [phone] Source Comments [facility],non-owned Affiliates and Associated Physician Practices is amultiple site organization consisting of ambulatory clinics and hospital sitesin [place], [place], [place] and [place]. This disclosure is being madepursuant to the Care Everywhere program and may not contain all information available regarding this patient. Last updated 17.[facility] Allergies No known active allergies Medications * [...] vitamin D, ergocalciferol , (Drisdol) 1.25 MG (27850 UT) capsule Take 1 (one) capsule by [...] Description 07/21/2024 8:20 AM CDT Office Visit [facility] - Rheumatology [address] [place] [address] [place] [address] Yumi Andres MD Polyarthralgia (Primary [...] 8:27 AM CDT Height 162.6 cm (5' 4) 07/21/2024 8:27 AM CDT Body Mass Index 31.93 07/21/2024 8:27 AM CDT Plan of Treatment Health Maintenance Due Date Last Done Comments PAP SMEAR 1990 HIV SCREENING 2005 HEPATITIS C SCREENING 07/14/2008 DTAP/TDAP/TD VACCINES (1 - Tdap) 2009 HEPATITIS B VACCINE (1 of 3 - 19+ 3-dose series) 2009 COVID-19 VACCINE ( - season) 2023 03/17/2022, 02/22/2021, 06/08/2020, Additional history exists INFLUENZA VACCINE (Season Ended) 2024 01/07/2022, 12/07/2018, 12/26/2015, Additional history exists ZOSTER VACCINE (1 of 2) 2040 HIB [...] BLOOD QUANTITATIVE (07/22/2024 12:55 PM CDT) Pathologist [facility] Rheumatoid Factor <10 <14 IU/mL [facility] Comment: Test Performed at: [email or web address] [id number] CHANO GUAN MD Blood BLOOD SPECIMEN / Unknown 07/22/2024 12:55 PM CDT 07/22/2024 12:56 PM CDT Yumi Andres MD LAB - CHEMISTRY ORDERABLES nal Result Performing Organization Address [facility] de Phone Number [facility] [address] [place] [phone] * CYCLIC CITRULLINATED PEPTIDE(CCP) AB IGG (07/22/2024 12:55 PM CDT) Pathologist [facility] Cyclic Citrullinated Peptide Antibody IgG <16 UNITS [facility] Comment: Reference Range Negative: <20 Weak Positive: 20-39 Moderate Positive: 40-59 Strong Positive: >59 REPORT COMMENT: FASTING:NO Test Performed at: [employer] [facility] [email or web address] [id number] CHANO GUAN MD Blood BLOOD SPECIMEN / Unknown 07/22/2024 12:55 PM CDT 07/22/2024 12:56 PM CDT Yumi Andres MD LAB - CHEMISTRY ORDERABLES Fi nal Result Performing Organization Address [facility]/[employer] de Phone Number [facility] [address] [place] [address] from Last 3 Months Insurance [facility] SELF PAY NO INSURANCE Member Subscriber Plan / Payer (Ef fective for All Dates) Name:Kallie Pritchett Member ID:Not on file Relation to Subscriber:Not on file Name:ALDODALLASKALLIE Subscriber ID:Not on file (Home) Address: [address] [place] [id number] Payer ID:Not on file Group ID:Not on file Type:Self Pay Address: [place], [place] Care Teams Oxidation Engineer Relationship Specialty Start Date End Date Yolis Aguilar APNP-BODY AND FRAME TECHNICIAN [address] [place] [address] PCP - General Family Medicine 07/21/24
--- OUTSIDE RECORDS SUMMARY | 2024-08-18 08:05 | XMS_ITS | Continuity of Care Document ---
Author Organization [place] [facility] [employer] [facility], [facility] [place] Address [address] [place] [address] Care Team Providers Care Brood Hatchery Manager Name Role Phone AMANDA BUI Primary Care Provider AMANDA BUI Referring Provider [phone] Assessment No assessment recorded. Plan of Treatment Reminders Order Date Submit Date Provider Last Modified By Organization Details Last Modified Time Details Appointments None record ed. Lab None record ed. Referral None record ed. Procedures None record ed. Surgeries None record ed. Imaging None record ed. Medication Orders None record ed. Patient TargetsNo targets recorded. Patient InstructionsNo instructions recorded. Reason for Referral None Reported. Problems Name Problem SNOMED Code Status Onset Date Resolution Date Notes Provider Name and Address Organization Details Recorded Time Restless sleep 04503223 Active 2022 Not Available [employer] 3 08:49:21 Urticaria 371045662 Active Not Available [employer] 3 08:49:21 Pain in throat 511536035 Active 2022 Not Available [employer] 3 08:49:21 Abdominal pain 30113393 Active Not Available [employer] 3 08:49:21 Restless legs 54520045 Active 2022 Not Available [employer] 3 08:49:21 Vitamin D deficiency 81718106 Active Not Available [facility] 3 08:49:21 Ingrowing nail 163510582 Active Not Available [facility] 3 08:49:22 Ingrowing toenail 659984947 Active Not Available [facility] 3 08:49:22 Herpes zoster 7950675 Active Not Available [employer] 3 08:49:22 Anxiety 58649084 Active Not Available [facility] 3 08:49:22 Cough 07464068 Active 2022 Not Available [facility] 3 08:49:22 Chronic urticaria 08244704 Active Not Available [facility] 3 08:49:22 Supraventr icular tachycardi a 8264987 Active Not Available [facility] 3 08:49:22 Sleep apnea 70189405 Active 2022 Not Available [facility] 3 08:49:22 Palpitatio ns 58890172 Active Not Available [facility] 3 08:49:22 Fatigue 76122741 Active Not Available [facility] 3 08:49:22 Psoriasis 9740025 Active Not Available [facility] 3 08:49:23 Family history of celiac disease 002898566 Active 2022 Tomasa Henley MD [address], [place], [address] , [facility] 3 14:30:06 Iron deficiency anemia 84780912 Active 2022 Tomasa Henley MD [address], [address] , [facility] 3 14:31:28 Celiac disease 390946940 Active 2022 Tomasa Henley MD [address], [place], [address] , [facility] 3 08:06:23 Cobalamin deficiency 784721301 Active 2022 Tomasa Henley MD [address], [address] , [facility] 3 08:06:40 Vasospasm 84085062 Active 2022 Tomasa Henley MD [address], [address] , [facility] 3 15:58:19 Paresthesi a of upper limb 83842213 Active 2022 Tomasa Henley MD [address], [place], [address] , [facility] 3 16:00:05 Thoracic outlet syndrome 353477757 Active 2023 Tomsaa Henley MD [address], [place], [address] , [facility] 4 15:37:52 Fever 054985682 Active 2023 ISH Contreras, [place] [facility] 4 11:13:36 Sore throat 649517966 Active 2023 ISH Contreras, [place] [facility] 4 11:14:04 Upper respirator y infection 41842304 Active 2023 NINO Morgan [address], [place], [address] , [facility] 4 12:52:21 Pain of right shoulder joint 6147044505281 9100 Active 2023 Checo Nelson MD [address], [place], [address] , [facility] 4 17:54:42 Weight gain 3931096 Active 2023 Tomasa Henley MD [address], [place], [address] , [facility] 4 12:06:36 Mild manic bipolar I disorder 06932214 Active 2023 NINO Roque [address], [place], [address] , [facility] 4 14:25:28 Constipati on 18283312 Active 2023 NINO Roque [address], [place], [address] , [place] [facility] 4 14:33:51 Attention deficit hyperactiv ity disorder 988051074 Active 2023 NINO Roque [address], [place], [address] , [place] [facility] 4 14:48:54 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 2024 NINO Roque [address], [place], [address] , [place] [facility] 5 16:23:15 Autism spectrum disorder 78320534 Active 2024 NINO Roque [address], [place], [address] , [place] [facility] 5 17:07:16 Acid reflux 450879433 Active 2024 NINO Roque [address], [place], [address] , [place] [facility] 5 12:54:20 Nausea and vomiting 99693582 Active 2024 NINO Roque [address], [place], [address] , [place] [facility] 5 12:54:28 Pain of left wrist 5689421791363 02 Active 2024 ROSAURA Montanez, [place] [facility] 5 09:04:13 Sprain of left wrist 4722022574227 9104 Active 2024 BRADLEY MontanezA null, [place] [facility] 5 15:07:56 Recurrent acute maxillary sinusitis Active 2024 NINO Roque [address], [place], [address] , [place] [facility] 5 16:09:23 Depressive disorder 36654722 Active 2024 KYLE Roque-Bonnie [address] [facility], [facility] [address], [place], [address] , [employer] 16:06:13 Notes:[facility] home sleep study 04/30/22 AHI = 1 Medical History: Urticaria Psoriasis Herpes zoster Anxiety Rhinitis Obesity with mild OSAHS, AHI = 1, 04/30/22 SVT RLS Iron deficiency normocytic anemia Vit D deficiency Problem Notes None recorded. Procedures Surgical History Date Name Laterality Status Provider Name and Address Organization Details Recorded Time 12/26/19 Transitional_Care _Management completed Cheryl Mahan RN [facility] 12/25/2022 15:12:59 07/09/19 EGD completed Katerina Quintana LPN [facility] 07/11/2022 12:24:33 Tonsillectomy completed Kisha Guzmán CNA [facility] 07/05/2024 09:01:06 cardiac ablation for atrial fibrillation completed Kisha Guzmán CNA [facility] 07/05/2024 09:01:31 Imaging Results None recorded. Procedure [...] completed Not Available Not Available Not Available esomeprazo le magnesium 40 mg capsule,de layed release TAKE 1 CAPSULE BY MOUTH TWICE A DAY FOR 3 MONTHS active Not Available Not Available No t Available Cipro 500 mg tablet Take 1 [...] completed Not Available Not Available Not Available sertraline 50 mg tablet TAKE 1 TABLET BY MOUTH EVERY DAY active Not Available Not Available No t Available doxycyclin e hyclate 100 mg tablet Take 1 tablet twice a day by oral route for 7 days. active Not Available Not Available No t Available metoclopra mide 10 mg tablet TAKE 10 MG BY MOUTH EVERY 6 HOURS NEEDED FOR [...] (BMI) Body weight Body temperature Heart rate Respiratory rate Oxygen saturation Oxygen saturation in Arterial blood by Pulse oximetry Systolic blood pressure Diastolic blood pressure Provider Name and Address Organization Details Last Updated DateTime 162.56 cm 31.6 kg/m2 03541 g 97.4 [degF] 74 /min 18 /min 99 % 99 % 118 mm[Hg] 72 mm[Hg] Amanda Jeff, [employer] [address] [facility], [place], [address], [facility] [employer] 08:31:47 Social History Question Answer Notes LastModified by Organization Details LastModified Time Tobacco Smoking Status Current Every Day Smoker Kisha RauschROSAURA adorno null, [employer] 07/05/2024 09:00:38 Do You Have An Advance Directive? No MIGRATION.030 [id number] Information not available 05/07/2022 Do You Wear A Helmet When Biking? No MIGRATION.030 015733 Information not available 05/07/2022 What Is Your Level Of Caffeine Consumption? Moderate MIGRATION.030 030788 Information not available 05/07/2022 In The 14 Days Before Symptom Onset, Have You Had Close Contact With A Laboratory-conf irmed COVID-19 While That Case Was Ill? No MIGRATION.030 079300 Information not available 05/07/2022 In The 14 Days Before Symptom Onset, Have You Had Close Contact With A Person Who Is Under Investigation For COVID-19 While That Person Was Ill? No MIGRATION.0301 801123 Information not available 05/07/2022 What Type Of Diet Are You Following? REGULAR MIGRATION.030 [id number] Information not available 05/07/2022 Have There Been Any Changes To Your Family Or Social Situation? No MIGRATION.0301 899857 Information not available 05/07/2022 When Did You Quit Smoking? 6-10yearssincelas tcigarette Information not available 06/14/2024 Are There Any Guns Present In Your Home? No MIGRATION.0301 [id number] Information not available 05/07/2022 Do You Use Insect Repellent Routinely? Yes MIGRATION.0301 [id number] Information not available 05/07/2022 Where Do You Live? [place] MIGRATION.030 053945 Information not available 05/07/2022 Do You Have A Medical Power Of Information Technology Account Manager? No MIGRATION.0301 362740 Information not available 05/07/2022 What Was The Date Of Your Most Recent Tobacco Screening? 06/14/2024 Information not available 06/14/2024 How Many Children Do You Have? 1 Information not available 06/14/2024 Do You Have Any Pets? Yes MIGRATION.0301 [id number] Information not available 05/07/2022 What Is Your Relationship Status? Significant Other MIGRATION.0301 047856 Information not available 05/07/2022 Do You Use Your Seat Belt Or Car Seat Routinely? Yes MIGRATION.0301 812019 Information not available 05/07/2022 Do You Have Smoke And Carbon Monoxide Detectors In Your Home? Yes MIGRATION.0301 783635 Information not available 05/07/2022 At What Age Did You Start Smoking Tobacco? 13 MIGRATION.0301 188219 Information not available 05/07/2022 Are You Passively Exposed To Smoke? No MIGRATION.0301 179879 Information not available 05/07/2022 Are There Any Smokers In Your House? No MIGRATION.0301 729508 Information not available 05/07/2022 How Much Tobacco Do You Smoke? 1 PPD Information not available 06/14/2024 Do You Participate In Social Media? Yes MIGRATION.0301 206177 Information not available 05/07/2022 Do You Use Sunscreen Routinely? Yes MIGRATION.0301 336601 Information not available 05/07/2022 How Many Years Have You Smoked Tobacco? 20 Information not available 07/05/2024 Have You Recently Traveled Abroad? No MIGRATION.0301 144139 Information not available 05/07/2022 Are You Currently In School? No MIGRATION.0301 637618 Information not available 05/07/2022 Sex: Unknown Functional Status Question Answer Note LastModified by Organizat ion Details LastModified Time Do you use any illicit or recreational drugs? No MIGRATION.045660 4701 Information not available 05/07/2022 Do you or have you ever used any other forms of tobacco or nicotine? Yes MIGRATION.079397 8625 Information not available 05/07/2022 What is your level of alcohol consumption? Occasional Information not available 07/05/2024 Are you currently employed? 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 Current user of electronic cigarettes MIGRATION.972786 0489 Information not available 05/07/2022 What is your exercise level? None MIGRATION.359258 6176 Information not available 05/07/2022 Mental Status Question Answer Note LastModified by Organizat ion Details LastModified Time Do you feel stressed (tense, restless, nervous, or anxious, or unable to sleep at night)? [id number] MIGRATION.[id number] 6 Information not available 05/07/2022 Family History Relationship Description Onset Age of this Age Resolved Age Notes LastModified by Organization Details LastModified Time Father Sleep apnea MIGRATION.03 0 [id number] Not available 05/07/2022 08:45:25 Maternal Grandmother Family history of malignant neoplasm [id number] Not available 2023 16:10:13 Medical History Condition [...] mL dose, gume-sucrose 3 completed Not Available [facility] 05/07/2022 08:54:18 Influenza, split virus, quadrivalent, PF 9 completed Not Available [facility] 05/07/2022 08:54:18 Influenza, split virus, quadrivalent, PF 2 completed Not Available [facility] 05/07/2022 08:54:18 Influenza, split virus, quadrivalent, preservative 6 completed Not Available [facility] 05/07/2022 08:54:18 Past Encounters Encounter ID Performer Location Encounter Start Date Encounter Closed Date Diagnosis/Indication Diagnosis SNOMED-CT Code Diagnosis ICD10 Code Diagnosis Note [id number] Checo Nelson MD [facility] [address] [place] [address] 08/16/2024 14:58:42 08/16/2024 15:36:02 Pain of left wrist 7651051720 95868 M25.532 Sprain of left wrist 669 8384979 1364535 S63.502D [id number] NINO Roque [facility] [place] [address] [facility] [address] [facility] [place] [address] 08/17/2024 16:16:23 08/17/2024 17:29:54 Depressive disorder 49135292 F32.A Patient is doing better since starting the Sertraline last week. Will continue with current dose and patient will follow up in one month, sooner if needed.Den ies SI/HI. Health Concerns Section Related Observation LastModified by Organization Detai ls LastModified Time None Recorded Concern Status LastModified by Organization Details LastModified Time None Recorded Payers Encounter Date Sequence Insurance Name Policy Number Policy Delgado Covered Member ID Delgado Member ID Guarantor Name 08/17/2024 1 [facility] [id number] Kallie Pritchett [id number] Kallie Pritchett Notes Date Note Type Note Provider Name and Address Organization Details Recorded Time 08/17/2024 text/html Patient is a 34 year old female that presents to the office for medication follow up. NINO Roque [address] [facility] [address], [address], [facility] [employer] 08/18/2024 08:34:25 OBGyn Episode No OBEpisode recorded.
--- OUTSIDE RECORDS SUMMARY | 2024-08-18 08:05 | XMS_ITS | Data Portability ---
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 Not available 07/05/2024 09:21:42 08/16/2024 08/16/2024 The patient has a resolved left wrist sprain after a hyperextension injury when a large dog jumped up towards her. The injury occurred almost 3 months ago she has finally feeling good. At this point she can start getting back into her normal activities. She will work on some light activities advanced as tolerated to more heavy repetitive things as necessary. If her pain returns she can use ibuprofen and ice and activity modification as necessary if her symptoms continue she will call me but for now she is dismissed. The patient voiced understanding she agreed with the above plan she states she is feeling good and will call as needed. Not available 08/16/2024 16:59:14 Plan of Treatment Reminders Order Date Submit Date Provider Last Modified By Organization Details Last Modified Time Details Appointments None recorded. Lab None recorded. Referral occupationa l therapist referral - Please contact patient to schedule 2024 [facility], [address], [address], [place], [address], 11:12:05 Procedures None recorded. Surgeries None recorded. Imaging None recorded. Medication Orders Medrol (Sammy) 4 mg tablets in a dose pack 2024 [facility], [address] [place], [address], 16:18:45 clindamycin HCl 300 mg capsule 2024 025 [facility], [address] [place], [address], 16:18:46 prednisone 10 mg tablets in a dose pack 2024 025 [email or web address] [address] [place], [address], 15:54:17 ropinirole 3 mg tablet 2024 025 [facility], [address] [place], [address], 16:31:58 alprazolam 0.25 mg tablet 2024 025 [facility], [address] [place], [address], 16:32:01 Patient TargetsNo targets recorded. Patient InstructionsNo instructions [...] cause of anaph ylaxi s. Not Available [facility] [id number] [place], [address], 05/26/2024 17:01:32 05/18/19 25 05/26/2024 HISTA MINE, PLASM A histamine, plasma <1.5 NG/mL < or = 1.8 This test was perfo rmed using a kit that has not been clear ed or appro valentina by the FDA. The mirna tical perfo rmanc e deepthi cteri stics of this test have been deter mined by [facility] . This test shoul d not be used for diagn osis witho ut confi rmati on by other medic ally estab lishe d means . Not Available [facility] [address] [place], [address], 05/26/2024 17:01:33 05/18/1905/26/2024 CHROM OGRAN IN A, LC/MS /MS chromogranin [...] follo w-up study . Int J Biol Adiimrna rs. 2010- un;26 (2):9 4-101 .) This [...] have been deter mined by [facility]. It has not been clear ed or appro valentina by the FDA. This assay has been valid ated pursu ant to the CLIA regul ation s and is used for clini daxa purpo ses. Not Available [facility] [address] [place], [address], 05/26/2024 17:01:34 Result Notes None recorded. Problems Name Problem SNOMED Code Status Onset Date Resolution Date Notes Provider Name and Address Organization Details Recorded Time Restless sleep 79228819 Active 2022 Not Available [facility] 3 08:49:21 Urticaria 965046198 Active Not Available [facility] 3 08:49:21 Pain in throat 552252367 Active 2022 Not Available [facility] 3 08:49:21 Abdominal pain 89870186 Active Not Available [facility] 3 08:49:21 Restless legs 34111048 Active 2022 Not Available [facility] 3 08:49:21 Vitamin D deficiency 63525678 Active Not Available [facility] 3 08:49:21 Ingrowing nail 353031668 Active Not Available [facility] 3 08:49:22 Ingrowing toenail 627775961 Active Not Available [facility] 3 08:49:22 Herpes zoster 1387042 Active Not Available [facility] 3 08:49:22 Anxiety 12690976 Active Not Available [facility] 3 08:49:22 Cough 83486708 Active 2022 Not Available [facility] 3 08:49:22 Chronic urticaria 41916128 Active Not Available [facility] 3 08:49:22 Supraventr icular tachycardi a 6031023 Active Not Available [facility] 3 08:49:22 Sleep apnea 91727574 Active 2022 Not Available [facility] 3 08:49:22 Palpitatio ns 06997729 Active Not Available [facility] 3 08:49:22 Fatigue 79098538 Active Not Available [facility] 3 08:49:22 Psoriasis 6948310 Active Not Available [facility] 3 08:49:23 Family history of celiac disease 735232229 Active 2022 Tomasa Henley MD [address], [address], [address] , [facility] [employer] [facility] 3 14:30:06 Iron deficiency anemia 17409635 Active 2022 Tomasa Henley MD [address], [address], [address] , [facility] [employer] [facility] 3 14:31:28 Celiac disease 773626546 Active 2022 Tomasa Henley MD [address], [place], [address] , [facility] [employer] [facility] 3 08:06:23 Cobalamin deficiency 268778484 Active 2022 Tomasa Henley MD [address], [place], [address] , [facility] [employer] [facility] 3 08:06:40 Vasospasm 79596679 Active 2022 Tomasa Henley MD [address], [address], [place], [address] , [facility] 3 15:58:19 Paresthesi a of upper limb 81859165 Active 2022 Tomasa Henley MD [address], [address], [place], [address] , [facility] 3 16:00:05 Thoracic outlet syndrome 874668783 Active 2023 Tomasa Henley MD [address], [address], [place], [address] , [facility] 4 15:37:52 Fever 007604364 Active 2023 ISH Contreras, [facility] 4 11:13:36 Sore throat 320769497 Active 2023 SIH Contreras, [facility] 4 11:14:04 Upper respirator y infection 29931134 Active 2023 NINO Morgan [address], [address], [place], [address] , [facility] 4 12:52:21 Pain of right shoulder joint 0766834396442 9100 Active 2023 Checo Nelson MD [address], [address], [place], [address] , [facility] 4 17:54:42 Weight gain 3704361 Active 2023 Tomasa Henley MD [address], [address], [place], [address] , [facility] 4 12:06:36 Mild manic bipolar I disorder 19066943 Active 2023 NINO Roque [address], [address], [place], [address] , [place] [facility] 4 14:25:28 Constipati on 08982259 Active 2023 NINO Roque [address], [address], [place], [address] , [facility] 4 14:33:51 Attention deficit hyperactiv ity disorder 619694709 Active 2023 NINO Roque [address], [address], [place], [address] , [facility] 4 14:48:54 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 2024 NINO Roque [address], [address], [place], [address] , [facility] 5 16:23:15 Autism spectrum disorder 52203269 Active 2024 NINO Roque [address], [address], [place], [address] , [facility] 5 17:07:16 Acid reflux 993831309 Active [address]que [address], [address], [place], [address] , [facility] 5 12:54:20 Nausea and vomiting 25340669 Active 2024 NINO Roque [address], [address] [facility], [place], [address] , [facility] 5 12:54:28 Pain of left wrist 6542567472664 02 Active 2024 ROSAURA Montanez, [place] [facility] 5 09:04:13 Sprain of left wrist 4187584971917 9104 Active 2024 BRADLEY MontanezA null, [place] [facility] 5 15:07:56 Recurrent acute maxillary sinusitis Active 2024 NINO Roque [address], [address], [place], [address] , [facility] [employer] [facility] [employer] [facility] 16:09:23 Depressive disorder 39048407 Active 2024 NINO Roque [address], [address], [place], [address] , [facility] [employer] [facility] [employer] [facility] 16:06:13 Notes:[facility] 04/30/22 AHI = 1 Medical History: Urticaria Psoriasis Herpes zoster Anxiety Rhinitis Obesity with mild OSAHS, AHI = 1, 04/30/22 SVT RLS Iron deficiency normocytic anemia Vit D deficiency Problem Notes None recorded. Procedures Surgical History Date Name Laterality Status Provider Name and Address Organization Details Recorded Time 12/26/19 Transitional_Care _Management completed Cheryl Mahan RN [place] [employer] [facility] 12/25/2022 15:12:59 07/09/19 EGD completed Katerina Quintana LPN [place] [employer] [facility] [employer] [facility] 07/11/2022 12:24:33 Tonsillectomy completed Kisha Guzmán CNA [place] [employer] [facility] 07/05/2024 09:01:06 cardiac ablation for atrial fibrillation completed Kisha Guzmán EXTENSION SERVICE SUPERVISOR [place] [employer] [facility] [employer] [facility] 07/05/2024 09:01:31 Imaging Results None recorded. Procedure [...] Organization Details Last Updated DateTime 162.56 cm 32.6 kg/m2 38435.5 5 g 98.2 [degF] 89 /min 99 % 99 % 110 mm[Hg] 68 mm[Hg] Giovana Childs MA [place] [employer] [facility] 16:13:09 Date Recorded Body height Body mass index (BMI) Body weight Provider Name and Address Organization Details Last Updated DateTime 07/05/2024 162.56 cm 30.7 kg/m2 25418.03 g Kisha Guzmán CNA [facility] 07/05/2024 08:56:41 Date Recorded Body height Body mass index (BMI) Body weight Body temperature Heart rate Oxygen saturation Oxygen saturation in Arterial blood by Pulse oximetry Systolic blood pressure Diastolic blood pressure Provider Name and Address Organization Details Last Updated DateTime 162.56 cm 32.4 kg/m2 73348.9 6 g 97.2 [degF] 93 /min 98 % 98 % 112 mm[Hg] 72 mm[Hg] ERIKA Grey [place] [employer] [facility] 15:57:13 Date Recorded Body height Body mass index (BMI) Body weight Provider Name and Address Organization Details Last Updated DateTime 08/16/2024 162.56 cm 30.9 kg/m2 82743.63 g Kisha Guzmán CNA [facility] 08/16/2024 15:05:33 Date Recorded Body height Body mass index (BMI) Body weight Body temperature Heart rate Respiratory rate Oxygen saturation Oxygen saturation in Arterial blood by Pulse oximetry Systolic blood pressure Diastolic blood pressure Provider Name and Address Organization Details Last Updated DateTime 162.56 cm 31.6 kg/m2 66711 g 97.4 [degF] 74 /min 18 /min 99 % 99 % 118 mm[Hg] 72 mm[Hg] NINO Roque [address] [facility] [facility] [address], [place], [address], [facility] 08:31:47 Social History Question Answer Notes LastModified by Organization Details LastModified Time Tobacco Smoking Status Current Every Day Smoker Kisha ROSAURA Guzmán [place] [facility] [place] [employer] 07/05/2024 09:00:38 Do You Have An Advance Directive? No MIGRATION.0301 [id number] Information not available 05/07/2022 Do You Wear A Helmet When Biking? No MIGRATION.0301 757473 Information not available 05/07/2022 What Is Your Level Of Caffeine Consumption? Moderate MIGRATION.0301 [id number] Information not available 05/07/2022 In The 14 Days Before Symptom Onset, Have You Had Close Contact With A Laboratory-conf irmed COVID-19 While That Case Was Ill? No MIGRATION.0301 [id number] Information not available 05/07/2022 In The 14 Days Before Symptom Onset, Have You Had Close Contact With A Person Who Is Under Investigation For COVID-19 While That Person Was Ill? No MIGRATION.0301 [id number] Information not available 05/07/2022 What Type Of Diet Are You Following? REGULAR MIGRATION.0301 [id number] Information not available 05/07/2022 Have There Been Any Changes To Your Family Or Social Situation? No MIGRATION.0301 [id number] Information not available 05/07/2022 When Did You Quit Smoking? 6-10yearssincelas tcigarette Information not available 06/14/2024 Are There Any Guns Present In Your Home? No MIGRATION.0301 025097 Information not available 05/07/2022 Do You Use Insect Repellent Routinely? Yes MIGRATION.0301 763585 Information not available 05/07/2022 Where Do You Live? [place] MIGRATION.0301 [id number] Information not available 05/07/2022 Do You Have A Medical Power Of Career Specialist? No MIGRATION.0301 692536 Information not available 05/07/2022 What Was The Date Of Your Most Recent Tobacco Screening? 06/14/2024 Information not available 06/14/2024 How Many Children Do You Have? 1 Information not available 06/14/2024 Do You Have Any Pets? Yes MIGRATION.0301 737155 Information not available 05/07/2022 What Is Your Relationship Status? Significant Other MIGRATION.0301 614971 Information not available 05/07/2022 Do You Use Your Seat Belt Or Car Seat Routinely? Yes MIGRATION.0301 [id number] Information not available 05/07/2022 Do You Have Smoke And Carbon Monoxide Detectors In Your Home? Yes MIGRATION.0301 993372 Information not available 05/07/2022 At What Age Did You Start Smoking Tobacco? 13 MIGRATION.0301 187917 Information not available 05/07/2022 Are You Passively Exposed To Smoke? No MIGRATION.0301 937305 Information not available 05/07/2022 Are There Any Smokers In Your House? No MIGRATION.0301 619740 Information not available 05/07/2022 How Much Tobacco Do You Smoke? 1 PPD Information not available 06/14/2024 Do You Participate In Social Media? Yes MIGRATION.0301 758223 Information not available 05/07/2022 Do You Use Sunscreen Routinely? Yes MIGRATION.0301 289064 Information not available 05/07/2022 How Many Years Have You Smoked Tobacco? 20 Information not available 07/05/2024 Have You Recently Traveled Abroad? No MIGRATION.0301 844975 Information not available 05/07/2022 Are You Currently In School? No MIGRATION.0301 618468 Information not available 05/07/2022 Sex: Unknown Functional Status Question Answer Note LastModified by OrganizKriyari ion Details LastModified Time Do you use any illicit or recreational drugs? No MIGRATION.312175 5547 Information not available 05/07/2022 Do you or have you ever used any other forms of tobacco or nicotine? Yes MIGRATION.912694 4551 Information not available 05/07/2022 What is your level of alcohol consumption? Occasional Information not available 07/05/2024 Are you currently employed? 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 Current user of electronic cigarettes MIGRATION.772426 1052 Information not available 05/07/2022 What is your exercise level? None MIGRATION.588602 1448 Information not available 05/07/2022 Mental Status Question Answer Note LastModified by Organizat ion Details LastModified Time Do you feel stressed (tense, restless, nervous, or anxious, or unable to sleep at night)? [id number] MIGRATION.[id number] 6 Information not available 05/07/2022 Family History Relationship Description Onset Age of this Age Resolved Age Notes LastModified by Organization Details LastModified Time Father Sleep apnea MIGRATION.03 0 [id number] Not available 05/07/2022 08:45:25 Maternal Grandmother Family history of malignant neoplasm [email or web address] Not available 2023 16:10:13 Medical History Condition [...] mL dose, gume-sucrose 3 completed Not Available [facility] 05/07/2022 08:54:18 Influenza, split virus, quadrivalent, PF 9 completed Not Available [facility] 05/07/2022 08:54:18 Influenza, split virus, quadrivalent, PF 2 completed Not Available [facility] 05/07/2022 08:54:18 Influenza, split virus, quadrivalent, preservative 6 completed Not Available [facility] 05/07/2022 08:54:18 Past Encounters Encounter ID Performer Location Encounter Start Date Encounter Closed Date Diagnosis/Indication Diagnosis SNOMED-CT Code Diagnosis ICD10 Code Diagnosis Note [id number] Tomasa Henley MD [facility] [address] [place] [address] 12/27/2020 00:00:00 12/27/2020 15:28:50 [id number] [facility] [address] [facility] [address] [place] [address] 01/07/2021 00:00:00 01/07/2021 10:29:58 [id number] [facility] [address] [facility] [address] [place] [address] 02/07/2021 00:00:00 03/04/2021 20:25:46 [id number] Tomasa Henley MD [facility] Primary Care [address] [address] [place] [address] 06/11/2021 00:00:00 06/11/2021 09:12:01 [id number] Tomasa Henley MD [facility] Primary Care [place] dyee [address] [facility] [address] [place] [address] 08/08/2021 00:00:00 08/08/2021 10:44:43 [id number] Tomasa Henley MD [facility] Primary Care [place] bellamy [address] [place] [address] [address] [place] [address] 01/07/2022 00:00:00 02/05/2022 14:12:08 [id number] Tomasa Henley MD [facility] Primary Care Fu[place] bellamy [address] [place] [address] [address] [place] [address] 04/16/2022 00:00:00 04/16/2022 10:15:45 [id number] Tomasa Henley MD [facility] Primary Care Fu[place] bellamy [address] [place] [address] [address] [place] [address] 04/23/2022 00:00:00 05/04/2022 15:14:16 [id number] Peace Olivas, [facility] [employer] [address] [place] [address] 04/28/2022 00:00:00 04/28/2022 12:05:16 [id number] Tomasa Henley MD [facility] Primary Care [place] dyee [address] [place] [address] [address] [place] [address] 06/11/2022 13:57:34 06/11/2022 14:45:11 Family history of celiac disease 168055868 Z83.79 R10.9 Iron defic iency anemia 74447264 D50.9 [id number] Tomasa Henley MD [facility] Primary Care [address] [place] [address] 07/23/2022 15:23:21 07/23/2022 16:01:59 Celiac disease 252166667 K90.0 refer to GI after insurance changenew dxcontinue gluten free diet Cobalamin deficiency 190 171323 E53.8 continue b12 oral replacemen trecheck labs in 6 weeks [id number] Tomasa Henley MD [facility] Primary Care [address] [facility] [address] 09/03/2022 15:21:49 09/03/2022 16:44:34 Anxiety 21549436 F41.9 Stop Buspar d/t negative side effects. Declines starting any other medication for anxiety at this time. Continue use of hydroxyzin e 25mg 1 tab TID prn Cobalamin deficiency 190 035147 E53.8 continue b12 oral replacemen t Iron defic iency anemia 51537425 D50.9 Renewal of prescription 424395783 Z76.0 [id number] Tomasa Henley MD [facility] Primary Care [address] [facility] [address] 12/25/2022 15:07:10 12/25/2022 16:11:32 Transition of care 9354081722 105 Z75.8 Vasospasm 92794508 I73.9 ? vasospasm vs pinched nervewill re-refer to vascular surgeonrem ain on xarelto in meantime, sample given Paresthesi a of upper limb 41311184 R20.2 will treat with steroids as pinched nerve is a possible etiologyca ll Thursday with update [id number] Tomasa Henley MD [facility] Primary Care [address] [place] [address] 01/13/2023 15:17:57 01/13/2023 18:14:31 [id number] Tomasa Henley MD [facility] Primary Care [address] [place] [address] 03/11/2023 15:24:55 03/11/2023 15:57:05 Thoracic outlet syndrome 634989474 G54.0 Going to PT, seeing neurology, has been referred to specialist at [facility] ed option of starting gabapentin , will observe for now Iron defic iency anemia 68549268 D50.9 likely due to celiac disease which is now being managed with a gluten free dietlast check showed elevated iron likely due to improved absorption , supplement ation was d/c in [facility] lab to monitor [id number] Tomasa Henley MD [facility] Primary Care [address] [place] [address] 04/22/2023 16:35:54 04/22/2023 17:09:03 [id number] Tomasa Henley MD [facility] Primary Care [address] [place] [address] 05/06/2023 11:51:19 05/06/2023 17:15:47 [id number] Checo Nelson MD [facility] [place] [address] [place] [address] 06/17/2023 15:38:42 06/17/2023 16:46:15 Pain of right shoulder joint 5147759867 7560509 M25.788 [id number] NINO Roque [facility] Primary Care [address] [place] [address] 09/23/2023 13:56:29 09/23/2023 14:38:15 Renewal of prescription 564909120 Z76.0 mild manic episode 3 weeks ago. short tempered. Fatigue 24795706 R53.83 Constipation 48042793 K5 9.00 Discussed using OTC Miralax daily until stools become regular. [id number] NINO Roque [facility] Primary Care [address] [place] [address] 12/29/2023 14:25:04 12/29/2023 15:49:31 Mild manic bipolar I disorder 15822495 F31.11 decrease Quetiapine to 200mg daily. Attention deficit hyperactivity disorder 739191142 F90.9 ADHD screening completed in office and scanned into chart.Will start treatment as listed below and have placed psych referral.P atient denies SI/HI.Namita ent will follow up in one month, sooner if needed. Restless legs 37949237 G 25.81 Doing well on current medication , will refill as listed below. [id number] NINO Roque [facility] Primary Care [address] [place] [address] 02/01/2024 15:42:01 02/01/2024 16:42:01 Mild manic bipolar I disorder 21817616 F31.11 decrease Quetiapine to 100mg daily. Body mass index 30+ - obesity 272416750 Z68.33 BMI: 33.1Discus sed continuing healthy diet and routine exercise. [id number] NINO Roque [facility] Primary Care [address] [place] [address] 05/04/2024 15:43:50 05/04/2024 16:52:25 Restless legs 96720514 G25.81 Doing well on current medication , will refill as listed below. Mast cell activation syndrome [id number] D89.40 Autism spe ctrum disorder [id number] F84.0 Patient is seeing therapist once a month. Patient reports she is doing well but is still trying to process this new diagnosis. Body mass index 30+ - obesity [id number] Z68.33 BMI: 31.4Discus sed continuing healthy diet and routine exercise. [id number] NINO Roque [facility] Primary Care [address] [place] [address] 06/14/2024 16:05:04 06/14/2024 16:31:43 Anxiety 32822806 F41.9 Restless legs [id number] G 25.81 [id number] Checo Nelson MD [facility] Ortho Natalia Yang [address] [place] [address] 07/05/2024 08:51:51 07/05/2024 09:36:21 Pain of left wrist [id number] 90308 M25.532 Sprain of left wrist 375 [id number] 5637346 S63.502A [id number] NINO Roque [facility] Primary Care [facility] [place] [address] [place] [address] 07/14/2024 15:39:03 07/14/2024 16:21:49 Recurrent acute maxillary sinusitis [id number] J01.01 Will treat as listed below. Patient will follow up as needed. [id number] Checo Nelson MD [facility] [place] Yang [address] [place] [address] 08/16/2024 14:58:42 08/16/2024 15:36:02 Pain of left wrist [id number] 37330 M25.532 Sprain of left wrist 743 [id number] S63.502D [id number] TOYA RoquePAdele [facility] Primary Care [facility] [address] [facility] [address] [place] [address] 08/17/2024 16:16:23 08/17/2024 17:29:54 Depressive disorder [id number] F32.A Patient is doing better since starting the Sertraline last week. Will continue with current dose and patient will follow up in one month, sooner if needed.Den ies SI/HI. Health Concerns Section Related Observation LastModified by Organization Detai ls LastModified Time None Recorded Concern Status LastModified by Organization Details LastModified Time None Recorded Advance Directives Directive N: Payers Insurance Date Sequence Insurance Name Policy Number Policy Delgado Covered Member ID Delgado Member ID Guarantor Name 06/23/2024 3 [employer] [place] - DOS ON OR AFTER 2020 (MEDICAID REPLACEMENT - HMO) Kallie Pritchett [id number] Kallie Pritchett 06/23/2024 2 [facility] - DOS ON OR AFTER 20 (MEDICAID REPLACEMENT - HMO) Kallie Pritchett [id number] Kallie Pritchett 06/23/2024 2 [place] [employer] Kallie Pritchett [id number] Kallie Pritchett 08/13/2024 1 [facility] [id number] Kallie Pritchett [id number] Kallie Pritchett Notes Date Note Type Note Provider Name and Address Organization Details Recorded Time 06/14/2024 text/html Patient is a 33 year [...] restless leg is also interrupting her sleep. NINO Roque [address] [facility], [place], [address], [place] [employer] [facility] 06/16/2024 08:36:55 07/05/2024 text/html The patient come s in with a new problem today. She is 33 years of age has pain in her left wrist after an injury. The patient states her 70 lb dog jumped towards her in excitement, this cause a hyperextension injury to her left wrist. She had immediate pain she did get give it some time to see if it would calm down. She continued to have pain so she went to urgent Care had x-rays performed. X-rays demonstrated no acute findings no fractures lesions or masses. I did review the x-rays in detail today with the patient and I agree with the above findings I do not see any evidence of dislocation malalignment or bony or joint disruption or abnormalities. The patient was given a cock-up wrist brace was told to protect it for awhile she states she did that for a few weeks but then her symptoms have continued 7 weeks later. She decided to make an appointment to see if there is anything else going on. She denies any loss of motion she does have pain with extremes motion she has trouble leaning on the hand pushing things or do anything heavy or repetitive. This causes aching mostly in the dorsum of the wrist. She is not taking any anti-inflammatory medication has had no other treatment. Prior to the injury she was not having any issues with the wrist. She denies any effusion or swelling no crepitation numbness or tingling. She comes in today for initial evaluation treatment. New past medical history sheet was reviewed and signed on the intake sheet of today's date drug allergies current medications family social history previous surgical history 10 point review of systems was reviewed and discussed in detail today with the patient. AYO Del Toro [address], [place], [address], [employer] 07/05/2024 09:23:34 07/14/2024 text/html Patient is a 33 year old female that presents to the office for sick visit. Patient reports sinus infection for the last 5 weeks. Patient went to about one month ago, was prescribed Doxycycline and symptoms start to improve but never resolved. Patient denies chest pain and shortness of breath. NINO Roque [address], [place], [address], [employer] 07/14/2024 21:29:32 08/16/2024 text/html the patient retu rns for recheck of her left wrist. She had an injury when a 70 lb dog jumped towards her in excitement she had a hyperextension injury to her left wrist. X-rays demonstrated no acute findings no fractures lesions or masses. She was treated conservatively with a cock-up wrist brace told to protect it she had generalized tenderness over the dorsum of her wrist. 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 In the meantime she comes in today stating that she really does not have any pain in the wrist now. It is feeling much better with time and conservative measures. She states previously she had a bit of a prominence or bump over the dorsum of her wrist but feels as though this is now resolved. I do not see any evidence of a ganglion cyst but did have a little bit of soft tissue swelling versus some dorsal bossing but now this appears to be gone she is no longer tender he has excellent function and range of motion comes in today for recheck and talk about further options for the future if her pain returns. AYO Del Toro [address], [place], [address], [employer] 08/16/2024 17:00:40 08/17/2024 text/html Patient is a 34 year old female that presents to the office for medication follow up. NINO Roque [address], [place], [address], [employer] 08/18/2024 08:34:25 OBGyn Episode No OBEpisode recorded.
--- OUTSIDE RECORDS SUMMARY | 2024-08-18 08:06 | XMS_ITS | Referral Summary ---
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 Gender Identity Female 06/02/2023 5:41 PM CDT [...] 11:10 AM CDT Height 165.1 cm (5' 5) 09/24/2023 11:10 AM CDT Body Mass Index 30.79 09/24/2023 11:10 AM CDT Plan of Treatment Not on file Insurance [facility]PPO Address: [facility] [address] [place] [address] [facility] Address: [facility] [address] [employer] [facility] [employer] [facility]O Address: [address] [address] [place] [address] Care Teams Door Operator Relationship Specialty Start Date End Date Tomasz Mcelroy MD [address] [place] [address] PCP - General Neurology 03/03/23 Tomasa Henley MD [address] [place] [address] [place] [address] Family Medicine 03/03/23
--- OUTSIDE RECORDS SUMMARY | 2024-08-18 08:06 | XMS_ITS | Patient Health Record ---
Author Organization [facility] Address [address] [place] [address] Care Team Providers Care Concrete Block Molder Name Role Phone Yolis Estrada Primary Care Provider Dorota Hernandez Unavailable [phone] Burke Campa Unavailable [phone] Allergies Allergen (clinical drug ingredient) Drug/Non Drug [...] Oxazepam (BZO) NEG 0 - 300 ng/ml 2-hywiofuood-9,0-ijbfohce-5,3-diphenylpyrrolidine (SHARMAINE P) NEG 0 - 300 ng/ml Methamphetamine (MET) NEG 0 - 1000 ng/ml Methylenedioxymethamphetamine (MDMA) NEG 0 - 500 ng/ml Morphine (MOP 300/OCS2235) NEG 0 - 300 ng/ml Methadone (MTD) [...] Problem Status W/U Status Risk Notes Problem 4888663 Primary insomnia (F51.01) Active confirmed Problem Screening for cardiovascular system disease (032920225) Encounter for screening for cardiovascular disorders (Z13.6) Active confirmed Problem Depression Screening (795971856) Encounter for screening for depression (Z13.31) Active confirmed Problem 19214713 Bipolar 2 disorder (F31.81) Active confirmed Problem [id number] NIKKI (generalized anxiety disorder) (F41.1) Active confirmed Problem 24843180 ADHD (attention deficit hyperactivity disorder), combined type (F90.2) Active confirmed Problem 294428458 MDD (major depressive disorder), recurrent episode, mild (F33.0) Active confirmed Problem 75000141 Autism spectrum disorder (F84.0) Active confirmed Problem 95515370 MDD (recurrent major depressive disorder) in remission (F33.40) Active confirmed Problem Nicotine use (Z72.0) Active confirmed Vital Signs Heart Rate 72 /min 06/10/2024 Respiratory Rate 16 /min 02/09/2024 Height-cm 162.56 cm 06/10/2024 Blood pressure diastolic 69 mm Hg 06/10/2024 Weight-kg 86.09 kg 06/10/2024 Height 64 in 06/10/2024 Blood pressure systolic 113 mm Hg 06/10/2024 Weight 189.8 lbs 06/10/2024 BMI 32.58 kg/m2 06/10/2024 Encounters Encounter Location Date Provider Diagnosis [place] [id number] [facility] [address] [address] 02/09/2024 Dorota Crump Bipolar 2 disorder F31.81 ; NIKKI (generalized anxiety disorder) F41.1 ; Primary insomnia F51.01 and ADHD (attention deficit hyperactivity disorder), combined type F90.[address] [facility] [place] [address] [facility] [address] [address] 02/29/2024 Dorota Crump Bipolar 2 disorder F31.81 ; NIKKI (generalized anxiety disorder) F41.1 ; Primary insomnia F51.01 and ADHD (attention deficit hyperactivity disorder), combined type F90.[address] [facility] [address] [facility] [address] [address] 03/28/2024 Dorota Therlulú Bipolar 2 disorder F31.81 ; NIKKI (generalized anxiety disorder) F41.1 ; Primary insomnia F51.01 and ADHD (attention deficit hyperactivity disorder), combined type F90.[address] [facility] [place] [address] [facility] [address] [address] 04/12/2024 Dorota Crump Bipolar 2 disorder F31.81 ; NIKKI (generalized anxiety disorder) F41.1 ; Primary insomnia F51.01 and ADHD (attention deficit hyperactivity disorder), combined type F90.2 [facility] [address] [place] [address] 05/09/2024 Dorota Therlulú NIKKI (generalized anxiety disorder) F41.1 ; Autism spectrum disorder F84.0 ; Primary insomnia F51.01 ; ADHD (attention deficit hyperactivity disorder), combined type F90.2 and MDD (major depressive disorder), recurrent episode, mild F33.0 [facility], [facility] [address] [place] [address] 06/10/2024 Dorota Thery Nicotine use Z72.0 ; MDD (recurrent major depressive disorder) in remission F33.40 ; Encounter for screening for depression Z13.31 ; Encounter for screening for cardiovascular disorders Z13.6 ; NIKKI (generalized anxiety disorder) F41.1 ; Primary insomnia F51.01 and ADHD (attention deficit hyperactivity disorder), combined type F90.2 [facility] [address] [place] [address] 05/11/2024 Dorota Crump [facility], [facility] [address] [place] [address] 05/18/2024 Dorota Therlulú [facility], [facility] [address] [place] [address] 03/03/2024 Dorota Therlulú [facility], [facility] [address] [place] [address] 04/01/2024 Dorota Therlulú Bipolar 2 disorder F31.81 [facility], [facility] [address] [place] [address] 04/05/2024 Dorota Therlulú [facility], [facility] [address] [place] [address] 04/19/2024 Dorota Therlulú [facility], [facility] [address] [place] [address] 04/19/2024 Dorota Thery Bipolar 2 disorder F31.81 [facility], [facility] [address] [place] [address] 04/20/2024 Dorota Therlulú [facility], [facility] [address] [place] [address] 05/04/2024 Dorota Therlulú [facility], [facility] [address] [place] [address] 05/10/2024 Dorota Sproutlulú [facility] [place], [facility] [address] [place] [address] 05/11/20[facility] [address] [place] [address] 05/11/20[facility] [address] [place] [address] 05/18/2024 Dorota Sproutlulú [facility], [facility] [address] [place] [address] 05/19/2024 Dorota Sproutlulú [facility], [facility] [address] [place] [address] 05/25/2024 [facility] [address] [place] [address] 05/25/2024 [facility] [address] [place] [address] 05/26/2024 Dorota Spr[address]lulú [facility] [place], [facility] [address] [place] [address] 07/14/20[facility] [place] [address] [place] [address] 07/27/2024 Dorota Crump Assessments Encounter Date Diagnosis (ICD [...] abuse, and addiction before prescribing stimulant medicines. Lcac Operator patients not to share their prescribed stimulant [...] warranted by the prescribed dosage. Random UDS [place] prescription reviewed local pharmacy in [place], no early refills on control substance educated on non-stimulate and stimulates Cannabis/marijuan a information: http_s://tammy.nih .gov/publications /drugfacts/cannab is-marijuana http_s://www.[employer]inger/canna oim-vzo-ijjqfrxu- marijuana-adhd/ http_s://www.jumana .org/About-Mental -Illness/Mental-H ealth-Conditions http_s://YouAppi/depressi on/the-cognitive- ynanohxb-rd-qyrle ssion#treatments http__s://www.nim .nih.gov/health/ topics/mental-hea lth-medications http__s://www.nam i.org/About-Menta [...] 150MG labs done by PCP and Endo bellal obtain continue therapy 2.Anxiety - see therapy [...] abuse, and addiction before prescribing stimulant medicines. Lcac Operator patients not to share their prescribed stimulant [...] warranted by the prescribed dosage. Random UDS [place] prescription reviewed local pharmacy in [facility], no early refills on control substance educated on non-stimulate and stimulates Cannabis/marijuan a information: http_s://tammy.nih .gov/publications /drugfacts/cannab is-marijuana http_s://www.5th Finger/meme sso-vup-zqrzpszz- marijuana-adhd/ http_s://www.jumana .org/About-Mental -Illness/Mental-H ealth-Conditions http_s://psychcen Nuikucom/depressi on/the-cognitive- whdnjqhg-fp-dtfxn ssion#treatments http__s://www.nim .nih.gov/health/ topics/mental-hea lth-medications http__s://www.nam i.org/About-Menta [...] abuse, and addiction before prescribing stimulant medicines. Lcac Operator patients not to share their prescribed stimulant [...] warranted by the prescribed dosage. Random UDS [place] prescription reviewed local pharmacy in [place], no early refills on control substance educated on non-stimulate and stimulates Cannabis/marijuan a information: http_s://tammy.nih .gov/publications /drugfacts/cannab is-marijuana http_s://www.5[employer] Finger/canna kgm-mxn-qovatabr- marijuana-adhd/ http_s://www.jumana .org/About-Mental -Illness/Mental-H ealth-Conditions http_s://psychcen [employer]/depressi on/the-cognitive- ziiowaco-qc-rhzul ssion#treatments http__s://www.nim .nih.gov/health/ topics/mental-hea lth-medications http__s://www.nam i.org/About-Menta [...] abuse, and addiction before prescribing stimulant medicines. Lcac Operator patients not to share their prescribed stimulant [...] warranted by the prescribed dosage. Random UDS [place] prescription reviewed local pharmacy [place], no early refills on control substance educated on non-stimulate and stimulates Cannabis/marijuan a information: http_s://tammy.nih .gov/publications /drugfacts/cannab is-marijuana http_s://www.5th Finger/canna dhj-mio-domjhqah- marijuana-adhd/ http_s://www.jumana .org/About-Mental -Illness/Mental-H ealth-Conditions http_s://psychcen Ampulse.com/depressi on/the-cognitive- zhgnqebo-et-vcnbo ssion#treatments http__s://www.[facility].nih.gov/health/ topics/mental-hea lth-medications http__s://www.nam i.org/About-Menta l-Illness/Treatme nts/Mental-Health [...] medication Options Caplyta 42 mg daily, Increase [place] 300 mg twice a day for increase depression [place] education Chest [place] use reviewed. Risks include risks of toxicity, [...] = I,500 mg/day, target serum level 0.8 [place] is known to reduce risk of suicide. [...] abuse, and addiction before prescribing stimulant medicines. Lcac Operator patients not to share their prescribed stimulant [...] warranted by the prescribed dosage. Random UDS [place] prescription reviewed local pharmacy in [facility], no early refills on control substance educated on non-stimulate and stimulates 5. RLS- ON REQUIP 4 MG bedtime- PCP prescribes patient will see PCP this month and discuss RLS LABS PCP Cannabis/marijuan a information: http_s://tammy.nih .gov/publications /drugfacts/cannab is-marijuana http_s://www.5[employer] Finger/canna xpb-rtn-slvxitck- marijuana-adhd/ http_s://www.jumana .org/About-Mental -Illness/Mental-H ealth-Conditions http_s://psychcen tral.com/depressi on/the-cognitive- rrogulgr-by-arjgb ssion#treatments http__s://www.nim h.nih.gov/health/ topics/mental-hea [facility]-medications http__s://www.nam i.org/About-Menta l-Illness/Treatme nts/Mental-Health -Medications educated [...] Response got Denied on 2024-05-09 16:53:33 for 'Chest [place] Carbonate 150 MG Capsule'Pharmac y Notes: Prescription not found. Contact Pharmacy by other means 05/09/2024 NIKKI (generalized anxiety disorder) (ICD-10 - F41.1) Learning About Generalized Anxiety Disorder material was published, Generalized Anxiety Disorder: Care Instructions material was published, Learning About Anxiety Disorders material was published 1. Bipolar II depression- will change dxn to depression and recently dxn Autism 05/03 [facility] patient would like to come off rx [...] rx discuss taper down rx patient stopped [place] labs done by PCP and Endo willl obtain continue therapy refer [facility] Autism evaluation 2.Anxiety - see therapy Vistaril [...] abuse, and addiction before prescribing stimulant medicines. Lcac Operator patients not to share their prescribed stimulant [...] warranted by the prescribed dosage. Random UDS [place] prescription reviewed local pharmacy in [place], no early refills on control substance educated on non-stimulate and stimulates 5. RLS- ON REQUIP 4 MG bedtime- PCP prescribes patient will see PCP this month and discuss RLS LABS PCP Cannabis/marijuan a information: http_s://tammy.nih .gov/publications /drugfacts/cannab is-marijuana http_s://www.5[employer] Finger/canna gze-wte-kfpehjal- marijuana-adhd/ http_s://www.jumana .org/About-Mental -Illness/Mental-H ealth-Conditions http_s://YouAppi/depressi on/the-cognitive- ftvylcev-xb-okgza ssion#treatments http__s://www.nim .nih.gov/health/ topics/mental-hea lth-medications http__s://www.nam i.org/About-Menta [...] to depression and recently dxn Autism 05/03 [facility] patient would like to come off rx [...] rx discuss taper down rx patient stopped [place] labs done by PCP and Trudy willl obtain continue therapy refer [facility] Autism evaluation 2.Anxiety - see therapy Vistaril [...] abuse, and addiction before prescribing stimulant medicines. Lcac Operator patients not to share their prescribed stimulant [...] warranted by the prescribed dosage. Random UDS [place] prescription reviewed local pharmacy in [facility], no early refills on control substance educated on non-stimulate and stimulates 5. RLS- ON REQUIP 4 MG bedtime- PCP prescribes patient will see PCP this month and discuss RLS LABS PCP Cannabis/marijuan a information: http_s://tammy.nih .gov/publications /drugfacts/cannab is-marijuana http_s://www.5th Finger/meme kdj-jme-vjtqncjv- marijuana-adhd/ http_s://www.jumana .org/About-Mental -Illness/Mental-H ealth-Conditions http_s://psychcen [employer]/depressi on/the-cognitive- bygtunbs-gs-claro ssion#treatments http__s://www.nim .nih.gov/health/ topics/mental-hea lth-medications http__s://www.nam i.org/About-Menta [...] PRN and not taking often continue therapy- [facility] - Aust[facility] 2.Anxiety - see therapy has [...] Cannabis/marijuan a information: http_s://tammy.nih .gov/publications /drugfacts/cannab is-marijuana http_s://www.5th Finger/canna iku-tdr-pvifgboi- marijuana-adhd/ http_s://www.jumana .org/About-Mental -Illness/Mental-H ealth-Conditions http_s://psychcecompareit4me/depressi on/the-cognitive- wjajmhyu-jt-kvijx ssion#treatments http__s://www.nim h.nih.gov/health/ topics/mental-hea lth-medications http__s://www.nam i.org/About-Menta [...] PRN and not taking often continue therapy- [facility] - Austism 2.Anxiety - see therapy has [...] Cannabis/marijuan a information: http_s://tammy.nih .gov/publications /drugfacts/cannab is-marijuana http_s://www.5[employer] Finger/meme xse-nkd-afsxacqn- marijuana-adhd/ http_s://www.jumana .org/About-Mental -Illness/Mental-H ealth-Conditions http_s://psychRolladn Nuikucom/depressi on/the-cognitive- xtpsbopb-jz-rinqa ssion#treatments http__s://www.[facility].nih.gov/health/ topics/mental-hea lt-medications http__s://www.nam i.org/About-Menta l-Illness/Treatme nts/Mental-Health [...] PRN and not taking often continue therapy- [facility] - Austism 2.Anxiety - see therapy has [...] Cannabis/marijuan a information: http_s://tammy.nih .gov/publications /drugfacts/cannab is-marijuana http_s://www.5[employer] Finger/canna xlw-lgr-aglxynei- marijuana-adhd/ http_s://www.jumana .org/About-Mental -Illness/Mental-H ealth-Conditions http_s://psychcen tralGeneriCo/depressi on/the-cognitive- pyzxxhmw-yq-omdfb ssion#treatments http__s://www.nim h.nih.gov/health/ topics/mental-hea lth-medications http__s://www.nam i.org/About-Menta [...] to depression and recently dxn Autism 05/03 [facility] patient would like to come off rx [...] rx discuss taper down rx patient stopped [place] labs done by PCP and Endo willl obtain continue therapy refer [facility] Autism evaluation 2.Anxiety - see therapy Vistaril [...] abuse, and addiction before prescribing stimulant medicines. Lcac Operator patients not to share their prescribed stimulant [...] than warranted by the prescribed dosage. Random [facility] prescription reviewed local pharmacy in [facility], no early refills on control substance educated on non-stimulate and stimulates 5. RLS- ON REQUIP 4 MG bedtime- PCP prescribes patient will see PCP this month and discuss RLS LABS PCP Cannabis/marijuan a information: http_s://tammy.nih .gov/publications /drugfacts/cannab is-marijuana http_s://www.5[employer] Finger/canna mxu-ebn-srgptzcy- marijuana-adhd/ http_s://www.jumana .org/About-Mental -Illness/Mental-H ealth-Conditions http_s://psychcen tral.com/depressi on/the-cognitive- wsclzcns-tq-mpule ssion#treatments http__s://www.nim h.nih.gov/health/ topics/mental-hea [facility]-medications http__s://www.nam i.org/About-Menta l-Illness/Treatme nts/Mental-Health -Medications educated [...] medication Options Caplyta 42 mg daily, Increase [place] 300 mg twice a day for increase depression [place] education Chest [place] use reviewed. Risks include risks of toxicity, [...] = I,500 mg/day, target serum level 0.8 [place] is known to reduce risk of suicide. [...] abuse, and addiction before prescribing stimulant medicines. Lcac Operator patients not to share their prescribed stimulant [...] warranted by the prescribed dosage. Random UDS [place] prescription reviewed local pharmacy in [facility], no early refills on control substance educated on non-stimulate and stimulates 5. RLS- ON REQUIP 4 MG bedtime- PCP prescribes patient will see PCP this month and discuss RLS LABS PCP Cannabis/marijuan a information: http_s://tammy.nih .gov/publications /drugfacts/cannab is-marijuana http_s://www.5[employer] Finger/meme brm-jkb-bpunrnsw- marijuana-adhd/ http_s://www.jumana .org/About-Mental -Illness/Mental-H ealth-Conditions http_s://psychcen Nuikucom/depressi on/the-cognitive- mfabjpav-kh-ozsjy ssion#treatments http__s://www.nim .nih.gov/health/ topics/mental-hea lth-medications http__s://www.nam i.org/About-Menta [...] abuse, and addiction before prescribing stimulant medicines. Lcac Operator patients not to share their prescribed stimulant [...] warranted by the prescribed dosage. Random UDS [place] prescription reviewed local pharmacy in [facility], no early refills on control substance educated on non-stimulate and stimulates Cannabis/marijuan a information: http_s://tammy.nih .gov/publications /drugfacts/cannab is-marijuana http_s://www.5[employer] Finger/canna mva-doc-wshpqsov- marijuana-adhd/ http_s://www.jumana .org/About-Mental -Illness/Mental-H ealth-Conditions http_s://psychBlackArrow/depressi on/the-cognitive- shedsctg-li-aoaef ssion#treatments http__s://www.[facility].nih.gov/health/ topics/mental-hea lth-medications http__s://www.nam i.org/About-Menta l-Illness/Treatme nts/Mental-Health [...] abuse, and addiction before prescribing stimulant medicines. Lcac Operator patients not to share their prescribed stimulant [...] warranted by the prescribed dosage. Random UDS [place] prescription reviewed local pharmacy in [facility], no early refills on control substance educated on non-stimulate and stimulates Cannabis/marijuan a information: http_s://tammy.nih .gov/publications /drugfacts/cannab is-marijuana http_s://www.5th Finger/canna jqe-kjs-sjgzicjj- marijuana-adhd/ http_s://www.jumana .org/About-Mental -Illness/Mental-H ealth-Conditions http_s://psychcen Tolerxl.com/depressi on/the-cognitive- xrrrdxua-ge-qgkye ssion#treatments http__s://www.[facility].nih.gov/health/ topics/mental-hea lth-medications http__s://www.nam i.org/About-Menta l-Illness/Treatme nts/Mental-Health [...] abuse, and addiction before prescribing stimulant medicines. Lcac Operator patients not to share their prescribed stimulant [...] warranted by the prescribed dosage. Random S [place] prescription reviewed local pharmacy in [facility], no early refills on control substance educated on non-stimulate and stimulates Cannabis/marijuan a information: http_s://tammy.nih .gov/publications /drugfacts/cannab is-marijuana http_s://www.5[employer] Finger/canna xwc-cvw-dhvzgjvs- marijuana-adhd/ http_s://www.jumana .org/About-Mental -Illness/Mental-H ealth-Conditions http_s://psychcen tral.com/depressi on/the-cognitive- uggjuwal-ey-fsmon ssion#treatments http__s://www.[facility].nih.gov/health/ topics/mental-hea [facility]-medications http__s://www.nam i.org/About-Menta l-Illness/Treatme nts/Mental-Health -Medications educated [...] abuse, and addiction before prescribing stimulant medicines. Lcac Operator patients not to share their prescribed stimulant [...] warranted by the prescribed dosage. Random S [place] prescription reviewed local pharmacy in [facility], no early refills on control substance educated on non-stimulate and stimulates Cannabis/marijuan a information: http_s://tammy.nih .gov/publications /drugfacts/cannab is-marijuana http_s://www.5th Finger/canna yhc-rdi-bfpiwbdl- marijuana-adhd/ http_s://www.jumana .org/About-Mental -Illness/Mental-H ealth-Conditions http_s://psychcen tral.com/depressi on/the-cognitive- wzhlnoks-ln-narqq ssion#treatments http__s://www.[facility].nih.gov/health/ topics/mental-hea lth-medications http__s://www.[facility].org/About-Menta l-Illness/Treatme nts/Mental-Health -Medications educated on all medications, [...] FOR 150MG labs done by PCP and Trudy blancol obtain continue therapy 2.Anxiety - see therapy [...] abuse, and addiction before prescribing stimulant medicines. Lcac Operator patients not to share their prescribed stimulant [...] than warranted by the prescribed dosage. Random [facility] prescription reviewed local pharmacy in [facility], no early refills on control substance educated on non-stimulate and stimulates Cannabis/marijuan a information: http_s://tammy.nih .gov/publications /drugfacts/cannab is-marijuana http_s://www.5[employer] Finger/canna pmx-lfq-iayhgulq- marijuana-adhd/ http_s://www.jumana .org/About-Mental -Illness/Mental-H ealth-Conditions http_s://psychcen tral.com/depressi on/the-cognitive- dezgyknh-rs-dqmvu ssion#treatments http__s://www.nim h.nih.gov/health/ topics/mental-hea lth-medications http__s://www.nam i.org/About-Menta [...] abuse, and addiction before prescribing stimulant medicines. Lcac Operator patients not to share their prescribed stimulant [...] warranted by the prescribed dosage. Random UDS [place] prescription reviewed local pharmacy in [facility], no early refills on control substance educated on non-stimulate and stimulates Cannabis/marijuan a information: http_s://tammy.nih .gov/publications /drugfacts/cannab is-marijuana http_s://www.5[employer] Finger/canna hsk-jqm-ixonsrfw- marijuana-adhd/ http_s://www.jumana .org/About-Mental -Illness/Mental-H ealth-Conditions http_s://psychcen Tolerxl.com/depressi on/the-cognitive- mqfsvlbs-lp-bwloc ssion#treatments http__s://www.nim h.nih.gov/health/ topics/mental-hea lth-medications http__s://www.nam i.org/About-Menta [...] medication Options Caplyta 42 mg daily, Increase [place] 300 mg twice a day for increase depression [place] education [place] use reviewed. Risks include risks of toxicity, [...] = I,500 mg/day, target serum level 0.8 [place] is known to reduce risk of suicide. [...] and importance sleep 4. ADHD review reviewed JCAOBY-AE2 TEST Self rating scales- significant number hyperactive/impul [...] abuse, and addiction before prescribing stimulant medicines. Lcac Operator patients not to share their prescribed stimulant [...] warranted by the prescribed dosage. Random UDS [place] prescription [place] local pharmacy [place], no early refills on control substance educated on non-stimulate and stimulates 5. RLS- ON REQUIP 4 MG bedtime- PCP prescribes patient will see PCP this month and discuss RLS LABS PCP Cannabis/marijuan a information: http_s://tammy.nih .gov/publications /drugfacts/cannab is-marijuana http_s://www.5[employer]inger/canna bth-nvh-opocmcyn- marijuana-adhd/ http_s://www.jumana .org/About-Mental -Illness/Mental-H ealth-Conditions http_s://psychBlackArrow/depressi on/the-cognitive- domkjelw-jo-ejlka ssion#treatments http__s://www.nim .nih.gov/health/ topics/mental-hea lth-medications http__s://www.nam i.org/About-Menta [...] to depression and recently dxn Autism 05/03 [facility] patient would like to come off rx [...] rx discuss taper down rx patient stopped [place] labs done by PCP and Endo willl obtain continue therapy refer [facility] Autism evaluation 2.Anxiety - see therapy Vistaril [...] abuse, and addiction before prescribing stimulant medicines. Lcac Operator patients not to share their prescribed stimulant [...] than warranted by the prescribed dosage. Random [facility] prescription reviewed local pharmacy in [facility], no early refills on control substance educated on non-stimulate and stimulates 5. RLS- ON REQUIP 4 MG bedtime- PCP prescribes patient will see PCP this month and discuss RLS LABS PCP Cannabis/marijuan a information: http_s://tammy.nih .gov/publications /drugfacts/cannab is-marijuana http_s://www.5th Finger/canna bzq-nct-lpciaphn- marijuana-adhd/ http_s://www.jumana .org/About-Mental -Illness/Mental-H ealth-Conditions http_s://psychcen Tolerxl.com/depressi on/the-cognitive- ifqufibr-mj-dkyns ssion#treatments http__s://www.nim h.nih.gov/health/ topics/mental-hea lth-medications http__s://www.nam i.org/About-Menta [...] PRN and not taking often continue therapy- Cranberry - Austism 2.Anxiety - see therapy has [...] Cannabis/marijuan a information: http_s://tammy.nih .gov/publications /drugfacts/cannab is-marijuana http_s://www.5th Finger/cannardha ofs-pgw-htfmhwpt- marijuana-adhd/ http_s://www.jumana .org/About-Mental -Illness/Mental-H ealth-Conditions http_s://psychcen tral.com/depressi on/the-cognitive- iikrzumk-im-qznwt ssion#treatments http__s://www.nim .nih.gov/health/ topics/mental-hea [facility]-medications http__s://www.nam i.org/About-Menta l-Illness/Treatme nts/Mental-Health -Medications educated [...] to depression and recently dxn Autism 05/03 [facility] patient would like to come off rx [...] rx discuss taper down rx patient stopped [place] labs done by PCP and Endo willl obtain continue therapy refer [facility] Autism evaluation 2.Anxiety - see therapy Vistaril [...] abuse, and addiction before prescribing stimulant medicines. Lcac Operator patients not to share their prescribed stimulant [...] warranted by the prescribed dosage. Random [facility] [place] prescription reviewed local pharmacy in [place], no early refills on control substance educated on non-stimulate and stimulates 5. RLS- ON REQUIP 4 MG bedtime- PCP prescribes patient will see PCP this month and discuss RLS LABS PCP Cannabis/marijuan a information: http_s://tammy.nih .gov/publications /drugfacts/cannab is-marijuana http_s://www.5[employer] Finger/canna juh-xtf-cgfharne- marijuana-adhd/ http_s://www.jumana .org/About-Mental -Illness/Mental-H ealth-Conditions http_s://YouAppi/depressi on/the-cognitive- jckqtxhv-xj-kzwtq ssion#treatments http__s://www.nim .nih.gov/health/ topics/mental-hea lth-medications http__s://www.nam i.org/About-Menta [...] PRN and not taking often continue therapy- Cranberry - Austism 2.Anxiety - see therapy has [...] Cannabis/marijuan a information: http_s://tammy.nih .gov/publications /drugfacts/cannab is-marijuana http_s://www.5th Finger/The Clearingradha uzr-svn-edrwzrmm- marijuana-adhd/ http_s://www.jumana .org/About-Mental -Illness/Mental-H ealth-Conditions http_s://psychcecompareit4me/depressi on/the-cognitive- vvbrygiz-gt-acdos ssion#treatments http__s://www.nim .nih.gov/health/ topics/mental-hea lth-medications http__s://www.nam i.org/About-Menta [...] abuse, and addiction before prescribing stimulant medicines. Lcac Operator patients not to share their prescribed stimulant [...] warranted by the prescribed dosage. Random [facility] [place] prescription reviewed local pharmacy in [facility], no early refills on control substance educated on non-stimulate and stimulates Cannabis/marijuan a information: http_s://tammy.nih .gov/publications /drugfacts/cannab is-marijuana http_s://www.5[employer] Finger/canna bal-jfr-adaaicfm- marijuana-adhd/ http_s://www.jumana .org/About-Mental -Illness/Mental-H ealth-Conditions http_s://YouAppi/depressi on/the-cognitive- ztubqrhh-fk-weyvp ssion#treatments http__s://www.nim .nih.gov/health/ topics/mental-hea lth-medications http__s://www.nam i.org/About-Menta [...] medication Options Caplyta 42 mg daily, Increase [place] 300 mg twice a day for increase depression [facility] [place] education [facility] [place] use reviewed. Risks include risks of toxicity, [...] = I,500 mg/day, target serum level 0.8 [place] is known to reduce risk of suicide. [...] abuse, and addiction before prescribing stimulant medicines. Lcac Operator patients not to share their prescribed stimulant [...] warranted by the prescribed dosage. Random [facility] [place] prescription reviewed local pharmacy in [facility], no early refills on control substance educated on non-stimulate and stimulates 5. RLS- ON REQUIP 4 MG bedtime- PCP prescribes patient will see PCP this month and discuss RLS LABS PCP Cannabis/marijuan a information: http_s://tammy.nih .gov/publications /drugfacts/cannab is-marijuana http_s://www.5th Finger/canna fqp-vxt-pokvyutk- marijuana-adhd/ http_s://www.jumana .org/About-Mental -Illness/Mental-H ealth-Conditions http_s://psychBlackArrow/depressi on/the-cognitive- xllvtoci-ko-tzsqb ssion#treatments http__s://www.[facility].nih.gov/health/ topics/mental-hea lt-medications http__s://www.nam i.org/About-Menta l-Illness/Treatme nts/Mental-Health [...] abuse, and addiction before prescribing stimulant medicines. Lcac Operator patients not to share their prescribed stimulant [...] warranted by the prescribed dosage. Random [facility] [place] prescription reviewed local pharmacy in [place], no early refills on control substance educated on non-stimulate and stimulates Cannabis/marijuan a information: http_s://tammy.nih .gov/publications /drugfacts/cannab is-marijuana http_s://www.5th Finger/canna utt-mkn-xxevzkvj- marijuana-adhd/ http_s://www.jumana .org/About-Mental -Illness/Mental-H ealth-Conditions http_s://psychBlackArrow/depressi on/the-cognitive- yzwntsfz-aa-nhwbw ssion#treatments http__s://www.nim .nih.gov/health/ topics/mental-hea lth-medications http__s://www.nam i.org/About-Menta [...] PRN and not taking often continue therapy- Cranberry - Austism 2.Anxiety - see therapy has [...] Cannabis/marijuan a information: http_s://tammy.nih .gov/publications /drugfacts/cannab is-marijuana http_s://www.5th Finger/cannradha ygf-mub-dodjbuxq- marijuana-adhd/ http_s://www.jumana .org/About-Mental -Illness/Mental-H ealth-Conditions http_s://psychcen tral.com/depressi on/the-cognitive- jjfiaztb-tv-qhovj ssion#treatments http__s://www.nim .nih.gov/health/ topics/mental-hea [facility]-medications http__s://www.nam i.org/About-Menta l-Illness/Treatme nts/Mental-Health -Medications educated [...] PRN and not taking often continue therapy- Cranberry - Austism 2.Anxiety - see therapy has [...] Cannabis/marijuan a information: http_s://tammy.nih .gov/publications /drugfacts/cannab is-marijuana http_s://www.5th Finger/canna ycr-klc-pusxkiqf- marijuana-adhd/ http_s://www.jumana .org/About-Mental -Illness/Mental-H ealth-Conditions http_s://psychcen tral.com/depressi on/the-cognitive- nvlnglmz-jg-lyzuk ssion#treatments http__s://www.nim h.nih.gov/health/ topics/mental-hea lth-medications http__s://www.nam i.org/About-Menta [...] abuse, and addiction before prescribing stimulant medicines. Lcac Operator patients not to share their prescribed stimulant [...] warranted by the prescribed dosage. Random [facility] [place] prescription reviewed local pharmacy in [place], no early refills on control substance educated on non-stimulate and stimulates Cannabis/marijuan a information: http_s://tammy.nih .gov/publications /drugfacts/cannab is-marijuana http_s://www.5th Finger/canna gql-ffi-rcdyvybi- marijuana-adhd/ http_s://www.jumana .org/About-Mental -Illness/Mental-H ealth-Conditions http_s://psychBlackArrow/depressi on/the-cognitive- rqpzhvej-uh-pdowq ssion#treatments http__s://www.nim .nih.gov/health/ topics/mental-hea lth-medications http__s://www.nam i.org/About-Menta [...] medications. 04/12/2024 Other Lumateperone material was published, [place] material was published, Hydroxyzine material was published, Ramelteon material was published 1. Bipolar II depression - having depression discuss and education on medication Options Caplyta 42 mg daily, Increase [place] 300 mg twice a day for increase depression [place] education [place] use reviewed. Risks include risks of toxicity, [...] = I,500 mg/day, target serum level 0.8 [place] is known to reduce risk of suicide. [...] abuse, and addiction before prescribing stimulant medicines. Lcac Operator patients not to share their prescribed stimulant [...] warranted by the prescribed dosage. Random [facility] [place] prescription reviewed local pharmacy in [facility], no early refills on control substance educated on non-stimulate and stimulates 5. RLS- ON REQUIP 4 MG bedtime- PCP prescribes patient will see PCP this month and discuss RLS LABS PCP Cannabis/marijuan a information: http_s://tammy.nih .gov/publications /drugfacts/cannab is-marijuana http_s://www.5th Finger/canna bic-fgz-smmputlm- marijuana-adhd/ http_s://www.jumana .org/About-Mental -Illness/Mental-H ealth-Conditions http_s://psychcen TolerxlZinchcom/depressi on/the-cognitive- jtnkdgaq-ag-etbmn ssion#treatments http__s://www.[facility].nih.gov/health/ topics/mental-hea lth-medications http__s://www.nam i.org/About-Menta l-Illness/Treatme nts/Mental-Health [...] to depression and recently dxn Autism 05/03 [facility] patient would like to come off rx [...] rx discuss taper down rx patient stopped [place] labs done by PCP and Endo willl obtain continue therapy refer [facility] Autism evaluation 2.Anxiety - see therapy Vistaril [...] abuse, and addiction before prescribing stimulant medicines. Lcac Operator patients not to share their prescribed stimulant [...] warranted by the prescribed dosage. Random [facility] [place] prescription reviewed local pharmacy in [place], no early refills on control substance educated on non-stimulate and stimulates 5. RLS- ON REQUIP 4 MG bedtime- PCP prescribes patient will see PCP this month and discuss RLS LABS PCP Cannabis/marijuan a information: http_s://tammy.nih .gov/publications /drugfacts/cannab is-marijuana http_s://www.5th Finger/canna lsc-zyp-maeypgje- marijuana-adhd/ http_s://www.jumana .org/About-Mental -Illness/Mental-H ealth-Conditions http_s://YouAppi/depressi on/the-cognitive- opsbcgkx-hm-doyzg ssion#treatments http__s://www.nim .nih.gov/health/ topics/mental-hea lth-medications http__s://www.nam i.org/About-Menta [...] PRN and not taking often continue therapy- Cranberry - Austism 2.Anxiety - see therapy has [...] Cannabis/marijuan a information: http_s://tammy.nih .gov/publications /drugfacts/cannab is-marijuana http_s://www.5th Finger/canna fta-krw-fjocqqqo- marijuana-adhd/ http_s://www.jumana .org/About-Mental -Illness/Mental-H ealth-Conditions http_s://psychBlackArrow/depressi on/the-cognitive- yzfrxcdz-dx-kwvod ssion#treatments http__s://www.nim h.nih.gov/health/ topics/mental-hea lth-medications http__s://www.nam i.org/About-Menta [...] Insured Coverage Start Date Coverage End Date [facility] [address] [place] [address] [id number] Kallie Pritchett Self - patient is the [...]
--- OUTSIDE RECORDS SUMMARY | 2024-08-18 08:06 | XMS_ITS | Clinical Summary ---
Author Organization 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 IDPA [facility] CHOICE PLUS Care Teams Rug Designer Relationship Specialty Start Date End Date Tomasz Mcelroy MD [address] [place] [id number] PCP - General Neurology 03/03/23 Tomasa Henley MD [address] [place] [id number] Family Medicine 03/03/23
== END 2024-08-18 08:00 | disposition home or self-care (01) ==
PROVIDERS: PCP Nurse Practitioner Family; Visit Provider Nurse Practitioner Family
DX: R11.2 Nausea with vomiting, unspecified (principal)
CPT/HCPCS: 78264; A9541